=== PATIENT | male | born 1935 | race Caucasian/White ===

== ENCOUNTER 2016-05-11 13:35 | Inpatient (IN) | payer MEDICARE, BC ==
[~2016-05-11] VITALS: Ht 175.3 cm; Wt 80.6 kg
[2016-05-11] MEDS: HEPARIN SOD (PORCINE) 5000 UNITS/ML VIAL SC SCH (00:34)
[~2016-05-11 13:35] MED LIST: /METO25TAB PO; /WARF3TA PO; ACET-654 PO; ACET50TAOT PO; ALLO100T PO; ALLO10TA PO; AMIO20TA PO; AMIO400T PO; AMLO10TA2 PO; AMLO5TAB2 PO; ASPI81TA60 PO; ATOR40TA PO; B-12500T2 PO; CAPT62TA PO; CARV12.5 PO; CARV3.12 PO; CARV6.25 PO; CEFT500T PO; CENT1TAB PO; COLA50CA3 PO; ECOT81TA2 PO; ELIQ5TAB PO; FINA5TAB2 PO; FLOM5CAP PO; FLUO1CRE2 TOP; GLIP10TA6 PO; GLIP2.5T2 PO; GLUC5TAB3 PO; ISOS20TA2 PO; ISOS20TAB PO; LASI40TA PO; LEVO25TA5 PO; LEVO50TA45 PO; LIPI20TA PO; LISI5TAB PO; MAGN64TASA PO; MECL25CH PO; METO-207 PO; NITR4TASL SL; PERI4TAB PO; PROS5TAB PO; PROSCAR PO; PYRI100T2 PO; SIMV20TA2 PO; SIMV40TA2 PO; SITA50TAB PO; SPIR25TA2 PO; TAMS0.4C PO; TOPR25TA PO; TRAD5TAB PO; VIBR100C PO; VITA100072 PO; VITA250L PO; VITA500019 PO; ZITH250T PO; ZYLO100T PO
[2016-05-11 14:19] LABS: BASO % 0.7 % (0.0-1.0); EOS # 0.3 K/mm3 (0.0-0.50); EOS % 3.3 % (0.0-3.0); LARGE UNSTAINED CELL # 0.2 K/mm3 (0.0-0.4); LARGE UNSTAINED CELL % 1.9 % (0.0-4.0); LYMPH # 1.6 K/mm3 (1.5-4.5); LYMPH % 19.7 % (24.0-44.0); MEAN CORPUSCULAR HGB CONC 34.4 g/dl (32.0-36.5); MEAN CORPUSCULAR VOLUME 101.8 fl (80.0-96.0); MONO # 0.4 K/mm3 (0.0-0.8); MONO % 5.1 % (0.0-5.0); NEUTROPHILS # 5.5 K/mm3 (1.8-7.7); NEUTROPHILS % 69.2 % (36.0-66.0); PLATELET COUNT, AUTOMATED 165 k/mm3 (150-450); RED CELL DISTRIBUTION WIDTH 13.1 % (11.5-14.5); WHITE BLOOD COUNT 7.9 K/mm3 (4.0-10.0)
[2016-05-11 14:49] LABS: ALBUMIN 3.3 GM/DL (3.2-5.2); ALBUMIN/GLOBULIN RATIO 0.89 (1.00-1.93); BILIRUBIN,DIRECT 0.1 MG/DL (0.0-0.2); BILIRUBIN,TOTAL 0.5 MG/DL (0.2-1.0); CALCIUM LEVEL 8.8 MG/DL (8.8-10.2); CREATININE FOR GFR 2.06 MG/DL (0.70-1.30); GLOMERULAR FILTRATION RATE 33.3 (>42)
[2016-05-11 14:57] LABS: POTASSIUM SERUM 5.2 MEQ/L (3.5-5.1)
[2016-05-11] MEDS ORDERED: GASTROGRAFIN SOLUTION 30ML (Q9963) As Ordered ONE (15:35)
[2016-05-11 17:05] LABS: YEAST LIKE CELL URINE AUTO SMALL
--- NOTE | 2016-05-11 18:50 | REPUSA ---
CLINICAL HISTORY: Abdominal pain. TECHNIQUE: Multiple axial, sagittal and coronal CT images were obtained through the abdomen and pelvi s without administration of oral or IV contrast material. COMMENTS: The liver is of uniform attenuation without mass or defect. There is no intra or extrahepatic biliary ductal dilatation. The spleen is normal. The gallbladder is within normal limits. The pancreas is of normal contour and attenuation characteristics. There is no evidence of adrenal mass. The kidneys are normal in size, shape and configuration. No renal or ureteral calculi are identified. There is no hydroureter or hydronephrosis. There is no evidence for appendicitis. There is no bowel wall thickening. No evidence for small or la rge bowel obstruction. Sigmoid diverticulosis is noted. There is no evidence of abdominal ascites o r lymphadenopathy. There is no evidence of intrinsic or extrinsic bladder mass. There is no pelvic ascites or lymphadeno cara. Prostate is moderately enlarged. Images of the lung bases show no evidence of pleural or parenchymal mass. There are no pleural effusi ons. The bony structures are free of lytic or blastic lesions. IMPRESSION: No acute abdominal or pelvic pathology. Thank you for your kind referral of this patient.
[2016-05-11] MEDS ORDERED: DRIS50002 PO (20:05)
[2016-05-11] MEDS ORDERED: LANTINJ4 SC (20:05)
[2016-05-11] MEDS ORDERED: TUMS1000 PO (20:05)
[2016-05-11] MEDS ORDERED: AMLO2.5T PO (20:06)
[2016-05-11] MEDS ORDERED: KEFL500C7 PO (20:06)
[2016-05-11] MEDS ORDERED: CARV6.25 PO (20:06)
[2016-05-11] MEDS ORDERED: VANCOMYCIN HCL 750 MG, VIAL MATE ADAPTER 1 EACH in D5W 250 ML IV SCH (20:30)
[2016-05-11] MEDS ORDERED: hydrALAZINE INJ 20 MG/ML VIAL IV PRN (20:30)
--- NOTE | 2016-05-11 20:50 | REPUSA ---
CLINICAL HISTORY: Neck pain. TECHNIQUE: Multiple axial images were obtained through the cervical spine. Images were also reconstru cted in coronal and sagittal planes. The study was performed without IV contrast. COMMENTS: There is no fracture or spondylolisthesis visualized. The paraspinal soft tissues are unremarkable. T here are no lytic or blastic lesions. Straightening of cervical lordosis is seen, suggesting muscular spasm. There is evidence of moderate to severe multilevel disk disease, demonstrated by disc space height loss, osteophytosis and endplate sclerosis. IMPRESSION: 1. No fracture or spondylolisthesis. 2. Straightening of cervical lordosis is seen, suggesting muscular spasm. 3. Multilevel spondylosis. Thank you for your kind referral of this patient.
[2016-05-11] MEDS ORDERED: ONDANSETRON 4MG/2ML VIAL (J2405) IV PRN (21:00)
[2016-05-11] MEDS ORDERED: ATORVASTATIN 20 MG TAB PO SCH (21:00)
[2016-05-11] MEDS: HumaLOG INSULIN (NovoLOG) PER UNIT SC SCH (21:00)
[2016-05-11] MEDS ORDERED: NS 0.45% 1,000 ML IV SCH (21:00)
[2016-05-11] MEDS ORDERED: DEXTROSE 50% 50 ML SYRINGE IV PRN (21:00)
[2016-05-11] MEDS ORDERED: GLUCOSE 4 GM CHEW TABLET PO PRN (21:00)
[2016-05-11] MEDS ORDERED: GLUCAGON FOR INJ 1 MG VIAL (J1610) SC PRN (21:00)
[2016-05-11] MEDS ORDERED: cefTRIAXone SOD 2 GM in D5W MINI-BAG PLUS 50 ML IV SCH (22:00)
[2016-05-11 22:56] LABS: ABG BASE EXCESS -1.9 (-2.0-2.0); ABG HCO3 21.7 MEQ/L (22.0-26.0); ABG PARTIAL PRESSURE CO2 33.4 mmHg (35.0-45.0); ABG PARTIAL PRESSURE O2 84.8 mmHg (75.0-100.0); ABG STANDARD HCO3 22.9 MEQ/L (22.0-26.0); ABG TOTAL CO2 22.7 MEQ/L (23.0-31.0)
--- NOTE | 2016-05-11 22:56 | EDDOCDS ---
Physician Documentation [facility] Name: Rickey Ibanez Age: 81 yrs Sex: Male : 1935 Arrival Date: 05/11/2016 Time: 13:35 Bed 12 Private MD: Sterling Torres E. Disposition: 05/11/16 19:14 Hospitalization ordered by Palak Brown for Inpatient Admission. Preliminary diagnosis are Altered mental status, unspecified, Essential (primary) hypertension - Hypertensive Urgency. - Bed requested for PCU. - Status is Inpatient Admission. jp6 - Condition is Stable. - Problem is new. - Symptoms are unchanged. Historical: - Allergies: no known allergies; - Home Meds: 1. aspirin 81 mg oral TbEC 1 tab once daily 2. Eliquis 5 mg oral tab 1 tab 2 times per day 3. Nitrostat 0.4 mg SL subl 1 tab every 5 minutes as needed 4. levothyroxine 25 mcg Oral cap 1 cap once daily 5. amiodarone 200 mg Oral tab 1 tab once daily 6. finasteride 5 mg oral tab 1 tab once daily 7. glipizide 10 mg Oral tab 1 tab 2 times per day 8. Tradjenta 5 mg oral tab 1 tab once daily 9. atorvastatin 40 mg oral tab 1 tab nightly 10. Drisdol 50,000 unit Oral cap 1 cap once wkly 11. tamsulosin 0.4 mg oral cp24 1 cap once daily 12. Tums Ultra 400 mg (1,000 mg) oral chew twice a day 13. Vitamin B-12 1,000 mcg Oral TbER daily 14. allopurinol 100 mg Oral tab 1 tab once daily 15. Lasix 40 mg Oral tab 1 tab once daily if weight is >169 pounds 16. spironolactone 25 mg Oral tab 0.5 tab once daily 17. Mag 64 64 mg oral TbER 2 tab daily 18. carvedilol 6.25 mg oral tab 1 tab 2 times per day 19. amlodipine 2.5 mg oral tab 1 tab once daily 20. captopril 12.5 mg Oral tab 0.5 tab daily 21. Keflex 500 mg Oral cap 1 cap twice a day - PMHx: Atrial Fib; CHF; Diabetes - NIDDM: controlled; MA; PE; Pneumonia; DVT; Hypertension; Implanted AICD; CAD; hyperlipidemia; BPH; Chronic Renal Insufficiency; CVA; Carotid Stenosis; - PSHx: Carotid surgery (2014); Cataract Surgery- Bilateral; - Social history: Smoking status: Patient states former smoker of tobacco. No barriers to communication noted, The patient speaks fluent [place], Speaks appropriately for age. - Family history: Not pertinent. - : The pt / caregiver states he / she is on anticoagulants[facility] members. - Exposure Risk Screening:: None identified. Vital Signs: 05/11 13:37 BP 163 / 79; Pulse 56; Resp 18; Temp 97.7(O); Pulse Ox 100% on R/A; Weight 82.1 kg / dd6 181 lbs (R); 13:55 BP 182 / 78 (auto/); pml 13:56 Pulse 54 MON; Pulse Ox 100% ; pml 14:10 Pulse 52 MON; Pulse Ox 99% ; pml 14:10 BP 184 / 84 (auto/); pml 14:25 Pulse 54 MON; pml 14:25 BP 160 / 74 (auto/); pml 14:40 BP 151 / 72 (auto/); pml 14:41 Pulse 50 MON; Pulse Ox 100% ; pml 14:55 Pulse 52 MON; pml 14:55 BP 163 / 125 (auto/); pml 15:10 Pulse 54 MON; Pulse Ox 100% ; pml 15:10 BP 205 / 86 (auto/); pml 15:40 Pulse 60 MON; Pulse Ox 99% ; pml 15:40 BP 196 / 83 (auto/); pml 15:45 BP 184 / 92 LA (man/reg); pml 15:55 Pulse 44 MON; Pulse Ox 100% ; pml 15:55 BP 192 / 79 (auto/); pml 16:08 Pulse 56 MON; Pulse Ox 98% ; pml 16:10 BP 184 / 126 (auto/); pml 16:25 Pulse 48 MON; Pulse Ox 99% ; pml 16:25 BP 168 / 72 (auto/); pml 16:40 Pulse 48 MON; Pulse Ox 99% ; pml 16:40 BP 169 / 76 (auto/); pml 16:55 Pulse 50 MON; Pulse Ox 99% ; pml 16:55 BP 179 / 82 (auto/); pml 17:10 BP 181 / 83 (auto/); pml 17:13 Pulse 52 MON; Pulse Ox 98% ; pml 17:40 Pulse 52 MON; pml 17:40 BP 198 / 91 (auto/); pml 18:15 BP 145 / 84 (auto/); pml 19:15 BP 157 / 70 (auto/); jp6 19:15 Pulse 44 MON; jp6 19:15 Resp 18; Temp 98(O); Pulse Ox 98% on R/A; Pain 0/10; jp6 19:16 Pulse 50 MON; jp6 19:30 BP 162 / 68 (auto/); jp6 19:31 Pulse 50 MON; jp6 20:00 BP 151 / 63 (auto/); jp6 20:15 BP 189 / 79 (auto/); jp6 20:19 Pulse 44 MON; Pulse Ox 98% ; jp6 21:34 BP 183 / 80 (auto/); jp6 21:40 Pulse 50 MON; Pulse Ox 98% ; jp6 21:40 Resp 16; Temp 98.6; Pulse Ox 98% on R/A; Pain 0/10; jp6 MDM: 14:11 Fur Coat Sewer/Pulse Ox/q 15 min VS ordered. br1 14:11 Accucheck ordered. br1 14:11 IV Saline Lock ordered. br1 14:11 Rhythm Strip to chart ordered. br1 14:12 CT Head Without Contrast Ordered. EDMS 14:13 CBC with Diff Ordered. EDMS 14:13 Cardiac Injury Profile Ordered. EDMS 14:13 Liver Profile Ordered. EDMS 14:13 MED Profile Ordered. EDMS 14:13 Thyroid Stimulating Hormone Ordered. EDMS 14:13 Troponin Ordered. EDMS 14:13 Urinalysis Ordered. EDMS 14:13 Urine Culture Ordered. EDMS 14:13 Chest, 1 View Ordered. EDMS 14:13 ECG WITH READING ER PHYS+CARDIAG ordered. EDMS 14:16 LIPASE Ordered. EDMS 14:38 CBC with Diff Reviewed. br1 15:26 Cardiac Injury Profile Reviewed. br1 15:26 Liver Profile Reviewed. br1 15:26 MED Profile Reviewed. br1 15:26 Thyroid Stimulating Hormone Reviewed. br1 15:26 Troponin Reviewed. br1 15:26 LIPASE Reviewed. br1 15:28 [facility] Payment Agreement was scanned into [employer] and attached to record. jp5 15:28 Financial registration complete. jp5 15:30 Recheck B/P ordered. br1 15:31 CT ABD & PELVIS: Oral Contrast Only Ordered. EDMS 16:17 Labetalol 10 mg IVP at bolus once over 2 mins ordered. br1 16:28 Labetalol 10 mg IVP at bolus once over 2 mins ordered. pml 17:09 Urinalysis Reviewed. br1 20:02 CT Spine,cervical w/o contrast Ordered. EDMS 20:03 Admission Orders was scanned into [employer] and attached to record. tmm1 20:06 ECG WITH READING ER PHYS ordered. EDMS 20:24 RENAL US Ordered. EDMS 20:25 OSMOLALITY,URINE Ordered. EDMS 20:26 SODIUM,RANDOM URINE Ordered. EDMS 20:26 CHLORIDE,RANDOM URINE Ordered. EDMS 20:26 POTASSIUM,RANDOM URINE Ordered. EDMS 20:26 TOTAL PROTEIN,RANDOM URINE Ordered. EDMS 20:26 CREATININE,RANDOM URINE Ordered. EDMS 20:26 AMMONIA Ordered. EDMS 20:26 ARTERIAL BLOOD GAS Ordered. EDMS 20:26 BLOOD CULTURES Ordered. EDMS 20:26 BLOOD CULTURES Ordered. EDMS 20:28 CARDIAC MARKER PANEL Ordered. EDMS 20:28 CARDIAC MARKER PANEL Ordered. EDMS 20:52 PHYSICAL THERAPY EVAL & TREAT ordered. EDMS 20:52 FLUORO GUID FOR NEEDLE PLACEMT Ordered. EDMS 20:52 ELECTROCARDIOGRAM ADULT ordered. EDMS 20:53 PROTHROMBIN TIME PROFILE\E\INR Ordered. EDMS 20:53 C REACTIVE PROTEIN QUANTITATIV Ordered. EDMS 20:53 COMPLETE BLOOD COUNT Ordered. EDMS 20:53 BASIC METABOLIC PROFILE Ordered. EDMS 20:53 MAGNESIUM LEVEL Ordered. EDMS 20:53 HEMOGLOBIN A1C Ordered. EDMS 20:55 CONSISTENT CARBOHYDRATES ordered. EDMS 20:57 Admission / Observation Status ordered. EDMS Point of Care Testing: Blood Glucose: 14:15 Blood Glucose: 218 mg/dL; pml Ranges: Administered Medications: 16:28 Drug: Labetalol 10 mg [labetalol 5 mg/mL intravenous solution (2 mL)] {Note: 208/85 .} pml Route: IVP; Rate: bolus; Infused Over: 2 mins; Site: right antecubital; Signatures: Dispatcher [employer] EDMS Wade Mallory RN RN po Barney, Michael B, RN RN mlb1 Robby Hand MD MD br1 Karey Kelley RN RN pml McLear, Roslyn, SLITTER AND REWINDER SLITTER AND REWINDER tmm1 Maddy Aguilar jp5 Bhavna Bartholomew,RN RN jp6 The chart was reviewed and I authenticate all verbal orders and agree with the evaluation and treatment provided.Corrections: (The following items were deleted from the chart) 14:15 13:44 PSHx: defibulator; mlb1 po 14:16 14:13 LIPASE+LAB ordered. EDMS EDMS Attachments: 15:28 [facility] Payment Agreement jp5 20:03 Admission Orders tmm1 MTDD
--- NOTE | 2016-05-11 22:56 | EDDOCDS ---
Nurse's Notes [facility] Name: Rickey Ibanez Age: 81 yrs Sex: Male : 1935 Arrival Date: 05/11/2016 Time: 13:35 Bed 12 Private MD: Sterling Torres E. Diagnosis: Altered mental status, unspecified;Essential (primary) hypertension-Hypertensive Urgency Presentation: 05/11 13:39 Presenting complaint: states: Confusion memory loss for the past four days seen at [facility] Torres's office on Friday and again yesterday started on an antibiotic for UTI and insulin. states "he's not getting any better". Adult Sepsis Screening: Patient has new or worsening altered mentation (1 point). Patient's respiratory rate is less than 22. Systolic blood pressure is greater than 100. Patient has a qSOFA score of 0- Negative Sepsis Screen. 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 Suicide/Homicide risk assessment- the patient denies having any suicidal and/or homicidal ideations. Transition of care: patient was not received from another setting of care. 13:39 Acuity: SUZY Level 3 b1 13:39 Method Of Arrival: Walkin/Carried/Asstd mlb1 Triage Assessment: 13:44 General: Appears in no apparent distress, Behavior is appropriate for age, cooperative. mlb1 Pain: Denies pain. Neurological: Level of Consciousness is awake, alert, Oriented to person, place. Historical: - Allergies: no known allergies; - Home Meds: 1. aspirin 81 mg oral TbEC 1 tab once daily 2. Eliquis 5 mg oral tab 1 tab 2 times per day 3. Nitrostat 0.4 mg SL subl 1 tab every 5 minutes as needed 4. levothyroxine 25 mcg Oral cap 1 cap once daily 5. amiodarone 200 mg Oral tab 1 tab once daily 6. finasteride 5 mg oral tab 1 tab once daily 7. glipizide 10 mg Oral tab 1 tab 2 times per day 8. Tradjenta 5 mg oral tab 1 tab once daily 9. atorvastatin 40 mg oral tab 1 tab nightly 10. Drisdol 50,000 unit Oral cap 1 cap once wkly 11. tamsulosin 0.4 mg oral cp24 1 cap once daily 12. Tums Ultra 400 mg (1,000 mg) oral chew twice a day 13. Vitamin B-12 1,000 mcg Oral TbER daily 14. allopurinol 100 mg Oral tab 1 tab once daily 15. Lasix 40 mg Oral tab 1 tab once daily if weight is >169 pounds 16. spironolactone 25 mg Oral tab 0.5 tab once daily 17. Mag 64 64 mg oral TbER 2 tab daily 18. carvedilol 6.25 mg oral tab 1 tab 2 times per day 19. amlodipine 2.5 mg oral tab 1 tab once daily 20. captopril 12.5 mg Oral tab 0.5 tab daily 21. Keflex 500 mg Oral cap 1 cap twice a day - PMHx: Atrial Fib; CHF; Diabetes - NIDDM: controlled; AL; PE; Pneumonia; DVT; Hypertension; Implanted AICD; CAD; hyperlipidemia; BPH; Chronic Renal Insufficiency; CVA; Carotid Stenosis; - PSHx: Carotid surgery (2013); Cataract Surgery- Bilateral; - Social history: Smoking status: Patient states former smoker of tobacco. No barriers to communication noted, The patient speaks fluent Luxembourgish, Speaks appropriately for age. - Family history: Not pertinent. - : The pt / caregiver states he / she is on anticoagulants: EliquOpinewsTV Home medication list is obtained from family members. - Exposure Risk Screening:: None identified. Screenin:20 Screening information is obtained from the patient. Fall risk: No risks identified. pml Assistance ADL's: requires no assistance with activities of daily living. Abuse/DV Screen: The patient / caregiver reports he/she is: not in a situation that causes fear, pain or injury. Nutritional screening: No deficits noted. Advance Directives: Currently, there is no health care proxy. home support is adequate. Assessment: 14:20 General: Appears in no apparent distress, Behavior is appropriate for age, cooperative. pml Pain: Denies pain. Neurological: Level of Consciousness is awake, alert, Oriented to person, place, time. Cardiovascular: Capillary refill < 3 seconds Rhythm is sinus rhythm No ectopy. Respiratory: Airway is patent Respiratory effort is even, unlabored. GI: Abdomen is non- distended. Derm: Skin is pink, warm & dry. 15:24 General: resting on stretcher, no apparent distress. resps easy and unlabored, skin pml p/w/d. sinus rhythm on monitor. family at bedside. voices no complaints. . 16:28 General: resting on stretcher, no apparent distress. voices no complaints. a&ox3 but pml remains confused as per reason for visit and requires reorientation to plan of care. family at bedside. sinus rhythm on monitor. skin p/w/d. denies pain. . 17:41 General: Pt to CT - tolerated without complaints, resps easy and unlabored, skin p/w/d .pml 18:16 General: Appears in no apparent distress, Behavior is appropriate for age, cooperative. pml Pain: Denies pain. Neurological: Level of Consciousness is awake, alert, Oriented to person, place, time. Cardiovascular: Capillary refill < 3 seconds Rhythm is sinus rhythm No ectopy. Derm: Skin is pink, warm & dry. 19:30 Reassessment: Patient appears in no apparent distress at this time. Patient denies pain jp6 at this time. General: Appears in no apparent distress, comfortable, Behavior is appropriate for age, cooperative. Pain: Denies pain. Neurological: Level of Consciousness is awake, alert, Oriented to person, place, time. EENT: No deficits noted. Cardiovascular: Capillary refill < 3 seconds Rhythm is sinus rhythm No ectopy. Respiratory: Airway is patent Respiratory effort is even, unlabored, Respiratory pattern is regular, symmetrical, Breath sounds are clear bilaterally. GI: Abdomen is flat, non- distended. : No deficits noted. Derm: Skin is pink, warm & dry. Musculoskeletal: No deficits noted. 20:30 Reassessment: Patient appears in no apparent distress at this time. Patient denies pain jp6 at this time. Neurological: Level of Consciousness is awake, alert, confused, Oriented to person, place, time. Cardiovascular: Rhythm is sinus rhythm No ectopy. Respiratory: Respiratory effort is even, unlabored. 21:42 Reassessment: Patient appears in no apparent distress at this time. Neurological: Level jp6 of Consciousness is awake, alert, confused. Respiratory: Airway is patent Respiratory effort is even, unlabored, Respiratory pattern is regular, symmetrical. Derm: Skin is pink, warm & dry. Vital Signs: 13:37 BP 163 / 79; Pulse 56; Resp 18; Temp 97.7(O); Pulse Ox 100% on R/A; Weight 82.1 kg (R); dd6 13:55 BP 182 / 78 (auto/); pml 13:56 Pulse 54 MON; Pulse Ox 100% ; pml 14:10 Pulse 52 MON; Pulse Ox 99% ; pml 14:10 BP 184 / 84 (auto/); pml 14:25 Pulse 54 MON; pml 14:25 BP 160 / 74 (auto/); pml 14:40 BP 151 / 72 (auto/); pml 14:41 Pulse 50 MON; Pulse Ox 100% ; pml 14:55 Pulse 52 MON; pml 14:55 BP 163 / 125 (auto/); pml 15:10 Pulse 54 MON; Pulse Ox 100% ; pml 15:10 BP 205 / 86 (auto/); pml 15:40 Pulse 60 MON; Pulse Ox 99% ; pml 15:40 BP 196 / 83 (auto/); pml 15:45 BP 184 / 92 LA (man/reg); pml 15:55 Pulse 44 MON; Pulse Ox 100% ; pml 15:55 BP 192 / 79 (auto/); pml 16:08 Pulse 56 MON; Pulse Ox 98% ; pml 16:10 BP 184 / 126 (auto/); pml 16:25 Pulse 48 MON; Pulse Ox 99% ; pml 16:25 BP 168 / 72 (auto/); pml 16:40 Pulse 48 MON; Pulse Ox 99% ; pml 16:40 BP 169 / 76 (auto/); pml 16:55 Pulse 50 MON; Pulse Ox 99% ; pml 16:55 BP 179 / 82 (auto/); pml 17:10 BP 181 / 83 (auto/); pml 17:13 Pulse 52 MON; Pulse Ox 98% ; pml 17:40 Pulse 52 MON; pml 17:40 BP 198 / 91 (auto/); pml 18:15 BP 145 / 84 (auto/); pml 19:15 BP 157 / 70 (auto/); jp6 19:15 Pulse 44 MON; jp6 19:15 Resp 18; Temp 98(O); Pulse Ox 98% on R/A; Pain 0/10; jp6 19:16 Pulse 50 MON; jp6 19:30 BP 162 / 68 (auto/); jp6 19:31 Pulse 50 MON; jp6 20:00 BP 151 / 63 (auto/); jp6 20:15 BP 189 / 79 (auto/); jp6 20:19 Pulse 44 MON; Pulse Ox 98% ; jp6 21:34 BP 183 / 80 (auto/); jp6 21:40 Pulse 50 MON; Pulse Ox 98% ; jp6 21:40 Resp 16; Temp 98.6; Pulse Ox 98% on R/A; Pain 0/10; jp6 Vitals: 13:37 Log In Time: May 11, 2016 at 13:35. RN notified that patient meets Red Flag dd6 criteria. ED Course: 13:36 Patient visited by Finn Mojica PCA. dd6 13:36 Patient moved to Waiting dd6 13:37 Sterling Torres is Private Physician. dd6 13:39 Patient visited by Tian Woody, FLAKITA. mlb1 13:42 Triage Initiated mlb1 13:45 Patient visited by Tian Woody, RN. mlb1 13:46 Karey Kelley RN is Primary Nurse. mlb1 13:46 Patient moved to 12 mlb1 14:03 Robby Hand MD is Attending Physician. br1 14:03 Inserted saline lock: 20 gauge in right antecubital area and blood collected. rs3 14:09 Patient visited by Robby Hand MD. br1 14:20 The patient / caregiver is instructed regarding the plan of care and ED course. Patient pml has correct armband on for positive identification. Placed in gown. Bed in low position. Call light in reach. Side rails up X2. quickbooks bookkeeper on. Pulse ox on. NIBP on. 14:22 Patient visited by Karey Kelley RN. pml 15:15 EKG done. (by ED staff). Reviewed by Robby Hand MD. pml 15:25 Patient visited by Karey Kelley RN. pml 15:28 [facility] [place] Agreement was scanned into [employer] and attached to record. jp5 15:46 Patient visited by Karey Kelley RN. pml 16:29 Patient visited by Karey Kelley,FLAKITA. pml 17:43 Patient visited by Karey Kelley RN. pml 18:17 Patient visited by Karey Kelley,FLAKITA. pml 19:14 Palak Brown is Hospitalizing Provider. br1 19:36 CT ABD & PELVIS: Oral Contrast Only Returned. EDMS 20:03 Admission Orders was scanned into [employer] and attached to record. tmm1 21:16 CT Spine,cervical w/o contrast Returned. EDMS 22:52 ARTERIAL BLOOD GAS Sent. jc3 22:54 No procedures done that require assistance. jp6 Administered Medications: 16:28 Drug: Labetalol 10 mg [labetalol 5 mg/mL intravenous solution (2 mL)] {Note: 208/85 .} pml Route: IVP; Rate: bolus; Infused Over: 2 mins; Site: right antecubital; Point of Care Testing: Blood Glucose: 14:15 Blood Glucose: 218 mg/dL; pml Ranges: RT: 22:52 ABG's drawn from right radial artery pressure held for 5 minutes no bleeding noted jc3 pressure bandage applied specimen sent pt. tolerated well. Order Results: Lab Order: CBC with Diff; SPEC'M 05/11/16 14:01 Test: WHITE BLOOD COUNT; Value: 7.9; Range: 4.0-10.0; Units: K/mm3; Status: F Test: RED BLOOD COUNT; Value: 3.76; Range: 4.30-6.10; Abnormal: Below low normal; Units: M/mm3; Status: F Test: HEMOGLOBIN; Value: 13.1; Range: 14.0-18.0; Abnormal: Below low normal; Units: g/dl; Status: F Test: HEMATOCRIT; Value: 38.2; Range: 42.0-52.0; Abnormal: Below low normal; Units: %; Status: F Test: MEAN CORPUSCULAR VOLUME; Value: 101.8; Range: 80.0-96.0; Abnormal: Above high normal; Units: fl; Status: F Test: MEAN CORPUSCULAR HEMOGLOBIN; Value: 35.0; Range: 27.0-33.0; Abnormal: Above high normal; Units: pg; Status: F Test: MEAN CORPUSCULAR HGB CONC; Value: 34.4; Range: 32.0-36.5; Units: g/dl; Status: F Test: RED CELL DISTRIBUTION WIDTH; Value: 13.1; Range: 11.5-14.5; Units: %; Status: F Test: PLATELET COUNT, AUTOMATED; Value: 165; Range: 150-450; Units: k/mm3; Status: F Test: NEUTROPHILS %; Value: 69.2; Range: 36.0-66.0; Abnormal: Above high normal; Units: %; Status: F Test: LYMPH %; Value: 19.7; Range: 24.0-44.0; Abnormal: Below low normal; Units: %; Status: F Test: MONO %; Value: 5.1; Range: 0.0-5.0; Abnormal: Above high normal; Units: %; Status: F Test: EOS %; Value: 3.3; Range: 0.0-3.0; Abnormal: Above high normal; Units: %; Status: F Test: BASO %; Value: 0.7; Range: 0.0-1.0; Units: %; Status: F Test: LARGE UNSTAINED CELL %; Value: 1.9; Range: 0.0-4.0; Units: %; Status: F Test: NEUTROPHILS #; Value: 5.5; Range: 1.8-7.7; Units: K/mm3; Status: F Test: LYMPH #; Value: 1.6; Range: 1.5-4.5; Units: K/mm3; Status: F Test: MONO #; Value: 0.4; Range: 0.0-0.8; Units: K/mm3; Status: F Test: EOS #; Value: 0.3; Range: 0.0-0.50; Units: K/mm3; Status: F Test: BASO #; Value: 0.0; Range: 0.0-0.2; Units: K/mm3; Status: F Test: LARGE UNSTAINED CELL #; Value: 0.2; Range: 0.0-0.4; Units: K/mm3; Status: F Lab Order: Cardiac Injury Profile; SPEC'M 05/11/16 14:01 Test: CPK CREATINE PHOSPHOKINASE; Value: 266; Range: 39-308; Units: U/L; Status: F Test: CK-MB VALUE MASS; Value: 4.0; Range: 0.0-3.6; Abnormal: Above high normal; Units: NG/ML; Status: F Test: MB/CK RELATIVE INDEX; Value: 1.50; Range: < OR =4; Status: F Test Note: ; DIAGNOSIS CRITERIA MMB ng/ml Relative Index (RI) NON-AMI < or = 5 N/A [place] > 5 < or = 4 AMI > 5 > 4 Lab Order: Liver Profile; [facility] 05/11/16 14:01 Test: AST/SGOT; Value: 79; Range: 15-37; Abnormal: Above high normal; Units: U/L; Status: F Test: ALT/SGPT; Value: 71; Range: 12-78; Units: U/L; Status: F Test: ALKALINE PHOSPHATASE; Value: 80; Range: 45-117; Units: U/L; Status: F Test: BILIRUBIN,TOTAL; Value: 0.5; Range: 0.2-1.0; Units: MG/DL; Status: F Test: BILIRUBIN,DIRECT; Value: 0.1; Range: 0.0-0.2; Units: MG/DL; Status: F Test: TOTAL PROTEIN; Value: 7.0; Range: 6.4-8.2; Units: GM/DL; Status: F Test: ALBUMIN; Value: 3.3; Range: 3.2-5.2; Units: GM/DL; Status: F Test: ALBUMIN/GLOBULIN RATIO; Value: 0.89; Range: 1.00-1.93; Abnormal: Below low normal; Status: F Lab Order: MED Profile; [facility] 05/11/16 14:01 Test: GLUCOSE, FASTING; Value: 254; Range: 83-110; Abnormal: Above high normal; Units: MG/DL; Status: F Test: BLOOD UREA NITROGEN; Value: 35; Range: 7-18; Abnormal: Above high normal; Units: MG/DL; Status: F Test: CREATININE FOR GFR; Value: 2.06; Range: 0.70-1.30; Abnormal: Above high normal; Units: MG/DL; Status: F Test: GLOMERULAR FILTRATION RATE; Value: 33.3; Range: >42; Abnormal: Below low normal; Status: F Test: SODIUM LEVEL; Value: 141; Range: 136-145; Units: MEQ/L; Status: F Test: POTASSIUM SERUM; Value: 5.2; Range: 3.5-5.1; Abnormal: Above high normal; Units: MEQ/L; Status: F Test: CHLORIDE LEVEL; Value: 109; Range: 98-107; Abnormal: Above high normal; Units: MEQ/L; Status: F Test: CARBON DIOXIDE LEVEL; Value: 24; Range: 21-32; Units: MEQ/L; Status: F Test: ANION GAP; Value: 8; Range: 8-16; Units: MEQ/L; Status: F Test: CALCIUM LEVEL; Value: 8.8; Range: 8.8-10.2; Units: MG/DL; Status: F Test Note: ; Units are mL/min/1.73 m2 Chronic Kidney Disease Staging per NKF: Stage I & II GFR >=60 Normal to Mildly Decreased Stage III GFR 30-59 Moderately Decreased Stage IV GFR 15-29 Severely Decreased Stage V GFR <15 Very Little GFR Left ESRD GFR <15 on BLENDER SNUFF Lab Order: Thyroid Stimulating Hormone; [facility] 05/11/16 14:01 Test: THYROID STIMULATING HORMONE; Value: 3.180; Range: 0.358-3.740; Units: uIU/ML; Status: F Lab Order: Troponin; [facility] 05/11/16 14:01 Test: TROPONIN I; Value: 0.04; Range: < 0.10; Units: NG/ML; Status: F Test Note: ; Troponin I Reference Interval for O2 [place] LOCI: 99th Percentile= 0.00-0.045 ng/ml Risk Stratification: <= 0.10 ng/ml Decreased Risk for Adverse Clinical Events. 0.10-1.50 ng/ml Increased Risk for Adverse Clinical Events. Evaluation of additional criterion and/or repeat testing in 2-6 hours is suggested to rule out myocardial damage. >= 1.50 ng/ml Indicative of Myocardial Injury. Lab Order: Urinalysis; [facility] 05/11/16 16:23 Test: APPEARANCE, URINE; Value: CLEAR; Range: CLEAR; Status: F Test: COLOR, URINE; Value: YELLOW; Range: YELLOW; Status: F Test: PH,URINE; Value: 5.0; Range: 5.0-9.0; Units: UNITS; Status: F Test: SPECIFIC GRAVITY URINE AUTO; Value: 1.015; Range: 1.002-1.035; Status: F Test: PROTEIN, URINE AUTO; Value: 1+; Range: NEGATIVE; Abnormal: Above high normal; Units: mg/dL; Status: F Test: GLUCOSE, URINE (UA) AUTO; Value: 2+; Range: NEGATIVE; Abnormal: Above high normal; Units: mg/dL; Status: F Test: KETONE, URINE AUTO; Value: NEGATIVE; Range: NEGATIVE; Units: mg/dL; Status: F Test: UROBILINOGEN, URINE AUTO; Value: 0.2; Range: 0.0-2.0; Units: mg/dL; Status: F Test: BILIRUBIN, URINE AUTO; Value: NEGATIVE; Range: NEGATIVE; Status: F Test: NITRITE, URINE AUTO; Value: NEGATIVE; Range: NEGATIVE; Status: F Test: LEUKOCYTE ESTERASE, URINE AUTO; Value: NEGATIVE; Range: NEGATIVE; Status: F Test: BLOOD, URINE BLOOD; Value: 1+; Range: NEGATIVE; Abnormal: Above high normal; Status: F Test: WBC, URINE AUTO; Value: 1; Range: 0-3; Units: /HPF; Status: F Test: RBC, URINE AUTO; Value: 3; Range: 0-3; Units: /HPF; Status: F Test: BACTERIA, URINE AUTO; Value: NEGATIVE; Range: NEGATIVE; Status: F Test: YEAST LIKE CELL URINE AUTO; Value: SMALL; Range: NONE; Abnormal: Above high normal; Status: F Test: SQUAMOUS EPITHELIAL CELL UR AU; Value: 0; Range: 0-6; Units: /HPF; Status: F Test: HYALINE CAST, URINE AUTO; Value: 0; Range: 0-1; Units: /LPF; Status: F Lab Order: LIPASE; [facility] 05/11/16 14:01 Test: LIPASE; Value: 329; Range: 73-393; Units: U/L; Status: F Lab Order: AMMONIA; [facility] 05/11/16 20:43 Test: AMMONIA; Value: 32; Range: <32; Units: uMOL/L; Status: F Lab Order: CARDIAC MARKER PANEL; [facility] 05/11/16 20:43 Test: CPK CREATINE PHOSPHOKINASE; Value: 504; Range: 39-308; Abnormal: High; Units: U/L; Status: F Test: CK-MB VALUE MASS; Value: 9.9; Range: 0.0-3.6; Abnormal: Above high normal; Units: NG/ML; Status: F Test: MB/CK RELATIVE INDEX; Value: 1.96; Range: < OR =4; Status: F Test: TROPONIN I; Value: 0.04; Range: < 0.10; Units: NG/ML; Status: F Test Note: ; DIAGNOSIS CRITERIA MMB ng/ml Relative Index (RI) NON-AMI < or = 5 N/A [place] > 5 < or = 4 AMI > 5 > 4 Radiology Order: CT ABD & PELVIS: Oral Contrast Only Test: CT ABD & PELVIS: Oral Contrast Only REASON FOR EXAMINATION: LUQ, LLQ pain; ; CLINICAL HISTORY: Abdominal pain.; TECHNIQUE: Multiple axial, sagittal and coronal CT images were obtained through the abdomen and pelvi; s without administration of oral or IV contrast material.; COMMENTS:; The liver is of uniform attenuation without mass or defect. There is no intra or extrahepatic biliary; ductal dilatation. The spleen is normal. The gallbladder is within normal limits. The pancreas is of; normal contour and attenuation characteristics. There is no evidence of adrenal mass.; The kidneys are normal in size, shape and configuration. No renal or ureteral calculi are identified.; There is no hydroureter or hydronephrosis.; There is no evidence for appendicitis. There is no bowel wall thickening. No evidence for small or la; rge bowel obstruction. Sigmoid diverticulosis is noted. There is no evidence of abdominal ascites o; r lymphadenopathy.; There is no evidence of intrinsic or extrinsic bladder mass. There is no pelvic ascites or lymphadeno; cara. Prostate is moderately enlarged.; Images of the lung bases show no evidence of pleural or parenchymal mass. There are no pleural effusi; ons.; The bony structures are free of lytic or blastic lesions.; IMPRESSION:; No acute abdominal or pelvic pathology.; Thank you for your kind referral of this patient.; ; Radiology Order: CT Spine,cervical w/o contrast Test: CT Spine,cervical w/o contrast REASON FOR EXAMINATION: neck pain; ; CLINICAL HISTORY: Neck pain.; TECHNIQUE: Multiple axial images were obtained through the cervical spine. Images were also reconstru; cted in coronal and sagittal planes. The study was performed without IV contrast.; COMMENTS:; There is no fracture or spondylolisthesis visualized. The paraspinal soft tissues are unremarkable. T; here are no lytic or blastic lesions.; Straightening of cervical lordosis is seen, suggesting muscular spasm. There is evidence of moderate; to severe multilevel disk disease, demonstrated by disc space height loss, osteophytosis and endplate; sclerosis.; IMPRESSION:; 1. No fracture or spondylolisthesis.; 2. Straightening of cervical lordosis is seen, suggesting muscular spasm.; 3. Multilevel spondylosis.; Thank you for your kind referral of this patient.; ; Outcome: 19:14 Decision to Hospitalize by Provider. br1 22:54 Discharge Assessment: Patient awake and alert. confused, patient administered narcotics jp6 - no. The following High Risk Discharge criteria are identified: None. Admitted to PCU accompanied by nurse, accompanied by tech, via stretcher, on monitor, with chart. Condition: unchanged. CT Study completed. Admission hand-off: Report called to Gauri BOGGS. Property :Personal belongings accompany Pt. 22:55 Patient left the ED. jp6 Signatures: Dispatcher [employer] EDMS Wade Mallory,RN RN Tian Mishra RN RN mlb1 Robby Hand MD MD br1 Yonatan Silva jc3 Finn Mojica, INSTRUCTOR CREELER INSTRUCTOR CREELER dd6 Paola BirminghamRN RN rs3 Karey KelleyRN RN pml Roslyn Wilkinson, INSTRUCTOR CREELER INSTRUCTOR CREELER tmm1 Maddy Aguilar jp5 Bhavna Bartholomew,RN RN jp6 Corrections: (The following items were deleted from the chart) 13:45 13:39 Presenting complaint: states: Confusion memory loss for the past four days mlb1 seen at Dr.. Torres's office on Friday and again yesterday started on an antibiotic for UTI and insulin mlb1 14:15 13:44 PSHx: defibulator; mlb1 po MTDD
[2016-05-11 23:15] VITALS: BP 133/86
[2016-05-12] MEDS ORDERED: **hydrALAZINE HCL** 25 MG TAB NG SCH
[2016-05-12] MEDS: CARVedilol 6.25 MG TAB PO SCH ×3 (00:33→20:39)
[2016-05-12] MEDS: FINASTERIDE 5 MG TAB PO SCH ×2 (00:33→22:24)
[2016-05-12] MEDS: SENOKOT S TAB PO SCH ×3 (00:34→20:40)
[2016-05-12] MEDS: LEVEMIR (INSULIN DETEMIR) 1 UNITS/0.01ML SC SCH ×2 (00:34→20:40)
[2016-05-12] MEDS: CALCIUM CARBONATE 500 MG CHEW U/D PO SCH ×3 (00:34→20:39)
[2016-05-12] MEDS: TAMSULOSIN 0.4 MG CAP PO SCH ×2 (00:34→20:40)
[2016-05-12 01:50] VITALS: BP 130/63
[2016-05-12] MEDS: AMPICILLIN SOD 1 GM in D5W MINI-BAG PLUS 50 ML IV SCH ×2 (02:44→07:14)
[2016-05-12] MEDS: **hydrALAZINE HCL** 25 MG TAB PO SCH ×4 (03:03→20:40)
--- NOTE | 2016-05-12 03:10 | PHACANCOPD ---
PHARMACY VANCOMYCIN DOSING Pt Demographics Demographics Patient Age:81 , Weight:77.500 , Gender: male Adjusted Body Weight 75.26Date: 05/12/16, Adjusted Body Weight: [75.26] Kg Vancomycin Vancomycin Target Ranges: 10-20 mcg/ml Vancomycin Load Y/N: No Load Dose Date Time Vancomycin Load Dose: Date: Time: Vancomycin Dose Date: 05/12/16. Current Vancomycin Dose: [1gm q24] Intermittent Dosing?: No Labs Labs Laboratory Tests 05/11/16 14:01 Red Blood Count 3.76 L, Mean Corpuscular Volume 101.8 H, Mean Corpuscular Hemoglobin 35.0 H, Mean Corpuscular Hemoglobin Concent 34.4, Red Cell Distribution Width 13.1, Neutrophils (%) (Auto) 69.2 H, Lymphocytes (%) (Auto) 19.7 L, Monocytes (%) (Auto) 5.1 H, Eosinophils (%) (Auto) 3.3 H, Basophils (%) (Auto) 0.7, Neutrophils # (Auto) 5.5, Lymphocytes # (Auto) 1.6, Monocytes # ( Auto) 0.4, Eosinophils # (Auto) 0.3, Basophils # (Auto) 0.0 Micro Microbiology 05/11/16 Blood Culture, Received Pending 05/11/16 Blood Culture, Received Pending 05/11/16 Urine Culture, Received Pending Creatinine Clearance Date:05/12/16. Creatinine Clearance: [31.9]CALCULATED. Pending Labs Vancomycin trough due 05/13@1100 Assessment and Plan Maintaining Current Dose?: Yes Reason for dose change: No Dose Change Pharmacist Note Pharmacist Note Date: 05/12/16. 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
[2016-05-12 04:00] VITALS: BP 168/74
[2016-05-12 04:51] LABS: MEAN CORPUSCULAR HEMOGLOBIN 34.5 pg (27.0-33.0); MEAN CORPUSCULAR HGB CONC 33.8 g/dl (32.0-36.5); RED CELL DISTRIBUTION WIDTH 13.3 % (11.5-14.5); WHITE BLOOD COUNT 8.7 K/mm3 (4.0-10.0)
[2016-05-12 04:58] LABS: INR 1.4
[2016-05-12 05:08] LABS: ANION GAP 9 MEQ/L (8-16); BLOOD UREA NITROGEN 31 MG/DL (7-18); CALCIUM LEVEL 8.4 MG/DL (8.8-10.2); CARBON DIOXIDE LEVEL 26 MEQ/L (21-32); CHLORIDE LEVEL 109 MEQ/L (98-107); CREATININE FOR GFR 1.85 MG/DL (0.70-1.30); GLOMERULAR FILTRATION RATE 37.7 (>42); GLUCOSE, FASTING 182 MG/DL (83-110); MAGNESIUM LEVEL 2.2 MG/DL (1.8-2.4); POTASSIUM SERUM 4.6 MEQ/L (3.5-5.1); SODIUM LEVEL 144 MEQ/L (136-145)
[2016-05-12] MEDS: HEPARIN SOD (PORCINE) 5000 UNITS/ML VIAL SC SCH ×3 (05:25→22:25)
[2016-05-12] MEDS: LEVOTHYROXINE 0.05 MG TAB (50 MCG) PO SCH (05:25)
[2016-05-12 07:15] VITALS: BP 166/74
--- NOTE | 2016-05-12 08:04 | REP ---
CT BRAIN WITHOUT CONTRAST: 05/11/2016. Comparison: 05/10/2016, 01/25/2016. Clinical history: Altered mental status. Findings: The noncontrast brain with soft tissue and bone windows for each slice level provided. Ventricles are midline, symmetric and their size proportionate to the diffuse moderate cerebral atrophy. There are multiple lacunar infarcts in the basal ganglia bilaterally. There are periventricular deep and subcortical white matter hypodensity in both hemispheres consistent with chronic small vessel white matter ischemic disease. No intra or extra-axial hemorrhage, mass or mass effect. Basal ganglia show a few lacunar infarcts, one in the left putamen. Smaller in the right putamen. There is no vascular territory infarct, hemorrhage, mass or mass effect. There are calcifications along the falx and tentorium as benign findings. No extra-axial hemorrhage. Low density in the left posterior corpus callosum also noted and unchanged representing chronic ischemic change. The cerebellum shows some atrophy. The brainstem is without mass or infarct. No posterior fossa hemorrhage. The brain shows no intra or extra-axial bleed. There are heavy vascular calcifications in the carotid siphons. The skull base and calvarium show no fracture or focal lesion. Visualized sinuses were clear. Mastoids are without opacification. Impression: 1. Extensive chronic small vessel white matter ischemic change and proportionate ventriculomegaly and atrophy. This is stable. 2. No acute infarct, hemorrhage, mass or mass effect. There is bilateral basal ganglia lacunar infarct pattern in the putamen. Cerebellar atrophy also noted.3. No fracture of the skull base or calvarium. Heavy vascular calcifications in the carotid siphons. Sinuses and mastoids clear. Signed by Price Smart MD 05/12/2016 06:45 P
--- NOTE | 2016-05-12 08:06 | REP ---
AP PORTABLE CHEST: 05/11/2016. Comparison 06/13/2015. Clinical history: Altered mental status. Lordotic projection limits evaluation of the posterior and lower lung zones. There is a single lead AICD pacer of the left upper chest with lead tip terminating in the right ventricle. Heart mildly prominent with left ventricular and left atrial enlargement. Tortuous calcified aorta noted without aneurysm. Airway midline and intact. The right base air space opacity on the previous study is no longer visible. It is conceivable it could be present and obscured by the lordotic projection. No other finding. Impression: 1. Mild cardiomegaly without edema, effusion or definite infiltrate. 2. Single lead AICD pacer over the left upper chest with lead tip terminating in the right ventricle. 3. A calcified aortic arch without aneurysm. There were incidentally noted to be surgical clips in the left neck base. Signed by Price Smart MD 05/12/2016 06:45 P
--- NOTE | 2016-05-12 08:44 | HPE ---
DATE OF ADMISSION: 05/11/2016 PRIMARY CARE PROVIDER: Dr. Sterling Torres CHIEF COMPLAINT: Confusion and forgetfulness. HISTORY OF PRESENT ILLNESS: This is a 81-year-old male patient with underlying medical history of atrial fibrillation on Eliquis, pulmonary embolism (PE), deep venous thrombosis (DVT), congestive heart failure (CHF), myocardial infarction (NV), coronary artery disease, type 2 diabetes, recently started on insulin, hypertension, congestive heart failure (CHF) with automatic implantable cardioverter defibrillator (AICD), dyslipidemia, BPH, chronic kidney disease (CKD), baseline creatinine 1.5, carotid artery stenosis with bilateral carotid endarterectomy, CVA. Lives at home alone. Patient is a poor historian due to confusion. Patient has a protein chemist, who is also the patient's healthcare proxy, but protein chemist lives about 10 miles away. Patient is alert, oriented times three. Patient knows his name. Knows the current president is an -[place] and the president in a month is a blonde, tall, white genoveva and patient does not know which year this is. Patient understand that he is at the hospital but does not know why he is at the hospital. As per patient's protein chemist, on Friday, patient's protein chemist noticed over the phone that the patient is very forgetful and patient sound scared stating that he does not know why he is taking all these medications and is very forgetful. As per patient's protein chemist, she usually organizes the patient's medication in pill box. Subsequently, patient's protein chemist brought the patient to see Dr. Torres on Friday, who found the patient does have a urinary tract infection (UTI) and have a sugar of 300. Subsequently, the patient was started on Lantus insulin and Keflex for UTI. Subsequently, over the course of the week, the patient's condition remained about the same and patient's family currently brought the patient here for concerns of patient's safety given he lives at home alone. Patient's protein chemist denies noticing fevers or chills, noticing any other symptoms, coughing. No sick contact. No diarrhea, nausea or vomiting. The only symptoms the patient noticed was neck discomfort. As per patient, has been going on for a while. In the emergency room, patient was found to be hypertensive with blood pressure 205/86. Given Labetalol. On the monitor, patient's heart rate was ranging from 60s to at the lowest 36. Patient was asymptomatic but no pacing spike was visible when the patient is bradyarrhythmic. Patient denies any cardiac symptoms. Further history not possible. ALLERGIES: NO KNOWN DRUG ALLERGIES REPORTED. PAST MEDICAL HISTORY: 1. Atrial fibrillation. 2. CHF. 3. Type 2 diabetes. 4. PE. 5. DVT. 6. Pneumonia. 7. NV. 8. Hypertension. 9. Coronary artery disease. 10. Dyslipidemia. 11. BPH. 12. CKD. 13. CVA. 14. Carotid artery stenosis. PAST SURGICAL HISTORY: 1. Balloon angioplasty, no stents. 2. Carotid endarterectomy bilateral, 2014. 3. Cataract surgery bilateral. SOCIAL HISTORY: Patient quit smoking 40 years ago. Smoked 1-1/2 pack per day for 30 years. Drinks a couple wine once a week. REVIEW OF SYSTEM: Patient denies any headache, vision change, hearing change. As per patient's protein chemist, having trouble with short-term memory and mildly confused. Denies any fevers, chills, nausea, vomiting. Denies any chest pain, pressure or discomfort. Denies any abdominal pain. Denies any urinary complaints. Denies any diarrhea or constipation. Denies any lower extremity swelling. Does report some neck pain. No stiffness. No headache. Further history not possible. HOME MEDICATION: Patient takes: - allopurinol 100 mg by mouth daily - Norvasc 2.5 mg by mouth daily - Eliquis 5 mg by mouth twice a day - aspirin 81 mg by mouth daily - atorvastatin 40 mg by mouth nightly - Tums 1000 mg by mouth twice a day - captopril 6.25 mg by mouth nightly - Coreg 6.25 mg by mouth twice a day - Keflex 500 mg by mouth twice a day - vitamin B12 1000 mcg by mouth daily - finasteride 5 mg by mouth nightly - glipizide 10 mg by mouth twice a day - Lantus 10 units subcutaneous nightly - levothyroxine 50 mcg by mouth daily - Tradjenta 5 mg by mouth daily - magnesium chloride 64 mg two tablets by mouth daily - nitroglycerin 0.4 mg sublingual as needed - spironolactone 12.5 mg by mouth daily - Flomax 0.4 mg by mouth nightly - vitamin D 50,000 units by mouth weekly PHYSICAL EXAMINATION: VITAL SIGNS: Blood pressure 182/78. Pulse ranging from 55-40, intermittently touching low 40s, high 30s. Respirations 18. Temperature 97.7. Pulse oximetry 100% on room air. GENERAL: Patient alert, oriented times three, in no acute distress. HEENT: No nuchal rigidity. Normocephalic, atraumatic. Pupils equal, round and reactive. PULMONARY: Bilateral clear to auscultation. CARDIAC: Regular rate and rhythm. Normal S1, S2. ABDOMEN: Soft, nontender, nondistended. EXTREMITIES: No clubbing, cyanosis, or edema. NEUROLOGIC: No focal deficits. LABORATORY: WBC 7.9, hemoglobin and hematocrit 13.1/38.2, platelets 165. Chemistry: Sodium 141, potassium 5.2, chloride 109, bicarbonate 24, BUN 35, creatinine 2.06. Cardiac enzymes negative times one. TSH 3.128. CT of the abdomen negative. CT of the cervical spine shows no fracture, spondylolisthesis, straightening of the cervical lordosis is seen suggestive of muscular spasm, multilevel spondylosis. CT of the head within normal limits. ASSESSMENT AND PLAN: This is a 81-year-old male patient with underlying medical history of atrial fibrillation, congestive heart failure, coronary artery disease, pulmonary embolism, deep venous thrombosis many years ago, type 2 diabetes, hypertension, with automatic implantable cardioverter defibrillator, dyslipidemia, BPH, chronic kidney disease, CVA, carotid artery stenosis. Patient presented to the hospital with persistent confusion and poor short-term memory. PROBLEM: 1. Encephalopathy. Differential diagnosis including hypertensive encephalopathy versus metabolic encephalopathy due to underlying infection verus encephalitis. Patient is afebrile with no leukocytosis. Does show left shift. Cannot perform a lumbar puncture given patient is on Eliquis and has taken his dose today. Will hold Eliquis and empirically start the patient on Rocephin, vancomycin, ampicillin. Neurologic checks. Control blood pressure. Supportive care. Patient does not have nuchal rigidities. No headache. 2. Neck pain. CT scans appreciated. Likely muscular spasm. No nuchal rigidities. Pain medication as prescribed. 3. Acute on chronic renal insufficiency. Patient seems a bit dehydrated on physical exam. Will give gentle hydration given history of CHF. Will give 500 mL at a rate of 75 mL/hr and reassess to see if patient needs additional fluid. Continue to follow kidney functions. Withholding angiotensin -converting enzyme (KEITH) and spironolactone given patient with worsening kidney function and hyperkalemia. 4. Hyperkalemia. Telemetry monitoring. Followup EKGs. Followup potassium and renal function. IV hydration as mentioned above. Holding spironolactone and KEITH inhibitors. 5. Hypertensive urgencies with possible hypertensive encephalopathy. Hydralazine and Imdur has been added. Avoid beta-blockers. Avoid labetalol given patient is bradyarrhythmic in the emergency department (ED). Will titrate up the dose of hydralazine. Holding KEITH and aldactone given patient is hyperkalemic. 6. Atrial fibrillation. Beta-armando with holding parameters. Telemetry monitoring. Eliquis on hold given the possibility of lumbar puncture. Patient currently on heparin, subcutaneous. 7. Bradyarrhythmic. Did not notice pacing spikes given the patient has an AICD. Case discussed with cardiology, Dr. Gomez. Patient sees Dr. Carlos as cardiology. As per Dr. Gomez, it is possible that AICD is set at single lead AICD, has a backup rate of 40 and intermittent high 30s will not trigger the AICD pacing function. Request has been made for Dr. Gomez to interrogate the AICD to make sure that it is operating properly. 8. Type 2 diabetes. Possible medication confusion given patient is confused and takes his own medication. Holding oral medications. Basal bolus insulin as per protocol. Followup fingersticks. Followup A1c. 9. History of DVT and PE. Remote history as per patient's protein chemist was many years ago. Will continue to monitor. DVT prophylaxis with heparin, subcutaneous. 10. Hypertension. Continue medication mentioned above. 11. Dyslipidemia. Continue statin. 12. BPH. Continue home medication. 13. History of CVA. Cannot perform MRI but CT scan, as per patient, ordered by Dr. Torres, on Friday, was negative and repeat CT scan in the emergency room today was also negative. 14. Carotid artery stenosis. Continue aspirin. DVT prophylaxis. Heparin, subcutaneous. DISPOSITION PLANNING: Pending further workup. Possible lumbar puncture (LP). Holding Eliquis for possible LP. Empirically started on antibiotics. Neurologic checks. Followup ammonia. Followup urine studies. Pending clinical improvement. Patient and family services (PFS) consulted for possible needing service versus placement at home given patient lives alone.
[2016-05-12] MEDS: PANTOPRAZOLE 40MG TAB (PROTONIX) PO SCH (09:11)
[2016-05-12] MEDS: ISOSORBIDE MON. (IMDUR) 30 MG XR TAB PO SCH (09:11)
[2016-05-12] MEDS: ALLOPURINOL 100 MG TAB PO SCH (09:11)
[2016-05-12] MEDS: ASPIRIN 81 MG ENTERIC TAB PO SCH (09:13)
[2016-05-12] MEDS: HumaLOG INSULIN (NovoLOG) PER UNIT SC SCH ×4 (09:13→20:20)
[2016-05-12] MEDS: CYANOCOBALAMIN 500 MCG TAB PO SCH (09:13)
--- NOTE | 2016-05-12 10:42 | ECGEPIP ---
Stationary ECG Study [facility] - ED Test Date: 2016-05-11 Pat Name: SHAHEED MARISCAL Department: Room: - Gender: M Nursing Director: kobe : 1935 Requested By: BILL Morales Order Number: [id number] Reading MD: Dolores Hernandez Measurements Intervals [place] Rate: 55 P: 70 WI: 140 QRS: 91 QRSD: 114 T: 11 QT: 465 QTc: 447 Interpretive Statements SINUS BRADYCARDIA BORDERLINE RIGHT AXIS DEVIATION ICVD LOW QRS VOLTAGE IN PRECORDIAL LEADS PROBABLE ANTEROLATERAL MYOCARDIAL INFARCTION, PROBABLY OLD Electronically Signed On 05-12-2016 10:41:47 EST by Dolores Hernandez
--- NOTE | 2016-05-12 10:45 | ECGEPIP ---
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
[2016-05-12 12:00] VITALS: BP 180/86
[2016-05-12] MEDS ORDERED: VANCOMYCIN HCL 1,000 MG, VIAL MATE ADAPTER 1 EACH in D5W 250 ML IV SCH ×4 (12:00)
--- NOTE | 2016-05-12 12:07 | IPNPDOC ---
Assessment/Plan Date Seen The patient was seen on 05/12/16. Family Medicine Attending Note: Patient seen and examined and d/w Leigh Strauss NP and I agree with her note below. Patient states he feels "confused " and has trouble remembering people's names, but otherwise denies any other complaints. He has not had any headache, generalized or focal weakness, URI symptoms, SOB, cough, chest pain, palpitations, headache, abdominal pain, or diarrhea. Exam is normal, including neurologic exam, other than the fact that he does not know the date, month or year - he does know where he is. He is uncertain of events over the past few days, but does remember coming to the hospital. The patient lives alone and is cared for a by a girlfriend who does not live with him and is not at bedside. His brother and [id number] are at bedside and state he has seemed to become progressively more confused over the last few weeks. He has no evidence of infection - he has been afebrile with normal WBCs and normal VS. He was initially hypertensive in the ED with an SBP in 200s but BP is better controlled now. Labwork has been largely normal except for rising CK, though patient denies any muscle pain - will d/c statin. Head CT was unremarkable; we are unable to get an MRI/MRA because he has an AICD. We are unable to obtain a head CT with contrast due to CKD (currently at baseline). Dr. Gomez interrogated his AICD today and states that it is functioning normally. I suspect that patient may have underlying dementia that has progressed but he carries no past diagnosis of this and does see his PCP regularly. We are unable to obtain an LP at this time because he is chronically on Eliquis and did take a dose of this yesterday. Eliquis is currently being held and he is receiving heparin. We have consulted Dr. Blackmon who will evaluate the patient - we appreciate his input. (KES) Problems Problems: (1) Encephalopathy Status: Acute Problem Specific Plan: Consult Specialist Problem Text: CT negative. Labs stable. No indication to be infectious etiology. Will stop antibiotics. Urine cx negative. No fevers. Will consult neurology. Cardiology to investigate AICD today. (2) Renal failure (ARF), acute on chronic Status: Resolved Problem Text: appears to be at baseline. (3) Atrial fibrillation Onset Date: 04/18/2014 Status: Chronic (4) CAD (coronary artery disease) Onset Date: 04/18/2014 Status: Chronic (5) CKD (chronic kidney disease) stage 3, GFR 30-59 ml/min Status: Chronic (6) Hypothyroid Status: Chronic Problem Text: T4 mildly elevated. TSH stable. monitor. (7) BPH w urinary obs/LUTS Status: Chronic Problem Specific Plan: Monitor Clinically Plan / VTE VTE Prophylaxis Ordered?: Yes (Heparin) Subjective Review of Systems CC/HPI The patient is a 81-year-old male admitted with a reason for visit of Encephalitis. Events since last encounter Admitted with MS changes. CT head, neck negative. Patient admits to feeling confused. Having trouble remembering dates, people. Unable to recall events from this week. Per patient's family, has noticed a decline for last 2 weeks. Unable to figure out how to pay check at restaurant, forgetting names. Constitutional: Denies: Chills, Fever, Malaise ENT: Denies: Dysphagia, Ear Pain, Head Aches Skin: Denies: Rash Pulmonary: Denies: Cough, Dyspnea Cardiovascular: Denies: Chest Pain, Orthopnea, Palpitations Gastrointestinal: Denies: Abdominal Pain, Constipation, Diarrhea, Nausea, Vomiting Genitourinary: Denies: Dysuria, Frequency, Incontinence Endocrine: Reports: Other Endocrine Sx (uncontrolled DM), Denies: Polydipsia, Polyphagia Neurological: Reports: Confusion, Weakness, Denies: Change in speech, Seizures Psych: Reports: Memory Issues Objective Physical Examination General Exam: Positive: Alert, Cooperative, No Acute Distress Eye Exam: Positive: Conjunctiva & lids normal, EOMI, PERRLA ENT Exam: Positive: Atraumatic, Mucous membr. moist/pink Neck Exam: Positive: Supple, Negative: JVD Chest Exam: Positive: Clear to auscultation, Normal air movement Heart Exam: Positive: Normal S1, Normal S2, Rate Normal Telemetry: Positive: Bradycardia, No significant arrhythmia, Sinus Abdomen Exam: Positive: Normal bowel sounds, Soft, Negative: Tenderness Extremity Exam: Negative: Clubbing, Cyanosis, Edema Skin Exam: Positive: Nl turgor and temperature Neuro Exam: Positive: Cranial Nerves 3-12 NL, Normal Gait, Normal Speech Psych Exam: Positive: Other (alert to self. oriented to place. Disoriented to time. ) Vital Signs/I&O Vital Signs Date Time Temp Pulse Resp B/P Pulse Ox O2 Delivery O2 Flow Rate FiO2 05/12/16 09:12 166/74 05/12/16 09:12 60 05/12/16 07:15 95.6 20 96 Room Air I&O- Last 24 Hours up to 6 AM 05/12/16 06:00 Intake Total 730 ml Output Total 450 ml Balance 280 ml Laboratory Data Labs 24H Laboratory Tests 2 05/11/16 14:01: Aspartate Amino Transf (AST/SGOT) 79H, Alanine Aminotransferase (ALT/SGPT) 71, Alkaline Phosphatase 80, Total Bilirubin 0.5, Direct Bilirubin 0.1, Albumin 3.3 , Albumin/Globulin Ratio 0.89L, Anion Gap 8, White Blood Count 7.9, Red Blood Count 3.76L, Hemoglobin 13.1L, Hematocrit 38.2L, Mean Corpuscular Volume 101.8H , Mean Corpuscular Hemoglobin 35.0H, Mean Corpuscular Hemoglobin Concent 34.4, Red Cell Distribution Width 13.1, Platelet Count 165, Neutrophils (%) (Auto) 69.2H, Lymphocytes (%) (Auto) 19.7L, Monocytes (%) (Auto) 5.1H, Eosinophils (%) (Auto) 3.3H, Basophils (%) (Auto) 0.7, Neutrophils # (Auto) 5.5, Lymphocytes # ( Auto) 1.6, Monocytes # (Auto) 0.4, Eosinophils # (Auto) 0.3, Basophils # (Auto) 0.0, Calcium Level 8.8, Creatine Kinase MB 4.0H, Creatine Kinase MB Relative Index 1.50, Glomerular Filtration Rate 33.3L, Large Unclassified Cells # 0.2, Large Unclassified Cells % 1.9, Lipase 329, Thyroid Stimulating Hormone (TSH) 3.180, Total Creatine Kinase 266, Total Protein 7.0, Troponin I 0.04 05/11/16 16:23: Urine Amorphous Sediment , Urine Appearance CLEAR, Urine Color YELLOW, Urine pH 5.0, Urine Specific Lindsay 1.015, Urine Protein 1+H, Urine Glucose (UA) 2+H, Urine Ketones NEGATIVE, Urine Urobilinogen 0.2, Urine Bilirubin NEGATIVE, Urine Leukocyte Esterase NEGATIVE, Urine Bacteria (Auto) NEGATIVE, Urine Blood 1+H, Urine Calcium Carbonate Cryst(Auto) , Urine Calcium Oxalate Cryst (Auto) , Urine Calcium Phosphate Suzan (Auto) , Urine Cellular Casts , Urine Cystine Crystals , Urine Granular Casts (Auto) , Urine Hyaline Casts (Auto) 0, Urine Leucine Crystals , Urine Mucus (Auto) , Urine Nitrite NEGATIVE, Urine Oval Fat Bodies (Auto) , Urine RBC (Auto) 3, Urine Renal Epithelial Cells , Urine Sperm ( Auto) , Urine Squamous Epithelial Cells 0, Urine Transitional Epithelial Cells , Urine Trichomonas (Auto) , Urine Triple Phosphate Cryst (Auto) , Urine Tyrosine Crystals , Urine Uric Acid Crystals (Auto) , Urine WBC (Auto) 1, Urine Waxy Casts (Auto) , Urine Yeast-Like Cells (Auto) SMALLH 05/11/16 20:43: Creatine Kinase MB 9.9H, Creatine Kinase MB Relative Index 1.96, Total Creatine Kinase 504#H, Troponin I 0.04, Ammonia 32 05/11/16 22:49: Arterial Blood pH 7.430, Arterial Blood Partial Pressure CO2 33.4L, Arterial Blood Partial Pressure O2 84.8, Arterial Blood Total CO2 22.7L, Arterial Blood HCO3 21.7L, Arterial Blood Base Excess -1.9, Arterial Blood Oxygen Saturation 96.6, Blood Gas Bicarbonate Standard 22.9 05/12/16 03:10: Urine Random Chloride 56, Urine Random Creatinine 36.7, Urine Random Osmolality 274L, Urine Random Potassium 14.4, Urine Random Sodium 54, Urine Random Total Protein 8.2 05/12/16 04:39: Anion Gap 9, C-Reactive Protein, Quantitative < 0.30, Blood Urea Nitrogen 31H, Creatinine 1.85H, Sodium Level 144, Potassium Level 4.6, Chloride Level 109H, Carbon Dioxide Level 26, Calcium Level 8.4L, Creatine Kinase MB 26.8H, Creatine Kinase MB Relative Index 1.56, Estimated Mean Plasma Glucose 194H, Glomerular Filtration Rate 37.7L, Hemoglobin A1c 8.4H, Magnesium Level 2.2, Prothromb Time International Ratio 1.40, Prothrombin Time 17.3H, Total Creatine Kinase 1714#H, Troponin I 0.06# CBC/BMP Laboratory Tests 05/11/16 14:01 Red Blood Count 3.76 L, Mean Corpuscular Volume 101.8 H, Mean Corpuscular Hemoglobin 35.0 H, Mean Corpuscular Hemoglobin Concent 34.4, Red Cell Distribution Width 13.1, Neutrophils (%) (Auto) 69.2 H, Lymphocytes (%) (Auto) 19.7 L, Monocytes (%) (Auto) 5.1 H, Eosinophils (%) (Auto) 3.3 H, Basophils (%) (Auto) 0.7, Neutrophils # (Auto) 5.5, Lymphocytes # (Auto) 1.6, Monocytes # ( Auto) 0.4, Eosinophils # (Auto) 0.3, Basophils # (Auto) 0.0 05/12/16 04:39 Red Blood Count 3.47 L, Mean Corpuscular Volume 102.0 H, Mean Corpuscular Hemoglobin 34.5 H, Mean Corpuscular Hemoglobin Concent 33.8, Red Cell Distribution Width 13.3, Calcium Level 8.4 L Microbiology Microbiology 05/11/16 Blood Culture, Received Pending 05/11/16 Blood Culture, Received Pending 05/11/16 Urine Culture - Final, Complete Leigh Strauss May 12, 2016 12:07 NEFTALY DAUGHERTY MD May 12, 2016 12:34
--- NOTE | 2016-05-12 12:42 | ECGEPIP ---
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
--- NOTE | 2016-05-12 13:30 | REP ---
BILATERAL RENAL ULTRASOUND: 05/12/2016. Clinical history: Acute on chronic renal failure. Comparison CT without contrast 05/11/2016, renal ultrasound 09/23/2013. Sonographic evaluation of the kidney shows the right to measure 10.2 x 5.9 x 4.8 cm while the left is 10 x 4.6 x 4.4 cm. Cortical echogenicity shows that it is somewhat hyperechoic suggesting some early medical renal disease. There is no hydronephrosis, hydroureter, stone, mass or definite cyst. No perinephric fluid. Sinus lipomatosis suggested on the left. Some cortical atrophy, mild, seen on that side. The bladder is not well distended and therefore cannot be evaluated. No ureteral jets observed. Impression: 1. Echogenic renal cortex suggesting some medical renal disease and prominent sinus lipomatosis on the left. No stone, solid mass or cyst. No perinephric fluid. 2. No hydronephrosis or hydroureter noted. Bladder not filled and cannot be evaluated. No other finding. Signed by Price Smart MD 05/12/2016 07:07 P
[2016-05-12] MEDS: ACETAMINOPHEN TAB 650MG DOSE (2X325MG) PO PRN (14:45)
[2016-05-12 16:00] VITALS: BP 133/64
[2016-05-12 18:06] LABS: TOTAL PROTEIN 6.1 GM/DL (6.4-8.2)
[2016-05-12 20:21] VITALS: BP 139/64
[2016-05-13 00:08] VITALS: BP 132/62
[2016-05-13] MEDS: **hydrALAZINE HCL** 25 MG TAB PO SCH ×4 (02:55→21:44)
[2016-05-13 03:37] VITALS: BP 104/59
[2016-05-13] MEDS: HEPARIN SOD (PORCINE) 5000 UNITS/ML VIAL SC SCH ×3 (05:25→21:43)
[2016-05-13] MEDS: LEVOTHYROXINE 0.05 MG TAB (50 MCG) PO SCH (05:25)
[2016-05-13 06:05] LABS: MEAN CORPUSCULAR HEMOGLOBIN 33.8 pg (27.0-33.0); MEAN CORPUSCULAR VOLUME 102.5 fl (80.0-96.0); RED CELL DISTRIBUTION WIDTH 13.2 % (11.5-14.5); WHITE BLOOD COUNT 7.4 K/mm3 (4.0-10.0)
[2016-05-13 06:19] LABS: INR 1.21
[2016-05-13 06:34] LABS: CALCIUM LEVEL 8.8 MG/DL (8.8-10.2); CREATININE FOR GFR 1.94 MG/DL (0.70-1.30); GLOMERULAR FILTRATION RATE 35.7 (>42); MAGNESIUM LEVEL 2.3 MG/DL (1.8-2.4)
[2016-05-13 08:00] VITALS: BP 147/64
--- NOTE | 2016-05-13 08:00 | IPNPDOC ---
Assessment/Plan Date Seen The patient was seen on 05/13/16. Problems Problems: (1) Encephalopathy Status: Acute Problem Specific Plan: Consult Specialist Problem Text: CT negative. Labs stable. No indication to be infectious etiology. Will stop antibiotics. Urine cx negative. No fevers. Will consult neurology. Cardiology to investigate AICD today. 05/13/16: Neurology was consulted. Labs and EEG ordered. (2) Renal failure (ARF), acute on chronic Status: Resolved Problem Text: appears to be at baseline. 05/13/16: BUN 32/Creat 1.94 (3) Atrial fibrillation Onset Date: 04/18/2014 Status: Chronic (4) CAD (coronary artery disease) Onset Date: 04/18/2014 Status: Chronic (5) CKD (chronic kidney disease) stage 3, GFR 30-59 ml/min Status: Chronic (6) Hypothyroid Status: Chronic Problem Text: T4 mildly elevated. TSH stable. monitor. (7) BPH w urinary obs/LUTS Status: Chronic Problem Specific Plan: Monitor Clinically Plan / VTE VTE Prophylaxis Ordered?: Yes (Heparin) Subjective Review of Systems CC/HPI The patient is a 81-year-old male admitted with a reason for visit of Encephalitis. Events since last encounter Pt states he is still confused and unchanged. He knows he is in the hospital, but doesn't know the year. He denies any pain, CP, Abd pain, SOB. Objective Physical Examination General Exam: Positive: Alert, Cooperative, No Acute Distress Eye Exam: Positive: Conjunctiva & lids normal, EOMI, PERRLA ENT Exam: Positive: Atraumatic, Mucous membr. moist/pink Neck Exam: Positive: Supple, Negative: JVD Chest Exam: Positive: Clear to auscultation, Normal air movement Heart Exam: Positive: Normal S1, Normal S2, Rate Normal Telemetry: Positive: Bradycardia, No significant arrhythmia, Sinus Abdomen Exam: Positive: Normal bowel sounds, Soft, Negative: Tenderness Extremity Exam: Negative: Clubbing, Cyanosis, Edema Skin Exam: Positive: Nl turgor and temperature Neuro Exam: Positive: Cranial Nerves 3-12 NL, Normal Gait, Normal Speech Psych Exam: Positive: Other (alert to self. oriented to place. Disoriented to time. ) Vital Signs/I&O Vital Signs Date Time Temp Pulse Resp B/P Pulse Ox O2 Delivery O2 Flow Rate FiO2 05/13/16 03:37 96.7 54 20 104/59 27 Room Air I&O- Last 24 Hours up to 6 AM 05/13/16 06:00 Intake Total 720 ml Output Total 525 ml Balance 195 ml Laboratory Data Labs 24H Laboratory Tests 2 05/12/16 17:29: Erythrocyte Sedimentation Rate 18, Total Protein 6.1L 05/13/16 05:34: Anion Gap 9, Blood Urea Nitrogen 32H, Creatinine 1.94H, Sodium Level 146H, Potassium Level 5.0, Chloride Level 110H, Carbon Dioxide Level 27, Calcium Level 8.8, Glomerular Filtration Rate 35.7L, Magnesium Level 2.3, Prothromb Time International Ratio 1.21, Prothrombin Time 15.4H CBC/BMP Laboratory Tests 05/13/16 05:34 Calcium Level 8.8, Red Blood Count 3.38 L, Mean Corpuscular Volume 102.5 H, Mean Corpuscular Hemoglobin 33.8 H, Mean Corpuscular Hemoglobin Concent 33.0, Red Cell Distribution Width 13.2 Microbiology Microbiology 05/11/16 Blood Culture - Preliminary, Resulted No growth after 24 hours . All specim... 05/11/16 Blood Culture - Preliminary, Resulted No growth after 24 hours . All specim... 05/11/16 Urine Culture - Final, Complete Nawaf Sorto May 13, 2016 08:00
[2016-05-13] MEDS: CARVedilol 6.25 MG TAB PO SCH ×2 (08:06→21:44)
[2016-05-13] MEDS: CALCIUM CARBONATE 500 MG CHEW U/D PO SCH ×2 (08:06→21:43)
[2016-05-13] MEDS: HumaLOG INSULIN (NovoLOG) PER UNIT SC SCH ×4 (08:06→20:49)
[2016-05-13] MEDS: ASPIRIN 81 MG ENTERIC TAB PO SCH (08:07)
[2016-05-13] MEDS: ALLOPURINOL 100 MG TAB PO SCH (08:07)
[2016-05-13] MEDS: CYANOCOBALAMIN 500 MCG TAB PO SCH (08:07)
[2016-05-13] MEDS: PANTOPRAZOLE 40MG TAB (PROTONIX) PO SCH (08:08)
[2016-05-13] MEDS: ISOSORBIDE MON. (IMDUR) 30 MG XR TAB PO SCH (08:08)
[2016-05-13] MEDS: SENOKOT S TAB PO SCH ×2 (08:08→21:45)
[2016-05-13 10:32] LABS: FOLATE 15.2 NG/ML; VITAMIN B12 LEVEL 1047 PG/ML
[2016-05-13 11:40] VITALS: BP 158/68
--- NOTE | 2016-05-13 18:44 | CR ---
DATE OF CONSULTATION: 05/12/2016 REFERRING PHYSICIAN: Dr. Torres. HISTORY: The patient is a 81-year-old male who was admitted to the hospital yesterday because of altered mental status. According to the history are available through his medical records, he had been quite forgetful at home. He has a friend who has been filling his pill tray. According to the patient's brother, he noticed about two weeks ago that he was very forgetful. He could not pay for his meal that he had in the morning. He was charged less than 10 dollars but he took out 20-dollar bill and kept shuffling in his hand, not knowing what to do with them. He has been more confused since then. No further history is available at the present time, except his medical record states that he had been quite forgetful in the past as well. He has had problems with recalling events of immediate and recent past in the past and currently does not know as to where he is. He, however, adamantly denies having any headaches, dizzy spells, vertigo, diplopia, blurred vision, dysarthria and dysphagia. There is no complaint of visual auras. He denies numbness on his face. There is also no complaint of neck pain at the present time, although he did complain of neck pain on admission and his CT scan of the cervical spine does not show any fractures. He also had a CT scan of the brain which did not show any acute changes. There is no complaint of low back or lower extremity pain. He does not have weakness in his legs. There is no numbness in his feet. His bladder and bowel functions are both normal. He has not been witnessed to have any seizure-like activity, although he is more forgetful and confused. He is currently on allopurinol, amlodipine, aspirin 81 mg daily, cyanocobalamin, pantoprazole, isosorbide, insulin, levothyroxine, hydralazine, calcium carbonate, carvedilol, Flomax and also Proscar. He has not been on any medications for his cognitive dysfunction. He has a pacemaker and hence he is unable to have an MRI of the brain performed. He has not had any electroencephalogram (EEG) study yet. His white cell count is normal. PAST MEDICAL HISTORY: 1. Hypertension. 2. Diabetes. 3. Coronary artery disease. 4. Atrial fibrillation. 5. Congestive heart failure. 6. History of deep venous thrombosis (DVT). 7. Dyslipidemia. 8. Cerebrovascular accident (CVA). 9. Benign prostatic hyperplasia. 10. Carotid artery stenosis. 11. Bilateral carotid endarterectomy. 12. Bilateral cataract extraction surgery. FAMILY HISTORY: The patient's family history is not available at the present time. PERSONAL AND SOCIAL HISTORY: Patient who lives by himself. His son visits him intermittently and he has a primary health organisation manager who also watches him. There is a history of smoking in the past which he quit about 40 years ago. There is no history of any alcohol abuse. REVIEW OF SYSTEMS: All of the systems were reviewed and found to be noncontributory. PHYSICAL EXAMINATION: On examination, the patient does not appear in any discomfort. He is pleasant to interact with. His posture is normal. His blood pressure is 160/70. Pulse is 60 per minute. Respirations are 20 per minute. His temperature is 98.4 degrees Fahrenheit. He is 5 feet 9 inches tall. He weighs about 77 kg. His neck is supple. There is no carotid bruit audible. He does not have any tenderness in his cervical spine or shoulder muscles. His ear, nose and throat examination is normal. Lungs are clear to auscultation. His heart is regular in rhythm. His abdomen is soft and nondistended. There is no ankle edema seen. The peripheral pulses are normally palpable. He is oriented to place. He does not know the day, date or year. He has difficulty with a serial of sevens. He could not spell the word "world" backwards. Extraocular movements are intact. There is no horizontal or vertical nystagmus seen. His pupils are about 3 mm in size and reactive to light. The consensual light reflex is present bilaterally. Visual leigh appear to be within normal limits. His face is symmetrical. His tongue is midline. His motor examination does not show any focal motor weakness in his upper or lower extremities. There are no resting or postural tremors of the hands seen. His muscle tone is normal. The sensation to fine touch appears equal on both sides of the body. Deep tendon reflexes are 1+ and symmetrical with an upgoing toe on the right side. His gait is not tested. DIAGNOSTIC STUDIES: The patient's CT scan of the brain which was performed yesterday did show extensive small vessel ischemic disease with proportionate ventriculomegaly. This study did not show any acute infarct. His CBC shows a white cell count of 8700, hemoglobin 12, hematocrit 35.4 and platelets 149,000. His sodium is 144, potassium 4.6, BUN 31 and creatinine 1.85. His CPK on admission was 1714. IMPRESSION: 1. Altered mental status. 2. Rule out complex partial seizures. 3. Cognitive dysfunction. 4. Likely dementia. PLAN: 1. Continue with Eliquis. 2. Aspirin 81 mg by mouth daily. 3. Erythrocyte sedimentation rate (ESR), antinuclear antibody test (CAROLINE), rheumatoid factor and lupus anticoagulant. 4. Vitamin B1, B6 and B12 levels. 5. Rapid plasma reagin (RPR). 6. Namenda as a contingency plan. 7. Electroencephalogram (EEG) study. 8. Continue with other care. He may need placement given that he lives by himself and is a unable to take care of himself. Thank you very much for this consultation.
[2016-05-13] MEDS: LEVEMIR (INSULIN DETEMIR) 1 UNITS/0.01ML SC SCH (21:43)
[2016-05-13] MEDS: FINASTERIDE 5 MG TAB PO SCH (21:44)
[2016-05-13] MEDS: TAMSULOSIN 0.4 MG CAP PO SCH (21:44)
[2016-05-13] MEDS: CEPHALEXIN 500 MG CAP PO SCH (21:45)
[2016-05-13 22:00] VITALS: BP 126/58
--- NOTE | 2016-05-13 23:56 | EDDOCDS ---
[facility] Name: Rickey Ibanez Age: 81 yrs Sex: Male : 1935 Arrival Date: 05/11/2016 Time: 13:35 Bed 12 Private MD: Sterling Torres E. Diagnosis: Altered mental status, unspecified;Essential (primary) hypertension-Hypertensive Urgency Presentation: 05/11 13:39 Presenting complaint: states: Confusion memory loss for the past four days seen at [facility] Dr[facility] Torres's office on Friday and again yesterday started on an antibiotic for UTI and insulin. states "he's not getting any better". Adult Sepsis Screening: Patient has new or worsening altered mentation (1 point). Patient's respiratory rate is less than 22. Systolic blood pressure is greater than 100. Patient has a qSOFA score of 0- Negative Sepsis Screen. 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 Suicide/Homicide risk assessment- the patient denies having any suicidal and/or homicidal ideations. Transition of care: patient was not received from another setting of care. 13:39 Acuity: SUZY Level 3 b1 13:39 Method Of Arrival: Walkin/Carried/Asstd mlb1 Triage Assessment: 13:44 General: Appears in no apparent distress, Behavior is appropriate for age, cooperative. mlb1 Pain: Denies pain. Neurological: Level of Consciousness is awake, alert, Oriented to person, place. Historical: - Allergies: no known allergies; - Home Meds: 1. aspirin 81 mg oral TbEC 1 tab once daily 2. Eliquis 5 mg oral tab 1 tab 2 times per day 3. Nitrostat 0.4 mg SL subl 1 tab every 5 minutes as needed 4. levothyroxine 25 mcg Oral cap 1 cap once daily 5. amiodarone 200 mg Oral tab 1 tab once daily 6. finasteride 5 mg oral tab 1 tab once daily 7. glipizide 10 mg Oral tab 1 tab 2 times per day 8. Tradjenta 5 mg oral tab 1 tab once daily 9. atorvastatin 40 mg oral tab 1 tab nightly 10. Drisdol 50,000 unit Oral cap 1 cap once wkly 11. tamsulosin 0.4 mg oral cp24 1 cap once daily 12. Tums Ultra 400 mg (1,000 mg) oral chew twice a day 13. Vitamin B-12 1,000 mcg Oral TbER daily 14. allopurinol 100 mg Oral tab 1 tab once daily 15. Lasix 40 mg Oral tab 1 tab once daily if weight is >169 pounds 16. spironolactone 25 mg Oral tab 0.5 tab once daily 17. Mag 64 64 mg oral TbER 2 tab daily 18. carvedilol 6.25 mg oral tab 1 tab 2 times per day 19. amlodipine 2.5 mg oral tab 1 tab once daily 20. captopril 12.5 mg Oral tab 0.5 tab daily 21. Keflex 500 mg Oral cap 1 cap twice a day - PMHx: Atrial Fib; CHF; Diabetes - NIDDM: controlled; MS; PE; Pneumonia; DVT; Hypertension; Implanted AICD; CAD; hyperlipidemia; BPH; Chronic Renal Insufficiency; CVA; Carotid Stenosis; - PSHx: Carotid surgery (2013); Cataract Surgery- Bilateral; - Social history: Smoking status: Patient states former smoker of tobacco. No barriers to communication noted, The patient speaks fluent Slovak, Speaks appropriately for age. - Family history: Not pertinent. - : The pt / caregiver states he / she is on anticoagulants: [facility] list is obtained from family members. - Exposure Risk Screening:: None identified. Screenin:20 Screening information is obtained from the patient. Fall risk: No risks identified. pml Assistance ADL's: requires no assistance with activities of daily living. Abuse/DV Screen: The patient / caregiver reports he/she is: not in a situation that causes fear, pain or injury. Nutritional screening: No deficits noted. Advance Directives: Currently, there is no health care proxy. home support is adequate. Assessment: 14:20 General: Appears in no apparent distress, Behavior is appropriate for age, cooperative. pml Pain: Denies pain. Neurological: Level of Consciousness is awake, alert, Oriented to person, place, time. Cardiovascular: Capillary refill < 3 seconds Rhythm is sinus rhythm No ectopy. Respiratory: Airway is patent Respiratory effort is even, unlabored. GI: Abdomen is non- distended. Derm: Skin is pink, warm & dry. 15:24 General: resting on stretcher, no apparent distress. resps easy and unlabored, skin pml p/w/d. sinus rhythm on monitor. family at bedside. voices no complaints. . 16:28 General: resting on stretcher, no apparent distress. voices no complaints. a&ox3 but pml remains confused as per reason for visit and requires reorientation to plan of care. family at bedside. sinus rhythm on monitor. skin p/w/d. denies pain. . 17:41 General: Pt to CT - tolerated without complaints, resps easy and unlabored, skin p/w/d .pml 18:16 General: Appears in no apparent distress, Behavior is appropriate for age, cooperative. pml Pain: Denies pain. Neurological: Level of Consciousness is awake, alert, Oriented to person, place, time. Cardiovascular: Capillary refill < 3 seconds Rhythm is sinus rhythm No ectopy. Derm: Skin is pink, warm & dry. 19:30 Reassessment: Patient appears in no apparent distress at this time. Patient denies pain jp6 at this time. General: Appears in no apparent distress, comfortable, Behavior is appropriate for age, cooperative. Pain: Denies pain. Neurological: Level of Consciousness is awake, alert, Oriented to person, place, time. EENT: No deficits noted. Cardiovascular: Capillary refill < 3 seconds Rhythm is sinus rhythm No ectopy. Respiratory: Airway is patent Respiratory effort is even, unlabored, Respiratory pattern is regular, symmetrical, Breath sounds are clear bilaterally. GI: Abdomen is flat, non- distended. : No deficits noted. Derm: Skin is pink, warm & dry. Musculoskeletal: No deficits noted. 20:30 Reassessment: Patient appears in no apparent distress at this time. Patient denies pain jp6 at this time. Neurological: Level of Consciousness is awake, alert, confused, Oriented to person, place, time. Cardiovascular: Rhythm is sinus rhythm No ectopy. Respiratory: Respiratory effort is even, unlabored. 21:42 Reassessment: Patient appears in no apparent distress at this time. Neurological: Level jp6 of Consciousness is awake, alert, confused. Respiratory: Airway is patent Respiratory effort is even, unlabored, Respiratory pattern is regular, symmetrical. Derm: Skin is pink, warm & dry. Vital Signs: 13:37 BP 163 / 79; Pulse 56; Resp 18; Temp 97.7(O); Pulse Ox 100% on R/A; Weight 82.1 kg (R); dd6 13:55 BP 182 / 78 (auto/); pml 13:56 Pulse 54 MON; Pulse Ox 100% ; pml 14:10 Pulse 52 MON; Pulse Ox 99% ; pml 14:10 BP 184 / 84 (auto/); pml 14:25 Pulse 54 MON; pml 14:25 BP 160 / 74 (auto/); pml 14:40 BP 151 / 72 (auto/); pml 14:41 Pulse 50 MON; Pulse Ox 100% ; pml 14:55 Pulse 52 MON; pml 14:55 BP 163 / 125 (auto/); pml 15:10 Pulse 54 MON; Pulse Ox 100% ; pml 15:10 BP 205 / 86 (auto/); pml 15:40 Pulse 60 MON; Pulse Ox 99% ; pml 15:40 BP 196 / 83 (auto/); pml 15:45 BP 184 / 92 LA (man/reg); pml 15:55 Pulse 44 MON; Pulse Ox 100% ; pml 15:55 BP 192 / 79 (auto/); pml 16:08 Pulse 56 MON; Pulse Ox 98% ; pml 16:10 BP 184 / 126 (auto/); pml 16:25 Pulse 48 MON; Pulse Ox 99% ; pml 16:25 BP 168 / 72 (auto/); pml 16:40 Pulse 48 MON; Pulse Ox 99% ; pml 16:40 BP 169 / 76 (auto/); pml 16:55 Pulse 50 MON; Pulse Ox 99% ; pml 16:55 BP 179 / 82 (auto/); pml 17:10 BP 181 / 83 (auto/); pml 17:13 Pulse 52 MON; Pulse Ox 98% ; pml 17:40 Pulse 52 MON; pml 17:40 BP 198 / 91 (auto/); pml 18:15 BP 145 / 84 (auto/); pml 19:15 BP 157 / 70 (auto/); jp6 19:15 Pulse 44 MON; jp6 19:15 Resp 18; Temp 98(O); Pulse Ox 98% on R/A; Pain 0/10; jp6 19:16 Pulse 50 MON; jp6 19:30 BP 162 / 68 (auto/); jp6 19:31 Pulse 50 MON; jp6 20:00 BP 151 / 63 (auto/); jp6 20:15 BP 189 / 79 (auto/); jp6 20:19 Pulse 44 MON; Pulse Ox 98% ; jp6 21:34 BP 183 / 80 (auto/); jp6 21:40 Pulse 50 MON; Pulse Ox 98% ; jp6 21:40 Resp 16; Temp 98.6; Pulse Ox 98% on R/A; Pain 0/10; jp6 Vitals: 13:37 Log In Time: May 11, 2016 at 13:35. RN notified that patient meets Red Flag dd6 criteria. ED Course: 13:36 Patient visited by Finn Mojica PCA. dd6 13:36 Patient moved to Waiting dd6 13:37 Sterling Torres is Private Physician. dd6 13:39 Patient visited by iTan Woody, FLAKITA. mlb1 13:42 Triage Initiated mlb1 13:45 Patient visited by Tian Woody, RN. mlb1 13:46 Karey Kelley RN is Primary Nurse. mlb1 13:46 Patient moved to 12 mlb1 14:03 Robby Hand MD is Attending Physician. br1 14:03 Inserted saline lock: 20 gauge in right antecubital area and blood collected. rs3 14:09 Patient visited by Robby Hand MD. br1 14:20 The patient / caregiver is instructed regarding the plan of care and ED course. Patient pml has correct armband on for positive identification. Placed in gown. Bed in low position. Call light in reach. Side rails up X2. school lunch monitor on. Pulse ox on. NIBP on. 14:22 Patient visited by Karey Kelley RN. pml 15:15 EKG done. (by ED staff). Reviewed by Robby Hand MD. pml 15:25 Patient visited by Karey Kelley RN. pml 15:28 [facility] Payment Agreement was scanned into [employer] and attached to record. jp5 15:46 Patient visited by Karey Kelley RN. pml 16:29 Patient visited by Karey Kelley,FLAKITA. pml 17:43 Patient visited by Karey Kelley RN. pml 18:17 Patient visited by Karey Kelley,FLAKITA. pml 19:14 Palak Brown is Hospitalizing Provider. br1 19:36 CT ABD & PELVIS: Oral Contrast Only Returned. EDMS 20:03 Admission Orders was scanned into [employer] and attached to record. tmm1 21:16 CT Spine,cervical w/o contrast Returned. EDMS 22:52 ARTERIAL BLOOD GAS Sent. jc3 22:54 No procedures done that require assistance. jp6 05/12 05:58 T-Sheet-- Draft Copy was scanned into [employer] and attached to record. hs2 15:40 ECG/EKG was scanned into [employer] and attached to record. lg 15:41 Carter Protocol was scanned into [employer] and attached to record. lg Administered Medications: 05/11 16:28 Drug: Labetalol 10 mg [labetalol 5 mg/mL intravenous solution (2 mL)] {Note: 208/85 .} pml Route: IVP; Rate: bolus; Infused Over: 2 mins; Site: right antecubital; Attachments: 15:41 Carter Protocol lg Point of Care Testing: Blood Glucose: 05/11 14:15 Blood Glucose: 218 mg/dL; pml Ranges: RT: 22:52 ABG's drawn from right radial artery pressure held for 5 minutes no bleeding noted jc3 pressure bandage applied specimen sent pt. tolerated well. Order Results: Lab Order: CBC with Diff; SPEC'M 05/11/16 14:01 Test: WHITE BLOOD COUNT; Value: 7.9; Range: 4.0-10.0; Units: K/mm3; Status: F Test: RED BLOOD COUNT; Value: 3.76; Range: 4.30-6.10; Abnormal: Below low normal; Units: M/mm3; Status: F Test: HEMOGLOBIN; Value: 13.1; Range: 14.0-18.0; Abnormal: Below low normal; Units: g/dl; Status: F Test: HEMATOCRIT; Value: 38.2; Range: 42.0-52.0; Abnormal: Below low normal; Units: %; Status: F Test: MEAN CORPUSCULAR VOLUME; Value: 101.8; Range: 80.0-96.0; Abnormal: Above high normal; Units: fl; Status: F Test: MEAN CORPUSCULAR HEMOGLOBIN; Value: 35.0; Range: 27.0-33.0; Abnormal: Above high normal; Units: pg; Status: F Test: MEAN CORPUSCULAR HGB CONC; Value: 34.4; Range: 32.0-36.5; Units: g/dl; Status: F Test: RED CELL DISTRIBUTION WIDTH; Value: 13.1; Range: 11.5-14.5; Units: %; Status: F Test: PLATELET COUNT, AUTOMATED; Value: 165; Range: 150-450; Units: k/mm3; Status: F Test: NEUTROPHILS %; Value: 69.2; Range: 36.0-66.0; Abnormal: Above high normal; Units: %; Status: F Test: LYMPH %; Value: 19.7; Range: 24.0-44.0; Abnormal: Below low normal; Units: %; Status: F Test: MONO %; Value: 5.1; Range: 0.0-5.0; Abnormal: Above high normal; Units: %; Status: F Test: EOS %; Value: 3.3; Range: 0.0-3.0; Abnormal: Above high normal; Units: %; Status: F Test: BASO %; Value: 0.7; Range: 0.0-1.0; Units: %; Status: F Test: LARGE UNSTAINED CELL %; Value: 1.9; Range: 0.0-4.0; Units: %; Status: F Test: NEUTROPHILS #; Value: 5.5; Range: 1.8-7.7; Units: K/mm3; Status: F Test: LYMPH #; Value: 1.6; Range: 1.5-4.5; Units: K/mm3; Status: F Test: MONO #; Value: 0.4; Range: 0.0-0.8; Units: K/mm3; Status: F Test: EOS #; Value: 0.3; Range: 0.0-0.50; Units: K/mm3; Status: F Test: BASO #; Value: 0.0; Range: 0.0-0.2; Units: K/mm3; Status: F Test: LARGE UNSTAINED CELL #; Value: 0.2; Range: 0.0-0.4; Units: K/mm3; Status: F Lab Order: Cardiac Injury Profile; SPEC'M 05/11/16 14:01 Test: CPK CREATINE PHOSPHOKINASE; Value: 266; Range: 39-308; Units: U/L; Status: F Test: CK-MB VALUE MASS; Value: 4.0; Range: 0.0-3.6; Abnormal: Above high normal; Units: NG/ML; Status: F Test: MB/CK RELATIVE INDEX; Value: 1.50; Range: < OR =4; Status: F Test Note: ; DIAGNOSIS CRITERIA MMB ng/ml Relative Index (RI) NON-AMI < or = 5 N/A [place] > 5 < or = 4 AMI > 5 > 4 Lab Order: Liver Profile; [facility]' 05/11/16 14:01 Test: AST/SGOT; Value: 79; Range: 15-37; Abnormal: Above high normal; Units: U/L; Status: F Test: ALT/SGPT; Value: 71; Range: 12-78; Units: U/L; Status: F Test: ALKALINE PHOSPHATASE; Value: 80; Range: 45-117; Units: U/L; Status: F Test: BILIRUBIN,TOTAL; Value: 0.5; Range: 0.2-1.0; Units: MG/DL; Status: F Test: BILIRUBIN,DIRECT; Value: 0.1; Range: 0.0-0.2; Units: MG/DL; Status: F Test: TOTAL PROTEIN; Value: 7.0; Range: 6.4-8.2; Units: GM/DL; Status: F Test: ALBUMIN; Value: 3.3; Range: 3.2-5.2; Units: GM/DL; Status: F Test: ALBUMIN/GLOBULIN RATIO; Value: 0.89; Range: 1.00-1.93; Abnormal: Below low normal; Status: F Lab Order: MED Profile; [facility]' 05/11/16 14:01 Test: GLUCOSE, FASTING; Value: 254; Range: 83-110; Abnormal: Above high normal; Units: MG/DL; Status: F Test: BLOOD UREA NITROGEN; Value: 35; Range: 7-18; Abnormal: Above high normal; Units: MG/DL; Status: F Test: CREATININE FOR GFR; Value: 2.06; Range: 0.70-1.30; Abnormal: Above high normal; Units: MG/DL; Status: F Test: GLOMERULAR FILTRATION RATE; Value: 33.3; Range: >42; Abnormal: Below low normal; Status: F Test: SODIUM LEVEL; Value: 141; Range: 136-145; Units: MEQ/L; Status: F Test: POTASSIUM SERUM; Value: 5.2; Range: 3.5-5.1; Abnormal: Above high normal; Units: MEQ/L; Status: F Test: CHLORIDE LEVEL; Value: 109; Range: 98-107; Abnormal: Above high normal; Units: MEQ/L; Status: F Test: CARBON DIOXIDE LEVEL; Value: 24; Range: 21-32; Units: MEQ/L; Status: F Test: ANION GAP; Value: 8; Range: 8-16; Units: MEQ/L; Status: F Test: CALCIUM LEVEL; Value: 8.8; Range: 8.8-10.2; Units: MG/DL; Status: F Test Note: ; Units are mL/min/1.73 m2 Chronic Kidney Disease Staging per NKF: Stage I & II GFR >=60 Normal to Mildly Decreased Stage III GFR 30-59 Moderately Decreased Stage IV GFR 15-29 Severely Decreased Stage V GFR <15 Very Little GFR Left ESRD GFR <15 on RN BABY Lab Order: Thyroid Stimulating Hormone; SPEC' 05/11/16 14:01 Test: THYROID STIMULATING HORMONE; Value: 3.180; Range: 0.358-3.740; Units: uIU/ML; Status: F Lab Order: Troponin; SPEC' 05/11/16 14:01 Test: TROPONIN I; Value: 0.04; Range: < 0.10; Units: NG/ML; Status: F Test Note: ; Troponin I Reference Interval for Siemens Yoolink LOCI: 99th Percentile= 0.00-0.045 ng/ml Risk Stratification: <= 0.10 ng/ml Decreased Risk for Adverse Clinical Events. 0.10-1.50 ng/ml Increased Risk for Adverse Clinical Events. Evaluation of additional criterion and/or repeat testing in 2-6 hours is suggested to rule out myocardial damage. >= 1.50 ng/ml Indicative of Myocardial Injury. Lab Order: Urinalysis; SPEC'M 05/11/16 16:23 Test: APPEARANCE, URINE; Value: CLEAR; Range: CLEAR; Status: F Test: COLOR, URINE; Value: YELLOW; Range: YELLOW; Status: F Test: PH,URINE; Value: 5.0; Range: 5.0-9.0; Units: UNITS; Status: F Test: SPECIFIC GRAVITY URINE AUTO; Value: 1.015; Range: 1.002-1.035; Status: F Test: PROTEIN, URINE AUTO; Value: 1+; Range: NEGATIVE; Abnormal: Above high normal; Units: mg/dL; Status: F Test: GLUCOSE, URINE (UA) AUTO; Value: 2+; Range: NEGATIVE; Abnormal: Above high normal; Units: mg/dL; Status: F Test: KETONE, URINE AUTO; Value: NEGATIVE; Range: NEGATIVE; Units: mg/dL; Status: F Test: UROBILINOGEN, URINE AUTO; Value: 0.2; Range: 0.0-2.0; Units: mg/dL; Status: F Test: BILIRUBIN, URINE AUTO; Value: NEGATIVE; Range: NEGATIVE; Status: F Test: NITRITE, URINE AUTO; Value: NEGATIVE; Range: NEGATIVE; Status: F Test: LEUKOCYTE ESTERASE, URINE AUTO; Value: NEGATIVE; Range: NEGATIVE; Status: F Test: BLOOD, URINE BLOOD; Value: 1+; Range: NEGATIVE; Abnormal: Above high normal; Status: F Test: WBC, URINE AUTO; Value: 1; Range: 0-3; Units: /HPF; Status: F Test: RBC, URINE AUTO; Value: 3; Range: 0-3; Units: /HPF; Status: F Test: BACTERIA, URINE AUTO; Value: NEGATIVE; Range: NEGATIVE; Status: F Test: YEAST LIKE CELL URINE AUTO; Value: SMALL; Range: NONE; Abnormal: Above high normal; Status: F Test: SQUAMOUS EPITHELIAL CELL UR AU; Value: 0; Range: 0-6; Units: /HPF; Status: F Test: HYALINE CAST, URINE AUTO; Value: 0; Range: 0-1; Units: /LPF; Status: F Lab Order: LIPASE; [facility] 05/11/16 14:01 Test: LIPASE; Value: 329; Range: 73-393; Units: U/L; Status: F Lab Order: AMMONIA; [facility] 05/11/16 20:43 Test: AMMONIA; Value: 32; Range: <32; Units: uMOL/L; Status: F Lab Order: ARTERIAL BLOOD GAS; [facility] 05/11/16 22:49 Test: ABG pH (ARTERIAL); Value: 7.430; Range: 7.350-7.450; Units: UNITS; Status: F Test: ABG PARTIAL PRESSURE CO2; Value: 33.4; Range: 35.0-45.0; Abnormal: Below low normal; Units: mmHg; Status: F Test: ABG PARTIAL PRESSURE O2; Value: 84.8; Range: 75.0-100.0; Units: mmHg; Status: F Test: ABG TOTAL CO2; Value: 22.7; Range: 23.0-31.0; Abnormal: Below low normal; Units: MEQ/L; Status: F Test: ABG HCO3; Value: 21.7; Range: 22.0-26.0; Abnormal: Below low normal; Units: MEQ/L; Status: F Test: ABG BASE EXCESS; Value: -1.9; Range: -2.0-2.0; Status: F Test: ABG STANDARD HCO3; Value: 22.9; Range: 22.0-26.0; Units: MEQ/L; Status: F Test: ABG O2 SATURATION; Value: 96.6; Range: 95.0-99.0; Units: %; Status: F Lab Order: CARDIAC MARKER PANEL; SPEC'M 05/11/16 20:43 Test: CPK CREATINE PHOSPHOKINASE; Value: 504; Range: 39-308; Abnormal: High; Units: U/L; Status: F Test: CK-MB VALUE MASS; Value: 9.9; Range: 0.0-3.6; Abnormal: Above high normal; Units: NG/ML; Status: F Test: MB/CK RELATIVE INDEX; Value: 1.96; Range: < OR =4; Status: F Test: TROPONIN I; Value: 0.04; Range: < 0.10; Units: NG/ML; Status: F Test Note: ; DIAGNOSIS CRITERIA MMB ng/ml Relative Index (RI) NON-AMI < or = 5 N/A [place] > 5 < or = 4 AMI > 5 > 4 Radiology Order: CT ABD & PELVIS: Oral Contrast Only Test: CT ABD & PELVIS: Oral Contrast Only REASON FOR EXAMINATION: LUQ, LLQ pain; ; CLINICAL HISTORY: Abdominal pain.; TECHNIQUE: Multiple axial, sagittal and coronal CT images were obtained through the abdomen and pelvi; s without administration of oral or IV contrast material.; COMMENTS:; The liver is of uniform attenuation without mass or defect. There is no intra or extrahepatic biliary; ductal dilatation. The spleen is normal. The gallbladder is within normal limits. The pancreas is of; normal contour and attenuation characteristics. There is no evidence of adrenal mass.; The kidneys are normal in size, shape and configuration. No renal or ureteral calculi are identified.; There is no hydroureter or hydronephrosis.; There is no evidence for appendicitis. There is no bowel wall thickening. No evidence for small or la; rge bowel obstruction. Sigmoid diverticulosis is noted. There is no evidence of abdominal ascites o; r lymphadenopathy.; There is no evidence of intrinsic or extrinsic bladder mass. There is no pelvic ascites or lymphadeno; cara. Prostate is moderately enlarged.; Images of the lung bases show no evidence of pleural or parenchymal mass. There are no pleural effusi; ons.; The bony structures are free of lytic or blastic lesions.; IMPRESSION:; No acute abdominal or pelvic pathology.; Thank you for your kind referral of this patient.; ; Radiology Order: CT Spine,cervical w/o contrast Test: CT Spine,cervical w/o contrast REASON FOR EXAMINATION: neck pain; ; CLINICAL HISTORY: Neck pain.; TECHNIQUE: Multiple axial images were obtained through the cervical spine. Images were also reconstru; cted in coronal and sagittal planes. The study was performed without IV contrast.; COMMENTS:; There is no fracture or spondylolisthesis visualized. The paraspinal soft tissues are unremarkable. T; here are no lytic or blastic lesions.; Straightening of cervical lordosis is seen, suggesting muscular spasm. There is evidence of moderate; to severe multilevel disk disease, demonstrated by disc space height loss, osteophytosis and endplate; sclerosis.; IMPRESSION:; 1. No fracture or spondylolisthesis.; 2. Straightening of cervical lordosis is seen, suggesting muscular spasm.; 3. Multilevel spondylosis.; Thank you for your kind referral of this patient.; ; Outcome: 19:14 Decision to Hospitalize by Provider. br1 22:54 Discharge Assessment: Patient awake and alert. confused, patient administered narcotics jp6 - no. The following High Risk Discharge criteria are identified: None. Admitted to PCU accompanied by nurse, accompanied by tech, via stretcher, on monitor, with chart. Condition: unchanged. CT Study completed. Admission hand-off: Report called to Gauri BOGGS. Property :Personal belongings accompany Pt. 22:55 Patient left the ED. jp6 Signatures: Dispatcher [employer] EDMS Wade Mallory,RN RN po Amaury Reis, Reg Reg lg Tian Woody RN RN mlb1 Robby Hand MD MD br1 Yonatan Silva jc3 Finn Mojica, PUBLIC RELATIONS WRITER PUBLIC RELATIONS WRITER dd6 Paola BirminghamRN RN rs3 Karey KelleyRN RN pml Jaja, Roslyn, PUBLIC RELATIONS WRITER PUBLIC RELATIONS WRITER tmm1 Maddy Aguilar jp5 Merle Epstein, Reg Reg hs2 Bhavna Bartholomew,RN RN jp6 Corrections: (The following items were deleted from the chart) 13:45 13:39 Presenting complaint: states: Confusion memory loss for the past four days mlb1 seen at Dr.. Torres's office on Friday and again yesterday started on an antibiotic for UTI and insulin mlb1 14:15 13:44 PSHx: defibulator; mlb1 po Chart Complete MTDD
--- NOTE | 2016-05-13 23:56 | EDDOCDS ---
Physician Documentation [facility] Name: Rickey Ibanez Age: 81 yrs Sex: Male : 1935 Arrival Date: 05/11/2016 Time: 13:35 Bed 12 Private MD: Sterling Torres E. Disposition: 05/11/16 19:14 Hospitalization ordered by Palak Brown for Inpatient Admission. Preliminary diagnosis are Altered mental status, unspecified, Essential (primary) hypertension - Hypertensive Urgency. - Bed requested for PCU. - Status is Inpatient Admission. jp6 - Condition is Stable. - Problem is new. - Symptoms are unchanged. Historical: - Allergies: no known allergies; - Home Meds: 1. aspirin 81 mg oral TbEC 1 tab once daily 2. Eliquis 5 mg oral tab 1 tab 2 times per day 3. Nitrostat 0.4 mg SL subl 1 tab every 5 minutes as needed 4. levothyroxine 25 mcg Oral cap 1 cap once daily 5. amiodarone 200 mg Oral tab 1 tab once daily 6. finasteride 5 mg oral tab 1 tab once daily 7. glipizide 10 mg Oral tab 1 tab 2 times per day 8. Tradjenta 5 mg oral tab 1 tab once daily 9. atorvastatin 40 mg oral tab 1 tab nightly 10. Drisdol 50,000 unit Oral cap 1 cap once wkly 11. tamsulosin 0.4 mg oral cp24 1 cap once daily 12. Tums Ultra 400 mg (1,000 mg) oral chew twice a day 13. Vitamin B-12 1,000 mcg Oral TbER daily 14. allopurinol 100 mg Oral tab 1 tab once daily 15. Lasix 40 mg Oral tab 1 tab once daily if weight is >169 pounds 16. spironolactone 25 mg Oral tab 0.5 tab once daily 17. Mag 64 64 mg oral TbER 2 tab daily 18. carvedilol 6.25 mg oral tab 1 tab 2 times per day 19. amlodipine 2.5 mg oral tab 1 tab once daily 20. captopril 12.5 mg Oral tab 0.5 tab daily 21. Keflex 500 mg Oral cap 1 cap twice a day - PMHx: Atrial Fib; CHF; Diabetes - NIDDM: controlled; [place]; PE; Pneumonia; DVT; Hypertension; Implanted AICD; CAD; hyperlipidemia; BPH; Chronic Renal Insufficiency; CVA; Carotid Stenosis; - PSHx: Carotid surgery (2014); Cataract Surgery- Bilateral; - Social history: Smoking status: Patient states former smoker of tobacco. No barriers to communication noted, The patient speaks fluent [place], Speaks appropriately for age. - Family history: Not pertinent. - : The pt / caregiver states he / she is on anticoagulants: [facility] Home medication list is obtained from family members. - Exposure Risk Screening:: None identified. Vital Signs: 05/11 13:37 BP 163 / 79; Pulse 56; Resp 18; Temp 97.7(O); Pulse Ox 100% on R/A; Weight 82.1 kg / dd6 181 lbs (R); 13:55 BP 182 / 78 (auto/); pml 13:56 Pulse 54 MON; Pulse Ox 100% ; pml 14:10 Pulse 52 MON; Pulse Ox 99% ; pml 14:10 BP 184 / 84 (auto/); pml 14:25 Pulse 54 MON; pml 14:25 BP 160 / 74 (auto/); pml 14:40 BP 151 / 72 (auto/); pml 14:41 Pulse 50 MON; Pulse Ox 100% ; pml 14:55 Pulse 52 MON; pml 14:55 BP 163 / 125 (auto/); pml 15:10 Pulse 54 MON; Pulse Ox 100% ; pml 15:10 BP 205 / 86 (auto/); pml 15:40 Pulse 60 MON; Pulse Ox 99% ; pml 15:40 BP 196 / 83 (auto/); pml 15:45 BP 184 / 92 LA (man/reg); pml 15:55 Pulse 44 MON; Pulse Ox 100% ; pml 15:55 BP 192 / 79 (auto/); pml 16:08 Pulse 56 MON; Pulse Ox 98% ; pml 16:10 BP 184 / 126 (auto/); pml 16:25 Pulse 48 MON; Pulse Ox 99% ; pml 16:25 BP 168 / 72 (auto/); pml 16:40 Pulse 48 MON; Pulse Ox 99% ; pml 16:40 BP 169 / 76 (auto/); pml 16:55 Pulse 50 MON; Pulse Ox 99% ; pml 16:55 BP 179 / 82 (auto/); pml 17:10 BP 181 / 83 (auto/); pml 17:13 Pulse 52 MON; Pulse Ox 98% ; pml 17:40 Pulse 52 MON; pml 17:40 BP 198 / 91 (auto/); pml 18:15 BP 145 / 84 (auto/); pml 19:15 BP 157 / 70 (auto/); jp6 19:15 Pulse 44 MON; jp6 19:15 Resp 18; Temp 98(O); Pulse Ox 98% on R/A; Pain 0/10; jp6 19:16 Pulse 50 MON; jp6 19:30 BP 162 / 68 (auto/); jp6 19:31 Pulse 50 MON; jp6 20:00 BP 151 / 63 (auto/); jp6 20:15 BP 189 / 79 (auto/); jp6 20:19 Pulse 44 MON; Pulse Ox 98% ; jp6 21:34 BP 183 / 80 (auto/); jp6 21:40 Pulse 50 MON; Pulse Ox 98% ; jp6 21:40 Resp 16; Temp 98.6; Pulse Ox 98% on R/A; Pain 0/10; jp6 MDM: 14:11 Regional Sales Representative/Pulse Ox/q 15 min VS ordered. br1 14:11 Accucheck ordered. br1 14:11 IV Saline Lock ordered. br1 14:11 Rhythm Strip to chart ordered. br1 14:12 CT Head Without Contrast Ordered. EDMS 14:13 CBC with Diff Ordered. EDMS 14:13 Cardiac Injury Profile Ordered. EDMS 14:13 Liver Profile Ordered. EDMS 14:13 MED Profile Ordered. EDMS 14:13 Thyroid Stimulating Hormone Ordered. EDMS 14:13 Troponin Ordered. EDMS 14:13 Urinalysis Ordered. EDMS 14:13 Urine Culture Ordered. EDMS 14:13 Chest, 1 View Ordered. EDMS 14:13 ECG WITH READING ER PHYS+CARDIAG ordered. EDMS 14:16 LIPASE Ordered. EDMS 14:38 CBC with Diff Reviewed. br1 15:26 Cardiac Injury Profile Reviewed. br1 15:26 Liver Profile Reviewed. br1 15:26 MED Profile Reviewed. br1 15:26 Thyroid Stimulating Hormone Reviewed. br1 15:26 Troponin Reviewed. br1 15:26 LIPASE Reviewed. br1 15:28 [facility] Payment Agreement was scanned into makexyz and attached to record. jp5 15:28 Financial registration complete. jp5 15:30 Recheck B/P ordered. br1 15:31 CT ABD & PELVIS: Oral Contrast Only Ordered. EDMS 16:17 Labetalol 10 mg IVP at bolus once over 2 mins ordered. br1 16:28 Labetalol 10 mg IVP at bolus once over 2 mins ordered. pml 17:09 Urinalysis Reviewed. br1 20:02 CT Spine,cervical w/o contrast Ordered. EDMS 20:03 Admission Orders was scanned into makexyz and attached to record. tmm1 20:06 ECG WITH READING ER PHYS ordered. EDMS 20:24 RENAL US Ordered. EDMS 20:25 OSMOLALITY,URINE Ordered. EDMS 20:26 SODIUM,RANDOM URINE Ordered. EDMS 20:26 CHLORIDE,RANDOM URINE Ordered. EDMS 20:26 POTASSIUM,RANDOM URINE Ordered. EDMS 20:26 TOTAL PROTEIN,RANDOM URINE Ordered. EDMS 20:26 CREATININE,RANDOM URINE Ordered. EDMS 20:26 AMMONIA Ordered. EDMS 20:26 ARTERIAL BLOOD GAS Ordered. EDMS 20:26 BLOOD CULTURES Ordered. EDMS 20:26 BLOOD CULTURES Ordered. EDMS 20:28 CARDIAC MARKER PANEL Ordered. EDMS 20:28 CARDIAC MARKER PANEL Ordered. EDMS 20:52 PHYSICAL THERAPY EVAL & TREAT ordered. EDMS 20:52 FLUORO GUID FOR NEEDLE PLACEMT Ordered. EDMS 20:52 ELECTROCARDIOGRAM ADULT ordered. EDMS 20:53 PROTHROMBIN TIME PROFILE\E\INR Ordered. EDMS 20:53 C REACTIVE PROTEIN QUANTITATIV Ordered. EDMS 20:53 COMPLETE BLOOD COUNT Ordered. EDMS 20:53 BASIC METABOLIC PROFILE Ordered. EDMS 20:53 MAGNESIUM LEVEL Ordered. EDMS 20:53 HEMOGLOBIN A1C Ordered. EDMS 20:55 CONSISTENT CARBOHYDRATES ordered. EDMS 20:57 Admission / Observation Status ordered. EDMS 05/12 05:58 T-Sheet-- Draft Copy was scanned into makexyz and attached to record. hs2 15:40 ECG/EKG was scanned into makexyz and attached to record. lg 15:41 [facility] Protocol was scanned into makexyz and attached to record. lg Point of Care Testing: Blood Glucose: 05/11 14:15 Blood Glucose: 218 mg/dL; pml Ranges: Administered Medications: 16:28 Drug: Labetalol 10 mg [labetalol 5 mg/mL intravenous solution (2 mL)] {Note: 208/85 .} pml Route: IVP; Rate: bolus; Infused Over: 2 mins; Site: right antecubital; Signatures: Dispatcher Med[employer] EDMS Wade Mallory,RN RN po Amaury Reis, Reg Reg lg Tian Woody RN RN mlb1 Robby Hand MD MD br1 Karey KelleyRN RN pml McLear, Roslyn, PIPED POCKET MACHINE OPERATOR PIPED POCKET MACHINE OPERATOR tmm1 AguilarLoretostefany jp5 Merle Epstein, Reg Reg hs2 Bhavna Bartholomew,RN RN jp6 The chart was reviewed and I authenticate all verbal orders and agree with the evaluation and treatment provided.Corrections: (The following items were deleted from the chart) 14:15 13:44 PSHx: defibulator; mlb1 po 14:16 14:13 LIPASE+LAB ordered. EDMS EDMS Attachments: 15:28 [facility] Payment Agreement jp5 20:03 Admission Orders tmm1 05/12 05:58 T-Sheet-- Draft Copy hs2 15:40 ECG/EKG lg Chart Complete MTDD
--- NOTE | 2016-05-13 23:56 | EDDOCDS ---
Physician Documentation [facility] Name: Rickey Ibanez Age: 81 yrs Sex: Male : 1935 Arrival Date: 05/11/2016 Time: 13:35 Bed 12 Private MD: Sterling Torres E. Disposition: 05/11/16 19:14 Hospitalization ordered by Palak Brown for Inpatient Admission. Preliminary diagnosis are Altered mental status, unspecified, Essential (primary) hypertension - Hypertensive Urgency. - Bed requested for PCU. - Status is Inpatient Admission. jp6 - Condition is Stable. - Problem is new. - Symptoms are unchanged. Historical: - Allergies: no known allergies; - Home Meds: 1. aspirin 81 mg oral TbEC 1 tab once daily 2. Eliquis 5 mg oral tab 1 tab 2 times per day 3. Nitrostat 0.4 mg SL subl 1 tab every 5 minutes as needed 4. levothyroxine 25 mcg Oral cap 1 cap once daily 5. amiodarone 200 mg Oral tab 1 tab once daily 6. finasteride 5 mg oral tab 1 tab once daily 7. glipizide 10 mg Oral tab 1 tab 2 times per day 8. Tradjenta 5 mg oral tab 1 tab once daily 9. atorvastatin 40 mg oral tab 1 tab nightly 10. Drisdol 50,000 unit Oral cap 1 cap once wkly 11. tamsulosin 0.4 mg oral cp24 1 cap once daily 12. Tums Ultra 400 mg (1,000 mg) oral chew twice a day 13. Vitamin B-12 1,000 mcg Oral TbER daily 14. allopurinol 100 mg Oral tab 1 tab once daily 15. Lasix 40 mg Oral tab 1 tab once daily if weight is >169 pounds 16. spironolactone 25 mg Oral tab 0.5 tab once daily 17. Mag 64 64 mg oral TbER 2 tab daily 18. carvedilol 6.25 mg oral tab 1 tab 2 times per day 19. amlodipine 2.5 mg oral tab 1 tab once daily 20. captopril 12.5 mg Oral tab 0.5 tab daily 21. Keflex 500 mg Oral cap 1 cap twice a day - PMHx: Atrial Fib; CHF; Diabetes - NIDDM: controlled; [place]; PE; Pneumonia; DVT; Hypertension; Implanted AICD; CAD; hyperlipidemia; BPH; Chronic Renal Insufficiency; CVA; Carotid Stenosis; - PSHx: Carotid surgery (2014); Cataract Surgery- Bilateral; - Social history: Smoking status: Patient states former smoker of tobacco. No barriers to communication noted, The patient speaks fluent [place], Speaks appropriately for age. - Family history: Not pertinent. - : The pt / caregiver states he / she is on anticoagulants: [facility] Home medication list is obtained from family members. - Exposure Risk Screening:: None identified. Vital Signs: 05/11 13:37 BP 163 / 79; Pulse 56; Resp 18; Temp 97.7(O); Pulse Ox 100% on R/A; Weight 82.1 kg / dd6 181 lbs (R); 13:55 BP 182 / 78 (auto/); pml 13:56 Pulse 54 MON; Pulse Ox 100% ; pml 14:10 Pulse 52 MON; Pulse Ox 99% ; pml 14:10 BP 184 / 84 (auto/); pml 14:25 Pulse 54 MON; pml 14:25 BP 160 / 74 (auto/); pml 14:40 BP 151 / 72 (auto/); pml 14:41 Pulse 50 MON; Pulse Ox 100% ; pml 14:55 Pulse 52 MON; pml 14:55 BP 163 / 125 (auto/); pml 15:10 Pulse 54 MON; Pulse Ox 100% ; pml 15:10 BP 205 / 86 (auto/); pml 15:40 Pulse 60 MON; Pulse Ox 99% ; pml 15:40 BP 196 / 83 (auto/); pml 15:45 BP 184 / 92 LA (man/reg); pml 15:55 Pulse 44 MON; Pulse Ox 100% ; pml 15:55 BP 192 / 79 (auto/); pml 16:08 Pulse 56 MON; Pulse Ox 98% ; pml 16:10 BP 184 / 126 (auto/); pml 16:25 Pulse 48 MON; Pulse Ox 99% ; pml 16:25 BP 168 / 72 (auto/); pml 16:40 Pulse 48 MON; Pulse Ox 99% ; pml 16:40 BP 169 / 76 (auto/); pml 16:55 Pulse 50 MON; Pulse Ox 99% ; pml 16:55 BP 179 / 82 (auto/); pml 17:10 BP 181 / 83 (auto/); pml 17:13 Pulse 52 MON; Pulse Ox 98% ; pml 17:40 Pulse 52 MON; pml 17:40 BP 198 / 91 (auto/); pml 18:15 BP 145 / 84 (auto/); pml 19:15 BP 157 / 70 (auto/); jp6 19:15 Pulse 44 MON; jp6 19:15 Resp 18; Temp 98(O); Pulse Ox 98% on R/A; Pain 0/10; jp6 19:16 Pulse 50 MON; jp6 19:30 BP 162 / 68 (auto/); jp6 19:31 Pulse 50 MON; jp6 20:00 BP 151 / 63 (auto/); jp6 20:15 BP 189 / 79 (auto/); jp6 20:19 Pulse 44 MON; Pulse Ox 98% ; jp6 21:34 BP 183 / 80 (auto/); jp6 21:40 Pulse 50 MON; Pulse Ox 98% ; jp6 21:40 Resp 16; Temp 98.6; Pulse Ox 98% on R/A; Pain 0/10; jp6 MDM: 14:11 Microbiology Lab Manager/Pulse Ox/q 15 min VS ordered. br1 14:11 Accucheck ordered. br1 14:11 IV Saline Lock ordered. br1 14:11 Rhythm Strip to chart ordered. br1 14:12 CT Head Without Contrast Ordered. EDMS 14:13 CBC with Diff Ordered. EDMS 14:13 Cardiac Injury Profile Ordered. EDMS 14:13 Liver Profile Ordered. EDMS 14:13 MED Profile Ordered. EDMS 14:13 Thyroid Stimulating Hormone Ordered. EDMS 14:13 Troponin Ordered. EDMS 14:13 Urinalysis Ordered. EDMS 14:13 Urine Culture Ordered. EDMS 14:13 Chest, 1 View Ordered. EDMS 14:13 ECG WITH READING ER PHYS+CARDIAG ordered. EDMS 14:16 LIPASE Ordered. EDMS 14:38 CBC with Diff Reviewed. br1 15:26 Cardiac Injury Profile Reviewed. br1 15:26 Liver Profile Reviewed. br1 15:26 MED Profile Reviewed. br1 15:26 Thyroid Stimulating Hormone Reviewed. br1 15:26 Troponin Reviewed. br1 15:26 LIPASE Reviewed. br1 15:28 [facility] Payment Agreement was scanned into [employer] and attached to record. jp5 15:28 Financial registration complete. jp5 15:30 Recheck B/P ordered. br1 15:31 CT ABD & PELVIS: Oral Contrast Only Ordered. EDMS 16:17 Labetalol 10 mg IVP at bolus once over 2 mins ordered. br1 16:28 Labetalol 10 mg IVP at bolus once over 2 mins ordered. pml 17:09 Urinalysis Reviewed. br1 20:02 CT Spine,cervical w/o contrast Ordered. EDMS 20:03 Admission Orders was scanned into [employer] and attached to record. tmm1 20:06 ECG WITH READING ER PHYS ordered. EDMS 20:24 RENAL US Ordered. EDMS 20:25 OSMOLALITY,URINE Ordered. EDMS 20:26 SODIUM,RANDOM URINE Ordered. EDMS 20:26 CHLORIDE,RANDOM URINE Ordered. EDMS 20:26 POTASSIUM,RANDOM URINE Ordered. EDMS 20:26 TOTAL PROTEIN,RANDOM URINE Ordered. EDMS 20:26 CREATININE,RANDOM URINE Ordered. EDMS 20:26 AMMONIA Ordered. EDMS 20:26 ARTERIAL BLOOD GAS Ordered. EDMS 20:26 BLOOD CULTURES Ordered. EDMS 20:26 BLOOD CULTURES Ordered. EDMS 20:28 CARDIAC MARKER PANEL Ordered. EDMS 20:28 CARDIAC MARKER PANEL Ordered. EDMS 20:52 PHYSICAL THERAPY EVAL & TREAT ordered. EDMS 20:52 FLUORO GUID FOR NEEDLE PLACEMT Ordered. EDMS 20:52 ELECTROCARDIOGRAM ADULT ordered. EDMS 20:53 PROTHROMBIN TIME PROFILE\E\INR Ordered. EDMS 20:53 C REACTIVE PROTEIN QUANTITATIV Ordered. EDMS 20:53 COMPLETE BLOOD COUNT Ordered. EDMS 20:53 BASIC METABOLIC PROFILE Ordered. EDMS 20:53 MAGNESIUM LEVEL Ordered. EDMS 20:53 HEMOGLOBIN A1C Ordered. EDMS 20:55 CONSISTENT CARBOHYDRATES ordered. EDMS 20:57 Admission / Observation Status ordered. EDMS 05/12 05:58 T-Sheet-- Draft Copy was scanned into [employer] and attached to record. hs2 15:40 ECG/EKG was scanned into [employer] and attached to record. lg 15:41 [facility] Protocol was scanned into [employer] and attached to record. lg Point of Care Testing: Blood Glucose: 05/11 14:15 Blood Glucose: 218 mg/dL; pml Ranges: Administered Medications: 16:28 Drug: Labetalol 10 mg [labetalol 5 mg/mL intravenous solution (2 mL)] {Note: 208/85 .} pml Route: IVP; Rate: bolus; Infused Over: 2 mins; Site: right antecubital; Signatures: Dispatcher MedHost EDMS Wade Mallory,RN RN po Amaury Reis, Reg Reg lg Tian Woody RN RN mlb1 Robby Hand MD MD br1 Karey KelleyRN RN pml McLear, Roslyn, CHANGE MANAGEMENT MANAGER CHANGE MANAGEMENT MANAGER tmm1 AguilarLoretostefany jp5 Merle Epstein, Reg Reg hs2 Bhavna Bartholomew,RN RN jp6 The chart was reviewed and I authenticate all verbal orders and agree with the evaluation and treatment provided.Corrections: (The following items were deleted from the chart) 14:15 13:44 PSHx: defibulator; mlb1 po 14:16 14:13 LIPASE+LAB ordered. EDMS EDMS Attachments: 15:28 [facility] Payment Agreement jp5 20:03 Admission Orders tmm1 05/12 05:58 T-Sheet-- Draft Copy hs2 15:40 ECG/EKG lg Chart Complete MTDD
[2016-05-14] MEDS: **hydrALAZINE HCL** 25 MG TAB PO SCH ×4 (02:55→21:13)
[2016-05-14 06:00] VITALS: BP 151/67
[2016-05-14] MEDS: HEPARIN SOD (PORCINE) 5000 UNITS/ML VIAL SC SCH (06:23)
[2016-05-14] MEDS: LEVOTHYROXINE 0.05 MG TAB (50 MCG) PO SCH (06:23)
[2016-05-14 07:17] LABS: MEAN CORPUSCULAR HEMOGLOBIN 33.9 pg (27.0-33.0); MEAN CORPUSCULAR HGB CONC 32.6 g/dl (32.0-36.5); MEAN CORPUSCULAR VOLUME 103.9 fl (80.0-96.0); RED CELL DISTRIBUTION WIDTH 14.1 % (11.5-14.5); WHITE BLOOD COUNT 9.2 K/mm3 (4.0-10.0)
[2016-05-14 07:43] LABS: CALCIUM LEVEL 8.4 MG/DL (8.8-10.2); CREATININE FOR GFR 1.86 MG/DL (0.70-1.30); GLOMERULAR FILTRATION RATE 37.5 (>42); MAGNESIUM LEVEL 2.3 MG/DL (1.8-2.4); POTASSIUM SERUM 4.7 MEQ/L (3.5-5.1)
--- NOTE | 2016-05-14 08:30 | EEG ---
DATE OF PROCEDURE: 05/13/2016 REFERRING PHYSICIAN: Dr. Irma Lopez DIAGNOSIS: Altered mental status. EEG #: [id number]. HISTORY: The patient is a 81-year-old male who was admitted at [facility] due to confusion and altered mental status. This electroencephalogram (EEG) was done to rule out epileptic potential and degree of encephalopathy. He is currently on ceftriaxone, ampicillin, vancomycin, aspirin, vitamin B12, finasteride, Flomax, Protonix, levothyroxine, Coreg, hydralazine, etc. TECHNICAL DESCRIPTION: This digital EEG was recorded by 21 scalp, ear and two EKG electrodes and was reviewed in bipolar and referential montages following reformatting in 10-20 international electrode placement system. INTERPRETATION: The patient was noted to be in awake and drowsy states during this EEG. Resting awake background consisted of 7 Hz theta activity measuring 15-30 microvolts in amplitude. Stage I and II sleep was reviewed and was symmetric bilaterally. Hyperventilation and photic stimulation remained unremarkable. Electrocardiogram (EKG) revealed premature atrial complexes. At times, heart rate seemed irregular. No focal, lateralizing or epileptiform abnormalities were seen. No clinical or electrographic seizures were recorded. CONCLUSION: This EEG in awake, drowsy states, stage I and II sleep is mildly abnormal due to presence of mild generalized slowing and disorganization of background consistent with nonspecific diffuse cerebral dysfunction such as seen in encephalopathy due to multiple potential causes including toxic, metabolic, autoimmune, infectious, medication related, or multifocal structural abnormalities. No epileptiform abnormalities were seen. Clinical correlation is recommended.
[2016-05-14] MEDS: SENOKOT S TAB PO SCH ×2 (09:48→21:11)
[2016-05-14] MEDS: PANTOPRAZOLE 40MG TAB (PROTONIX) PO SCH (09:48)
[2016-05-14] MEDS: ASPIRIN 81 MG ENTERIC TAB PO SCH (09:49)
[2016-05-14] MEDS: CARVedilol 6.25 MG TAB PO SCH ×2 (09:49→21:13)
[2016-05-14] MEDS: ISOSORBIDE MON. (IMDUR) 30 MG XR TAB PO SCH (09:49)
[2016-05-14] MEDS: CYANOCOBALAMIN 500 MCG TAB PO SCH (09:50)
[2016-05-14] MEDS: ALLOPURINOL 100 MG TAB PO SCH (09:50)
[2016-05-14] MEDS: CALCIUM CARBONATE 500 MG CHEW U/D PO SCH ×2 (09:50→21:12)
[2016-05-14] MEDS: CEPHALEXIN 500 MG CAP PO SCH ×2 (09:50→21:11)
[2016-05-14] MEDS: HumaLOG INSULIN (NovoLOG) PER UNIT SC SCH ×4 (09:50→20:33)
--- NOTE | 2016-05-14 13:04 | IPNPDOC ---
Assessment/Plan Date Seen The patient was seen on 05/14/16. Problems Problems: (1) Encephalopathy Status: Acute Problem Specific Plan: Consult Specialist Problem Text: CT negative. Labs stable. No indication to be infectious etiology. Will stop antibiotics. Urine cx negative. No fevers. Will consult neurology. Cardiology to investigate AICD today. 05/13/16: Neurology was consulted. Labs and EEG ordered. (2) Renal failure (ARF), acute on chronic Status: Resolved Problem Text: appears to be at baseline. 05/13/16: BUN 32/Creat 1.94 (3) Atrial fibrillation Onset Date: 04/18/2014 Status: Chronic Problem Text: not clear why eliquis was stopped. will resume since no invasive procedures are anticipated. after he become 82 yo he will need dose adjustment to 2.5 bid (4) CAD (coronary artery disease) Onset Date: 04/18/2014 Status: Chronic (5) CKD (chronic kidney disease) stage 3, GFR 30-59 ml/min Status: Chronic (6) Hypothyroid Status: Chronic Problem Text: T4 mildly elevated. TSH stable. monitor. Will repeat Free T4 (7) BPH w urinary obs/LUTS Status: Chronic Problem Specific Plan: Monitor Clinically Plan / VTE VTE Prophylaxis Ordered?: Yes (Heparin) Subjective Review of Systems CC/HPI The patient is a 81-year-old male admitted with a reason for visit of Encephalitis. Other systems ROS cannot be meaningfully obtained due to patient's memory impairment Objective Physical Examination General Exam: Positive: Alert, Cooperative, No Acute Distress Eye Exam: Positive: Conjunctiva & lids normal, EOMI, PERRLA ENT Exam: Positive: Atraumatic, Mucous membr. moist/pink Neck Exam: Positive: Supple Chest Exam: Positive: Clear to auscultation, Normal air movement Heart Exam: Positive: Normal S1, Normal S2, Rate Normal Telemetry: Positive: Bradycardia, No significant arrhythmia, Sinus Abdomen Exam: Positive: Normal bowel sounds, Soft Extremity Exam: Negative: Clubbing, Cyanosis, Edema Skin Exam: Positive: Nl turgor and temperature Neuro Exam: Positive: Cranial Nerves 3-12 NL, Normal Gait, Normal Speech Psych Exam: Positive: Other (seems mildly distressed by the inability to recall. also cannot read.) Vital Signs/I&O Vital Signs Date Time Temp Pulse Resp B/P Pulse Ox O2 Delivery O2 Flow Rate FiO2 05/14/16 09:50 53 130/59 05/14/16 06:00 96.2 18 96 Room Air I&O- Last 24 Hours up to 6 AM 05/14/16 06:00 Intake Total 960 ml Output Total 800 ml Balance 160 ml Laboratory Data Labs 24H Laboratory Tests 2 05/13/16 16:31: Bedside Glucose (Misc Panel) 133H 05/13/16 20:30: Bedside Glucose (Misc Panel) 126H 05/14/16 06:30: Anion Gap 9, Blood Urea Nitrogen 31H, Creatinine 1.86H, Sodium Level 144, Potassium Level 4.7, Chloride Level 110H, Carbon Dioxide Level 25, Calcium Level 8.4L, Glomerular Filtration Rate 37.5L, Magnesium Level 2.3 CBC/BMP Laboratory Tests 05/14/16 06:30 Calcium Level 8.4 L, Red Blood Count 3.32 L, Mean Corpuscular Volume 103.9 H, Mean Corpuscular Hemoglobin 33.9 H, Mean Corpuscular Hemoglobin Concent 32.6, Red Cell Distribution Width 14.1 Microbiology Microbiology 05/11/16 Blood Culture - Preliminary, Resulted No Growth after 48 hours. All Specime... 05/11/16 Blood Culture - Preliminary, Resulted No Growth after 48 hours. All Specime... 05/11/16 Urine Culture - Final, Complete Patel Finch MD May 14, 2016 13:04
[2016-05-14 13:41] LABS: ALBUMIN % 50.9 % (55.8-66.1); GAMMA GLOBULIN % 15.5 % (11.1-18.8)
[2016-05-14 14:00] VITALS: BP 145/66
[2016-05-14] MEDS: ACETAMINOPHEN TAB 650MG DOSE (2X325MG) PO PRN (15:37)
[2016-05-14] MEDS: TAMSULOSIN 0.4 MG CAP PO SCH (21:11)
[2016-05-14] MEDS: FINASTERIDE 5 MG TAB PO SCH (21:12)
[2016-05-14] MEDS: LEVEMIR (INSULIN DETEMIR) 1 UNITS/0.01ML SC SCH (21:12)
[2016-05-14] MEDS: APIXABAN 5 MG TAB (ELIQUIS) PO SCH (21:12)
[2016-05-14 22:00] VITALS: BP 156/72
[2016-05-15] MEDS: **hydrALAZINE HCL** 25 MG TAB PO SCH ×4 (03:28→20:22)
[2016-05-15 06:00] VITALS: BP 141/65
[2016-05-15] MEDS: LEVOTHYROXINE 0.05 MG TAB (50 MCG) PO SCH (06:09)
[2016-05-15 07:07] LABS: MEAN CORPUSCULAR HEMOGLOBIN 33.8 pg (27.0-33.0); MEAN CORPUSCULAR HGB CONC 32.1 g/dl (32.0-36.5); MEAN CORPUSCULAR VOLUME 105.3 fl (80.0-96.0); RED CELL DISTRIBUTION WIDTH 14.3 % (11.5-14.5); WHITE BLOOD COUNT 8.6 K/mm3 (4.0-10.0)
[2016-05-15 07:40] LABS: CALCIUM LEVEL 8.8 MG/DL (8.8-10.2); CREATININE FOR GFR 1.87 MG/DL (0.70-1.30); FREE T4 1.31 NG/DL (0.76-1.46); GLOMERULAR FILTRATION RATE 37.3 (>42); MAGNESIUM LEVEL 2.3 MG/DL (1.8-2.4); POTASSIUM SERUM 4.3 MEQ/L (3.5-5.1)
[2016-05-15] MEDS: HumaLOG INSULIN (NovoLOG) PER UNIT SC SCH ×4 (08:03→20:23)
[2016-05-15] MEDS: CALCIUM CARBONATE 500 MG CHEW U/D PO SCH ×2 (08:04→20:21)
[2016-05-15] MEDS: PANTOPRAZOLE 40MG TAB (PROTONIX) PO SCH (08:04)
[2016-05-15] MEDS: CEPHALEXIN 500 MG CAP PO SCH (08:04)
[2016-05-15] MEDS: CYANOCOBALAMIN 500 MCG TAB PO SCH (08:04)
[2016-05-15] MEDS: CARVedilol 6.25 MG TAB PO SCH ×2 (08:06→20:23)
[2016-05-15] MEDS: ASPIRIN 81 MG ENTERIC TAB PO SCH (08:06)
[2016-05-15] MEDS: SENOKOT S TAB PO SCH ×2 (08:06→20:22)
[2016-05-15] MEDS: APIXABAN 5 MG TAB (ELIQUIS) PO SCH ×2 (08:06→20:23)
[2016-05-15] MEDS: ALLOPURINOL 100 MG TAB PO SCH (08:06)
[2016-05-15] MEDS: ISOSORBIDE MON. (IMDUR) 30 MG XR TAB PO SCH (08:06)
[2016-05-15 12:32] LABS: TOTAL PROTEIN 6.5 GM/DL (6.4-8.2)
[2016-05-15 14:00] VITALS: BP 152/61
[2016-05-15] MEDS: TAMSULOSIN 0.4 MG CAP PO SCH (20:22)
[2016-05-15] MEDS: FINASTERIDE 5 MG TAB PO SCH (20:22)
[2016-05-15 20:24] VITALS: BP 160/68
[2016-05-15] MEDS: LEVEMIR (INSULIN DETEMIR) 1 UNITS/0.01ML SC SCH (20:24)
[2016-05-15 20:47] VITALS: BP 172/60
[2016-05-16] MEDS: **hydrALAZINE HCL** 25 MG TAB PO SCH ×4 (02:55→18:11)
[2016-05-16] MEDS: LEVOTHYROXINE 0.05 MG TAB (50 MCG) PO SCH (06:36)
[2016-05-16] MEDS: HumaLOG INSULIN (NovoLOG) PER UNIT SC SCH ×4 (07:29→19:42)
[2016-05-16 07:34] LABS: MEAN CORPUSCULAR HEMOGLOBIN 33.7 pg (27.0-33.0); MEAN CORPUSCULAR HGB CONC 31.8 g/dl (32.0-36.5); RED CELL DISTRIBUTION WIDTH 14.2 % (11.5-14.5)
[2016-05-16 07:49] LABS: CALCIUM LEVEL 8.6 MG/DL (8.8-10.2); CREATININE FOR GFR 1.7 MG/DL (0.70-1.30); GLOMERULAR FILTRATION RATE 41.6 (>42); MAGNESIUM LEVEL 2.1 MG/DL (1.8-2.4); POTASSIUM SERUM 4.4 MEQ/L (3.5-5.1)
[2016-05-16 08:00] VITALS: BP 130/86
[2016-05-16] MEDS: ALLOPURINOL 100 MG TAB PO SCH (08:43)
[2016-05-16] MEDS: ASPIRIN 81 MG ENTERIC TAB PO SCH (08:43)
[2016-05-16] MEDS: CALCIUM CARBONATE 500 MG CHEW U/D PO SCH ×2 (08:43→19:42)
[2016-05-16] MEDS: SENOKOT S TAB PO SCH ×2 (08:43→19:42)
[2016-05-16] MEDS: ISOSORBIDE MON. (IMDUR) 30 MG XR TAB PO SCH (08:44)
[2016-05-16] MEDS: PANTOPRAZOLE 40MG TAB (PROTONIX) PO SCH (08:44)
[2016-05-16] MEDS: CARVedilol 6.25 MG TAB PO SCH ×2 (08:44→19:42)
[2016-05-16] MEDS: CYANOCOBALAMIN 500 MCG TAB PO SCH (08:44)
[2016-05-16] MEDS: APIXABAN 5 MG TAB (ELIQUIS) PO SCH ×2 (09:50→19:42)
[2016-05-16 11:25] LABS: ALBUMIN % 49.8 % (55.8-66.1)
[2016-05-16 11:26] LABS: ALBUMIN 3.24 GM/DL (3.29-5.55); GAMMA GLOBULIN % 14.8 % (11.1-18.8)
[2016-05-16] MEDS: FINASTERIDE 5 MG TAB PO SCH (19:42)
[2016-05-16] MEDS: LEVEMIR (INSULIN DETEMIR) 1 UNITS/0.01ML SC SCH (19:42)
[2016-05-16] MEDS: TAMSULOSIN 0.4 MG CAP PO SCH (19:42)
--- NOTE | 2016-05-16 19:52 | DSES ---
DATE OF ADMISSION: 05/11/2016 DATE OF DISCHARGE: 05/15/2016 BRIEF HISTORY AND PHYSICAL: The patient is a 81-year-old patient with of Dr. Torres's who lives alone. He is a poor historian. He has a healthcare proxy rib sawyer that lives about 10 miles away, who has noticed that his mental status has been declining. He is more forgetful; did know if he was taking his medications. He went to Dr. Torres's office and he was thought to have a urinary tract infection (UTI) and placed on Keflex. However, his condition did not improve and he continued to be confused to the point where she brought him to the hospital for evaluation. His past medical history is significant for atrial fibrillation and pulmonary embolism on Eliquis. He has had a deep vein thrombosis (DVT) as well. He has congestive heart failure, systolic and diastolic, myocardial infarction (ME), coronary artery disease, type 2 diabetes mellitus on insulin. He has automatic implantable cardioverter-defibrillator, AICD and dyslipidemia, benign prostatic hypertrophy (BPH), chronic kidney disease with a baseline creatinine 1.5. Carotid artery stenosis with bilateral carotid endarterectomies and a history of a cerebrovascular accident (CVA) n the past PERTINENT LABS ON ADMISSION: Sodium 141, potassium 5.2, BUN 35, creatinine 2, thyroid simulating hormone (TSH) 3.128, white count 7.9, hemoglobin 13, platelets 165,000. The CT of the abdomen is negative. CT of the spine showed no fracture. He has a spondylolisthesis and straightening of the cervical lordosis suggestive of muscular spasm, multivalve level spondylosis. CT of the head showed extensive chronic small vessel white matter ischemic changes and proportionate ventriculomegaly and atrophy which is stable. No acute infarct, hemorrhage, mass or mass effect. Bilateral basal ganglia lacunar infarct pattern in the putamen, cerebellar atrophy is noted. No skull fracture. Heavy vascular calcifications in the carotid siphon. Sinuses the mastoids are clear. HOSPITAL COURSE: The patient was admitted for encephalopathy originally thought possibly related to metabolic encephalopathy from infection, although he is afebrile without any leukocytosis. Unable to perform lumbar puncture because of Eliquis which he is on for pulmonary emboli (PE), deep vein thrombosis (DVT) and atrial fibrillation history. He was started on Rocephin, vancomycin and ampicillin empirically and cultures including blood culture, urine culture were negative. He had an electroencephalogram (EEG) that showed no epileptiform abnormalities, but had nonspecific diffuse cerebral dysfunction as seen in encephalopathy due to multiple potential causes. Neurology did order multiple labs and the electroencephalogram (EEG) and will await their final opinion; but at this point, no clear identifying cause has been found. He has CAROLINE and immune typing pending. RPR is negative. B12 and folate are normal. Ammonia level was normal at 32. Thyroid simulating hormone (TSH) was minimally elevated, free T4 is normal. His decline is likely dementia based on his CT I would say, probably vascular dementia. Renal failure, acute on chronic and resolved and appears to back to baseline. Atrial fibrillation and chronic. He is back on his Eliquis and he will need a dose adjustment when he reaches 82-year-old; at which time, he will need to drop down to the 2.5 mg twice a day dose because of his age and renal function. Coronary artery disease, chronic stable without any chest pain. Hypothyroidism. T4 was the normal. Thyroid simulating hormone (TSH) was minimally elevated. Benign prostatic hypertrophy (BPH). No complaints of incontinence or leakage. He is on Proscar and Flomax. DISPOSITION: He is stable for SNF. DISCHARGE DIAGNOSES: 1. Encephalopathy, multifactorial. 2. 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 3. History of bilateral basal ganglia lacunar infarcts. 4. Cerebellar atrophy. 5. Dementia. 6. Acute on chronic renal failure resolve. 7. Chronic atrial fibrillation on anticoagulation. 8. Coronary disease. 9. Chronic kidney disease. 10. Hypothyroidism. 11. Benign prostatic hypertrophy (BPH) with urinary obstructive symptoms DISCHARGE MEDICATIONS: Discharge medications will be dictated at the time of his transfer to the assisted.
[2016-05-17] MEDS: LEVOTHYROXINE 0.05 MG TAB (50 MCG) PO SCH (06:13)
[2016-05-17] MEDS: **hydrALAZINE HCL** 25 MG TAB PO SCH ×4 (06:13→17:26)
[2016-05-17 07:02] LABS: MEAN CORPUSCULAR HEMOGLOBIN 34.2 pg (27.0-33.0); MEAN CORPUSCULAR HGB CONC 33.3 g/dl (32.0-36.5); MEAN CORPUSCULAR VOLUME 102.6 fl (80.0-96.0); RED CELL DISTRIBUTION WIDTH 13.4 % (11.5-14.5); WHITE BLOOD COUNT 7.7 K/mm3 (4.0-10.0)
[2016-05-17 07:14] LABS: CALCIUM LEVEL 8.4 MG/DL (8.8-10.2); CREATININE FOR GFR 1.67 MG/DL (0.70-1.30); GLOMERULAR FILTRATION RATE 42.5 (>42); POTASSIUM SERUM 4.6 MEQ/L (3.5-5.1)
[2016-05-17] MEDS: HumaLOG INSULIN (NovoLOG) PER UNIT SC SCH ×4 (07:56→20:07)
[2016-05-17 07:58] VITALS: BP 148/60
[2016-05-17] MEDS: CALCIUM CARBONATE 500 MG CHEW U/D PO SCH ×2 (08:49→19:57)
[2016-05-17] MEDS: ISOSORBIDE MON. (IMDUR) 30 MG XR TAB PO SCH (08:49)
[2016-05-17] MEDS: PANTOPRAZOLE 40MG TAB (PROTONIX) PO SCH (08:49)
[2016-05-17] MEDS: SENOKOT S TAB PO SCH ×2 (08:49→19:57)
[2016-05-17] MEDS: ASPIRIN 81 MG ENTERIC TAB PO SCH (08:50)
[2016-05-17] MEDS: APIXABAN 5 MG TAB (ELIQUIS) PO SCH ×2 (08:50→19:57)
[2016-05-17] MEDS: ALLOPURINOL 100 MG TAB PO SCH (08:50)
[2016-05-17] MEDS: CYANOCOBALAMIN 500 MCG TAB PO SCH (08:50)
[2016-05-17] MEDS: CARVedilol 6.25 MG TAB PO SCH ×2 (08:50→19:58)
[2016-05-17 12:08] VITALS: BP 126/60
[2016-05-17 17:23] VITALS: BP 120/58
[2016-05-17] MEDS: LEVEMIR (INSULIN DETEMIR) 1 UNITS/0.01ML SC SCH (19:57)
[2016-05-17] MEDS: FINASTERIDE 5 MG TAB PO SCH (19:57)
[2016-05-17] MEDS: TAMSULOSIN 0.4 MG CAP PO SCH (19:59)
[2016-05-18] MEDS: **hydrALAZINE HCL** 25 MG TAB PO SCH ×4 (00:05→17:28)
[2016-05-18 05:38] VITALS: BP 151/60
[2016-05-18] MEDS: LEVOTHYROXINE 0.05 MG TAB (50 MCG) PO SCH (06:14)
[2016-05-18 06:23] LABS: MEAN CORPUSCULAR HGB CONC 32.8 g/dl (32.0-36.5); MEAN CORPUSCULAR VOLUME 103.6 fl (80.0-96.0); RED CELL DISTRIBUTION WIDTH 13.4 % (11.5-14.5); WHITE BLOOD COUNT 10.1 K/mm3 (4.0-10.0)
[2016-05-18 06:38] LABS: CALCIUM LEVEL 8.7 MG/DL (8.8-10.2); CREATININE FOR GFR 1.54 MG/DL (0.70-1.30); GLOMERULAR FILTRATION RATE 46.6 (>42); MAGNESIUM LEVEL 1.9 MG/DL (1.8-2.4); POTASSIUM SERUM 4.1 MEQ/L (3.5-5.1)
[2016-05-18 07:00] VITALS: BP 148/60
[2016-05-18] MEDS: HumaLOG INSULIN (NovoLOG) PER UNIT SC SCH ×4 (07:44→21:00)
[2016-05-18] MEDS: SENOKOT S TAB PO SCH ×2 (09:50→21:13)
[2016-05-18] MEDS: CALCIUM CARBONATE 500 MG CHEW U/D PO SCH ×2 (09:50→21:14)
[2016-05-18] MEDS: ISOSORBIDE MON. (IMDUR) 30 MG XR TAB PO SCH (09:50)
[2016-05-18] MEDS: APIXABAN 5 MG TAB (ELIQUIS) PO SCH ×2 (09:51→21:13)
[2016-05-18] MEDS: PANTOPRAZOLE 40MG TAB (PROTONIX) PO SCH (09:51)
[2016-05-18] MEDS: ALLOPURINOL 100 MG TAB PO SCH (09:51)
[2016-05-18] MEDS: CYANOCOBALAMIN 500 MCG TAB PO SCH (09:51)
[2016-05-18] MEDS: ASPIRIN 81 MG ENTERIC TAB PO SCH (09:51)
[2016-05-18] MEDS: CARVedilol 6.25 MG TAB PO SCH ×2 (09:51→21:14)
[2016-05-18] MEDS: FINASTERIDE 5 MG TAB PO SCH (21:13)
[2016-05-18] MEDS: LEVEMIR (INSULIN DETEMIR) 1 UNITS/0.01ML SC SCH (21:14)
[2016-05-18] MEDS: TAMSULOSIN 0.4 MG CAP PO SCH (21:14)
[2016-05-19 06:10] VITALS: BP 149/78
[2016-05-19] MEDS: LEVOTHYROXINE 0.05 MG TAB (50 MCG) PO SCH (06:17)
[2016-05-19] MEDS: **hydrALAZINE HCL** 25 MG TAB PO SCH ×5 (06:17→23:39)
[2016-05-19 07:00] VITALS: BP 174/74
[2016-05-19] MEDS: CALCIUM CARBONATE 500 MG CHEW U/D PO SCH ×2 (08:19→20:12)
[2016-05-19] MEDS: ASPIRIN 81 MG ENTERIC TAB PO SCH (08:19)
[2016-05-19] MEDS: PANTOPRAZOLE 40MG TAB (PROTONIX) PO SCH (08:19)
[2016-05-19] MEDS: CYANOCOBALAMIN 500 MCG TAB PO SCH (08:19)
[2016-05-19] MEDS: HumaLOG INSULIN (NovoLOG) PER UNIT SC SCH (08:19)
[2016-05-19] MEDS: ALLOPURINOL 100 MG TAB PO SCH (08:19)
[2016-05-19] MEDS: ISOSORBIDE MON. (IMDUR) 30 MG XR TAB PO SCH (08:20)
[2016-05-19] MEDS: CARVedilol 6.25 MG TAB PO SCH ×2 (08:20→20:12)
[2016-05-19] MEDS: APIXABAN 5 MG TAB (ELIQUIS) PO SCH ×2 (08:20→20:11)
[2016-05-19] MEDS: SENOKOT S TAB PO SCH ×2 (08:20→20:11)
--- NOTE | 2016-05-19 10:36 | IPNPDOC ---
Assessment/Plan Date Seen The patient was seen on 05/19/16. Problems Problems: (1) Encephalopathy Status: Acute Problem Specific Plan: Consult Specialist Problem Text: CT negative. Labs stable. No indication to be infectious etiology. Will stop antibiotics. Urine cx negative. No fevers. Will consult neurology. Cardiology to investigate AICD today. 05/13/16: Neurology was consulted. Labs and EEG ordered. (2) Renal failure (ARF), acute on chronic Status: Resolved Problem Text: appears to be at baseline. 05/13/16: BUN 32/Creat 1.94 (3) Atrial fibrillation Onset Date: 04/18/2014 Status: Chronic Problem Text: not clear why eliquis was stopped. will resume since no invasive procedures are anticipated. after he become 82 yo he will need dose adjustment to 2.5 bid (4) CAD (coronary artery disease) Onset Date: 04/18/2014 Status: Chronic (5) CKD (chronic kidney disease) stage 3, GFR 30-59 ml/min Status: Chronic (6) Hypothyroid Status: Chronic Problem Text: T4 mildly elevated. TSH stable. monitor. Will repeat Free T4 (7) BPH w urinary obs/LUTS Status: Chronic Problem Specific Plan: Monitor Clinically (8) Light chain disease, kappa type Status: Acute Problem Text: as above; t/c repeat SPEP in 6-12 mo Plan / VTE VTE Prophylaxis Ordered?: Yes (Heparin) Subjective Review of Systems CC/HPI The patient is a 81-year-old male admitted with a reason for visit of Encephalitis. Events since last encounter has mildly abnl SPEP, small kappa M spike only 0.3 gm/dl. Could repeat in 6-12 mo, if rising consider heme/onc referral Also, stopping AC/HS coverage, coverage needs are only ~ 10 units/day Objective Physical Examination General Exam: Positive: Alert, Cooperative, No Acute Distress Eye Exam: Positive: Conjunctiva & lids normal, EOMI, PERRLA ENT Exam: Positive: Atraumatic, Mucous membr. moist/pink Neck Exam: Positive: Supple Chest Exam: Positive: Clear to auscultation, Normal air movement Heart Exam: Positive: Normal S1, Normal S2, Rate Normal Telemetry: Positive: Bradycardia, No significant arrhythmia, Sinus Abdomen Exam: Positive: Normal bowel sounds, Soft Extremity Exam: Negative: Clubbing, Cyanosis, Edema Skin Exam: Positive: Nl turgor and temperature Neuro Exam: Positive: Cranial Nerves 3-12 NL, Normal Gait, Normal Speech Psych Exam: Positive: Other (seems mildly distressed by the inability to recall. also cannot read.) Vital Signs/I&O Vital Signs Date Time Temp Pulse Resp B/P Pulse Ox O2 Delivery O2 Flow Rate FiO2 05/19/16 08:20 174/74 05/19/16 08:20 55 05/19/16 07:00 96.9 12 94 Room Air I&O- Last 24 Hours up to 6 AM 05/19/16 06:00 Intake Total 1800 ml Balance 1800 ml Laboratory Data Labs 24H Laboratory Tests 2 05/18/16 11:40: Bedside Glucose (Misc Panel) 212H 05/18/16 16:42: Bedside Glucose (Misc Panel) 152H 05/18/16 19:39: Bedside Glucose (Misc Panel) 159H 05/19/16 06:47: Bedside Glucose (Misc Panel) 149H Microbiology Microbiology 05/11/16 Blood Culture - Final, Complete NO GROWTH AFTER 5 DAYS 05/11/16 Blood Culture - Final, Complete NO GROWTH AFTER 5 DAYS 05/11/16 Urine Culture - Final, Complete Yonatan Rivers MD May 19, 2016 10:36
[2016-05-19] MEDS: TAMSULOSIN 0.4 MG CAP PO SCH (20:11)
[2016-05-19] MEDS: LEVEMIR (INSULIN DETEMIR) 1 UNITS/0.01ML SC SCH (20:11)
[2016-05-19] MEDS: FINASTERIDE 5 MG TAB PO SCH (20:11)
[2016-05-20] MEDS: LEVOTHYROXINE 0.05 MG TAB (50 MCG) PO SCH (05:42)
[2016-05-20] MEDS: **hydrALAZINE HCL** 25 MG TAB PO SCH ×4 (05:42→23:08)
[2016-05-20 08:00] VITALS: BP 151/67
[2016-05-20] MEDS: SENOKOT S TAB PO SCH ×2 (08:08→19:55)
[2016-05-20] MEDS: CYANOCOBALAMIN 500 MCG TAB PO SCH (08:08)
[2016-05-20] MEDS: ASPIRIN 81 MG ENTERIC TAB PO SCH (08:08)
[2016-05-20] MEDS: APIXABAN 5 MG TAB (ELIQUIS) PO SCH ×2 (08:09→19:55)
[2016-05-20] MEDS: ISOSORBIDE MON. (IMDUR) 30 MG XR TAB PO SCH (08:09)
[2016-05-20] MEDS: CALCIUM CARBONATE 500 MG CHEW U/D PO SCH ×2 (08:09→19:57)
[2016-05-20] MEDS: ALLOPURINOL 100 MG TAB PO SCH (08:09)
[2016-05-20] MEDS: CARVedilol 6.25 MG TAB PO SCH ×2 (08:09→19:56)
[2016-05-20] MEDS: PANTOPRAZOLE 40MG TAB (PROTONIX) PO SCH (08:13)
[2016-05-20] MEDS: LEVEMIR (INSULIN DETEMIR) 1 UNITS/0.01ML SC SCH (19:55)
[2016-05-20] MEDS: FINASTERIDE 5 MG TAB PO SCH (19:55)
[2016-05-20] MEDS: TAMSULOSIN 0.4 MG CAP PO SCH (19:55)
[2016-05-21] MEDS: **hydrALAZINE HCL** 25 MG TAB PO SCH ×4 (05:54→23:04)
[2016-05-21] MEDS: LEVOTHYROXINE 0.05 MG TAB (50 MCG) PO SCH (05:54)
[2016-05-21 07:00] VITALS: BP 143/70
[2016-05-21] MEDS: CYANOCOBALAMIN 500 MCG TAB PO SCH (08:27)
[2016-05-21] MEDS: APIXABAN 5 MG TAB (ELIQUIS) PO SCH ×2 (08:27→20:02)
[2016-05-21] MEDS: SENOKOT S TAB PO SCH ×2 (08:27→20:02)
[2016-05-21] MEDS: CALCIUM CARBONATE 500 MG CHEW U/D PO SCH ×2 (08:27→20:03)
[2016-05-21] MEDS: ASPIRIN 81 MG ENTERIC TAB PO SCH (08:27)
[2016-05-21] MEDS: PANTOPRAZOLE 40MG TAB (PROTONIX) PO SCH (08:27)
[2016-05-21] MEDS: CARVedilol 6.25 MG TAB PO SCH ×2 (08:28→20:03)
[2016-05-21] MEDS: ISOSORBIDE MON. (IMDUR) 30 MG XR TAB PO SCH (08:28)
[2016-05-21] MEDS: ALLOPURINOL 100 MG TAB PO SCH (08:28)
[2016-05-21] MEDS: TAMSULOSIN 0.4 MG CAP PO SCH (20:03)
[2016-05-21] MEDS: ACETAMINOPHEN TAB 650MG DOSE (2X325MG) PO PRN (20:03)
[2016-05-21] MEDS: FINASTERIDE 5 MG TAB PO SCH (20:03)
[2016-05-21] MEDS: LEVEMIR (INSULIN DETEMIR) 1 UNITS/0.01ML SC SCH (20:04)
[2016-05-22] MEDS: **hydrALAZINE HCL** 25 MG TAB PO SCH ×3 (06:06→17:47)
[2016-05-22] MEDS: LEVOTHYROXINE 0.05 MG TAB (50 MCG) PO SCH (06:06)
[2016-05-22 07:00] VITALS: BP_SYST 132; BP_SYST 170; BP_DIAS 74; BP_DIAS 83
[2016-05-22] MEDS: SENOKOT S TAB PO SCH ×2 (08:30→20:18)
[2016-05-22] MEDS: ALLOPURINOL 100 MG TAB PO SCH (08:30)
[2016-05-22] MEDS: APIXABAN 5 MG TAB (ELIQUIS) PO SCH ×2 (08:30→20:19)
[2016-05-22] MEDS: ASPIRIN 81 MG ENTERIC TAB PO SCH (08:30)
[2016-05-22] MEDS: PANTOPRAZOLE 40MG TAB (PROTONIX) PO SCH (08:30)
[2016-05-22] MEDS: CYANOCOBALAMIN 500 MCG TAB PO SCH (08:31)
[2016-05-22] MEDS: CALCIUM CARBONATE 500 MG CHEW U/D PO SCH ×2 (08:31→20:19)
[2016-05-22] MEDS: ISOSORBIDE MON. (IMDUR) 30 MG XR TAB PO SCH (08:32)
[2016-05-22] MEDS: CARVedilol 6.25 MG TAB PO SCH ×2 (08:32→20:19)
[2016-05-22 20:00] VITALS: BP 152/64
[2016-05-22] MEDS: TAMSULOSIN 0.4 MG CAP PO SCH (20:18)
[2016-05-22] MEDS: LEVEMIR (INSULIN DETEMIR) 1 UNITS/0.01ML SC SCH (20:19)
[2016-05-22] MEDS: FINASTERIDE 5 MG TAB PO SCH (20:19)
[2016-05-23] MEDS: **hydrALAZINE HCL** 25 MG TAB PO SCH ×5 (00:14→23:29)
[2016-05-23] MEDS: LEVOTHYROXINE 0.05 MG TAB (50 MCG) PO SCH (06:32)
[2016-05-23 08:00] VITALS: BP 138/67
[2016-05-23 08:50] VITALS: BP 142/64
[2016-05-23] MEDS: ASPIRIN 81 MG ENTERIC TAB PO SCH (08:54)
[2016-05-23] MEDS: CARVedilol 6.25 MG TAB PO SCH ×2 (08:54→19:59)
[2016-05-23] MEDS: CALCIUM CARBONATE 500 MG CHEW U/D PO SCH ×2 (08:54→19:58)
[2016-05-23] MEDS: CYANOCOBALAMIN 500 MCG TAB PO SCH (08:54)
[2016-05-23] MEDS: PANTOPRAZOLE 40MG TAB (PROTONIX) PO SCH (08:54)
[2016-05-23] MEDS: SENOKOT S TAB PO SCH ×2 (08:54→19:58)
[2016-05-23] MEDS: ALLOPURINOL 100 MG TAB PO SCH (08:55)
[2016-05-23] MEDS: APIXABAN 5 MG TAB (ELIQUIS) PO SCH ×2 (08:55→19:58)
[2016-05-23] MEDS: ISOSORBIDE MON. (IMDUR) 30 MG XR TAB PO SCH (08:55)
[2016-05-23 12:15] VITALS: BP 134/60
--- NOTE | 2016-05-23 12:45 | IPNPDOC ---
Assessment/Plan Date Seen The patient was seen on 05/23/16. Problems Problems: (1) Right sided weakness Status: Acute Problem Text: CT brain and neck. Will f/u pending test results. Addendum: infarct noted to Left Corpus Callosum. Neuro previously consulted. Reviewed with Dr. Olson: feels is not new acute finding compared to 01/2016. Advanced small vessel disease. May consider increasing aspirin to 162 mg but need to consider risk factor. Encouraged OT/PT supportive measures. (2) Renal failure (ARF), acute on chronic Status: Resolved Problem Text: appears to be at baseline. 05/13/16: BUN 32/Creat 1.94 (3) Atrial fibrillation Onset Date: 04/18/2014 Status: Chronic Problem Text: not clear why eliquis was stopped. will resume since no invasive procedures are anticipated. after he become 82 yo he will need dose adjustment to 2.5 bid (4) CAD (coronary artery disease) Onset Date: 04/18/2014 Status: Chronic (5) CKD (chronic kidney disease) stage 3, GFR 30-59 ml/min Status: Chronic (6) Hypothyroid Status: Chronic Problem Text: T4 mildly elevated. TSH stable. monitor. Will repeat Free T4 (7) BPH w urinary obs/LUTS Status: Chronic Problem Specific Plan: Monitor Clinically (8) Light chain disease, kappa type Status: Acute Problem Text: as above; t/c repeat SPEP in 6-12 mo (9) Encephalopathy Status: Acute Problem Text: CT negative. Labs stable. No indication to be infectious etiology. Will stop antibiotics. Urine cx negative. No fevers. Will consult neurology. Cardiology to investigate AICD today. 05/13/16: Neurology was consulted. Labs and EEG ordered. Plan / VTE VTE Prophylaxis Ordered?: Yes (Heparin) Subjective Review of Systems CC/HPI The patient is a 81-year-old male admitted with a reason for visit of Encephalitis. Events since last encounter called to floor for c/o sudden onset right arm, weakness, numbness, paresthesia. Objective Physical Examination General Exam: Positive: Alert, Cooperative, No Acute Distress Eye Exam: Positive: Conjunctiva & lids normal, EOMI, PERRLA ENT Exam: Positive: Atraumatic, Mucous membr. moist/pink Neck Exam: Positive: Supple Chest Exam: Positive: Clear to auscultation, Normal air movement Heart Exam: Positive: Normal S1, Normal S2, Rate Normal Telemetry: Positive: Bradycardia, No significant arrhythmia, Sinus Abdomen Exam: Positive: Normal bowel sounds, Soft Extremity Exam: Negative: Clubbing, Cyanosis, Edema Skin Exam: Positive: Nl turgor and temperature Neuro Exam: Positive: Cranial Nerves 3-12 NL, Normal Gait, Normal Speech Psych Exam: Positive: Other (seems mildly distressed by the inability to recall. also cannot read.) Vital Signs/I&O Vital Signs Date Time Temp Pulse Resp B/P Pulse Ox O2 Delivery O2 Flow Rate FiO2 05/23/16 08:54 58 142/64 05/23/16 08:00 97.1 18 98 Room Air I&O- Last 24 Hours up to 6 AM 05/23/16 06:00 Intake Total 1320 ml Balance 1320 ml Laboratory Data Labs 24H Laboratory Tests 2 05/22/16 16:46: Bedside Glucose (Misc Panel) 327H 05/23/16 06:50: Bedside Glucose (Misc Panel) 152H FSBS Laboratory Tests Test 05/22/16 16:46 05/23/16 06:50 Range/Units Bedside Glucose (Misc Panel) 327 152 83-110 MG/DL Leigh Strauss SHIPPING AND RECEIVING COORDINATOR May 23, 2016 12:45
--- NOTE | 2016-05-23 14:58 | REP ---
CT STUDY OF THE BRAIN WITHOUT CONTRAST: HISTORY: Right-sided weakness and paresthesia. Comparison CT studies from May 11, 2016. May 10, 2016 and January 25, [address] studies of the brain are also reviewed. FINDINGS: A pacemaker is noted in the right heart. Digital lateral g[employer] radiograph is otherwise unremarkable. There is moderate diffuse atrophy as before. There is no evidence of intracranial hemorrhage. Some small vessel changes are seen in the periventricular white matter bilaterally. 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 It is a little more sharply circumscribed and there is slight swelling in the lesion compared to the 05/10/2016 study. This would be in the vascular distribution of the left pericallosal artery. The low density area in question measures 3.8 cm in anteroposterior x 1.4 cm in medial to lateral dimension. Exam is otherwise unremarkable and unchanged. There is vascular calcification extensively in the distal vertebral and distal carotid arteries. IMPRESSION: Findings compatible with recent infarct in the left posterior corpus callosum in the distribution of the left posterior pericallosal artery. Signed by Master Rea MD 05/23/2016 03:15 P
--- NOTE | 2016-05-23 16:54 | REP ---
CAROTID ULTRASOUND: Real-time ultrasound evaluation and duplex Doppler interrogation of the extracranial carotid vasculature is performed. There is moderate plaquing and narrowing in the right carotid bulb extending into the right internal and external carotid arteries, with elevation of the peak systolic velocity in the right internal carotid artery. There is elevated ICA/CCA ratio. Findings are compatible with stenosis of the right internal carotid artery 60-79%. The stent is seen in the left carotid bulb and internal carotid artery. Underlying lumen cannot be evaluated. Vertebral arteries are not visualized. RIGHT LEFT Peak systolic velocity ICA 162.3 cm/s End diastolic velocity ICA 17.9 cm/s Peak systolic velocity CCA 75.0 cm/s 51.4 cm/s Peak systolic velocity ECA 234 cm/s ICA/CCA ratio 2.16 IMPRESSION: Findings compatible with stenosis of the right internal carotid artery 60-79%. Left internal carotid artery could not be visualized due to to overlying stent. Signed by Attila Chamberlain MD 05/23/2016 04:45 P
[2016-05-23] MEDS: FINASTERIDE 5 MG TAB PO SCH (19:58)
[2016-05-23] MEDS: LEVEMIR (INSULIN DETEMIR) 1 UNITS/0.01ML SC SCH (19:58)
[2016-05-23] MEDS: TAMSULOSIN 0.4 MG CAP PO SCH (19:58)
[2016-05-23] MEDS: ACETAMINOPHEN TAB 650MG DOSE (2X325MG) PO PRN (19:59)
--- NOTE | 2016-05-24 00:10 | REP ---
CT cervical spine without contrast 05/23/2016 Indication: Sided weakness, paresthesia Comparison: CT cervical spine without contrast 05/11/2016 Technique: 2 mm continuous spiral axial sections were performed through the cervical spine without contrast. Sagittal and coronal reconstructed images were also created and provided for interpretation. Findings: There is mild reversal of cervical lordosis in the lower cervical spine. There is no acute fracture or prevertebral soft tissue swelling. Advanced disc space narrowing is noted at C6-7, and C7-T1 with small anterior and posterior marginal osteophytes. There is facet osteoarthritis at multiple levels bilaterally, left greater than right, most pronounced at C4-5, C5-6 on left. Foramenal narrowing is most pronounced at C5-6 , and C6-7 bilaterally. Impression: no acute fracture or prevertebral soft tissue swelling. Advanced degenerative disc changes C6-7, C7-T1 and facet osteoarthritis multiple levels, left greater than right Signed by Kimmy Jorgensen MD 05/24/2016
[2016-05-24] MEDS: LEVOTHYROXINE 0.05 MG TAB (50 MCG) PO SCH (06:00)
[2016-05-24] MEDS: **hydrALAZINE HCL** 25 MG TAB PO SCH ×4 (06:01→23:03)
[2016-05-24 08:00] VITALS: BP 127/61
[2016-05-24] MEDS: APIXABAN 5 MG TAB (ELIQUIS) PO SCH ×2 (08:28→19:25)
[2016-05-24] MEDS: ASPIRIN 81 MG ENTERIC TAB PO SCH (08:28)
[2016-05-24] MEDS: ISOSORBIDE MON. (IMDUR) 30 MG XR TAB PO SCH (08:28)
[2016-05-24] MEDS: CALCIUM CARBONATE 500 MG CHEW U/D PO SCH ×2 (08:28→19:25)
[2016-05-24] MEDS: PANTOPRAZOLE 40MG TAB (PROTONIX) PO SCH (08:29)
[2016-05-24] MEDS: SENOKOT S TAB PO SCH ×2 (08:29→19:25)
[2016-05-24] MEDS: ALLOPURINOL 100 MG TAB PO SCH (08:29)
[2016-05-24] MEDS: CARVedilol 6.25 MG TAB PO SCH ×2 (08:29→19:25)
[2016-05-24] MEDS: CYANOCOBALAMIN 500 MCG TAB PO SCH (08:29)
[2016-05-24] MEDS: ACETAMINOPHEN TAB 650MG DOSE (2X325MG) PO PRN ×2 (12:30→19:26)
[2016-05-24] MEDS: FINASTERIDE 5 MG TAB PO SCH (19:25)
[2016-05-24] MEDS: LEVEMIR (INSULIN DETEMIR) 1 UNITS/0.01ML SC SCH (19:25)
[2016-05-24] MEDS: TAMSULOSIN 0.4 MG CAP PO SCH (19:26)
[2016-05-25 05:01] VITALS: BP 134/55
[2016-05-25] MEDS: **hydrALAZINE HCL** 25 MG TAB PO SCH (05:09)
[2016-05-25] MEDS: LEVOTHYROXINE 0.05 MG TAB (50 MCG) PO SCH (05:09)
[2016-05-25 07:00] VITALS: BP 166/69
[2016-05-25] MEDS: ALLOPURINOL 100 MG TAB PO SCH (09:18)
[2016-05-25] MEDS: CALCIUM CARBONATE 500 MG CHEW U/D PO SCH ×2 (09:18→19:45)
[2016-05-25] MEDS: PANTOPRAZOLE 40MG TAB (PROTONIX) PO SCH (09:18)
[2016-05-25] MEDS: CYANOCOBALAMIN 500 MCG TAB PO SCH (09:18)
[2016-05-25] MEDS: CARVedilol 6.25 MG TAB PO SCH ×2 (09:19→19:45)
[2016-05-25] MEDS: APIXABAN 5 MG TAB (ELIQUIS) PO SCH ×2 (09:19→19:44)
[2016-05-25] MEDS: ASPIRIN 81 MG ENTERIC TAB PO SCH (09:19)
[2016-05-25] MEDS: ISOSORBIDE MON. (IMDUR) 30 MG XR TAB PO SCH (09:20)
[2016-05-25] MEDS: SENOKOT S TAB PO SCH ×2 (09:20→19:44)
[2016-05-25] MEDS: DONEPEZIL 5 MG TAB PO SCH (11:11)
[2016-05-25] MEDS: **hydrALAZINE** 10 MG TAB PO SCH ×2 (13:30→19:45)
[2016-05-25 13:31] VITALS: BP 122/58
[2016-05-25] MEDS: TAMSULOSIN 0.4 MG CAP PO SCH (19:44)
[2016-05-25] MEDS: FINASTERIDE 5 MG TAB PO SCH (19:44)
[2016-05-25] MEDS: LEVEMIR (INSULIN DETEMIR) 1 UNITS/0.01ML SC SCH (19:44)
[2016-05-25] MEDS: ACETAMINOPHEN TAB 650MG DOSE (2X325MG) PO PRN (19:45)
[2016-05-26] MEDS: **hydrALAZINE** 10 MG TAB PO SCH ×3 (05:23→20:12)
[2016-05-26] MEDS: LEVOTHYROXINE 0.05 MG TAB (50 MCG) PO SCH (05:24)
[2016-05-26 07:00] VITALS: BP 160/67
[2016-05-26] MEDS: DONEPEZIL 5 MG TAB PO SCH (08:53)
[2016-05-26] MEDS: CALCIUM CARBONATE 500 MG CHEW U/D PO SCH ×2 (08:54→20:11)
[2016-05-26] MEDS: CYANOCOBALAMIN 500 MCG TAB PO SCH (08:54)
[2016-05-26] MEDS: PANTOPRAZOLE 40MG TAB (PROTONIX) PO SCH (08:54)
[2016-05-26] MEDS: amLODIPine 5 MG TAB PO SCH (08:54)
[2016-05-26] MEDS: APIXABAN 5 MG TAB (ELIQUIS) PO SCH ×2 (08:54→20:11)
[2016-05-26] MEDS: CARVedilol 6.25 MG TAB PO SCH ×2 (08:54→20:12)
[2016-05-26] MEDS: ALLOPURINOL 100 MG TAB PO SCH (08:54)
[2016-05-26] MEDS: ASPIRIN 81 MG ENTERIC TAB PO SCH (08:54)
[2016-05-26] MEDS: ISOSORBIDE MON. (IMDUR) 30 MG XR TAB PO SCH (08:55)
[2016-05-26] MEDS: SENOKOT S TAB PO SCH ×2 (08:55→20:11)
[2016-05-26] MEDS: LEVEMIR (INSULIN DETEMIR) 1 UNITS/0.01ML SC SCH (20:11)
[2016-05-26] MEDS: TAMSULOSIN 0.4 MG CAP PO SCH (20:11)
[2016-05-26] MEDS: FINASTERIDE 5 MG TAB PO SCH (20:11)
[2016-05-26] MEDS: ACETAMINOPHEN TAB 650MG DOSE (2X325MG) PO PRN (20:12)
[2016-05-27] MEDS: **hydrALAZINE** 10 MG TAB PO SCH ×4 (05:31→19:51)
[2016-05-27] MEDS: LEVOTHYROXINE 0.05 MG TAB (50 MCG) PO SCH (05:32)
[2016-05-27 08:00] VITALS: BP 160/75
[2016-05-27] MEDS: SENOKOT S TAB PO SCH ×2 (09:10→19:50)
[2016-05-27] MEDS: CYANOCOBALAMIN 500 MCG TAB PO SCH (09:11)
[2016-05-27] MEDS: ISOSORBIDE MON. (IMDUR) 30 MG XR TAB PO SCH (09:11)
[2016-05-27] MEDS: APIXABAN 5 MG TAB (ELIQUIS) PO SCH ×2 (09:11→19:50)
[2016-05-27] MEDS: CARVedilol 6.25 MG TAB PO SCH ×2 (09:11→19:50)
[2016-05-27] MEDS: PANTOPRAZOLE 40MG TAB (PROTONIX) PO SCH (09:11)
[2016-05-27] MEDS: CALCIUM CARBONATE 500 MG CHEW U/D PO SCH ×2 (09:11→19:50)
[2016-05-27] MEDS: DONEPEZIL 5 MG TAB PO SCH (09:11)
[2016-05-27] MEDS: ALLOPURINOL 100 MG TAB PO SCH (09:11)
[2016-05-27] MEDS: ASPIRIN 81 MG ENTERIC TAB PO SCH (09:11)
[2016-05-27] MEDS: amLODIPine 5 MG TAB PO SCH (09:12)
[2016-05-27] MEDS ORDERED: COLCHICINE 0.6 MG TAB PO ONE ×2 (15:30→16:30)
[2016-05-27] MEDS: LEVEMIR (INSULIN DETEMIR) 1 UNITS/0.01ML SC SCH (19:49)
[2016-05-27] MEDS: FINASTERIDE 5 MG TAB PO SCH (19:49)
[2016-05-27] MEDS: ACETAMINOPHEN TAB 650MG DOSE (2X325MG) PO PRN (19:50)
[2016-05-27] MEDS: TAMSULOSIN 0.4 MG CAP PO SCH (19:50)
[2016-05-28] MEDS: **hydrALAZINE** 10 MG TAB PO SCH (05:37)
[2016-05-28] MEDS: LEVOTHYROXINE 0.05 MG TAB (50 MCG) PO SCH (05:37)
[2016-05-28 08:00] VITALS: BP 140/60
[2016-05-28] MEDS ORDERED: ISOS30TA4 PO (08:03)
[2016-05-28] MEDS ORDERED: HYDR10TAB PO (08:03)
[2016-05-28] MEDS ORDERED: AMLO5TAB2 PO (08:03)
[2016-05-28] MEDS ORDERED: MAPA325T2 PO (08:03)
[2016-05-28] MEDS ORDERED: ARIC5TAB PO (08:03)
[2016-05-28] MEDS: ALLOPURINOL 100 MG TAB PO SCH (08:48)
[2016-05-28] MEDS: APIXABAN 5 MG TAB (ELIQUIS) PO SCH (08:48)
[2016-05-28] MEDS: PANTOPRAZOLE 40MG TAB (PROTONIX) PO SCH (08:48)
[2016-05-28] MEDS: CALCIUM CARBONATE 500 MG CHEW U/D PO SCH (08:48)
[2016-05-28] MEDS: CARVedilol 6.25 MG TAB PO SCH (08:48)
[2016-05-28] MEDS: SENOKOT S TAB PO SCH (08:48)
[2016-05-28] MEDS: ASPIRIN 81 MG ENTERIC TAB PO SCH (08:48)
[2016-05-28] MEDS: CYANOCOBALAMIN 500 MCG TAB PO SCH (08:48)
[2016-05-28 08:49] VITALS: BP 150/70
[2016-05-28] MEDS: DONEPEZIL 5 MG TAB PO SCH (08:49)
[2016-05-28] MEDS: ISOSORBIDE MON. (IMDUR) 30 MG XR TAB PO SCH (08:49)
[2016-05-28] MEDS: amLODIPine 5 MG TAB PO SCH (08:49)
--- NOTE | 2016-05-28 16:03 | DSES ---
ADDENDUM: DATE OF ADMISSION: 05/11/2016 DATE OF DISCHARGE: 05/28/2016 His history has remained unchanged. His discharge diagnoses also remain unchanged. Discharge medications include acetaminophen 650 mg every 4 hours as needed for mild pain or fever, amlodipine 5 mg daily, Aricept 5 mg daily, hydralazine 10 mg every 8 hours, isosorbide mononitrate ER 30 mg daily, allopurinol 100 mg daily, Eliquis 5 mg twice a day, aspirin 81 mg daily, atorvastatin 40 mg before bed, Tums 1000 mg by mouth twice a day, carvedilol 6.25 mg by mouth twice a day, B12 1000 mcg by mouth daily, Proscar 5 mg before bed, Lantus 10 units subcutaneous before bed, Levoxyl 50 mcg by mouth daily, nitroglycerin 0.4 mg sublingually as needed for chest pain, Flomax 0.4 mg before bed, vitamin D 50,000 units by mouth once weekly. Discharge plan will be to discharge to [facility] on a consistent carbohydrate diet. His activity should be as tolerated.
--- NOTE | 2016-05-31 02:44 | DSES ---
ADDENDUM TO DISCHARGE SUMMARY: DATE OF ADMISSION: 05/11/2016 DATE OF DISCHARGE: 05/28/2015 Please see previous discharge summary, report #[id number]. Please add to hospital course: History of chronic combined systolic and diastolic congestive heart failure. Patient was maintained on his usual medications, including hydralazine and Imdur and carvedilol. He remained compensated throughout the hospitalization with monitoring of daily weights and intake and output (I and O). Discharge diagnosis list should include: Chronic congestive heart failure, systolic and diastolic.
== END 2016-05-28 13:01 | DRG 71 ==
LOC: M ED 13:35 → M ED INP 21:13 → M PCU 23:07 → M MSPAV 05-13 11:18 → M MS5PR 05-15 20:47
PROVIDERS: ADMIT Hospitalist; ATTEND Family Medicine
DX: G93.40 Encephalopathy, unspecified (principal); N17.9 Acute kidney failure, unspecified; I13.0 Hypertensive heart and chronic kidney disease with heart failure and stage 1 through stage 4 chronic kidney disease, or unspecified chronic kidney disease; I50.42 Chronic combined systolic (congestive) and diastolic (congestive) heart failure; D80.8 Other immunodeficiencies with predominantly antibody defects; I48.2 Chronic atrial fibrillation; I25.2 Old myocardial infarction; I25.10 Atherosclerotic heart disease of native coronary artery without angina pectoris; E11.9 Type 2 diabetes mellitus without complications; E78.5 Hyperlipidemia, unspecified; N40.1 Benign prostatic hyperplasia with lower urinary tract symptoms; N18.9 Chronic kidney disease, unspecified; I65.23 Occlusion and stenosis of bilateral carotid arteries; I16.0 Hypertensive urgency; E03.9 Hypothyroidism, unspecified; F01.50 Vascular dementia, unspecified severity, without behavioral disturbance, psychotic disturbance, mood disturbance, and anxiety; Z86.73 Personal history of transient ischemic attack (TIA), and cerebral infarction without residual deficits; Z86.711 Personal history of pulmonary embolism; Z86.718 Personal history of other venous thrombosis and embolism; Z79.01 Long term (current) use of anticoagulants; Z79.4 Long term (current) use of insulin; Z95.810 Presence of automatic (implantable) cardiac defibrillator; Z87.891 Personal history of nicotine dependence; Z79.82 Long term (current) use of aspirin; Z79.899 Other long term (current) drug therapy

== ENCOUNTER → 2016-05-29 | Outpatient (REF) | payer MEDICARE, BC ==
[~2016-05-29] MED LIST changes: +AMLO2.5T PO; +ARIC5TAB PO; +DRIS50002 PO; +HYDR10TAB PO; +ISOS30TA4 PO; +KEFL500C7 PO; +LANTINJ4 SC; +MAPA325T2 PO; +TUMS1000 PO
== END ==
LOC: SKLAB6 07:00
PROVIDERS: ATTEND Internal Medicine
DX: I50.9 Heart failure, unspecified (principal); Z79.899 Other long term (current) drug therapy

== ENCOUNTER → 2016-05-31 | Outpatient (REF) | payer MEDICARE, BC | LOC: SKLAB6 17:30 | PROVIDERS: ATTEND Internal Medicine | DX: R73.01 Impaired fasting glucose (principal) ==

== ENCOUNTER 2016-06-04 18:08 | Emergency (ER) | payer MEDICARE, BC ==
[2016-06-04 19:18] LABS: BASO % 0.1 % (0.0-1.0); EOS # 0.1 K/mm3 (0.0-0.50); EOS % 0.9 % (0.0-3.0); LARGE UNSTAINED CELL # 0.1 K/mm3 (0.0-0.4); LARGE UNSTAINED CELL % 0.7 % (0.0-4.0); LYMPH # 0.9 K/mm3 (1.5-4.5); LYMPH % 9.2 % (24.0-44.0); MEAN CORPUSCULAR HEMOGLOBIN 34.7 pg (27.0-33.0); MEAN CORPUSCULAR HGB CONC 33.4 g/dl (32.0-36.5); MONO # 0.3 K/mm3 (0.0-0.8); MONO % 3.5 % (0.0-5.0); NEUTROPHILS # 8.1 K/mm3 (1.8-7.7); NEUTROPHILS % 85.5 % (36.0-66.0); PLATELET COUNT, AUTOMATED 212 k/mm3 (150-450); RED CELL DISTRIBUTION WIDTH 13.1 % (11.5-14.5); WHITE BLOOD COUNT 9.5 K/mm3 (4.0-10.0)
[2016-06-04] MEDS ORDERED: PERCOCET 5MG/325MG TAB As Ordered ONE (19:19)
[2016-06-04 19:30] LABS: INR 1.08
[2016-06-04 19:32] LABS: CALCIUM LEVEL 8.7 MG/DL (8.8-10.2); CREATININE FOR GFR 1.7 MG/DL (0.70-1.30); GLOMERULAR FILTRATION RATE 41.6 (>42); POTASSIUM SERUM 4.6 MEQ/L (3.5-5.1)
--- NOTE | 2016-06-04 20:12 | REP ---
Clinical: Right lower extremity pain and swelling . Technique: Chamberlain scale and color Doppler evaluation using linear high frequency transducer. Findings: Ultrasound examination of the right lower extremity deep venous structures from the common femoral vein to the popliteal vein demonstrates normal compressibility flow and wave patterns in response to respiration and augmentation. There is no evidence for deep venous thrombosis. Incidental note is made of atherosclerotic disease. Impression: No evidence for deep venous thrombosis. Signed by Alejandro Leroy MD 06/04/2016 08:03 P
--- NOTE | 2016-06-04 21:49 | REP ---
Clinical: Pain . Technique: AP, lateral, bilateral oblique views right foot . Findings: The osseous structures and joint spaces are intact and there is no evidence for acute fracture or dislocation. Age-related degenerative changes and vascular calcifications noted. Surrounding soft tissues are unremarkable. No subcutaneous emphysema or radiodense foreign body. Impression: No acute fracture or dislocation. Signed by Alejandro Leroy MD 06/04/2016 09:41 P
--- NOTE | 2016-06-04 22:00 | EDDOCDS ---
Nurse's Notes [facility] Name: Rickey Ibanez Age: 81 yrs Sex: Male : 1935 Arrival Date: 06/04/2016 Time: 18:08 Bed 14 Private MD: Abel Diagnosis: Pain in foot and toes Presentation: 06/04 18:16 Presenting complaint: Patient states: pt sent from [facility] for cool pulseless right foot. dy noted to have reddened area to right toes with pitting edema noted to ankle and foot. DP and PT pulses weak but present. Suicide/Homicide risk assessment- the patient denies having any suicidal and/or homicidal ideations and does not present with any other emotional, behavioral or mental health complaints. Status: Patient is not a sales service manager or dependent. Transition of care: patient was received from [facility]. 18:16 Acuity: SUZY Level 4 dy 18:16 Method Of Arrival: Ambulance dy 21:18 Adult Sepsis Screening: The patient does not have new or worsening altered mentation. af2 Patient's respiratory rate is less than 22. Systolic blood pressure is greater than 100. Patient has a qSOFA score of 0- Negative Sepsis Screen. Triage Assessment: 18:28 General: Appears in no apparent distress. Pain: Location: right foot. Injury dy Description: No known injury. 21:18 Injury Description: Laceration is. af2 Historical: - Allergies: No known drug Allergies; - Home Meds: 1. levothyroxine 50 mcg oral cap 1 cap once daily 2. hydralazine 10 mg Oral tab 1 tab every 8 hours 3. Eliquis 5 mg oral tab 1 tab 2 times per day 4. isosorbide mononitrate 30 mg Oral Tb24 1 tab once daily 5. donepezil 5 mg oral TbDL 1 tab once daily 6. carvedilol 6.25 mg oral tab 1 tab 2 times per day 7. Tums Ultra 400 mg (1,000 mg) oral chew twice a day 8. Vitamin B-12 1,000 mcg Oral TbER daily 9. amlodipine 5 mg oral tab 1 tab once daily 10. allopurinol 100 mg Oral tab 1 tab once daily 11. aspirin 81 mg Oral TbEC 1 tab once daily 12. tamsulosin 0.4 mg oral cp24 1 cap once daily 13. prednisone 20 mg Oral tab 2 tabs once daily 14. atorvastatin 40 mg oral tab 1 tab nightly 15. finasteride 5 mg oral tab 1 tab once daily 16. Levemir 100 unit/mL subcutaneous soln 16 units - PMHx: Atrial Fib; BPH; CAD; carotid stenosis; CHF; Chronic Renal Insufficiency; CVA; Diabetes - NIDDM: controlled; DVT; hyperlipidemia; Hypertension; Implanted AICD; [place]; PE; Pneumonia; - PSHx: Carotid surgery (2013); Cataract Surgery- Bilateral; - Immunization history:: Last tetanus immunization: up to date. - Family history: Not pertinent. - Social history: Smoking status: No barriers to communication noted, The patient speaks fluent Tongan, Speaks appropriately for age. - : The pt / caregiver states he / she is on anticoagulants: Eliquis Home medication list is obtained from the patient. - Exposure Risk Screening:: None identified. Screenin:40 Screening information is obtained from the patient. Assistance ADL's: Requires mk4 assistance with meal preparation, this assistance is provided by residence staff, bathing, assistance is provided by residence staff, dressing, assistance is provided by residence staff, toileting, assistance is provided by residence staff, ambulation, assistance is provided by residence staff, housework, assistance is provided by residence staff, medication administration, assistance is provided by residence staff. Abuse/DV Screen: The patient / caregiver reports he/she is: not in a situation that causes fear, pain or injury. Nutritional screening: No deficits noted. home support is adequate. 21:18 Fall risk: At risk due to age, The following interventions are performed due to a af2 positive Fall Risk Screen: Fall Risk is added to Special Handling on the patient Summary Screen. A Fall Risk Bracelet was applied to the patient. Side Rails are placed in the up position. A Call Hernandez is given with instruction to call for help when getting out of bed. Advance Directives: Advance directive information has been placed on a prior [facility] medical record, but the patient/ family does not know when. Assessment: 18:30 General: Appears in no apparent distress, Behavior is cooperative. General: pt states mk4 he really isnt sure why he was brought here , right foot pain unsure of injury . left foot minimally edemetous with redness noted at the base of all 5 toes and extends up toes, small scabbed area at the base of right great toe with much tenderness when touched. Neurological: Level of Consciousness is awake, alert. Cardiovascular:. Respiratory: Airway is patent Respiratory effort is even, unlabored, Respiratory pattern is regular. Musculoskeletal: Circulation, motion, and sensation intact Capillary refill < 3 seconds in right toes. Musculoskeletal: pedal pulses present on dorsum of right foot however muffles, pulses also detected medial aspect of right foot. Injury Description: No known injury. 19:24 General: Appears in no apparent distress, comfortable, Behavior is cooperative, mk4 pleasantly forgetful at times distal csm remains unchanged right foot. 20:12 General: Appears in no apparent distress, comfortable, Behavior is appropriate for age, af2 cooperative, assumed care of pt at this time. pt lying on stretcher resting quietly, offers no complaints. rr even and unlabored. . Neurological: Level of Consciousness is awake, alert. Respiratory: Airway is patent Respiratory effort is even, unlabored. Derm: Skin is normal. 21:09 General: Appears in no apparent distress, comfortable, Behavior is appropriate for age, af2 cooperative. Neurological: Level of Consciousness is awake, alert. Respiratory: Airway is patent Respiratory effort is even, unlabored. Derm: Skin is normal. Vital Signs: 18:30 BP 192 / 80; Pulse 69; Resp 20; Temp 97.8; Pulse Ox 99% ; Weight 79.83 kg; jlf 18:30 BP 194 / 78 (man/reg); jlf 21:14 BP 191 / 82; Pulse 72; Resp 20; Temp 97.8(O); Pulse Ox 96% on R/A; Pain 0/10; ls3 Vitals: 18:28 Log In Time N/A - ambulance arrival. dy ED Course: 18:10 Patient visited by Elizabeth Hannah, Napper Tender. lbd 18:10 Abel is Private Physician. lbd 18:10 Patient moved to Waiting lbd 18:15 Patient moved to 14 lbd 18:17 Triage Initiated dy 18:30 Patient visited by Colt Smith PCA. jlf 18:31 Patient visited by Colt Smith PCA. jlf 19:10 Jessica San MD is Attending Physician. fg 19:10 Patient visited by Jessica San MD. fg 19:12 PTT Sent. mk4 19:12 PT/INR Sent. mk4 19:12 BMP Sent. mk4 19:13 CBC with Diff Sent. mk4 19:38 Patient moved to Ultrasound dmg 19:38 [facility] Payment Agreement was scanned into [employer] and attached to record. jpb 19:40 The patient / caregiver is instructed regarding the plan of care and ED course. mk4 19:40 Missed attempts: 20 gauge X 1 will hold IV for now per Dr San. mk4 20:03 Patient moved to 14 dmg 20:05 Patient visited by Deanne Manrique RN. mk4 20:09 Sheree Piña,FLAKITA is Primary Nurse. af2 20:13 Patient visited by Sheree Piña RN. af2 20:31 US Lower Extremity R/O DVT Returned. EDMS 20:43 Patient visited by Monica Ramirez, Napper Tender. jlm 20:49 Sterling Torres MD is Referral Physician. fg 21:10 Patient visited by Sheree Piña RN. af2 21:18 Patient visited by Sheree Piña RN. af2 21:18 No procedures done that require assistance. af2 Administered Medications: 19:23 Drug: oxyCODONE-acetaminophen 1 tabs [oxycodone-acetaminophen 5 mg-325 mg tablet (1 mk4 tabs)] Route: PO; Order Results: Lab Order: CBC with Diff; SPEC'M 06/04/16 19:10 Test: WHITE BLOOD COUNT; Value: 9.5; Range: 4.0-10.0; Units: K/mm3; Status: F Test: RED BLOOD COUNT; Value: 3.78; Range: 4.30-6.10; Abnormal: Below low normal; Units: M/mm3; Status: F Test: HEMOGLOBIN; Value: 13.1; Range: 14.0-18.0; Abnormal: Below low normal; Units: g/dl; Status: F Test: HEMATOCRIT; Value: 39.3; Range: 42.0-52.0; Abnormal: Below low normal; Units: %; Status: F Test: MEAN CORPUSCULAR VOLUME; Value: 104.0; Range: 80.0-96.0; Abnormal: Above high normal; Units: fl; Status: F Test: MEAN CORPUSCULAR HEMOGLOBIN; Value: 34.7; Range: 27.0-33.0; Abnormal: Above high normal; Units: pg; Status: F Test: MEAN CORPUSCULAR HGB CONC; Value: 33.4; Range: 32.0-36.5; Units: g/dl; Status: F Test: RED CELL DISTRIBUTION WIDTH; Value: 13.1; Range: 11.5-14.5; Units: %; Status: F Test: PLATELET COUNT, AUTOMATED; Value: 212; Range: 150-450; Units: k/mm3; Status: F Test: NEUTROPHILS %; Value: 85.5; Range: 36.0-66.0; Abnormal: Above high normal; Units: %; Status: F Test: LYMPH %; Value: 9.2; Range: 24.0-44.0; Abnormal: Below low normal; Units: %; Status: F Test: MONO %; Value: 3.5; Range: 0.0-5.0; Units: %; Status: F Test: EOS %; Value: 0.9; Range: 0.0-3.0; Units: %; Status: F Test: BASO %; Value: 0.1; Range: 0.0-1.0; Units: %; Status: F Test: LARGE UNSTAINED CELL %; Value: 0.7; Range: 0.0-4.0; Units: %; Status: F Test: NEUTROPHILS #; Value: 8.1; Range: 1.8-7.7; Abnormal: Above high normal; Units: K/mm3; Status: F Test: LYMPH #; Value: 0.9; Range: 1.5-4.5; Abnormal: Below low normal; Units: K/mm3; Status: F Test: MONO #; Value: 0.3; Range: 0.0-0.8; Units: K/mm3; Status: F Test: EOS #; Value: 0.1; Range: 0.0-0.50; Units: K/mm3; Status: F Test: BASO #; Value: 0.0; Range: 0.0-0.2; Units: K/mm3; Status: F Test: LARGE UNSTAINED CELL #; Value: 0.1; Range: 0.0-0.4; Units: K/mm3; Status: F Lab Order: [facility]; SPEC'M 06/04/16 19:10 Test: GLUCOSE, FASTING; Value: 485; Range: 83-110; Abnormal: Above upper panic limits; Units: MG/DL; Status: F Test: BLOOD UREA NITROGEN; Value: 34; Range: 7-18; Abnormal: Above high normal; Units: MG/DL; Status: F Test: CREATININE FOR GFR; Value: 1.70; Range: 0.70-1.30; Abnormal: Above high normal; Units: MG/DL; Status: F Test: GLOMERULAR FILTRATION RATE; Value: 41.6; Range: >42; Abnormal: Below low normal; Status: F Test: SODIUM LEVEL; Value: 139; Range: 136-145; Units: MEQ/L; Status: F Test: POTASSIUM SERUM; Value: 4.6; Range: 3.5-5.1; Units: MEQ/L; Status: F Test: CHLORIDE LEVEL; Value: 102; Range: 98-107; Units: MEQ/L; Status: F Test: CARBON DIOXIDE LEVEL; Value: 27; Range: 21-32; Units: MEQ/L; Status: F Test: ANION GAP; Value: 10; Range: 8-16; Units: MEQ/L; Status: F Test: CALCIUM LEVEL; Value: 8.7; Range: 8.8-10.2; Abnormal: Below low normal; Units: MG/DL; Status: F Test Note: ; Units are mL/min/1.73 m2 Chronic Kidney Disease Staging per NKF: Stage I & II GFR >=60 Normal to Mildly Decreased Stage III GFR 30-59 Moderately Decreased Stage IV GFR 15-29 Severely Decreased Stage V GFR <15 Very Little GFR Left ESRD GFR <15 on MOLD REPAIR TECHNICIAN Lab Order: PT/INR; SPEC'M 06/04/16 19:10 Test: PROTHROMBIN TIME; Value: 14.1; Range: 12.3-14.5; Units: SECONDS; Status: F Test: INR; Value: 1.08; Status: F Test Note: ; THERAPUTIC HUMAN INR VALUES INDICATIONS NORMAL RANGES PROPHYLAXIS/TREATMENT OF: VENOUS THROMBOSIS 2.0-3.0 PULMONARY EMBOLISM 2.0-3.0 PREVENTION OF SYSTEMIC EMBOLISM FROM: TISSUE HEART VALVES 2.0-3.0 ACUTE MYOCARDIAL INFARCTION 2.0-3.0 VALVULAR HEART DISEASE 2.0-3.0 ATRIAL FIBRILLATION 2.0-3.0 MECHANICAL VALVES(HIGH RISK) 2.5-3.5 RECURRENT MYOCARDIAL INFARCTION 2.5-3.5 Lab Order: PTT; CIPRIANO'M 06/04/16 19:10 Test: PARTIAL THROMBOPLASTIN TIME; Value: 24.6; Range: 26.6-37.1; Abnormal: Below low normal; Units: SECONDS; Status: F Radiology Order: US Lower Extremity R/O DVT Test: US Lower Extremity R/O DVT REASON FOR EXAMINATION: right foot pain and swelling; Clinical: Right lower extremity pain and swelling .; ; Technique: Chamberlain scale and color Doppler evaluation using linear high frequency; transducer.; ; Findings:; Ultrasound examination of the right lower extremity deep venous structures from; the common femoral vein to the popliteal vein demonstrates normal compressibility; flow and wave patterns in response to respiration and augmentation. There is no; evidence for deep venous thrombosis. Incidental note is made of atherosclerotic; disease.; ; Impression:; No evidence for deep venous thrombosis.; ; ; Signed by; Alejandro Leroy MD 06/04/2016 08:03 P; Outcome: 20:49 Discharge ordered by Provider. fg 21:15 Discharge Assessment: Patient awake, alert and oriented x 3. No cognitive and/or af2 functional deficits noted. Patient verbalized understanding of disposition instructions. patient administered narcotics - yes. Patient was admitted to the hospital or transferred to another facility. The following High Risk Discharge criteria are identified: None. Discharged to detention. Report called to [facility] nursing quality control supervisor Kimberlee. Transfer form completed. Condition: stable. Discharge instructions given to patient, detention. Ultrasound Study completed. Property :Personal belongings accompany Pt. 22:00 Patient left the ED. sls1 Signatures: Dispatcher [employer] EDMS Elizabeth Hannah, Napper Tender Unit Chelsey Bennett David RN Shilpa Franco RN RN sls1 Emilio Lujan Margaret, RN RN mk4 Colt Smith, SECURITY CLERK SECURITY CLERK jlf Monica Ramirez, Napper Tender Unit Sheree Skelton RN RN af2 Jessica San MD MD fg Deisy Felipe, SECURITY CLERK SECURITY CLERK ls3 MTDD
--- NOTE | 2016-06-04 22:00 | EDDOCDS ---
Physician Documentation [facility] Name: Rickey Ibanez Age: 81 yrs Sex: Male : 1935 Arrival Date: 06/04/2016 Time: 18:08 Bed 14 Private MD: Abel Disposition: 06/04/16 20:49 Discharged to Home/Self Care. Impression: Pain in foot and toes. - Condition is Stable. - Prescriptions for Colace 100 mg Oral Tablet - take 1 tablet by ORAL route every 12 hours; 14 tablet. Percocet 5- 325 mg Oral Tablet - take 1 tablet by ORAL route every 8 hours As needed MDD: 4 tabs; 10 tablet. - Medication Reconciliation, Local Pharmacy Hours form. - Follow up: Sterling Torres MD; When: Call to arrange an appointment; Reason: Continuance of care. - Problem is chronic. - Symptoms are unchanged. - Notes: You have been evaluated for your foot pain. We found pulses on your foot with a doppler. You had a negative DVT study, and there are no fractures visualized on your xray. A radiologist will review your xrays in the AM and you will be called if there is a discrepancy. We suggest that you make an appointment with a poditrist and a vascular surgeon as an outpatient for further evaluation of your pain. Historical: - Allergies: No known drug Allergies; - Home Meds: 1. levothyroxine 50 mcg oral cap 1 cap once daily 2. hydralazine 10 mg Oral tab 1 tab every 8 hours 3. Eliquis 5 mg oral tab 1 tab 2 times per day 4. isosorbide mononitrate 30 mg Oral Tb24 1 tab once daily 5. donepezil 5 mg oral TbDL 1 tab once daily 6. carvedilol 6.25 mg oral tab 1 tab 2 times per day 7. Tums Ultra 400 mg (1,000 mg) oral chew twice a day 8. Vitamin B-12 1,000 mcg Oral TbER daily 9. amlodipine 5 mg oral tab 1 tab once daily 10. allopurinol 100 mg Oral tab 1 tab once daily 11. aspirin 81 mg Oral TbEC 1 tab once daily 12. tamsulosin 0.4 mg oral cp24 1 cap once daily 13. prednisone 20 mg Oral tab 2 tabs once daily 14. atorvastatin 40 mg oral tab 1 tab nightly 15. finasteride 5 mg oral tab 1 tab once daily 16. Levemir 100 unit/mL subcutaneous soln 16 units - PMHx: Atrial Fib; BPH; CAD; carotid stenosis; CHF; Chronic Renal Insufficiency; CVA; Diabetes - NIDDM: controlled; DVT; hyperlipidemia; Hypertension; Implanted AICD; [place]; PE; Pneumonia; - PSHx: Carotid surgery (2013); Cataract Surgery- Bilateral; - Immunization history:: Last tetanus immunization: up to date. - Family history: Not pertinent. - Social history: Smoking status: No barriers to communication noted, The patient speaks fluent Slovak, Speaks appropriately for age. - : The pt / caregiver states he / she is on anticoagulants: [email or web address] Home medication list is obtained from the patient. - Exposure Risk Screening:: None identified. Vital Signs: 06/04 18:30 BP 192 / 80; Pulse 69; Resp 20; Temp 97.8; Pulse Ox 99% ; Weight 79.83 kg / 176 lbs; jlf 18:30 BP 194 / 78 (man/reg); jlf 21:14 BP 191 / 82; Pulse 72; Resp 20; Temp 97.8(O); Pulse Ox 96% on R/A; Pain 0/10; ls3 MDM: 18:39 Misc. Nursing Order ordered. br1 18:40 CBC with Diff Ordered. EDMS 18:40 BMP Ordered. EDMS 18:40 PT/INR Ordered. EDMS 18:40 PTT Ordered. EDMS 19:12 oxyCODONE-acetaminophen 5 mg-325 mg 1 tabs PO once ordered. fg 19:12 US Lower Extremity R/O DVT Ordered. EDMS 19:12 Foot, Complete Ordered. EDMS 19:18 Financial registration complete. jpb 19:38 REPLACED BY [facility] Payment Agreement was scanned into [employer] and attached to record. jpb Administered Medications: 19:23 Drug: oxyCODONE-acetaminophen 1 tabs [oxycodone-acetaminophen 5 mg-325 mg tablet (1 mk4 tabs)] Route: PO; Signatures: Dispatcher [employer] EDMS Josesito Quiros RN RN dy Robby Hand MD MD br1 Shilpa Hirsch RN RN sls1 Emilio Lujan jpb Sheree Piña RN RN af2 Jessica San MD MD fg King, Margaret RN mk4 The chart was reviewed and I authenticate all verbal orders and agree with the evaluation and treatment provided.Corrections: (The following items were deleted from the chart) 19: 18:39 IV Saline Lock ordered. br1 mk4 Attachments: 19:38 REPLACED BY [facility] Payment Agreement jpb MTDD
--- NOTE | 2016-06-06 23:01 | EDDOCDS ---
Physician Documentation [facility] Name: Rickey Ibanez Age: 81 yrs Sex: Male : 1935 Arrival Date: 06/04/2016 Time: 18:08 Bed 14 Private MD: Abel Disposition: 06/04/16 20:49 Discharged to Home/Self Care. Impression: Pain in foot and toes. - Condition is Stable. - Prescriptions for Colace 100 mg Oral Tablet - take 1 tablet by ORAL route every 12 hours; 14 tablet. Percocet 5- 325 mg Oral Tablet - take 1 tablet by ORAL route every 8 hours As needed MDD: 4 tabs; 10 tablet. - Medication Reconciliation, Local Pharmacy Hours form. - Follow up: Sterling Torres MD; When: Call to arrange an appointment; Reason: Continuance of care. - Problem is chronic. - Symptoms are unchanged. - Notes: You have been evaluated for your foot pain. We found pulses on your foot with a doppler. You had a negative DVT study, and there are no fractures visualized on your xray. A radiologist will review your xrays in the AM and you will be called if there is a discrepancy. We suggest that you make an appointment with a poditrist and a vascular surgeon as an outpatient for further evaluation of your pain. Historical: - Allergies: No known drug Allergies; - Home Meds: 1. levothyroxine 50 mcg oral cap 1 cap once daily 2. hydralazine 10 mg Oral tab 1 tab every 8 hours 3. Eliquis 5 mg oral tab 1 tab 2 times per day 4. isosorbide mononitrate 30 mg Oral Tb24 1 tab once daily 5. donepezil 5 mg oral TbDL 1 tab once daily 6. carvedilol 6.25 mg oral tab 1 tab 2 times per day 7. Tums Ultra 400 mg (1,000 mg) oral chew twice a day 8. Vitamin B-12 1,000 mcg Oral TbER daily 9. amlodipine 5 mg oral tab 1 tab once daily 10. allopurinol 100 mg Oral tab 1 tab once daily 11. aspirin 81 mg Oral TbEC 1 tab once daily 12. tamsulosin 0.4 mg oral cp24 1 cap once daily 13. prednisone 20 mg Oral tab 2 tabs once daily 14. atorvastatin 40 mg oral tab 1 tab nightly 15. finasteride 5 mg oral tab 1 tab once daily 16. Levemir 100 unit/mL subcutaneous soln 16 units - PMHx: Atrial Fib; BPH; CAD; carotid stenosis; CHF; Chronic Renal Insufficiency; CVA; Diabetes - NIDDM: controlled; DVT; hyperlipidemia; Hypertension; Implanted AICD; [place]; PE; Pneumonia; - PSHx: Carotid surgery (2013); Cataract Surgery- Bilateral; - Immunization history:: Last tetanus immunization: up to date. - Family history: Not pertinent. - Social history: Smoking status: No barriers to communication noted, The patient speaks fluent Salvadorean, Speaks appropriately for age. - : The pt / caregiver states he / she is on anticoagulants: [email or web address] Home medication list is obtained from the patient. - Exposure Risk Screening:: None identified. Vital Signs: 06/04 18:30 BP 192 / 80; Pulse 69; Resp 20; Temp 97.8; Pulse Ox 99% ; Weight 79.83 kg / 176 lbs; jlf 18:30 BP 194 / 78 (man/reg); jlf 21:14 BP 191 / 82; Pulse 72; Resp 20; Temp 97.8(O); Pulse Ox 96% on R/A; Pain 0/10; ls3 MDM: 18:39 Misc. Nursing Order ordered. br1 18:40 CBC with Diff Ordered. EDMS 18:40 BMP Ordered. EDMS 18:40 PT/INR Ordered. EDMS 18:40 PTT Ordered. EDMS 19:12 oxyCODONE-acetaminophen 5 mg-325 mg 1 tabs PO once ordered. fg 19:12 US Lower Extremity R/O DVT Ordered. EDMS 19:12 Foot, Complete Ordered. EDMS 19:18 Financial registration complete. jpb 19:38 [facility] Payment Agreement was scanned into [employer] and attached to record. jpb 06/05 10:12 T-Sheet-- Draft Copy was scanned into [employer] and attached to record. gb Administered Medications: 06/04 19:23 Drug: oxyCODONE-acetaminophen 1 tabs [oxycodone-acetaminophen 5 mg-325 mg tablet (1 mk4 tabs)] Route: PO; Signatures: Dispatcher [employer] EDMS Joann Jaime, Reg Reg gb Josesito Quiros RN RN Robby Hobson MD MD br1 Shilpa Hirsch RN RN sls1 Emilio Lujan jpb Sheree Piña,RN RN af2 Jessica Sna MD MD Deanne Manrique RN mk4 The chart was reviewed and I authenticate all verbal orders and agree with the evaluation and treatment provided.Corrections: (The following items were deleted from the chart) 19:23 18:39 IV Saline Lock ordered. br1 mk4 Attachments: 19:38 [facility] Payment Agreement jpb 06/05 10:12 T-Sheet-- Draft Copy gb Chart Complete MTDD
--- NOTE | 2016-06-06 23:01 | EDDOCDS ---
Nurse's Notes [facility] Name: Rickey Ibanez Age: 81 yrs Sex: Male : 1935 Arrival Date: 06/04/2016 Time: 18:08 Bed 14 Private MD: Abel Diagnosis: Pain in foot and toes Presentation: 06/04 18:16 Presenting complaint: Patient states: pt sent from [facility] for cool pulseless right foot. dy noted to have reddened area to right toes with pitting edema noted to ankle and foot. DP and PT pulses weak but present. Suicide/Homicide risk assessment- the patient denies having any suicidal and/or homicidal ideations and does not present with any other emotional, behavioral or mental health complaints. Status: Patient is not a dispatcher service or dependent. Transition of care: patient was received from [facility]. 18:16 Acuity: SUZY Level 4 dy 18:16 Method Of Arrival: Ambulance dy 21:18 Adult Sepsis Screening: The patient does not have new or worsening altered mentation. af2 Patient's respiratory rate is less than 22. Systolic blood pressure is greater than 100. Patient has a qSOFA score of 0- Negative Sepsis Screen. Triage Assessment: 18:28 General: Appears in no apparent distress. Pain: Location: right foot. Injury dy Description: No known injury. 21:18 Injury Description: Laceration is. af2 Historical: - Allergies: No known drug Allergies; - Home Meds: 1. levothyroxine 50 mcg oral cap 1 cap once daily 2. hydralazine 10 mg Oral tab 1 tab every 8 hours 3. Eliquis 5 mg oral tab 1 tab 2 times per day 4. isosorbide mononitrate 30 mg Oral Tb24 1 tab once daily 5. donepezil 5 mg oral TbDL 1 tab once daily 6. carvedilol 6.25 mg oral tab 1 tab 2 times per day 7. Tums Ultra 400 mg (1,000 mg) oral chew twice a day 8. Vitamin B-12 1,000 mcg Oral TbER daily 9. amlodipine 5 mg oral tab 1 tab once daily 10. allopurinol 100 mg Oral tab 1 tab once daily 11. aspirin 81 mg Oral TbEC 1 tab once daily 12. tamsulosin 0.4 mg oral cp24 1 cap once daily 13. prednisone 20 mg Oral tab 2 tabs once daily 14. atorvastatin 40 mg oral tab 1 tab nightly 15. finasteride 5 mg oral tab 1 tab once daily 16. Levemir 100 unit/mL subcutaneous soln 16 units - PMHx: Atrial Fib; BPH; CAD; carotid stenosis; CHF; Chronic Renal Insufficiency; CVA; Diabetes - NIDDM: controlled; DVT; hyperlipidemia; Hypertension; Implanted AICD; [place]; PE; Pneumonia; - PSHx: Carotid surgery (2013); Cataract Surgery- Bilateral; - Immunization history:: Last tetanus immunization: up to date. - Family history: Not pertinent. - Social history: Smoking status: No barriers to communication noted, The patient speaks fluent Andorran, Speaks appropriately for age. - : The pt / caregiver states he / she is on anticoagulants: Eliquis Home medication list is obtained from the patient. - Exposure Risk Screening:: None identified. Screenin:40 Screening information is obtained from the patient. Assistance ADL's: Requires mk4 assistance with meal preparation, this assistance is provided by residence staff, bathing, assistance is provided by residence staff, dressing, assistance is provided by residence staff, toileting, assistance is provided by residence staff, ambulation, assistance is provided by residence staff, housework, assistance is provided by residence staff, medication administration, assistance is provided by residence staff. Abuse/DV Screen: The patient / caregiver reports he/she is: not in a situation that causes fear, pain or injury. Nutritional screening: No deficits noted. home support is adequate. 21:18 Fall risk: At risk due to age, The following interventions are performed due to a af2 positive Fall Risk Screen: Fall Risk is added to Special Handling on the patient Summary Screen. A Fall Risk Bracelet was applied to the patient. Side Rails are placed in the up position. A Call Hernandez is given with instruction to call for help when getting out of bed. Advance Directives: Advance directive information has been placed on a prior [facility] medical record, but the patient/ family does not know when. Assessment: 18:30 General: Appears in no apparent distress, Behavior is cooperative. General: pt states mk4 he really isnt sure why he was brought here , right foot pain unsure of injury . left foot minimally edemetous with redness noted at the base of all 5 toes and extends up toes, small scabbed area at the base of right great toe with much tenderness when touched. Neurological: Level of Consciousness is awake, alert. Cardiovascular:. Respiratory: Airway is patent Respiratory effort is even, unlabored, Respiratory pattern is regular. Musculoskeletal: Circulation, motion, and sensation intact Capillary refill < 3 seconds in right toes. Musculoskeletal: pedal pulses present on dorsum of right foot however muffles, pulses also detected medial aspect of right foot. Injury Description: No known injury. 19:24 General: Appears in no apparent distress, comfortable, Behavior is cooperative, mk4 pleasantly forgetful at times distal csm remains unchanged right foot. 20:12 General: Appears in no apparent distress, comfortable, Behavior is appropriate for age, af2 cooperative, assumed care of pt at this time. pt lying on stretcher resting quietly, offers no complaints. rr even and unlabored. . Neurological: Level of Consciousness is awake, alert. Respiratory: Airway is patent Respiratory effort is even, unlabored. Derm: Skin is normal. 21:09 General: Appears in no apparent distress, comfortable, Behavior is appropriate for age, af2 cooperative. Neurological: Level of Consciousness is awake, alert. Respiratory: Airway is patent Respiratory effort is even, unlabored. Derm: Skin is normal. Vital Signs: 18:30 BP 192 / 80; Pulse 69; Resp 20; Temp 97.8; Pulse Ox 99% ; Weight 79.83 kg; jlf 18:30 BP 194 / 78 (man/reg); jlf 21:14 BP 191 / 82; Pulse 72; Resp 20; Temp 97.8(O); Pulse Ox 96% on R/A; Pain 0/10; ls3 Vitals: 18:28 Log In Time N/A - ambulance arrival. dy ED Course: 18:10 Patient visited by Elizabeth Hannah, Ammonia Nitrate Operator. lbd 18:10 Abel is Private Physician. lbd 18:10 Patient moved to Waiting lbd 18:15 Patient moved to 14 lbd 18:17 Triage Initiated dy 18:30 Patient visited by Colt Simth PCA. jlf 18:31 Patient visited by Colt Smith PCA. jlf 19:10 Jessica San MD is Attending Physician. fg 19:10 Patient visited by Jessica San MD. fg 19:12 PTT Sent. mk4 19:12 PT/INR Sent. mk4 19:12 BMP Sent. mk4 19:13 CBC with Diff Sent. mk4 19:38 Patient moved to Ultrasound dmg 19:38 [facility] Payment Agreement was scanned into [employer] and attached to record. jpb 19:40 The patient / caregiver is instructed regarding the plan of care and ED course. mk4 19:40 Missed attempts: 20 gauge X 1 will hold IV for now per Dr San. mk4 20:03 Patient moved to 14 dmg 20:05 Patient visited by Deanne Manrique RN. mk4 20:09 Sheree Piña,RN is Primary Nurse. af2 20:13 Patient visited by Sheree Piña RN. af2 20:31 US Lower Extremity R/O DVT Returned. EDMS 20:43 Patient visited by Monica Ramirez, Ammonia Nitrate Operator. jlm 20:49 Sterling Torres MD is Referral Physician. fg 21:10 Patient visited by Sheree Piña RN. af2 21:18 Patient visited by Sheree Piña RN. af2 21:18 No procedures done that require assistance. af2 22:46 Foot, Complete Returned. EDMS 01 10:12 T-Sheet-- Draft Copy was scanned into [employer] and attached to record. gb Administered Medications: 06/04 19:23 Drug: oxyCODONE-acetaminophen 1 tabs [oxycodone-acetaminophen 5 mg-325 mg tablet (1 mk4 tabs)] Route: PO; Order Results: Lab Order: CBC with Diff; SPEC'M 06/04/16 19:10 Test: WHITE BLOOD COUNT; Value: 9.5; Range: 4.0-10.0; Units: K/mm3; Status: F Test: RED BLOOD COUNT; Value: 3.78; Range: 4.30-6.10; Abnormal: Below low normal; Units: M/mm3; Status: F Test: HEMOGLOBIN; Value: 13.1; Range: 14.0-18.0; Abnormal: Below low normal; Units: g/dl; Status: F Test: HEMATOCRIT; Value: 39.3; Range: 42.0-52.0; Abnormal: Below low normal; Units: %; Status: F Test: MEAN CORPUSCULAR VOLUME; Value: 104.0; Range: 80.0-96.0; Abnormal: Above high normal; Units: fl; Status: F Test: MEAN CORPUSCULAR HEMOGLOBIN; Value: 34.7; Range: 27.0-33.0; Abnormal: Above high normal; Units: pg; Status: F Test: MEAN CORPUSCULAR HGB CONC; Value: 33.4; Range: 32.0-36.5; Units: g/dl; Status: F Test: RED CELL DISTRIBUTION WIDTH; Value: 13.1; Range: 11.5-14.5; Units: %; Status: F Test: PLATELET COUNT, AUTOMATED; Value: 212; Range: 150-450; Units: k/mm3; Status: F Test: NEUTROPHILS %; Value: 85.5; Range: 36.0-66.0; Abnormal: Above high normal; Units: %; Status: F Test: LYMPH %; Value: 9.2; Range: 24.0-44.0; Abnormal: Below low normal; Units: %; Status: F Test: MONO %; Value: 3.5; Range: 0.0-5.0; Units: %; Status: F Test: EOS %; Value: 0.9; Range: 0.0-3.0; Units: %; Status: F Test: BASO %; Value: 0.1; Range: 0.0-1.0; Units: %; Status: F Test: LARGE UNSTAINED CELL %; Value: 0.7; Range: 0.0-4.0; Units: %; Status: F Test: NEUTROPHILS #; Value: 8.1; Range: 1.8-7.7; Abnormal: Above high normal; Units: K/mm3; Status: F Test: LYMPH #; Value: 0.9; Range: 1.5-4.5; Abnormal: Below low normal; Units: K/mm3; Status: F Test: MONO #; Value: 0.3; Range: 0.0-0.8; Units: K/mm3; Status: F Test: EOS #; Value: 0.1; Range: 0.0-0.50; Units: K/mm3; Status: F Test: BASO #; Value: 0.0; Range: 0.0-0.2; Units: K/mm3; Status: F Test: LARGE UNSTAINED CELL #; Value: 0.1; Range: 0.0-0.4; Units: K/mm3; Status: F Lab Order: BMP; SPEC'06/04/16 19:10 Test: GLUCOSE, FASTING; Value: 485; Range: 83-110; Abnormal: Above upper panic limits; Units: MG/DL; Status: F Test: BLOOD UREA NITROGEN; Value: 34; Range: 7-18; Abnormal: Above high normal; Units: MG/DL; Status: F Test: CREATININE FOR GFR; Value: 1.70; Range: 0.70-1.30; Abnormal: Above high normal; Units: MG/DL; Status: F Test: GLOMERULAR FILTRATION RATE; Value: 41.6; Range: >42; Abnormal: Below low normal; Status: F Test: SODIUM LEVEL; Value: 139; Range: 136-145; Units: MEQ/L; Status: F Test: POTASSIUM SERUM; Value: 4.6; Range: 3.5-5.1; Units: MEQ/L; Status: F Test: CHLORIDE LEVEL; Value: 102; Range: 98-107; Units: MEQ/L; Status: F Test: CARBON DIOXIDE LEVEL; Value: 27; Range: 21-32; Units: MEQ/L; Status: F Test: ANION GAP; Value: 10; Range: 8-16; Units: MEQ/L; Status: F Test: CALCIUM LEVEL; Value: 8.7; Range: 8.8-10.2; Abnormal: Below low normal; Units: MG/DL; Status: F Test Note: ; Units are mL/min/1.73 m2 Chronic Kidney Disease Staging per NKF: Stage I & II GFR >=60 Normal to Mildly Decreased Stage III GFR 30-59 Moderately Decreased Stage IV GFR 15-29 Severely Decreased Stage V GFR <15 Very Little GFR Left ESRD GFR <15 on RAG SORTER Lab Order: PT/INR; SPEC'M 06/04/16 19:10 Test: PROTHROMBIN TIME; Value: 14.1; Range: 12.3-14.5; Units: SECONDS; Status: F Test: INR; Value: 1.08; Status: F Test Note: ; THERAPUTIC HUMAN INR VALUES INDICATIONS NORMAL RANGES PROPHYLAXIS/TREATMENT OF: VENOUS THROMBOSIS 2.0-3.0 PULMONARY EMBOLISM 2.0-3.0 PREVENTION OF SYSTEMIC EMBOLISM FROM: TISSUE HEART VALVES 2.0-3.0 ACUTE MYOCARDIAL INFARCTION 2.0-3.0 VALVULAR HEART DISEASE 2.0-3.0 ATRIAL FIBRILLATION 2.0-3.0 MECHANICAL VALVES(HIGH RISK) 2.5-3.5 RECURRENT MYOCARDIAL INFARCTION 2.5-3.5 Lab Order: PTTScarlet LAMBERT 06/04/16 19:10 Test: PARTIAL THROMBOPLASTIN TIME; Value: 24.6; Range: 26.6-37.1; Abnormal: Below low normal; Units: SECONDS; Status: F Radiology Order: Foot, Complete Test: Foot, Complete REASON FOR EXAMINATION: pain to proximal toes; Clinical: Pain .; ; Technique: AP, lateral, bilateral oblique views right foot .; ; Findings: The osseous structures and joint spaces are intact and there is no; evidence for acute fracture or dislocation. Age-related degenerative changes and; vascular calcifications noted. Surrounding soft tissues are unremarkable. No; subcutaneous emphysema or radiodense foreign body.; ; Impression:; No acute fracture or dislocation.; ; ; Signed by; Alejandro Leroy MD 06/04/2016 09:41 P; Radiology Order: US Lower Extremity R/O DVT Test: US Lower Extremity R/O DVT REASON FOR EXAMINATION: right foot pain and swelling; Clinical: Right lower extremity pain and swelling .; ; Technique: Chamberlain scale and color Doppler evaluation using linear high frequency; transducer.; ; Findings:; Ultrasound examination of the right lower extremity deep venous structures from; the common femoral vein to the popliteal vein demonstrates normal compressibility; flow and wave patterns in response to respiration and augmentation. There is no; evidence for deep venous thrombosis. Incidental note is made of atherosclerotic; disease.; ; Impression:; No evidence for deep venous thrombosis.; ; ; Signed by; Alejandro Leroy MD 06/04/2016 08:03 P; Outcome: 20:49 Discharge ordered by Provider. fg 21:15 Discharge Assessment: Patient awake, alert and oriented x 3. No cognitive and/or af2 functional deficits noted. Patient verbalized understanding of disposition instructions. patient administered narcotics - yes. Patient was admitted to the hospital or transferred to another facility. The following High Risk Discharge criteria are identified: None. Discharged to snf. Report called to [facility] nursing light industrial supervisor Kimberlee. Transfer form completed. Condition: stable. Discharge instructions given to patient, snf. Ultrasound Study completed. Property :Personal belongings accompany Pt. 22:00 Patient left the ED. sls1 Signatures: Dispatcher [employer] EDMS Elizabeth Hannah, Ammonia Nitrate Operator Unit [facility] Chelsey Chavira Gloria, Reg Reg gb Josesito Quiros, RN RN Shilpa Stewart RN RN sls1 Emilio Lujan Margaret RN RN 4 Colt Smith, ORAL THERAPIST ORAL THERAPIST [facility] Monica Ramirez, Ammonia Nitrate Operator Unit [facility] Sheree PiñaRN RN af2 Jessica San MD MD fg Schiff, Lauren, ORAL THERAPIST ORAL THERAPIST ls3 Chart Complete MTDD
--- NOTE | 2016-06-06 23:01 | EDDOCDS ---
Physician Documentation [facility] Name: Rickey Ibanez Age: 81 yrs Sex: Male : 1935 Arrival Date: 06/04/2016 Time: 18:08 Bed 14 Private MD: Abel Disposition: 06/04/16 20:49 Discharged to Home/Self Care. Impression: Pain in foot and toes. - Condition is Stable. - Prescriptions for Colace 100 mg Oral Tablet - take 1 tablet by ORAL route every 12 hours; 14 tablet. Percocet 5- 325 mg Oral Tablet - take 1 tablet by ORAL route every 8 hours As needed MDD: 4 tabs; 10 tablet. - Medication Reconciliation, Local Pharmacy Hours form. - Follow up: Sterling Torres MD; When: Call to arrange an appointment; Reason: Continuance of care. - Problem is chronic. - Symptoms are unchanged. - Notes: You have been evaluated for your foot pain. We found pulses on your foot with a doppler. You had a negative DVT study, and there are no fractures visualized on your xray. A radiologist will review your xrays in the AM and you will be called if there is a discrepancy. We suggest that you make an appointment with a poditrist and a vascular surgeon as an outpatient for further evaluation of your pain. Historical: - Allergies: No known drug Allergies; - Home Meds: 1. levothyroxine 50 mcg oral cap 1 cap once daily 2. hydralazine 10 mg Oral tab 1 tab every 8 hours 3. Eliquis 5 mg oral tab 1 tab 2 times per day 4. isosorbide mononitrate 30 mg Oral Tb24 1 tab once daily 5. donepezil 5 mg oral TbDL 1 tab once daily 6. carvedilol 6.25 mg oral tab 1 tab 2 times per day 7. Tums Ultra 400 mg (1,000 mg) oral chew twice a day 8. Vitamin B-12 1,000 mcg Oral TbER daily 9. amlodipine 5 mg oral tab 1 tab once daily 10. allopurinol 100 mg Oral tab 1 tab once daily 11. aspirin 81 mg Oral TbEC 1 tab once daily 12. tamsulosin 0.4 mg oral cp24 1 cap once daily 13. prednisone 20 mg Oral tab 2 tabs once daily 14. atorvastatin 40 mg oral tab 1 tab nightly 15. finasteride 5 mg oral tab 1 tab once daily 16. Levemir 100 unit/mL subcutaneous soln 16 units - PMHx: Atrial Fib; BPH; CAD; carotid stenosis; CHF; Chronic Renal Insufficiency; CVA; Diabetes - NIDDM: controlled; DVT; hyperlipidemia; Hypertension; Implanted AICD; [place]; PE; Pneumonia; - PSHx: Carotid surgery (2013); Cataract Surgery- Bilateral; - Immunization history:: Last tetanus immunization: up to date. - Family history: Not pertinent. - Social history: Smoking status: No barriers to communication noted, The patient speaks fluent Sri Lankan, Speaks appropriately for age. - : The pt / caregiver states he / she is on anticoagulants: EliSymform Home medication list is obtained from the patient. - Exposure Risk Screening:: None identified. Vital Signs: 06/04 18:30 BP 192 / 80; Pulse 69; Resp 20; Temp 97.8; Pulse Ox 99% ; Weight 79.83 kg / 176 lbs; jlf 18:30 BP 194 / 78 (man/reg); jlf 21:14 BP 191 / 82; Pulse 72; Resp 20; Temp 97.8(O); Pulse Ox 96% on R/A; Pain 0/10; ls3 MDM: 18:39 Misc. Nursing Order ordered. br1 18:40 CBC with Diff Ordered. EDMS 18:40 BMP Ordered. EDMS 18:40 PT/INR Ordered. EDMS 18:40 PTT Ordered. EDMS 19:12 oxyCODONE-acetaminophen 5 mg-325 mg 1 tabs PO once ordered. fg 19:12 US Lower Extremity R/O DVT Ordered. EDMS 19:12 Foot, Complete Ordered. EDMS 19:18 Financial registration complete. jpb 19:38 [facility] Payment Agreement was scanned into [employer] and attached to record. jpb 06/05 10:12 T-Sheet-- Draft Copy was scanned into [employer] and attached to record. gb Administered Medications: 06/04 19:23 Drug: oxyCODONE-acetaminophen 1 tabs [oxycodone-acetaminophen 5 mg-325 mg tablet (1 mk4 tabs)] Route: PO; Signatures: Dispatcher [employer] EDMS Joann Jaime, Reg Reg gb Josesito Quiros RN RN Robby Hobson MD MD br1 Shilpa Hirsch RN RN sls1 Emilio Lujan jpb Sheree Piña,RN RN af2 Jessica San MD MD Deanne Manrique RN mk4 The chart was reviewed and I authenticate all verbal orders and agree with the evaluation and treatment provided.Corrections: (The following items were deleted from the chart) 19:23 18:39 IV Saline Lock ordered. br1 mk4 Attachments: 19:38 [facility] [place] jpb 06/05 10:12 T-Sheet-- Draft Copy gb Chart Complete MTDD
== END 2016-06-04 22:00 | disposition home or self-care (01) ==
LOC: M ED 18:08
DX: M79.671 Pain in right foot (principal); I48.91 Unspecified atrial fibrillation; N40.0 Benign prostatic hyperplasia without lower urinary tract symptoms; I25.10 Atherosclerotic heart disease of native coronary artery without angina pectoris; I50.20 Unspecified systolic (congestive) heart failure; N18.9 Chronic kidney disease, unspecified; Z86.73 Personal history of transient ischemic attack (TIA), and cerebral infarction without residual deficits; E11.9 Type 2 diabetes mellitus without complications; Z86.718 Personal history of other venous thrombosis and embolism; E78.5 Hyperlipidemia, unspecified; I12.9 Hypertensive chronic kidney disease with stage 1 through stage 4 chronic kidney disease, or unspecified chronic kidney disease; Z95.810 Presence of automatic (implantable) cardiac defibrillator; Z86.711 Personal history of pulmonary embolism; Z79.82 Long term (current) use of aspirin; Z79.01 Long term (current) use of anticoagulants; Z79.52 Long term (current) use of systemic steroids; Z79.899 Other long term (current) drug therapy

== ENCOUNTER → 2016-06-04 | Outpatient (REF) | payer MEDICARE, BC ==
[~2016-06-04] MED LIST changes: -ECOT81TA2 PO; +ECOT81TA5 PO
[2016-06-04 10:02] LABS: MEAN CORPUSCULAR HEMOGLOBIN 33.9 pg (27.0-33.0); MEAN CORPUSCULAR HGB CONC 33.1 g/dl (32.0-36.5); MEAN CORPUSCULAR VOLUME 102.3 fl (80.0-96.0); RED CELL DISTRIBUTION WIDTH 14.3 % (11.5-14.5); WHITE BLOOD COUNT 13.3 K/mm3 (4.0-10.0)
[2016-06-04 10:22] LABS: CALCIUM LEVEL 9.2 MG/DL (8.8-10.2); CREATININE FOR GFR 1.54 MG/DL (0.70-1.30); GLOMERULAR FILTRATION RATE 46.6 (>42); POTASSIUM SERUM 4.5 MEQ/L (3.5-5.1)
== END | disposition home or self-care (01) ==
LOC: SKLAB6 07:00
PROVIDERS: ATTEND Internal Medicine
DX: E11.9 Type 2 diabetes mellitus without complications (principal); I10 Essential (primary) hypertension

== ENCOUNTER → 2016-06-06 | Outpatient (REF) | payer MEDICARE, BC ==
[2016-06-06 08:49] LABS: MEAN CORPUSCULAR HEMOGLOBIN 32.7 pg (27.0-33.0); MEAN CORPUSCULAR HGB CONC 31.7 g/dl (32.0-36.5); MEAN CORPUSCULAR VOLUME 103.2 fl (80.0-96.0); WHITE BLOOD COUNT 13.2 K/mm3 (4.0-10.0)
[2016-06-06 09:28] LABS: CREATININE FOR GFR 1.76 MG/DL (0.70-1.30)
[2016-06-06 09:29] LABS: CALCIUM LEVEL 8.9 MG/DL (8.8-10.2); POTASSIUM SERUM 4.6 MEQ/L (3.5-5.1)
== END | disposition home or self-care (01) ==
LOC: SKLAB6 07:00
PROVIDERS: ATTEND Internal Medicine
DX: E03.9 Hypothyroidism, unspecified (principal); E11.9 Type 2 diabetes mellitus without complications; I10 Essential (primary) hypertension

== ENCOUNTER → 2016-06-18 | Outpatient (REF) ==
[~2016-06-18] MED LIST changes: +AUGM875T27 PO; +BEETAB PO; +CENTCHW3 PO; +CLOP75TA2 PO; +DULC10SU2 PR; +ENEM1ENE4 PR; +INSUDET SC; +INSUH10VL SC; +ISOS30TAB PO; +MILKSUS PO; +SENN8.6T7 PO; +TUBE5INJ9 ID; +TUMS500C PO; +TYLE325T5 PO; +VITMTA PO
[2016-06-18 19:02] LABS: MEAN CORPUSCULAR HEMOGLOBIN 33.7 pg (27.0-33.0); MEAN CORPUSCULAR HGB CONC 32.7 g/dl (32.0-36.5); RED CELL DISTRIBUTION WIDTH 14.3 % (11.5-14.5); WHITE BLOOD COUNT 7.7 K/mm3 (4.0-10.0)
[2016-06-18 19:14] LABS: CREATININE FOR GFR 1.67 MG/DL (0.70-1.30); GLOMERULAR FILTRATION RATE 42.5 (>42)
[2016-06-18 19:15] LABS: ALBUMIN 2.2 GM/DL (3.2-5.2); ALBUMIN/GLOBULIN RATIO 0.65 (1.00-1.93); BILIRUBIN,TOTAL 0.3 MG/DL (0.2-1.0); CALCIUM LEVEL 8.1 MG/DL (8.8-10.2); POTASSIUM SERUM 4.2 MEQ/L (3.5-5.1); TOTAL PROTEIN 5.6 GM/DL (6.4-8.2)
== END ==
LOC: SKLAB3 07:00
PROVIDERS: ATTEND Internal Medicine
DX: D64.9 Anemia, unspecified (principal)

== ENCOUNTER → 2016-06-18 | Outpatient (REF) | payer MEDICARE, BC ==
[2016-06-18 07:55] LABS: MEAN CORPUSCULAR HEMOGLOBIN 33.8 pg (27.0-33.0); MEAN CORPUSCULAR HGB CONC 32.5 g/dl (32.0-36.5); MEAN CORPUSCULAR VOLUME 103.9 fl (80.0-96.0); RED CELL DISTRIBUTION WIDTH 13.2 % (11.5-14.5)
[2016-06-18 08:20] LABS: ALBUMIN 2.4 GM/DL (3.2-5.2); ALBUMIN/GLOBULIN RATIO 0.73 (1.00-1.93); BILIRUBIN,TOTAL 0.3 MG/DL (0.2-1.0); CALCIUM LEVEL 8.1 MG/DL (8.8-10.2); CREATININE FOR GFR 1.56 MG/DL (0.70-1.30); GLOMERULAR FILTRATION RATE 45.9 (>42); TOTAL PROTEIN 5.7 GM/DL (6.4-8.2)
== END ==
LOC: SKLAB3 00:59
PROVIDERS: ATTEND Internal Medicine
DX: F04 Amnestic disorder due to known physiological condition (principal)

== ENCOUNTER 2016-06-19 11:12 | Inpatient (IN) | payer MEDICARE, BC ==
[~2016-06-19] VITALS: Ht 175.3 cm; Wt 91.3 kg
[~2016-06-19 11:12] MED LIST changes: -AUGM875T27 PO; -BEETAB PO; -CENTCHW3 PO; -CLOP75TA2 PO; -DULC10SU2 PR; -ENEM1ENE4 PR; -INSUDET SC; -INSUH10VL SC; -ISOS30TAB PO; -MILKSUS PO; -SENN8.6T7 PO; -TUBE5INJ9 ID; -TUMS500C PO; -TYLE325T5 PO; -VITMTA PO
[2016-06-19 11:56] LABS: BASO % 0.3 % (0.0-1.0); EOS # 0.1 K/mm3 (0.0-0.50); EOS % 1.2 % (0.0-3.0); LARGE UNSTAINED CELL # 0.1 K/mm3 (0.0-0.4); LARGE UNSTAINED CELL % 1.6 % (0.0-4.0); LYMPH # 1.4 K/mm3 (1.5-4.5); LYMPH % 20.7 % (24.0-44.0); MEAN CORPUSCULAR HEMOGLOBIN 34.2 pg (27.0-33.0); MEAN CORPUSCULAR HGB CONC 33.5 g/dl (32.0-36.5); MEAN CORPUSCULAR VOLUME 102.2 fl (80.0-96.0); MONO # 0.2 K/mm3 (0.0-0.8); MONO % 2.8 % (0.0-5.0); NEUTROPHILS % 73.5 % (36.0-66.0); PLATELET COUNT, AUTOMATED 152 k/mm3 (150-450); RED CELL DISTRIBUTION WIDTH 13.1 % (11.5-14.5); WHITE BLOOD COUNT 6.8 K/mm3 (4.0-10.0)
--- NOTE | 2016-06-19 12:20 | REP ---
Chest one-view HISTORY: Cough Comparison: 05/11/2016 Patchy density is present in the left lower lobe consistent with an infiltrate. The right lung is clear. The cardiac silhouette is enlarged. The pulmonary vasculature is normal in appearance. A cardiac pacemaker is present. Impression: 1. Left lower lobe infiltrate. 2. Cardiomegaly. Signed by Gianfranco Garcia MD 06/19/2016 12:11 P
[2016-06-19 12:28] LABS: CALCIUM LEVEL 8.1 MG/DL (8.8-10.2); CREATININE FOR GFR 1.68 MG/DL (0.70-1.30); GLOMERULAR FILTRATION RATE 42.2 (>42); POTASSIUM SERUM 4.2 MEQ/L (3.5-5.1)
[2016-06-19] MEDS ORDERED: ZOSYN 3.375 GM VIAL (J2543) As Ordered ONE (12:51)
[2016-06-19] MEDS ORDERED: TUMS500C PO (13:35)
[2016-06-19] MEDS ORDERED: AMLO5TAB2 PO (13:35)
[2016-06-19] MEDS ORDERED: TYLE325T5 PO (13:35)
[2016-06-19] MEDS ORDERED: ENEM1ENE4 PR (13:35)
[2016-06-19] MEDS ORDERED: MILKSUS PO (13:35)
[2016-06-19] MEDS ORDERED: CLOP75TA2 PO (13:35)
[2016-06-19] MEDS ORDERED: DULC10SU2 PR (13:35)
[2016-06-19] MEDS ORDERED: INSUH10VL SC (13:35)
[2016-06-19] MEDS ORDERED: VITMTA PO (13:35)
[2016-06-19] MEDS ORDERED: CENTCHW3 PO (13:45)
[2016-06-19] MEDS ORDERED: INSUDET SC (13:45)
[2016-06-19] MEDS ORDERED: AUGM875T27 PO (13:45)
[2016-06-19] MEDS ORDERED: BEETAB PO (13:45)
[2016-06-19] MEDS ORDERED: HYDR10TAB PO (13:45)
[2016-06-19] MEDS ORDERED: SENN8.6T7 PO (13:45)
[2016-06-19] MEDS ORDERED: ISOS30TAB PO (13:45)
[2016-06-19] MEDS ORDERED: TUBE5INJ9 ID (13:47)
[2016-06-19] MEDS ORDERED: FUROSEMIDE 40 MG/4 ML VIAL (J1940) As Ordered ONE (14:47)
[2016-06-19 15:29] LABS: ABG BASE EXCESS 2.1 (-2.0-2.0); ABG DEVICE NASAL CANN; ABG HCO3 24.6 MEQ/L (22.0-26.0); ABG PARTIAL PRESSURE CO2 31.4 mmHg (35.0-45.0); ABG PARTIAL PRESSURE O2 69.3 mmHg (75.0-100.0); ABG STANDARD HCO3 26.3 MEQ/L (22.0-26.0); ABG TOTAL CO2 25.5 MEQ/L (23.0-31.0); ABG pH (ARTERIAL) 7.511 UNITS (7.350-7.450)
[2016-06-19] MEDS ORDERED: DEXTROSE 50% 50 ML SYRINGE IV PRN (16:30)
[2016-06-19] MEDS ORDERED: GLUCAGON FOR INJ 1 MG VIAL (J1610) SC PRN (16:30)
[2016-06-19] MEDS ORDERED: GLUCOSE 4 GM CHEW TABLET PO PRN (16:30)
[2016-06-19] MEDS ORDERED: BISACODYL 10 MG SUPP PR PRN (17:15)
--- NOTE | 2016-06-19 18:36 | EDDOCDS ---
Nurse's Notes [facility] Name: Rickey Ibanez Age: 81 yrs Sex: Male : 1935 Arrival Date: 06/19/2016 Time: 11:12 Bed Admit Hold Private MD: Abel Diagnosis: Pneumonia, unspecified organism;Shortness of breath Presentation: 06/19 11:14 Presenting complaint: EMS states: staff noticed productive sough and lethargic this dsf morning. pt did have pneumonia last week. 02 sat on EMS arrival 88%. Duo neb given by EMS. Suicide/Homicide risk assessment- Unable to assess, the patient has an altered level of consciousness. Status: Patient is not a general service technician or dependent. Transition of care: patient was received from [facility]. Care prior to arrival: See EMS report. Saline lock initiated. Glucose check. 286 Med neb given. Oxygen administered by EMS. 11:14 Method Of Arrival: Ambulance dsf 11:14 Acuity: SUZY Level 2 dsf 11:14 Adult Sepsis Screening: Patient has new or worsening altered mentation (1 point). dsf Patient's respiratory rate is less than 22. Patient has a qSOFA score of 1- Negative Sepsis Screen. Triage Assessment: 11:14 General: Appears ill, Behavior is lethargic . Pain: Denies pain. The patient is triaged dsf at the bedside. See Assessment in Nurses Notes section of ED record. Neurological: Level of Consciousness is awake, confused, lethargic, Oriented to none. Cardiovascular: Capillary refill < 3 seconds Heart tones S1 S2 present Rhythm is sinus rhythm No ectopy. Respiratory: Airway is patent Respiratory effort is even, unlabored, Respiratory pattern is regular, symmetrical, Breath sounds are coarse bilaterally. Breath sounds with wheezes bilaterally. Reports shortness of breath cough that is productive. GI: Abdomen is non- distended Bowel sounds present X 4 quads. Abd is soft and non tender X 4 quads. Derm: Skin is pink, warm & dry. Historical: - Allergies: no known allergies; - Home Meds: 1. multivitamin Oral tab 1 tablet daily (Last dose: 06/19/2016 07:36) 2. Plavix 75 mg Oral tab 1 tab once daily (Last dose: 06/19/2016 08:29) 3. allopurinol 100 mg Oral tab 1 tab once daily (Last dose: 06/19/2016 08:29) 4. amlodipine 5 mg Oral tab 1 tab once daily (Last dose: 06/19/2016 08:29) 5. atorvastatin 40 mg oral tab 1 tab nightly (Last dose: 06/18/2016) 6. Tums Ultra 400 mg (1,000 mg) oral chew twice a day (Last dose: 06/19/2016 08:29) 7. Tylenol 325 mg Oral tab 2 tabs every 4 hours 8. carvedilol 6.25 mg oral tab 1 tab 2 times per day (Last dose: 06/19/2016 08:29) 9. Novolog 100 unit/mL Sub-Q soln 8 unit three times a day (Last dose: 06/19/2016 07:36) 10. Eliquis 5 mg oral tab 1 tab 2 times per day (Last dose: 06/19/2016 08:29) 11. Vitamin D Oral 50,000 unit weekly 12. finasteride 5 mg oral tab 1 tab once daily (Last dose: 06/18/2016) 13. hydralazine 10 mg Oral tab 1 tab every 8 hours (Last dose: 06/19/2016 06:28) 14. Vitamin B-12 1,000 mcg Oral TbER daily (Last dose: 06/19/2016 08:29) 15. Levemir 100 unit/mL subcutaneous soln 26 unit nightly 16. tamsulosin 0.4 mg oral cp24 1 cap once daily (Last dose: 06/18/2016) 17. isosorbide mononitrate 30 mg Oral Tb24 1 tab once daily (Last dose: 06/19/2016 08:29) 18. levothyroxine 50 mcg Oral cap 1 cap once daily (Last dose: 06/19/2016 10:16) 19. senna 8.6 mg oral cap 1 caps once daily (Last dose: 06/19/2016 08:29) 20. Augmentin 875-125 mg Oral tab 1 tab every 12 hours stop on 06/20/16 (Last dose: 06/19/2016 08:29) 21. NitroQuick 0.4 mg SL subl every 5 minutes (Last dose: Unknown) 22. Dulcolax (bisacodyl) 10 mg Rectal supp 1 suppository once daily (Last dose: Unknown) 23. Milk of Magnesia Oral 10 mL as needed (Last dose: Unknown) 24. fleets 1 unit as needed (Last dose: Unknown) - PMHx: Atrial Fib; BPH; CAD; carotid stenosis; CHF; Chronic Renal Insufficiency; CVA; Diabetes - NIDDM: controlled; Pneumonia; DVT; hyperlipidemia; Hypertension; Implanted AICD; CA; PE; - PSHx: Carotid surgery (2013); Cataract Surgery- Bilateral; - Social history: No barriers to communication noted, The patient speaks fluent Wolof, Speaks appropriately for age, Smoking status: unknown if patient ever smoked tobacco. - Family history: Not pertinent. - : The pt / caregiver states he / she is on anticoagulants: Plavix. Eliquis Home medication list is obtained from the facility [facility]. - Exposure Risk Screening:: None identified. Screenin:47 Screening information is obtained from prior medical records. Fall risk: At risk due to dsf age, The following interventions are performed due to a positive Fall Risk Screen: Fall Risk is added to Special Handling on the patient Summary Screen. A Fall Risk Bracelet was applied to the patient. Side Rails are placed in the up position. A Call Hernandez is given with instruction to call for help when getting out of bed. Fall Alert bracelet is placed on the patient. Assistance ADL's: Requires assistance with meal preparation, this assistance is provided by residence staff, bathing, assistance is provided by residence staff, dressing, assistance is provided by residence staff, toileting, assistance is provided by residence staff, ambulation, assistance is provided by residence staff, housework, assistance is provided by residence staff, medication administration, assistance is provided by residence staff. Abuse/DV Screen: The patient / caregiver reports he/she is: not in a situation that causes fear, pain or injury. Nutritional screening: No deficits noted. home support is adequate. 18:33 Advance Directives: Currently, there is a health care proxy, Ileana Peralta . dsf Assessment: 11:14 General: see triage nursing assessment . dsf 11:49 General: states PT's baseline is confusion since his previous TIA . dsf 12:28 General: Call Sena Peralta [facility] [phone] with any changes or disposition. ck1 12:59 General: Appears in no apparent distress, to be sleeping. Respiratory: Airway is patent dsf Respiratory effort is even, unlabored, Respiratory pattern is regular, symmetrical, Breath sounds are coarse bilaterally. Derm: Skin is pink, warm & dry. 12:59 Cardiovascular: Capillary refill < 3 seconds Heart tones S1 S2 present Rhythm is sinus dsf rhythm No ectopy. 13:26 General: Appears in no apparent distress, to be sleeping. Cardiovascular: Capillary dsf refill < 3 seconds Heart tones S1 S2 present Rhythm is sinus rhythm No ectopy. Respiratory: Airway is patent Respiratory effort is even, unlabored, Respiratory pattern is regular, symmetrical, Breath sounds are coarse bilaterally. GI: Abdomen is non- distended Bowel sounds present X 4 quads. Abd is soft and non tender X 4 quads. Derm: Skin is pink, warm & dry. 14:52 General: Appears distressed, Behavior is appropriate for age, cooperative. General: Dr. darren San made aware of patient condition new orders received to give Lasix. IV fluids discontinued . Pain: Denies pain. Neurological: Level of Consciousness is awake, confused, obeys commands. Cardiovascular: Capillary refill < 3 seconds Heart tones S1 S2 present Rhythm is sinus rhythm No ectopy. Respiratory: Airway is patent Respiratory effort is labored, Respiratory pattern is tachypnea Breath sounds are coarse bilaterally. Breath sounds with wheezes expiratory bilaterally. Derm: Skin is dry, Skin is pale, Skin temperature is cool. 15:36 General: Appears in no apparent distress, comfortable, Behavior is appropriate for age, dsf cooperative. Pain: Denies pain. Neurological: Level of Consciousness is awake, confused, obeys commands. Cardiovascular: Capillary refill < 3 seconds. Respiratory: Airway is patent Respiratory effort is even, unlabored, Respiratory pattern is regular, Breath sounds are coarse expiratory bilaterally. GI: Abdomen is non- distended Bowel sounds present X 4 quads. Abd is soft and non tender X 4 quads. Derm: Skin is pink, warm & dry. 16:34 Adult Sepsis Screening: The patient does not have new or worsening altered mentation. dsf Patient's respiratory rate is less than 22. Systolic blood pressure is greater than 100. Patient has a qSOFA score of 0- Negative Sepsis Screen. General: Appears in no apparent distress, comfortable, Behavior is appropriate for age, cooperative. Pain: Denies pain. Neurological: Level of Consciousness is awake, confused, obeys commands. Cardiovascular: Capillary refill < 3 seconds Heart tones S1 S2 present Rhythm is sinus rhythm No ectopy. Respiratory: Airway is patent Respiratory effort is even, unlabored, Respiratory pattern is regular, symmetrical, Breath sounds are coarse expiratory bilaterally. GI: Abdomen is non- distended Bowel sounds present X 4 quads. Abd is soft and non tender X 4 quads. Derm: Skin is dry, Skin is pale, Skin temperature is warm. 17:32 General: Appears in no apparent distress, comfortable, Behavior is appropriate for age, dsf cooperative. Pain: Denies pain. Neurological: Level of Consciousness is awake, confused, obeys commands. Cardiovascular: Capillary refill < 3 seconds Heart tones S1 S2 present Rhythm is sinus rhythm No ectopy. Respiratory: Airway is patent Respiratory effort is even, unlabored, Respiratory pattern is regular, symmetrical, Breath sounds are coarse bilaterally. Breath sounds with wheezes expiratory bilaterally. GI: Abdomen is non- distended Bowel sounds present X 4 quads. Abd is soft and non tender X 4 quads. Derm: Skin is dry, Skin is pale, Skin temperature is warm. 18:32 Adult Sepsis Screening: The patient does not have new or worsening altered mentation. dsf Patient's respiratory rate is less than 22. Systolic blood pressure is greater than 100. Patient has a qSOFA score of 0- Negative Sepsis Screen. General: Appears in no apparent distress, comfortable, Behavior is appropriate for age, cooperative. Pain: Denies pain. Neurological: Level of Consciousness is awake, alert, obeys commands. Cardiovascular: Capillary refill < 3 seconds Rhythm is sinus rhythm No ectopy. Respiratory: Airway is patent Respiratory effort is even, unlabored, Respiratory pattern is regular, symmetrical. Derm: Skin is dry, Skin is pale, Skin temperature is warm. Vital Signs: 11:18 BP 160 / 70 (auto/); dsf 11:18 Pulse 78 MON; Pulse Ox 98% ; dsf 11:20 BP 160 / 70 RA Supine (auto/lg); Pulse 78; Resp 20; Temp 97.3(O); Pulse Ox 99% on duo rs6 neb mask; Pain 0/10; 11:23 Temp 99.8(TE); Weight 79.47 kg (M); Height 69 in. (175.26 cm) (M); rs6 11:33 BP 127 / 60 (auto/); dsf 11:33 Pulse 74 MON; Pulse Ox 98% ; dsf 11:48 BP 126 / 63 (auto/); dsf 11:48 Pulse 74 MON; Pulse Ox 92% ; dsf 12:03 BP 127 / 60 (auto/); dsf 12:03 Pulse 68 MON; Pulse Ox 93% ; dsf 12:18 BP 134 / 64 (auto/); dsf 12:18 Pulse 66 MON; Pulse Ox 94% ; dsf 12:33 BP 126 / 58 (auto/); dsf 12:34 Pulse 66 MON; Pulse Ox 95% ; dsf 12:48 BP 147 / 65 (auto/); dsf 12:49 Pulse 62 MON; Resp 21; Pulse Ox 95% on 4 lpm NC; dsf 13:03 BP 137 / 61 (auto/); dsf 13:04 Pulse 60 MON; Pulse Ox 96% ; dsf 13:18 BP 125 / 61 (auto/); dsf 13:19 Pulse 58 MON; Pulse Ox 97% ; dsf 13:33 BP 118 / 58 (auto/); dsf 13:34 Pulse 56 MON; Pulse Ox 96% ; dsf 13:48 BP 131 / 61 (auto/); dsf 13:49 Pulse 58 MON; Pulse Ox 98% ; dsf 14:03 BP 147 / 67 (auto/); dsf 14:04 Pulse 58 MON; Pulse Ox 99% ; dsf 14:12 BP 147 / 67; Pulse 69; Resp 21; Temp 99.8(R); Pulse Ox 98% on R/A; rs6 14:18 BP 143 / 58 (auto/); dsf 14:19 Pulse 70 MON; Pulse Ox 98% ; dsf 14:33 BP 151 / 88 (auto/); dsf 14:34 Pulse 78 MON; Pulse Ox 95% ; dsf 15:03 BP 125 / 60 (auto/); dsf 15:04 Pulse 68 MON; Pulse Ox 92% ; dsf 15:32 BP 156 / 72 (auto/); dsf 15:32 Pulse 66 MON; Pulse Ox 97% ; dsf 15:48 BP 129 / 59 (auto/); dsf 15:49 Pulse 62 MON; Pulse Ox 95% ; dsf 16:03 BP 130 / 60 (auto/); dsf 16:04 Pulse 62 MON; Pulse Ox 95% ; dsf 16:18 BP 154 / 70 (auto/); dsf 16:20 Pulse 62 MON; Pulse Ox 95% ; dsf 16:33 BP 159 / 74 (auto/); dsf 16:34 Pulse 64 MON; Pulse Ox 97% ; dsf 16:47 Pulse 62 MON; Pulse Ox 97% ; dsf 16:48 BP 149 / 70 (auto/); dsf 17:03 BP 161 / 64 (auto/); dsf 17:04 Pulse 66 MON; Pulse Ox 96% ; dsf 17:33 Pulse 66 MON; Pulse Ox 94% ; dsf 17:33 BP 112 / 55 (auto/); dsf 17:44 BP 127 / 60 (auto/); Pulse 66; Resp 20; Temp 97.7(O); Pulse Ox 95% on 4 lpm NC; Pain dsf 0/10; 17:48 Pulse 66 MON; Pulse Ox 96% ; dsf 17:48 BP 166 / 74 (auto/); dsf 18:03 BP 152 / 70 (auto/); dsf 18:04 Pulse 66 MON; Pulse Ox 94% ; dsf 18:18 BP 148 / 63 (auto/); dsf 18:19 Pulse 64 MON; Resp 20; Pulse Ox 93% on 4 lpm NC; Pain 0/10; dsf 18:32 Temp 98.8(T); dsf 11:23 Body Mass Index 25.87 (79.47 kg, 175.26 cm) rs6 Vitals: 11:20 Log In Time N/A - ambulance arrival. rs6 ED Course: 11:13 Patient visited by Yonatan Carias PCA. jrd 11:13 Sheree Piña,RN is Primary Nurse. jrd 11:13 Patient moved to Waiting jrd 11:13 Patient moved to 8 jrd 11:14 Abel is Private Physician. jrd 11:17 Triage Initiated dsf 11:21 Patient visited by Nuha Tyson PCA. rs6 11:21 Pt greeted and oriented to ED. Patient advised of names of staff involved in care, rs6 location of call hernandez, wait times and NPO status. Patient has correct armband on for positive identification. Placed in gown. Bed in low position. Call light in reach. Side rails up X 1. residential monitor on. Pulse ox on. NIBP on. 11:48 Maintain field IV. Dressing intact. Good blood return noted. Site clean & dry. Gauge & dsf site: #18 gauge LAC . O2 via nasal cannula \T\ 4L/min. 11:49 Cardiac Injury Profile Sent. dsf 11:49 Troponin Sent. dsf 11:49 CBC with Diff Sent. dsf 11:49 Basic Metabolic Profile Sent. dsf 11:49 B-Type Natiuretic Peptide Sent. dsf 11:49 -Blood Culture Sent. dsf 11:50 Patient visited by Cynthia Ventura RN. ms18 11:55 Jessica San MD is Attending Physician. fg 11:56 EKG done. (by ED staff). Reviewed by Jessica San MD. rs6 11:57 Patient visited by Nuha Tyson PCA. rs6 12:16 Patient visited by Jessica San MD. fg 12:43 Chest, 1 View Returned. EDMS 12:59 Patient visited by Sun Alejo RN. dsf 13:27 Patient visited by Sun Alejo RN. dsf 13:36 [facility] Payment Agreement was scanned into [employer] and attached to record. lg 13:39 Lactic Acid (Chamberlain tube on ice) Sent. ms18 14:00 Notified attending ED physician of Critical lab value. Dr San aware of Lactic Acid of j 2.1. 14:13 Patient visited by Nuha Tyson PCA. rs6 14:13 Patient visited by Nuha Tyson PCA. rs6 14:54 Patient visited by Sun Alejo RN. dsf 15:39 Patient visited by Cynthia Ventura RN. ms18 15:39 Patient visited by Sun Alejo RN. dsf 15:39 TROPONIN Sent. ms18 15:44 Patient visited by Yonatan Carias PCA. jrd 15:44 EKG done. (by ED staff). Reviewed by Jessica Sna MD. jrd 16:26 Palak Brown is Hospitalizing Provider. fg 16:35 Patient visited by Sun Alejo RN. dsf 17:22 Primary Nurse role handed off by Sheree Piña RN mcp 17:33 Patient visited by Sun Alejo RN. dsf 17:46 Patient visited by Tyson, Nuha, WATCH SUPERVISOR. rs6 17:46 Cleaned of incontinence. Linen changed. rs6 17:46 Diet: soda provided to patient once RN confirmed NPO status. rs6 17:48 The patient / caregiver is instructed regarding the plan of care and ED course. dsf 17:48 No procedures done that require assistance. dsf 18:03 Patient moved to Admit Hold [facility] Administered Medications: 12:58 Drug: Piperacillin-Tazobactam 3.375 grams [piperacillin-tazobactam 3.375 gram dsf intravenous solution] Route: IVPB; Infused Over: 30 mins; Site: left antecubital; 13:56 Follow up: IV Status: Completed infusion; IV Intake: 50ml dsf 13:56 Drug: NS 0.9% 500 ml [sodium chloride 0.9 % injection solution] Route: IV; Rate: bolus; dsf Site: left antecubital; 14:54 Follow up: IV Status: Infusion discontinued; IV Intake: 200ml dsf 14:52 Drug: Furosemide 40 mg [furosemide 10 mg/mL injection solution (4 mL)] Route: IVP; dsf Site: left antecubital; Intake: 13:56 IV: 50.00ml; Total: 50.00ml. dsf 14:54 IV: 200.00ml; Total: 250.00ml. dsf Output: 16:33 Urine: 300.00ml (Voided); Total: 300.00ml. dsf 16:34 Urine: 175.00ml (Voided); Total: 475.00ml. dsf 16:34 Urine: 175.00ml (Voided); Total: 650.00ml. dsf 17:32 Urine: 225.00ml (Voided); Total: 875.00ml. dsf RT: 14:59 ABG's drawn from right radial artery allens test done and positive pressure held for 5 ac1 minutes no bleeding noted pressure bandage applied specimen sent pt. tolerated well. Order Results: Lab Order: B-Type Natiuretic Peptide; SPEC'M 06/19/16 11:44 Test: BRAIN NATRIURETIC PEPTIDE; Value: 372; Range: <100; Abnormal: Above high normal; Units: PG/ML; Status: F Lab Order: Basic Metabolic Profile; SPEC'M 06/19/16 11:44 Test: GLUCOSE, FASTING; Value: 241; Range: 83-110; Abnormal: Above high normal; Units: MG/DL; Status: F Test: BLOOD UREA NITROGEN; Value: 22; Range: 7-18; Abnormal: Above high normal; Units: MG/DL; Status: F Test: CREATININE FOR GFR; Value: 1.68; Range: 0.70-1.30; Abnormal: Above high normal; Units: MG/DL; Status: F Test: GLOMERULAR FILTRATION RATE; Value: 42.2; Range: >42; Status: F Test: SODIUM LEVEL; Value: 141; Range: 136-145; Units: MEQ/L; Status: F Test: POTASSIUM SERUM; Value: 4.2; Range: 3.5-5.1; Units: MEQ/L; Status: F Test: CHLORIDE LEVEL; Value: 105; Range: 98-107; Units: MEQ/L; Status: F Test: CARBON DIOXIDE LEVEL; Value: 27; Range: 21-32; Units: MEQ/L; Status: F Test: ANION GAP; Value: 9; Range: 8-16; Units: MEQ/L; Status: F Test: CALCIUM LEVEL; Value: 8.1; Range: 8.8-10.2; Abnormal: Below low normal; Units: MG/DL; Status: F Test Note: ; Units are mL/min/1.73 m2 Chronic Kidney Disease Staging per NKF: Stage I & II GFR >=60 Normal to Mildly Decreased Stage III GFR 30-59 Moderately Decreased Stage IV GFR 15-29 Severely Decreased Stage V GFR <15 Very Little GFR Left ESRD GFR <15 on PASTEURIZING SUPERVISOR Lab Order: CBC with Diff; SPEC'M 06/19/16 11:44 Test: WHITE BLOOD COUNT; Value: 6.8; Range: 4.0-10.0; Units: K/mm3; Status: F Test: RED BLOOD COUNT; Value: 3.34; Range: 4.30-6.10; Abnormal: Below low normal; Units: M/mm3; Status: F Test: HEMOGLOBIN; Value: 11.4; Range: 14.0-18.0; Abnormal: Below low normal; Units: g/dl; Status: F Test: HEMATOCRIT; Value: 34.2; Range: 42.0-52.0; Abnormal: Below low normal; Units: %; Status: F Test: MEAN CORPUSCULAR VOLUME; Value: 102.2; Range: 80.0-96.0; Abnormal: Above high normal; Units: fl; Status: F Test: MEAN CORPUSCULAR HEMOGLOBIN; Value: 34.2; Range: 27.0-33.0; Abnormal: Above high normal; Units: pg; Status: F Test: MEAN CORPUSCULAR HGB CONC; Value: 33.5; Range: 32.0-36.5; Units: g/dl; Status: F Test: RED CELL DISTRIBUTION WIDTH; Value: 13.1; Range: 11.5-14.5; Units: %; Status: F Test: PLATELET COUNT, AUTOMATED; Value: 152; Range: 150-450; Units: k/mm3; Status: F Test: NEUTROPHILS %; Value: 73.5; Range: 36.0-66.0; Abnormal: Above high normal; Units: %; Status: F Test: LYMPH %; Value: 20.7; Range: 24.0-44.0; Abnormal: Below low normal; Units: %; Status: F Test: MONO %; Value: 2.8; Range: 0.0-5.0; Units: %; Status: F Test: EOS %; Value: 1.2; Range: 0.0-3.0; Units: %; Status: F Test: BASO %; Value: 0.3; Range: 0.0-1.0; Units: %; Status: F Test: LARGE UNSTAINED CELL %; Value: 1.6; Range: 0.0-4.0; Units: %; Status: F Test: NEUTROPHILS #; Value: 5.0; Range: 1.8-7.7; Units: K/mm3; Status: F Test: LYMPH #; Value: 1.4; Range: 1.5-4.5; Abnormal: Below low normal; Units: K/mm3; Status: F Test: MONO #; Value: 0.2; Range: 0.0-0.8; Units: K/mm3; Status: F Test: EOS #; Value: 0.1; Range: 0.0-0.50; Units: K/mm3; Status: F Test: BASO #; Value: 0.0; Range: 0.0-0.2; Units: K/mm3; Status: F Test: LARGE UNSTAINED CELL #; Value: 0.1; Range: 0.0-0.4; Units: K/mm3; Status: F Lab Order: Cardiac Injury Profile; [facility] 06/19/16 11:44 Test: CPK CREATINE PHOSPHOKINASE; Value: 63; Range: 39-308; Units: U/L; Status: F Test: CK-MB VALUE MASS; Value: 3.2; Range: 0.0-3.6; Units: NG/ML; Status: F Test: MB/CK RELATIVE INDEX; Value: 5.07; Range: < OR =4; Abnormal: Above high normal; Status: F Test Note: ; DIAGNOSIS CRITERIA MMB ng/ml Relative Index (RI) NON-AMI < or = 5 N/A CHAMBERLAIN ZONE > 5 < or = 4 AMI > 5 > 4 Lab Order: Troponin; [facility] 06/19/16 11:44 Test: TROPONIN I; Value: 0.13; Range: < 0.10; Abnormal: Above high normal; Units: NG/ML; Status: F Test Note: ; Troponin I Reference Interval for [employer] LOCI: 99th Percentile= 0.00-0.045 ng/ml Risk Stratification: <= 0.10 ng/ml Decreased Risk for Adverse Clinical Events. 0.10-1.50 ng/ml Increased Risk for Adverse Clinical Events. Evaluation of additional criterion and/or repeat testing in 2-6 hours is suggested to rule out myocardial damage. >= 1.50 ng/ml Indicative of Myocardial Injury. Lab Order: Lactic Acid (Chamberlain tube on ice); [facility] 06/19/16 11:44 Test: LACTIC ACID LEVEL, LACTATE; Value: 2.1; Range: 0.4-2.0; Abnormal: Above high normal; Units: MMOL/L; Status: F Lab Order: Cardiac Injury Profile: Repeat at 15:30; [facility] 06/19/16 15:22 Test: CPK CREATINE PHOSPHOKINASE; Value: 98; Range: 39-308; Units: U/L; Status: F Test: CK-MB VALUE MASS; Value: 3.9; Range: 0.0-3.6; Abnormal: Above high normal; Units: NG/ML; Status: F Test: MB/CK RELATIVE INDEX; Value: 3.97; Range: < OR =4; Status: F Test Note: ; DIAGNOSIS CRITERIA MMB ng/ml Relative Index (RI) NON-AMI < or = 5 N/A CHAMBERLAIN ZONE > 5 < or = 4 AMI > 5 > 4 Lab Order: -Arterial Blood Gas; SPEC'M 06/19/16 15:11 Test: ABG pH (ARTERIAL); Value: 7.511; Range: 7.350-7.450; Abnormal: Above high normal; Units: UNITS; Status: F Test: ABG PARTIAL PRESSURE CO2; Value: 31.4; Range: 35.0-45.0; Abnormal: Below low normal; Units: mmHg; Status: F Test: ABG PARTIAL PRESSURE O2; Value: 69.3; Range: 75.0-100.0; Abnormal: Below low normal; Units: mmHg; Status: F Test: ABG TOTAL CO2; Value: 25.5; Range: 23.0-31.0; Units: MEQ/L; Status: F Test: ABG HCO3; Value: 24.6; Range: 22.0-26.0; Units: MEQ/L; Status: F Test: ABG BASE EXCESS; Value: 2.1; Range: -2.0-2.0; Abnormal: Above high normal; Status: F Test: ABG STANDARD HCO3; Value: 26.3; Range: 22.0-26.0; Abnormal: Above high normal; Units: MEQ/L; Status: F Test: ABG O2 SATURATION; Value: 95.1; Range: 95.0-99.0; Units: %; Status: F Test: ABG DEVICE; Value: NASAL HORTENSIA; Status: F Lab Order: TROPONIN; SPEC'M 06/19/16 15:22 Test: TROPONIN I; Value: 0.14; Range: < 0.10; Abnormal: Above high normal; Units: NG/ML; Status: F Test Note: ; Troponin I Reference Interval for [employer] LOCI: 99th Percentile= 0.00-0.045 ng/ml Risk Stratification: <= 0.10 ng/ml Decreased Risk for Adverse Clinical Events. 0.10-1.50 ng/ml Increased Risk for Adverse Clinical Events. Evaluation of additional criterion and/or repeat testing in 2-6 hours is suggested to rule out myocardial damage. >= 1.50 ng/ml Indicative of Myocardial Injury. Lab Order: LACTIC ACID LEVEL, LACTATE; SPEC'M 06/19/16 17:32 Test: LACTIC ACID LEVEL, LACTATE; Value: 2.1; Range: 0.4-2.0; Abnormal: Above high normal; Units: MMOL/L; Status: F Radiology Order: Chest, 1 View Test: Chest, 1 View REASON FOR EXAMINATION: Cough; Chest one-view; ; HISTORY: Cough; ; Comparison: 05/11/2016; ; Patchy density is present in the left lower lobe consistent with an infiltrate.; The right lung is clear. The cardiac silhouette is enlarged. The pulmonary; vasculature is normal in appearance. A cardiac pacemaker is present.; ; Impression:; 1. Left lower lobe infiltrate.; 2. Cardiomegaly.; ; ; Signed by; Gianfranco Garcia MD 06/19/2016 12:11 P; Outcome: 16:27 Decision to Hospitalize by Provider. fg 17:48 No special radiology studies were completed. dsf 18:34 Discharge Assessment: Patient awake, alert and oriented x 3. No cognitive and/or dsf functional deficits noted. Patient verbalized understanding of disposition instructions. patient administered narcotics - no. The following High Risk Discharge criteria are identified: None. Admitted to PCU accompanied by nurse, accompanied by tech, via stretcher, with oxygen, on monitor, with chart. Condition: stable. Property :Personal belongings accompany Pt. 18:34 Patient left the ED. dsf Signatures: Dispatcher [employer] EDMS Nancy Coates RN Annamarie Barrow, RN Amaury Hauser mcp, Erasmo Reg lg Mariam Driscoll,RT RT ac1 Delaney Yao RN RN ck1 Sun AlejoRN RN maddisonf Cynthia Ventura RN RN [id number] Yonatan Carias, WATCH SUPERVISOR WATCH SUPERVISOR Nuha Mohan, WATCH SUPERVISOR WATCH SUPERVISOR rs6 Jessica San MD MD fg Corrections: (The following items were deleted from the chart) 11:20 11:14 Acuity: SUZY Level 3 dsf dsf 12:59 12:59 General: Appears in no apparent distress, to be sleeping. dsf dsf 14:13 14:12 Temp 99.8F Rectal; rs6 rs6 17:33 17:32 Derm: Skin is pink, warm & dry. dsf dsf MTDD
--- NOTE | 2016-06-19 18:36 | EDDOCDS ---
Physician Documentation [facility] Name: Rickey Ibanez Age: 81 yrs Sex: Male : 1935 Arrival Date: 06/19/2016 Time: 11:12 Bed Admit Hold Private MDArmando Roman Disposition: 06/19/16 16:27 Hospitalization ordered by Palak Brown for Inpatient Admission. Preliminary diagnosis are Pneumonia, unspecified organism, Shortness of breath. - [facility] - Status is Inpatient Admission. dsf - Condition is Stable. - Problem is new. - Symptoms have improved. Historical: - Allergies: no known allergies; - Home Meds: 1. multivitamin Oral tab 1 tablet daily (Last dose: 06/19/2016 07:36) 2. Plavix 75 mg Oral tab 1 tab once daily (Last dose: 06/19/2016 08:29) 3. allopurinol 100 mg Oral tab 1 tab once daily (Last dose: 06/19/2016 08:29) 4. amlodipine 5 mg Oral tab 1 tab once daily (Last dose: 06/19/2016 08:29) 5. atorvastatin 40 mg oral tab 1 tab nightly (Last dose: 06/18/2016) 6. Tums Ultra 400 mg (1,000 mg) oral chew twice a day (Last dose: 06/19/2016 08:29) 7. Tylenol 325 mg Oral tab 2 tabs every 4 hours 8. carvedilol 6.25 mg oral tab 1 tab 2 times per day (Last dose: 06/19/2016 08:29) 9. Novolog 100 unit/mL Sub-Q soln 8 unit three times a day (Last dose: 06/19/2016 07:36) 10. Eliquis 5 mg oral tab 1 tab 2 times per day (Last dose: 06/19/2016 08:29) 11. Vitamin D Oral 50,000 unit weekly 12. finasteride 5 mg oral tab 1 tab once daily (Last dose: 06/18/2016) 13. hydralazine 10 mg Oral tab 1 tab every 8 hours (Last dose: 06/19/2016 06:28) 14. Vitamin B-12 1,000 mcg Oral TbER daily (Last dose: 06/19/2016 08:29) 15. Levemir 100 unit/mL subcutaneous soln 26 unit nightly 16. tamsulosin 0.4 mg oral cp24 1 cap once daily (Last dose: 06/18/2016) 17. isosorbide mononitrate 30 mg Oral Tb24 1 tab once daily (Last dose: 06/19/2016 08:29) 18. levothyroxine 50 mcg Oral cap 1 cap once daily (Last dose: 06/19/2016 10:16) 19. senna 8.6 mg oral cap 1 caps once daily (Last dose: 06/19/2016 08:29) 20. Augmentin 875-125 mg Oral tab 1 tab every 12 hours stop on 06/20/16 (Last dose: 06/19/2016 08:29) 21. NitroQuick 0.4 mg SL subl every 5 minutes (Last dose: Unknown) 22. Dulcolax (bisacodyl) 10 mg Rectal supp 1 suppository once daily (Last dose: Unknown) 23. Milk of Magnesia Oral 10 mL as needed (Last dose: Unknown) 24. fleets 1 unit as needed (Last dose: Unknown) - PMHx: Atrial Fib; BPH; CAD; carotid stenosis; CHF; Chronic Renal Insufficiency; CVA; Diabetes - NIDDM: controlled; Pneumonia; DVT; hyperlipidemia; Hypertension; Implanted AICD; VA; PE; - PSHx: Carotid surgery (2013); Cataract Surgery- Bilateral; - Social history: No barriers to communication noted, The patient speaks fluent Mongolian, Speaks appropriately for age, Smoking status: unknown if patient ever smoked tobacco. - Family history: Not pertinent. - : The pt / caregiver states he / she is on anticoagulants: Plavix. Neetu Home medication list is obtained from the facility [facility]. - Exposure Risk Screening:: None identified. Vital Signs: 06/19 11:18 BP 160 / 70 (auto/); dsf 11:18 Pulse 78 MON; Pulse Ox 98% ; dsf 11:20 BP 160 / 70 RA Supine (auto/lg); Pulse 78; Resp 20; Temp 97.3(O); Pulse Ox 99% on duo rs6 neb mask; Pain 0/10; 11:23 Temp 99.8(TE); Weight 79.47 kg / 175.2 lbs (M); Height 69 in. (175.26 cm) (M); rs6 11:33 BP 127 / 60 (auto/); dsf 11:33 Pulse 74 MON; Pulse Ox 98% ; dsf 11:48 BP 126 / 63 (auto/); dsf 11:48 Pulse 74 MON; Pulse Ox 92% ; dsf 12:03 BP 127 / 60 (auto/); dsf 12:03 Pulse 68 MON; Pulse Ox 93% ; dsf 12:18 BP 134 / 64 (auto/); dsf 12:18 Pulse 66 MON; Pulse Ox 94% ; dsf 12:33 BP 126 / 58 (auto/); dsf 12:34 Pulse 66 MON; Pulse Ox 95% ; dsf 12:48 BP 147 / 65 (auto/); dsf 12:49 Pulse 62 MON; Resp 21; Pulse Ox 95% on 4 lpm NC; dsf 13:03 BP 137 / 61 (auto/); dsf 13:04 Pulse 60 MON; Pulse Ox 96% ; dsf 13:18 BP 125 / 61 (auto/); dsf 13:19 Pulse 58 MON; Pulse Ox 97% ; dsf 13:33 BP 118 / 58 (auto/); dsf 13:34 Pulse 56 MON; Pulse Ox 96% ; dsf 13:48 BP 131 / 61 (auto/); dsf 13:49 Pulse 58 MON; Pulse Ox 98% ; dsf 14:03 BP 147 / 67 (auto/); dsf 14:04 Pulse 58 MON; Pulse Ox 99% ; dsf 14:12 BP 147 / 67; Pulse 69; Resp 21; Temp 99.8(R); Pulse Ox 98% on R/A; rs6 14:18 BP 143 / 58 (auto/); dsf 14:19 Pulse 70 MON; Pulse Ox 98% ; dsf 14:33 BP 151 / 88 (auto/); dsf 14:34 Pulse 78 MON; Pulse Ox 95% ; dsf 15:03 BP 125 / 60 (auto/); dsf 15:04 Pulse 68 MON; Pulse Ox 92% ; dsf 15:32 BP 156 / 72 (auto/); dsf 15:32 Pulse 66 MON; Pulse Ox 97% ; dsf 15:48 BP 129 / 59 (auto/); dsf 15:49 Pulse 62 MON; Pulse Ox 95% ; dsf 16:03 BP 130 / 60 (auto/); dsf 16:04 Pulse 62 MON; Pulse Ox 95% ; dsf 16:18 BP 154 / 70 (auto/); dsf 16:20 Pulse 62 MON; Pulse Ox 95% ; dsf 16:33 BP 159 / 74 (auto/); dsf 16:34 Pulse 64 MON; Pulse Ox 97% ; dsf 16:47 Pulse 62 MON; Pulse Ox 97% ; dsf 16:48 BP 149 / 70 (auto/); dsf 17:03 BP 161 / 64 (auto/); dsf 17:04 Pulse 66 MON; Pulse Ox 96% ; dsf 17:33 Pulse 66 MON; Pulse Ox 94% ; dsf 17:33 BP 112 / 55 (auto/); dsf 17:44 BP 127 / 60 (auto/); Pulse 66; Resp 20; Temp 97.7(O); Pulse Ox 95% on 4 lpm NC; Pain dsf 0/10; 17:48 Pulse 66 MON; Pulse Ox 96% ; dsf 17:48 BP 166 / 74 (auto/); dsf 18:03 BP 152 / 70 (auto/); dsf 18:04 Pulse 66 MON; Pulse Ox 94% ; dsf 18:18 BP 148 / 63 (auto/); dsf 18:19 Pulse 64 MON; Resp 20; Pulse Ox 93% on 4 lpm NC; Pain 0/10; dsf 18:32 Temp 98.8(T); dsf 11:23 Body Mass Index 25.87 (79.47 kg, 175.26 cm) rs6 MDM: 11:40 -Blood Culture (Adults Only), peripheral from different site, or from device/port/PICC fg etc. if present ordered. 11:40 Laboratory Technical Specialist/Pulse Ox/q 15 min VS ordered. fg 11:40 IV Saline Lock ordered. fg 11:40 Oxygen at 4L/Min NC or Home dosage ordered. fg 11:40 Rhythm Strip to chart ordered. fg 11:42 Chest, 1 View Ordered. EDMS 11:42 -Blood Culture Ordered. EDMS 11:42 B-Type Natiuretic Peptide Ordered. EDMS 11:42 Basic Metabolic Profile Ordered. EDMS 11:42 CBC with Diff Ordered. EDMS 11:42 Cardiac Injury Profile Ordered. EDMS 11:42 Troponin Ordered. EDMS 11:42 ECG WITH READING ER PHYS+CARDIAG ordered. EDMS 11:53 -Blood Culture (Adults Only), peripheral from different site, or from device/port/PICC jrd etc. if present complete. 11:54 BLOOD CULTURES Ordered. EDMS 12:39 Piperacillin-Tazobactam 3.375 grams IVPB once over 30 mins; dilute in 50mL of NS or D5W fg ordered. 12:40 BED REQUEST+ADM ordered. EDMS 13:20 Financial registration complete. lg 13:30 NS 0.9% 500 ml IV at bolus once ordered. fg 13:31 Lactic Acid (Chamberlain tube on ice) Ordered. EDMS 13:36 [facility] Payment Agreement was scanned into [employer] and attached to record. lg 13:37 Rectal Temp ordered. fg 13:37 Repeat EKG (put time details section) ordered. fg 13:38 Cardiac Injury Profile: Repeat at 15:30 Ordered. EDMS 13:50 Repeat EKG (put time details section) complete. jrd 13:53 ELECTROCARDIOGRAM ADULT ordered. EDMS 14:47 Furosemide 40 mg IVP once ordered. fg 14:49 Call Respiratory ordered. fg 14:50 -Arterial Blood Gas Ordered. EDMS 14:51 Call Respiratory complete. jrd 15:30 TROPONIN Ordered. EDMS 16:52 Admission / Observation Status ordered. EDMS 17:13 CONSISTENT CARBOHYDRATES ordered. EDMS 17:13 LACTIC ACID LEVEL, LACTATE Ordered. EDMS 17:13 CARDIAC MARKER PANEL Ordered. EDMS 17:57 SPUTUM CULTURE AND GRAM STAIN Ordered. EDMS Administered Medications: 12:58 Drug: Piperacillin-Tazobactam 3.375 grams [piperacillin-tazobactam 3.375 gram dsf intravenous solution] Route: IVPB; Infused Over: 30 mins; Site: left antecubital; 13:56 Follow up: IV Status: Completed infusion; IV Intake: 50ml dsf 13:56 Drug: NS 0.9% 500 ml [sodium chloride 0.9 % injection solution] Route: IV; Rate: bolus; dsf Site: left antecubital; 14:54 Follow up: IV Status: Infusion discontinued; IV Intake: 200ml dsf 14:52 Drug: Furosemide 40 mg [furosemide 10 mg/mL injection solution (4 mL)] Route: IVP; dsf Site: left antecubital; Signatures: Dispatcher [employer] EDMS Amaury Reis, Reg Reg lg Sun Alejo,RN RN dsf Yonatan Carias, AISHA WATCH AND CLOCK REPAIR CLERK jrd Jonathan Guzman, FLAKITA RN Jessica Ram MD MD fg The chart was reviewed and I authenticate all verbal orders and agree with the evaluation and treatment provided.Corrections: (The following items were deleted from the chart) 15:03 13:45 ELECTROCARDIOGRAM ADULT ordered. EDMS EDMS 15:03 13:47 ELECTROCARDIOGRAM ADULT ordered. EDMS EDMS 15:30 13:46 TROPONIN ordered. EDMS EDMS Attachments: 13:36 [facility] [place] Agreement lg MTDD
[2016-06-19 18:53] VITALS: BP 157/70
[2016-06-19] MEDS: HumaLOG INSULIN (NovoLOG) PER UNIT SC SCH ×2 (18:54→20:51)
--- NOTE | 2016-06-19 18:55 | ECGEPIP ---
Stationary ECG Study [facility] Test Date: 2016-06-19 Pat Name: SHAHEED MARISCAL Department: Room: - Gender: M Repossession Agent: nova : 1935 Requested By: SHALONDA Jesus Order Number: [id number] Reading MD: Geoff Fernando Measurements Intervals [place] Rate: 63 P: 25 [place]: 158 QRS: 6 QRSD: 106 T: 64 QT: 431 QTc: 443 Interpretive Statements SINUS RHYTHM INFERIOR MYOCARDIAL INFARCTION, PROBABLY OLD LOW-VOLTAGE QRS COMPLEXES NOTED IN THE LIMB LEADS LAST TRACING ON 05/12/2016 AT 8:16:58, PATIENT WAS THEN BRADYCARDIC OTHERWISE NO SIGNIFICANT CHANGES Electronically Signed On 06-19-2016 18:54:31 EST by Geoff Fernando
[2016-06-19 20:00] VITALS: BP 169/73
[2016-06-19] MEDS: FINASTERIDE 5 MG TAB PO SCH (20:48)
[2016-06-19] MEDS: CALCIUM CARBONATE 500 MG CHEW U/D PO SCH (20:48)
[2016-06-19] MEDS: APIXABAN 5 MG TAB (ELIQUIS) PO SCH (20:48)
[2016-06-19] MEDS: TAMSULOSIN 0.4 MG CAP PO SCH (20:48)
[2016-06-19] MEDS: ATORVASTATIN 20 MG TAB PO SCH (20:48)
[2016-06-19] MEDS: CARVedilol 6.25 MG TAB PO SCH (20:50)
--- NOTE | 2016-06-19 23:26 | HPE ---
DATE OF ADMISSION: 06/19/2016 PRIMARY CARE PROVIDER: Dr. Omar Roman CHIEF COMPLAINT: Shortness of breath. HISTORY OF PRESENT ILLNESS: Mr. Ibanez is a 81-year-old male with past medical history of atrial fibrillation on Eliquis, diabetes, systolic and diastolic heart failure who was transferred from [facility] for worsening shortness of breath. The patient at baseline does not use oxygen, however, earlier this morning he was found to be desaturating down to 78% on room air and was complaining of difficulty breathing. He immediately increased to 93% on nonrebreather. Of note he was recently discharged from [facility] for encephalopathy believed to be secondary to infection and was discharged on May 15. He was then admitted to [place] on June 10 until the initially for elective stent placement for his coronary artery disease (CAD), however, at that time he was also found to have pneumonia and was treated with antibiotics. He was incidentally also found to have multiple syncopal and near syncopal episodes and had extensive workup including echocardiogram. Since his discharge from [facility] he was doing relatively well per girlfriend until yesterday afternoon where she noticed him to be having somewhat coughing spells, unable to tell if there was any production. History somewhat difficult to obtain from both girlfriend and patient. Patient is unable to tell if he has paroxysmal nocturnal dyspnea, pillow orthopnea of leg swelling, chest pain, palpitations, fever or chills. Only states that he feels congested in his throat. In the ED received 500 mL bolus and then Lasix 40 mg times one IV and also Zosyn times one. Reportedly has 650 out after Lasix administration. The patient feels the same as when he first presented. PAST MEDICAL HISTORY: Atrial fibrillation, on Coumadin Pulmonary embolism (PE) Deep venous thrombosis (DVT). Hypertensive heart disease. CAD, status post percutaneous transluminal coronary angioplasty of left anterior descending (LAD) times three artery occlusion. B12 deficiency. Cardiomyopathy, status post automatic implantable cardioverter-defibrillator (AICD). Systolic/diastolic heart failure. Most recent ejection fraction (EF) in our records was back in May of 2015, 50%. Type 2 diabetes. Hypocholesterolemia. Cerebrovascular accident (CVA) with bilateral lacunar basal ganglia infarct. Carotid stenosis. Peripheral artery disease (PAD). Chronic sinusitis. Gout. Gastroesophageal reflux disease (GERD). Monoclonal gammopathy of undetermined significance (MGUS). Chronic obstructive pulmonary disease (COPD). Chronic kidney disease, stage III. Pulmonary hypertension. Hypothyroidism. Constipation. PAST SURGICAL HISTORY: Balloon angioplasty. Bilateral carotid endarterectomy. Cataract surgery. AICD placement 08/17/2014, single chamber. ALLERGIES: No known drug allergies. HOME MEDICATIONS: - Tylenol 650 mg every 4 hours as needed - allopurinol 100 mg by mouth daily - Norvasc 5 mg by mouth daily - Augmentin 875 mg by mouth twice a day - Eliquis 5 mg by mouth twice a day - Lipitor 40 mg nightly - Dulcolax 10 mg by mouth as needed for constipation - Tums 1000 mg by mouth twice a day - Coreg 6.25 mg by mouth twice a day - Plavix 75 mg by mouth daily - B12 1000 mcg by mouth daily - Senna 8.6/50 mg by mouth daily - Enema as needed - Proscar 5 mg by mouth nightly - hydralazine 10 mg by mouth every 8 hours - NovoLog 8 units before food - Levemir 26 units nightly - isosorbide 30 mg by mouth daily - levothyroxine 50 mcg by mouth daily - milk of magnesia 30 mL by mouth as needed - multivitamin - nitroglycerin - Flomax 0.5 mg nightly - vitamin D 50,000 units by mouth every weekly - Tubersol 5 units every Friday for 8 days FAMILY HISTORY: Father , mother had stroke. Father from a fall. One brother with kidney disease. SOCIAL HISTORY: The patient is a former smoker for 30 years, 1.5 packs a day, quit in 1984. No alcohol or drug use. Used to work in [employer] No recent travel. No known exposure tuberculosis, asbestos. REVIEW OF SYSTEMS: Aside from the HPI, the rest is somewhat unreliable due to patient's confusion. CONSTITUTIONAL: Denies fevers, chills, rigors, weight changes. HEENT: Denies headaches, lightheadedness, dizziness, blurry vision, difficulty with speech and swallow. CARDIOVASCULAR: Positive for shortness of breath as mentioned. Denies chest pain , paroxysmal nocturnal dyspnea, pillow orthopnea, lower extremity edema. PULMONARY: Positive for cough, but no hemoptysis. GASTROINTESTINAL: Denies hematochezia, melena, or hematemesis, nausea, vomiting, diarrhea, constipation. GENITOURINARY: No dysuria, frequency or hematuria. MUSCULOSKELETAL: No bone, muscle, joint pain. NEUROLOGICAL: No paralysis, paresthesia, headaches. ENDOCRINE: Negative for diabetes, or thyroid disease. LYMPHATICS: No lumps, bumps, or swelling anywhere in neck, axilla, or groin. HEMATOLOGY: No abnormal bleeding or bruising. PHYSICAL EXAMINATION: VITAL SIGNS: Blood pressure 147/67, heart rate 69, respiration rate 21, temperature 99.8, pulse oximetry 98% on 3 liters nasal cannula. BMI is 25. GENERAL: The patient is lying in bed. Comfortable. No acute distress. Lying at approximately 45 degrees angle. He is alert, awake, oriented to person, but not time and place. Unable to recall how old he is. Appears stated age. Chronically ill appearing. HEENT: Normocephalic, atraumatic. Very moist oral mucosa. Extraocular movement intact. NECK: Supple. Trachea is midline. Neck vein is by the jawline. CHEST: Symmetric chest rise. No accessory muscle use. Breath sounds with crackles bilateral lung bases with occasional expiratory wheezing. It is both dull to percussion. Left chest with palpable defibrillator. Could not appreciate any murmurs, rubs or gallops. ABDOMEN: Protuberant, nontender, nondistended. Bowel sounds present. No guarding. No rebound. Multiple ecchymoses likely from insulin injection. EXTREMITIES: 2+ pitting edema bilateral lower extremities extending sacrally. Right foot is tender to palpation with redness. Currently being treated for gout. LABORATORY DATA: WBC 6.8, hemoglobin 11.4, hematocrit 34.2, platelets 152. Neutrophils 73.5. Sodium 141, potassium 4.2, chloride 105, carbon dioxide 27, BUN 21, creatinine 1.68. Fasting glucose 241. Calcium 8.1. Troponin first set 0.13, repeat is 0.14. BNP 372. Lactic acid 2.1. Blood cultures pending. EKG showed sinus rhythm with rate of 72. Q wave in lead III. Chest x-ray reports left lower lobe infiltrate. Cardiomegaly. IMPRESSION/PLAN: Mr. Ibanez is a 81-year-old male with past medical history of systolic/ diastolic heart failure, status post AICD sent over from [facility] for shortness of breath. 1. Acute hypoxic respiratory failure. Likely secondary to decompensation of CHF. The patient did not appear to come in on a diuretic. Physical exam showed the patient to be in fluid overload. Will start him on Lasix 40 mg IV every 8 hours with hold parameters. While there is mention of an infiltrate on his chest x-ray , apparently has not other signs or symptoms suggestive of pneumonia. He also was recently treated for this at [facility]. For now we will hold off on further treatment for infection at this time and consider treatment based on his clinical findings. Check sputum culture. Will follow blood cultures. Daily weight, fluid restriction and Lasix with net negative. 2. Elevated troponin. Could be due to demand ischemia from decompensation of CHF versus CAD. 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 He does have a history of CAD, required balloon angioplasty in the past. Monitor the patient closely in PCU. 3. Congestive heart failure. Diastolic and systolic. Most recent echo in our record was showing ejection fraction (EF) of 50%. He recently had echo at [facility]. Will obtain records from there to further evaluate. 4. CKD. His baseline creatinine is 1.5. His renal function today appears to be mildly worse compared to his baseline. Continue diuresis and monitor renal function. 5. History of atrial fibrillation. Currently sinus rhythm. Continue Coreg 6.25 mg by mouth twice a day and Eliquis 5 mg by mouth twice a day. 6. CAD. Continue home dose Plavix 75 mg by mouth daily, Lipitor 20 mg nightly, Coreg 6.25 mg by mouth twice a day. 7. Hypertension. Continue Norvasc 5 mg by mouth daily, Isordil 30 mg by mouth daily, Coreg 6.25 mg by mouth twice a day. 8. Type 2 diabetes. Continue insulin sliding scale. 9. Hypothyroidism. Continue levothyroxine 0.5 mg daily 10. Benign prostatic hypertrophy (BPH). Continue 5 mg by mouth nightly of finasteride. 11. Constipation. Continue stool softeners. 12. DVT prophylaxis. Sequential compression devices (SCDs), thromboembolism deterrents (TEDs), on Eliquis for atrial fibrillation. DISPOSITION: Due to the patient's condition, we expect his stay to be greater than two midnights. My preceptor for this patient encounter was Dr. Palak Brown. The preceptor was physically present in the building during the encounter and was fully available. As needed, all aspects of the patient interview, examination, medical decision making process, and medical care plan development were reviewed and approved by the preceptor. The preceptor is aware and concurs with the plan as stated in the body of this note and will attest to such by his/her cosignature. IVETTE
[2016-06-19 23:56] VITALS: BP 158/53
[2016-06-20] MEDS: FUROSEMIDE 40 MG/4 ML VIAL (J1940) IV SCH ×2 (00:03→08:45)
[2016-06-20 03:33] VITALS: BP 149/71
[2016-06-20 05:54] LABS: MEAN CORPUSCULAR HEMOGLOBIN 33.3 pg (27.0-33.0); MEAN CORPUSCULAR HGB CONC 32.3 g/dl (32.0-36.5); MEAN CORPUSCULAR VOLUME 103.1 fl (80.0-96.0); WHITE BLOOD COUNT 6.5 K/mm3 (4.0-10.0)
[2016-06-20 06:05] LABS: ALBUMIN 2.1 GM/DL (3.2-5.2); CALCIUM LEVEL 7.9 MG/DL (8.8-10.2); CREATININE FOR GFR 1.83 MG/DL (0.70-1.30); GLOMERULAR FILTRATION RATE 38.2 (>42); MAGNESIUM LEVEL 1.8 MG/DL (1.8-2.4); PHOSPHORUS LEVEL 3.3 MG/DL (2.5-4.9); POTASSIUM SERUM 3.9 MEQ/L (3.5-5.1)
--- NOTE | 2016-06-20 06:47 | ECGEPIP ---
Stationary ECG Study [facility] - ED Test Date: 2016-06-19 Pat Name: SHAHEED MARISCAL Department: Room: - Gender: M Manager Diabetes: : 1935 Requested By: SHALONDA Jesus Order Number: [id number] Reading MD: Dolores Hernandez Measurements Intervals [place] Rate: 72 P: -3 CT: 123 QRS: 3 QRSD: 110 T: 60 QT: 430 QTc: 473 Interpretive Statements SINUS RHYTHM POSSIBLE LATERAL MYOCARDIAL INFARCTION, PROBABLY OLD INFERIOR MYOCARDIAL INFARCTION, PROBABLY OLD LOW VOLTAGE LIMB PROLONGED QTC INCREASED RATE 06/19/16 Electronically Signed On 06-20-2016 6:46:49 EST by Dolores Hernandez
[2016-06-20 08:00] VITALS: BP 116/56
[2016-06-20] MEDS: HumaLOG INSULIN (NovoLOG) PER UNIT SC SCH ×4 (08:42→20:24)
[2016-06-20] MEDS: CALCIUM CARBONATE 500 MG CHEW U/D PO SCH ×2 (08:43→20:24)
[2016-06-20] MEDS: CLOPIDOGREL 75 MG TAB PO SCH (08:43)
[2016-06-20] MEDS: LEVOTHYROXINE 0.05 MG TAB (50 MCG) PO SCH (08:43)
[2016-06-20] MEDS: CYANOCOBALAMIN 500 MCG TAB PO SCH (08:43)
[2016-06-20] MEDS: ISOSORBIDE DIN. (ISORDIL) 30 MG TAB PO SCH (08:43)
[2016-06-20] MEDS: MULTIVITAMINS/MINERALS THERAP 1 TAB PO SCH (08:43)
[2016-06-20] MEDS: SENOKOT S TAB PO SCH (08:43)
[2016-06-20] MEDS: amLODIPine 5 MG TAB PO SCH (08:44)
[2016-06-20] MEDS: APIXABAN 5 MG TAB (ELIQUIS) PO SCH ×2 (08:44→20:24)
[2016-06-20] MEDS: ALLOPURINOL 100 MG TAB PO SCH (08:47)
[2016-06-20] MEDS: CARVedilol 6.25 MG TAB PO SCH ×2 (08:47→20:24)
[2016-06-20] MEDS: cefTRIAXone SOD 1 GM in D5W MINI-BAG PLUS 50 ML IV SCH ×2 (10:51→20:25)
[2016-06-20 12:00] VITALS: BP 114/57
--- NOTE | 2016-06-20 13:56 | IPNPDOC ---
Assessment/Plan Date Seen The patient was seen on 06/20/16. Plan / VTE VTE Prophylaxis Ordered?: Yes Plan Plan Text 1. Acute hypoxic respiratory failure possibly secondary to decompensation of CHF vs underlying pneumonia The patient appears volume compensated this morning We will hold his Lasix dose We will check respiratory panel, and sputum cultures as well as blood cultures Continue on Rocephin for now We will give nebulizer treatments We will down titrate supplemental oxygen as tolerated Continue to monitor respiratory status 2. Elevated troponin likely secondary to demand ischemia from decompensation of CHF Peak Troponin level 0.[address] acute changes Patient with no complaints of chest pain or palpitations at this time 3. Congestive heart failure. Diastolic and systolic. Most recent echo from 05/2015 showing ejection fraction (EF) of 50%. He recently had echo at [facility] following elective cardiac catheterization and stent placement Will await records from [facility] 4. CKD. His baseline creatinine is 1.5 to 1.9. Serum creatinine 1.8 today 5. History of atrial fibrillation. Rate controlled Continue Coreg 6.25 mg by mouth twice a day and Eliquis 650 mg by mouth twice a day. 6. CAD. Continue Plavix 75 mg by mouth daily, Lipitor 20 mg nightly, Coreg 6.25 mg by mouth twice a day. 7. Hypertension. Continue Norvasc 5 mg by mouth daily, Isordil 30 mg by mouth daily, Coreg 6.25 mg by mouth twice a day. 8. Type 2 diabetes. Continue insulin sliding scale. 9. Hypothyroidism. Continue levothyroxine 0.5 mg daily 10. Benign prostatic hypertrophy (BPH). Continue 5 mg by mouth nightly of finasteride. Continue 1000 mcg by mouth daily. 11. Constipation. Continue stool softeners. 12. DVT prophylaxis. Already on anticoagulation Subjective Review of Systems CC/HPI The patient is a 81-year-old male admitted with a reason for visit of Shortness Of Breath. General: Denies: Chills, Night Sweats Constitutional: Denies: Chills, Fever Eyes: Denies: Pain, Vision change ENT: Denies: Ear Pain, Head Aches Pulmonary: Reports: Cough, Dyspnea Cardiovascular: Denies: Chest Pain, Palpitations Gastrointestinal: Denies: Nausea, Vomiting Genitourinary: Denies: Dysuria, Frequency Hematologic: Denies: Bleeding Excessively, Bruising Objective Physical Examination General Exam: Positive: Alert, Cooperative, No Acute Distress ENT Exam: Positive: Atraumatic, Mucous membr. moist/pink Chest Exam: Positive: Diminished, Negative: Rhonchi, Wheezing Heart Exam: Positive: Normal S1, Normal S2, Rate Normal Abdomen Exam: Positive: Soft, Negative: Tenderness Extremity Exam: Negative: Edema, Tenderness Vital Signs/I&O Vital Signs Date Time Temp Pulse Resp B/P Pulse Ox O2 Delivery O2 Flow Rate FiO2 06/20/16 12:00 97.2 66 18 114/57 94 Nasal Cannula 2.0 I&O- Last 24 Hours up to 6 AM 06/20/16 06:00 Intake Total 520 ml Output Total 1050 ml Balance -530 ml Laboratory Data Labs 24H Laboratory Tests 2 06/19/16 15:11: Arterial Blood pH 7.511H, Arterial Blood Partial Pressure CO2 31.4L, Arterial Blood Partial Pressure O2 69.3L, Arterial Blood Total CO2 25.5, Arterial Blood HCO3 24.6, Arterial Blood Base Excess 2.1H, Arterial Blood Oxygen Saturation 95.1, Blood Gas Bicarbonate Standard 26.3H, Oxygen Delivery Device NASAL HORTENSIA 06/19/16 15:22: Creatine Kinase MB 3.9H, Creatine Kinase MB Relative Index 3.97, Total Creatine Kinase 98, Troponin I 0.14H 06/19/16 17:32: Lactic Acid Level 2.1H 06/19/16 20:17: Bedside Glucose (Misc Panel) 314H 06/19/16 20:47: Creatine Kinase MB 4.9H, Creatine Kinase MB Relative Index 2.37, Total Creatine Kinase 206#, Troponin I 0.13H 06/20/16 05:15: Creatine Kinase MB 5.4H, Creatine Kinase MB Relative Index 2.82, Total Creatine Kinase 191, Troponin I 0.14H, Albumin 2.1L, Blood Urea Nitrogen 23H, Creatinine 1.83H, Sodium Level 141, Potassium Level 3.9, Chloride Level 101, Carbon Dioxide Level 29, Anion Gap 11, Calcium Level 7.9L, Glomerular Filtration Rate 38.2L, Magnesium Level 1.8, Phosphorus Level 3.3 06/20/16 11:23: Bedside Glucose (Misc Panel) 292H 06/20/16 12:47: CBC/BMP Laboratory Tests 06/20/16 05:15 Anion Gap 11, Red Blood Count 3.35 L, Mean Corpuscular Volume 103.1 H, Mean Corpuscular Hemoglobin 33.3 H, Mean Corpuscular Hemoglobin Concent 32.3, Red Cell Distribution Width 14.0 FSBS Laboratory Tests Test 06/19/16 20:17 06/20/16 11:23 Range/Units Bedside Glucose (Misc Panel) 314 292 83-110 MG/DL Microbiology Microbiology 06/19/16 Blood Culture - Preliminary, Resulted No growth after 24 hours . All specim... 06/19/16 Blood Culture - Preliminary, Resulted No growth after 24 hours . All specim... LUCITA DASILVA MD Jun 20, 2016 13:56
[2016-06-20] MEDS: IPRATROPIUM 0.5MG/ALBUTEROL 2.5MG INH SOL UD 3ML (DUONEB)(J7620) NEB SCH ×2 (14:00→20:33)
[2016-06-20] MEDS ORDERED: IPRATROPIUM 0.5MG/ALBUTEROL 2.5MG INH SOL UD 3ML (DUONEB)(J7620) NEB PRN (14:00)
[2016-06-20 16:00] VITALS: BP 92/64
[2016-06-20 20:13] VITALS: BP 146/71
[2016-06-20] MEDS: TAMSULOSIN 0.4 MG CAP PO SCH (20:24)
[2016-06-20] MEDS: FINASTERIDE 5 MG TAB PO SCH (20:24)
[2016-06-20] MEDS: ATORVASTATIN 20 MG TAB PO SCH (20:25)
[2016-06-20] MEDS ORDERED: LEVEMIR (INSULIN DETEMIR) 1 UNITS/0.01ML SC SCH (21:00)
[2016-06-20] MEDS: LEVEMIR (INSULIN DETEMIR) 1 UNITS/0.01ML SC SCH (21:40)
[2016-06-21 00:32] VITALS: BP 141/76
[2016-06-21] MEDS: IPRATROPIUM 0.5MG/ALBUTEROL 2.5MG INH SOL UD 3ML (DUONEB)(J7620) NEB SCH ×4 (01:37→19:13)
[2016-06-21 05:55] VITALS: BP 146/78
[2016-06-21 05:59] LABS: MEAN CORPUSCULAR HEMOGLOBIN 33.4 pg (27.0-33.0); MEAN CORPUSCULAR HGB CONC 32.9 g/dl (32.0-36.5); MEAN CORPUSCULAR VOLUME 101.3 fl (80.0-96.0); RED CELL DISTRIBUTION WIDTH 13.9 % (11.5-14.5); WHITE BLOOD COUNT 6.9 K/mm3 (4.0-10.0)
[2016-06-21 07:25] LABS: ALBUMIN 2.1 GM/DL (3.2-5.2); CALCIUM LEVEL 8.3 MG/DL (8.8-10.2); CREATININE FOR GFR 1.9 MG/DL (0.70-1.30); GLOMERULAR FILTRATION RATE 36.6 (>42); PHOSPHORUS LEVEL 2.8 MG/DL (2.5-4.9); POTASSIUM SERUM 3.7 MEQ/L (3.5-5.1)
[2016-06-21 08:00] VITALS: BP 170/82
--- NOTE | 2016-06-21 09:21 | IPNPDOC ---
Assessment/Plan Date Seen The patient was seen on 06/21/16. Problems Problems: (1) Acute and chronic respiratory failure with hypoxia Status: Acute Response to Treatment: Improving Discussed With: Patient Problem Specific Plan: Consult Specialist, Monitor Clinically Problem Text: favor LLL PN h/o persistent PN requiring Zosyn/vanco 05/2015 changed to Zosyn/vanco-RD Cont with nebs, Blood cultures neg, Lobo D #2, he is a resident at [facility], so this isn't adequate coverage - will address with attending Sats stable on 2LPM. (2) Heart failure, systolic and diastolic, acute on chronic Onset Date: 04/18/2014 Status: Chronic Response to Treatment: Improving Discussed With: Patient Problem Specific Plan: Monitor Clinically Problem Text: appears compensated, his Lasix IV was stopped yesterday. Enc FR , daily weights. (3) CKD (chronic kidney disease) stage 3, GFR 30-59 ml/min Status: Chronic Response to Treatment: Stable Problem Specific Plan: Monitor Clinically Problem Text: Baseline Scr 1.5 (4) Elevated troponin I level Status: Chronic Response to Treatment: Stable Problem Specific Plan: Monitor Clinically Problem Text: Likelt d/t CKD. (5) Hypertension Status: Chronic Response to Treatment: Stable Problem Text: Pressures stable. (6) CAD (coronary artery disease) Onset Date: 04/18/2014 Status: Chronic Response to Treatment: Stable Problem Specific Plan: Monitor Clinically Problem Text: Cont with Plavix, Statin, Coreg. (7) DM2 (diabetes mellitus, type 2) Status: Chronic Response to Treatment: Stable Problem Specific Plan: Monitor Clinically Plan / VTE VTE Prophylaxis Ordered?: Yes Subjective Review of Systems CC/HPI Pt not feeling well this morning. He c/o SOB, fatigue. He thinks he might feel better than he was yesterday. General: Denies: Fatigue Constitutional: Denies: Chills, Fever Pulmonary: Reports: Dyspnea, Denies: Cough Cardiovascular: Denies: Chest Pain, Palpitations Gastrointestinal: Denies: Diarrhea, Nausea, Vomiting Neurological: Reports: Weakness Psych: Reports: Mood Normal Objective Physical Examination General Exam: Positive: Alert, Cooperative, No Acute Distress ENT Exam: Positive: Atraumatic, Mucous membr. moist/pink Chest Exam: Positive: Diminished, Negative: Rhonchi, Wheezing Heart Exam: Positive: Normal S1, Normal S2, Rate Normal Abdomen Exam: Positive: Soft, Negative: Tenderness Extremity Exam: Negative: Edema, Tenderness Vital Signs/I&O Vital Signs Date Time Temp Pulse Resp B/P Pulse Ox O2 Delivery O2 Flow Rate FiO2 06/21/16 05:55 98.5 66 18 146/78 97 Nasal Cannula 2.0 I&O- Last 24 Hours up to 6 AM 06/21/16 06:00 Intake Total 990 ml Output Total 575 ml Balance 415 ml Laboratory Data Labs 24H Laboratory Tests 2 06/20/16 11:23: Bedside Glucose (Misc Panel) 292H 06/20/16 12:47: Troponin I 0.13H 06/20/16 16:28: Bedside Glucose (Misc Panel) 238H 06/20/16 20:12: Bedside Glucose (Misc Panel) 259H 06/21/16 06:24: Albumin 2.1L, Blood Urea Nitrogen 33H, Creatinine 1.90H, Sodium Level 144, Potassium Level 3.7, Chloride Level 104, Carbon Dioxide Level 30, Anion Gap 10, Calcium Level 8.3L, Glomerular Filtration Rate 36.6L, Magnesium Level 2.0, Phosphorus Level 2.8 CBC/BMP Laboratory Tests 06/21/16 05:30 Red Blood Count 3.44 L, Mean Corpuscular Volume 101.3 H, Mean Corpuscular Hemoglobin 33.4 H, Mean Corpuscular Hemoglobin Concent 32.9, Red Cell Distribution Width 13.9 06/21/16 06:24 Anion Gap 10 FSBS Laboratory Tests Test 06/20/16 11:23 06/20/16 16:28 06/20/16 20:12 Range/Units Bedside Glucose (Misc Panel) 292 238 259 83-110 MG/DL Microbiology Microbiology 06/19/16 Blood Culture - Preliminary, Resulted No growth after 24 hours . All specim... 06/19/16 Blood Culture - Preliminary, Resulted No growth after 24 hours . All specim... GONZÁLEZ CERNA PA-C Jun 21, 2016 09:21 Sterling Torres M.D. Jun 21, 2016 14:49
[2016-06-21] MEDS: HumaLOG INSULIN (NovoLOG) PER UNIT SC SCH ×4 (09:24→20:20)
[2016-06-21] MEDS: CLOPIDOGREL 75 MG TAB PO SCH (09:25)
[2016-06-21] MEDS: APIXABAN 5 MG TAB (ELIQUIS) PO SCH ×2 (09:25→20:19)
[2016-06-21] MEDS: cefTRIAXone SOD 1 GM in D5W MINI-BAG PLUS 50 ML IV SCH (09:25)
[2016-06-21] MEDS: MULTIVITAMINS/MINERALS THERAP 1 TAB PO SCH (09:25)
[2016-06-21] MEDS: ISOSORBIDE DIN. (ISORDIL) 30 MG TAB PO SCH (09:25)
[2016-06-21] MEDS: LEVOTHYROXINE 0.05 MG TAB (50 MCG) PO SCH (09:25)
[2016-06-21] MEDS: CALCIUM CARBONATE 500 MG CHEW U/D PO SCH ×2 (09:25→20:19)
[2016-06-21] MEDS: amLODIPine 5 MG TAB PO SCH (09:26)
[2016-06-21] MEDS: CARVedilol 6.25 MG TAB PO SCH ×2 (09:26→20:22)
[2016-06-21] MEDS: ALLOPURINOL 100 MG TAB PO SCH (09:26)
[2016-06-21] MEDS: CYANOCOBALAMIN 500 MCG TAB PO SCH (09:26)
[2016-06-21] MEDS: SENOKOT S TAB PO SCH (09:26)
[2016-06-21 12:00] VITALS: BP 152/62
[2016-06-21 15:35] VITALS: BP 138/65
[2016-06-21] MEDS: VANCOMYCIN HCL 1,000 MG, VIAL MATE ADAPTER 1 EACH in D5W 250 ML IV SCH (15:39)
[2016-06-21] MEDS: PIPERACILLIN/TAZOBACTAM SOD 3.375 GM in D5W MINI-BAG PLUS 50 ML IV SCH ×2 (18:06→22:51)
--- NOTE | 2016-06-21 19:36 | EDDOCDS ---
Nurse's Notes [facility] Name: Rickey Ibanez Age: 81 yrs Sex: Male : 1935 Arrival Date: 06/19/2016 Time: 11:12 Bed Admit Hold Private MD: Abel Diagnosis: Pneumonia, unspecified organism;Shortness of breath Presentation: 06/19 11:14 Presenting complaint: EMS states: staff noticed productive sough and lethargic this dsf morning. pt did have pneumonia last week. 02 sat on EMS arrival 88%. Duo neb given by EMS. Suicide/Homicide risk assessment- Unable to assess, the patient has an altered level of consciousness. Status: Patient is not a technical service specialist or dependent. Transition of care: patient was received from [facility]. Care prior to arrival: See EMS report. Saline lock initiated. Glucose check. 286 Med neb given. Oxygen administered by EMS. 11:14 Method Of Arrival: Ambulance dsf 11:14 Acuity: SUZY Level 2 dsf 11:14 Adult Sepsis Screening: Patient has new or worsening altered mentation (1 point). dsf Patient's respiratory rate is less than 22. Patient has a qSOFA score of 1- Negative Sepsis Screen. Triage Assessment: 11:14 General: Appears ill, Behavior is lethargic . Pain: Denies pain. The patient is triaged dsf at the bedside. See Assessment in Nurses Notes section of ED record. Neurological: Level of Consciousness is awake, confused, lethargic, Oriented to none. Cardiovascular: Capillary refill < 3 seconds Heart tones S1 S2 present Rhythm is sinus rhythm No ectopy. Respiratory: Airway is patent Respiratory effort is even, unlabored, Respiratory pattern is regular, symmetrical, Breath sounds are coarse bilaterally. Breath sounds with wheezes bilaterally. Reports shortness of breath cough that is productive. GI: Abdomen is non- distended Bowel sounds present X 4 quads. Abd is soft and non tender X 4 quads. Derm: Skin is pink, warm & dry. Historical: - Allergies: no known allergies; - Home Meds: 1. multivitamin Oral tab 1 tablet daily (Last dose: 06/19/2016 07:36) 2. Plavix 75 mg Oral tab 1 tab once daily (Last dose: 06/19/2016 08:29) 3. allopurinol 100 mg Oral tab 1 tab once daily (Last dose: 06/19/2016 08:29) 4. amlodipine 5 mg Oral tab 1 tab once daily (Last dose: 06/19/2016 08:29) 5. atorvastatin 40 mg oral tab 1 tab nightly (Last dose: 06/18/2016) 6. Tums Ultra 400 mg (1,000 mg) oral chew twice a day (Last dose: 06/19/2016 08:29) 7. Tylenol 325 mg Oral tab 2 tabs every 4 hours 8. carvedilol 6.25 mg oral tab 1 tab 2 times per day (Last dose: 06/19/2016 08:29) 9. Novolog 100 unit/mL Sub-Q soln 8 unit three times a day (Last dose: 06/19/2016 07:36) 10. Eliquis 5 mg oral tab 1 tab 2 times per day (Last dose: 06/19/2016 08:29) 11. Vitamin D Oral 50,000 unit weekly 12. finasteride 5 mg oral tab 1 tab once daily (Last dose: 06/18/2016) 13. hydralazine 10 mg Oral tab 1 tab every 8 hours (Last dose: 06/19/2016 06:28) 14. Vitamin B-12 1,000 mcg Oral TbER daily (Last dose: 06/19/2016 08:29) 15. Levemir 100 unit/mL subcutaneous soln 26 unit nightly 16. tamsulosin 0.4 mg oral cp24 1 cap once daily (Last dose: 06/18/2016) 17. isosorbide mononitrate 30 mg Oral Tb24 1 tab once daily (Last dose: 06/19/2016 08:29) 18. levothyroxine 50 mcg Oral cap 1 cap once daily (Last dose: 06/19/2016 10:16) 19. senna 8.6 mg oral cap 1 caps once daily (Last dose: 06/19/2016 08:29) 20. Augmentin 875-125 mg Oral tab 1 tab every 12 hours stop on 06/20/16 (Last dose: 06/19/2016 08:29) 21. NitroQuick 0.4 mg SL subl every 5 minutes (Last dose: Unknown) 22. Dulcolax (bisacodyl) 10 mg Rectal supp 1 suppository once daily (Last dose: Unknown) 23. Milk of Magnesia Oral 10 mL as needed (Last dose: Unknown) 24. fleets 1 unit as needed (Last dose: Unknown) - PMHx: Atrial Fib; BPH; CAD; carotid stenosis; CHF; Chronic Renal Insufficiency; CVA; Diabetes - NIDDM: controlled; Pneumonia; DVT; hyperlipidemia; Hypertension; Implanted AICD; SC; PE; - PSHx: Carotid surgery (2013); Cataract Surgery- Bilateral; - Social history: No barriers to communication noted, The patient speaks fluent Korean, Speaks appropriately for age, Smoking status: unknown if patient ever smoked tobacco. - Family history: Not pertinent. - : The pt / caregiver states he / she is on anticoagulants: Plavix. Eliquis Home medication list is obtained from the facility [facility]. - Exposure Risk Screening:: None identified. Screenin:47 Screening information is obtained from prior medical records. Fall risk: At risk due to dsf age, The following interventions are performed due to a positive Fall Risk Screen: Fall Risk is added to Special Handling on the patient Summary Screen. A Fall Risk Bracelet was applied to the patient. Side Rails are placed in the up position. A Call Hernandez is given with instruction to call for help when getting out of bed. Fall Alert bracelet is placed on the patient. Assistance ADL's: Requires assistance with meal preparation, this assistance is provided by residence staff, bathing, assistance is provided by residence staff, dressing, assistance is provided by residence staff, toileting, assistance is provided by residence staff, ambulation, assistance is provided by residence staff, housework, assistance is provided by residence staff, medication administration, assistance is provided by residence staff. Abuse/DV Screen: The patient / caregiver reports he/she is: not in a situation that causes fear, pain or injury. Nutritional screening: No deficits noted. home support is adequate. 18:33 Advance Directives: Currently, there is a health care proxy, Ileana Peralta . dsf Assessment: 11:14 General: see triage nursing assessment . dsf 11:49 General: states PT's baseline is confusion since his previous TIA . dsf 12:28 General: Call Sena Peralta [facility] [phone] with any changes or disposition. ck1 12:59 General: Appears in no apparent distress, to be sleeping. Respiratory: Airway is patent dsf Respiratory effort is even, unlabored, Respiratory pattern is regular, symmetrical, Breath sounds are coarse bilaterally. Derm: Skin is pink, warm & dry. 12:59 Cardiovascular: Capillary refill < 3 seconds Heart tones S1 S2 present Rhythm is sinus dsf rhythm No ectopy. 13:26 General: Appears in no apparent distress, to be sleeping. Cardiovascular: Capillary dsf refill < 3 seconds Heart tones S1 S2 present Rhythm is sinus rhythm No ectopy. Respiratory: Airway is patent Respiratory effort is even, unlabored, Respiratory pattern is regular, symmetrical, Breath sounds are coarse bilaterally. GI: Abdomen is non- distended Bowel sounds present X 4 quads. Abd is soft and non tender X 4 quads. Derm: Skin is pink, warm & dry. 14:52 General: Appears distressed, Behavior is appropriate for age, cooperative. General: Dr. darren San made aware of patient condition new orders received to give Lasix. IV fluids discontinued . Pain: Denies pain. Neurological: Level of Consciousness is awake, confused, obeys commands. Cardiovascular: Capillary refill < 3 seconds Heart tones S1 S2 present Rhythm is sinus rhythm No ectopy. Respiratory: Airway is patent Respiratory effort is labored, Respiratory pattern is tachypnea Breath sounds are coarse bilaterally. Breath sounds with wheezes expiratory bilaterally. Derm: Skin is dry, Skin is pale, Skin temperature is cool. 15:36 General: Appears in no apparent distress, comfortable, Behavior is appropriate for age, dsf cooperative. Pain: Denies pain. Neurological: Level of Consciousness is awake, confused, obeys commands. Cardiovascular: Capillary refill < 3 seconds. Respiratory: Airway is patent Respiratory effort is even, unlabored, Respiratory pattern is regular, Breath sounds are coarse expiratory bilaterally. GI: Abdomen is non- distended Bowel sounds present X 4 quads. Abd is soft and non tender X 4 quads. Derm: Skin is pink, warm & dry. 16:34 Adult Sepsis Screening: The patient does not have new or worsening altered mentation. dsf Patient's respiratory rate is less than 22. Systolic blood pressure is greater than 100. Patient has a qSOFA score of 0- Negative Sepsis Screen. General: Appears in no apparent distress, comfortable, Behavior is appropriate for age, cooperative. Pain: Denies pain. Neurological: Level of Consciousness is awake, confused, obeys commands. Cardiovascular: Capillary refill < 3 seconds Heart tones S1 S2 present Rhythm is sinus rhythm No ectopy. Respiratory: Airway is patent Respiratory effort is even, unlabored, Respiratory pattern is regular, symmetrical, Breath sounds are coarse expiratory bilaterally. GI: Abdomen is non- distended Bowel sounds present X 4 quads. Abd is soft and non tender X 4 quads. Derm: Skin is dry, Skin is pale, Skin temperature is warm. 17:32 General: Appears in no apparent distress, comfortable, Behavior is appropriate for age, dsf cooperative. Pain: Denies pain. Neurological: Level of Consciousness is awake, confused, obeys commands. Cardiovascular: Capillary refill < 3 seconds Heart tones S1 S2 present Rhythm is sinus rhythm No ectopy. Respiratory: Airway is patent Respiratory effort is even, unlabored, Respiratory pattern is regular, symmetrical, Breath sounds are coarse bilaterally. Breath sounds with wheezes expiratory bilaterally. GI: Abdomen is non- distended Bowel sounds present X 4 quads. Abd is soft and non tender X 4 quads. Derm: Skin is dry, Skin is pale, Skin temperature is warm. 18:32 Adult Sepsis Screening: The patient does not have new or worsening altered mentation. dsf Patient's respiratory rate is less than 22. Systolic blood pressure is greater than 100. Patient has a qSOFA score of 0- Negative Sepsis Screen. General: Appears in no apparent distress, comfortable, Behavior is appropriate for age, cooperative. Pain: Denies pain. Neurological: Level of Consciousness is awake, alert, obeys commands. Cardiovascular: Capillary refill < 3 seconds Rhythm is sinus rhythm No ectopy. Respiratory: Airway is patent Respiratory effort is even, unlabored, Respiratory pattern is regular, symmetrical. Derm: Skin is dry, Skin is pale, Skin temperature is warm. Vital Signs: 11:18 BP 160 / 70 (auto/); dsf 11:18 Pulse 78 MON; Pulse Ox 98% ; dsf 11:20 BP 160 / 70 RA Supine (auto/lg); Pulse 78; Resp 20; Temp 97.3(O); Pulse Ox 99% on duo rs6 neb mask; Pain 0/10; 11:23 Temp 99.8(TE); Weight 79.47 kg (M); Height 69 in. (175.26 cm) (M); rs6 11:33 BP 127 / 60 (auto/); dsf 11:33 Pulse 74 MON; Pulse Ox 98% ; dsf 11:48 BP 126 / 63 (auto/); dsf 11:48 Pulse 74 MON; Pulse Ox 92% ; dsf 12:03 BP 127 / 60 (auto/); dsf 12:03 Pulse 68 MON; Pulse Ox 93% ; dsf 12:18 BP 134 / 64 (auto/); dsf 12:18 Pulse 66 MON; Pulse Ox 94% ; dsf 12:33 BP 126 / 58 (auto/); dsf 12:34 Pulse 66 MON; Pulse Ox 95% ; dsf 12:48 BP 147 / 65 (auto/); dsf 12:49 Pulse 62 MON; Resp 21; Pulse Ox 95% on 4 lpm NC; dsf 13:03 BP 137 / 61 (auto/); dsf 13:04 Pulse 60 MON; Pulse Ox 96% ; dsf 13:18 BP 125 / 61 (auto/); dsf 13:19 Pulse 58 MON; Pulse Ox 97% ; dsf 13:33 BP 118 / 58 (auto/); dsf 13:34 Pulse 56 MON; Pulse Ox 96% ; dsf 13:48 BP 131 / 61 (auto/); dsf 13:49 Pulse 58 MON; Pulse Ox 98% ; dsf 14:03 BP 147 / 67 (auto/); dsf 14:04 Pulse 58 MON; Pulse Ox 99% ; dsf 14:12 BP 147 / 67; Pulse 69; Resp 21; Temp 99.8(R); Pulse Ox 98% on R/A; rs6 14:18 BP 143 / 58 (auto/); dsf 14:19 Pulse 70 MON; Pulse Ox 98% ; dsf 14:33 BP 151 / 88 (auto/); dsf 14:34 Pulse 78 MON; Pulse Ox 95% ; dsf 15:03 BP 125 / 60 (auto/); dsf 15:04 Pulse 68 MON; Pulse Ox 92% ; dsf 15:32 BP 156 / 72 (auto/); dsf 15:32 Pulse 66 MON; Pulse Ox 97% ; dsf 15:48 BP 129 / 59 (auto/); dsf 15:49 Pulse 62 MON; Pulse Ox 95% ; dsf 16:03 BP 130 / 60 (auto/); dsf 16:04 Pulse 62 MON; Pulse Ox 95% ; dsf 16:18 BP 154 / 70 (auto/); dsf 16:20 Pulse 62 MON; Pulse Ox 95% ; dsf 16:33 BP 159 / 74 (auto/); dsf 16:34 Pulse 64 MON; Pulse Ox 97% ; dsf 16:47 Pulse 62 MON; Pulse Ox 97% ; dsf 16:48 BP 149 / 70 (auto/); dsf 17:03 BP 161 / 64 (auto/); dsf 17:04 Pulse 66 MON; Pulse Ox 96% ; dsf 17:33 Pulse 66 MON; Pulse Ox 94% ; dsf 17:33 BP 112 / 55 (auto/); dsf 17:44 BP 127 / 60 (auto/); Pulse 66; Resp 20; Temp 97.7(O); Pulse Ox 95% on 4 lpm NC; Pain dsf 0/10; 17:48 Pulse 66 MON; Pulse Ox 96% ; dsf 17:48 BP 166 / 74 (auto/); dsf 18:03 BP 152 / 70 (auto/); dsf 18:04 Pulse 66 MON; Pulse Ox 94% ; dsf 18:18 BP 148 / 63 (auto/); dsf 18:19 Pulse 64 MON; Resp 20; Pulse Ox 93% on 4 lpm NC; Pain 0/10; dsf 18:32 Temp 98.8(T); dsf 11:23 Body Mass Index 25.87 (79.47 kg, 175.26 cm) rs6 Vitals: 11:20 Log In Time N/A - ambulance arrival. rs6 ED Course: 11:13 Patient visited by Yonatan Carias PCA. jrd 11:13 Sheree Piña,RN is Primary Nurse. jrd 11:13 Patient moved to Waiting jrd 11:13 Patient moved to 8 jrd 11:14 Abel is Private Physician. jrd 11:17 Triage Initiated dsf 11:21 Patient visited by Nuha Tyson PCA. rs6 11:21 Pt greeted and oriented to ED. Patient advised of names of staff involved in care, rs6 location of call hernandez, wait times and NPO status. Patient has correct armband on for positive identification. Placed in gown. Bed in low position. Call light in reach. Side rails up X 1. tire fabricator on. Pulse ox on. NIBP on. 11:48 Maintain field IV. Dressing intact. Good blood return noted. Site clean & dry. Gauge & dsf site: #18 gauge LAC . O2 via nasal cannula \T\ 4L/min. 11:49 Cardiac Injury Profile Sent. dsf 11:49 Troponin Sent. dsf 11:49 CBC with Diff Sent. dsf 11:49 Basic Metabolic Profile Sent. dsf 11:49 B-Type Natiuretic Peptide Sent. dsf 11:49 -Blood Culture Sent. dsf 11:50 Patient visited by Cynthia Ventura RN. ms18 11:55 Jessica San MD is Attending Physician. fg 11:56 EKG done. (by ED staff). Reviewed by Jessica San MD. rs6 11:57 Patient visited by Nuha Tyson PCA. rs6 12:16 Patient visited by Jessica San MD. fg 12:43 Chest, 1 View Returned. EDMS 12:59 Patient visited by Sun Alejo RN. dsf 13:27 Patient visited by Sun Alejo RN. dsf 13:36 [facility] Payment Agreement was scanned into Pops and attached to record. lg 13:39 Lactic Acid (Chamberlain tube on ice) Sent. ms18 14:00 Notified attending ED physician of Critical lab value. Dr San aware of Lactic Acid of j 2.1. 14:13 Patient visited by Nuha Tyson PCA. rs6 14:13 Patient visited by Nuha Tyson PCA. rs6 14:54 Patient visited by Sun Alejo RN. dsf 15:39 Patient visited by Cynthia Ventura RN. ms18 15:39 Patient visited by Sun Alejo RN. dsf 15:39 TROPONIN Sent. ms18 15:44 Patient visited by Yonatan Carias PCA. jrd 15:44 EKG done. (by ED staff). Reviewed by Jessica San MD. jrd 16:26 Palak Brown is Hospitalizing Provider. fg 16:35 Patient visited by Sun Alejo RN. dsf 17:22 Primary Nurse role handed off by Sheree Piña RN mcp 17:33 Patient visited by Sun Alejo RN. dsf 17:46 Patient visited by Tyson, Nuha, SECY. rs6 17:46 Cleaned of incontinence. Linen changed. rs6 17:46 Diet: soda provided to patient once RN confirmed NPO status. rs6 17:48 The patient / caregiver is instructed regarding the plan of care and ED course. dsf 17:48 No procedures done that require assistance. dsf 18:03 Patient moved to Admit Hold [facility] 06/20 10:54 T-Sheet-- Draft Copy was scanned into Pops and attached to record. gb 10:54 ECG/EKG was scanned into [employer] and attached to record. gb 10:54 Rhythm Strip was scanned into [employer] and attached to record. gb Administered Medications: 06/19 12:58 Drug: Piperacillin-Tazobactam 3.375 grams [piperacillin-tazobactam 3.375 gram dsf intravenous solution] Route: IVPB; Infused Over: 30 mins; Site: left antecubital; 13:56 Follow up: IV Status: Completed infusion; IV Intake: 50ml dsf 13:56 Drug: NS 0.9% 500 ml [sodium chloride 0.9 % injection solution] Route: IV; Rate: bolus; dsf Site: left antecubital; 14:54 Follow up: IV Status: Infusion discontinued; IV Intake: 200ml dsf 14:52 Drug: Furosemide 40 mg [furosemide 10 mg/mL injection solution (4 mL)] Route: IVP; dsf Site: left antecubital; Attachments: 10:54 Rhythm Strip gb Intake: 06/19 13:56 IV: 50.00ml; Total: 50.00ml. dsf 14:54 IV: 200.00ml; Total: 250.00ml. dsf Output: 16:33 Urine: 300.00ml (Voided); Total: 300.00ml. dsf 16:34 Urine: 175.00ml (Voided); Total: 475.00ml. dsf 16:34 Urine: 175.00ml (Voided); Total: 650.00ml. dsf 17:32 Urine: 225.00ml (Voided); Total: 875.00ml. dsf RT: 14:59 ABG's drawn from right radial artery allens test done and positive pressure held for 5 ac1 minutes no bleeding noted pressure bandage applied specimen sent pt. tolerated well. Order Results: Lab Order: B-Type Natiuretic Peptide; SPEC'M 06/19/16 11:44 Test: BRAIN NATRIURETIC PEPTIDE; Value: 372; Range: <100; Abnormal: Above high normal; Units: PG/ML; Status: F Lab Order: Basic Metabolic Profile; SPEC'M 06/19/16 11:44 Test: GLUCOSE, FASTING; Value: 241; Range: 83-110; Abnormal: Above high normal; Units: MG/DL; Status: F Test: BLOOD UREA NITROGEN; Value: 22; Range: 7-18; Abnormal: Above high normal; Units: MG/DL; Status: F Test: CREATININE FOR GFR; Value: 1.68; Range: 0.70-1.30; Abnormal: Above high normal; Units: MG/DL; Status: F Test: GLOMERULAR FILTRATION RATE; Value: 42.2; Range: >42; Status: F Test: SODIUM LEVEL; Value: 141; Range: 136-145; Units: MEQ/L; Status: F Test: POTASSIUM SERUM; Value: 4.2; Range: 3.5-5.1; Units: MEQ/L; Status: F Test: CHLORIDE LEVEL; Value: 105; Range: 98-107; Units: MEQ/L; Status: F Test: CARBON DIOXIDE LEVEL; Value: 27; Range: 21-32; Units: MEQ/L; Status: F Test: ANION GAP; Value: 9; Range: 8-16; Units: MEQ/L; Status: F Test: CALCIUM LEVEL; Value: 8.1; Range: 8.8-10.2; Abnormal: Below low normal; Units: MG/DL; Status: F Test Note: ; Units are mL/min/1.73 m2 Chronic Kidney Disease Staging per NKF: Stage I & II GFR >=60 Normal to Mildly Decreased Stage III GFR 30-59 Moderately Decreased Stage IV GFR 15-29 Severely Decreased Stage V GFR <15 Very Little GFR Left ESRD GFR <15 on [employer] Lab Order: CBC with Diff; SPEC'M 06/19/16 11:44 Test: WHITE BLOOD COUNT; Value: 6.8; Range: 4.0-10.0; Units: K/mm3; Status: F Test: RED BLOOD COUNT; Value: 3.34; Range: 4.30-6.10; Abnormal: Below low normal; Units: M/mm3; Status: F Test: HEMOGLOBIN; Value: 11.4; Range: 14.0-18.0; Abnormal: Below low normal; Units: g/dl; Status: F Test: HEMATOCRIT; Value: 34.2; Range: 42.0-52.0; Abnormal: Below low normal; Units: %; Status: F Test: MEAN CORPUSCULAR VOLUME; Value: 102.2; Range: 80.0-96.0; Abnormal: Above high normal; Units: fl; Status: F Test: MEAN CORPUSCULAR HEMOGLOBIN; Value: 34.2; Range: 27.0-33.0; Abnormal: Above high normal; Units: pg; Status: F Test: MEAN CORPUSCULAR HGB CONC; Value: 33.5; Range: 32.0-36.5; Units: g/dl; Status: F Test: RED CELL DISTRIBUTION WIDTH; Value: 13.1; Range: 11.5-14.5; Units: %; Status: F Test: PLATELET COUNT, AUTOMATED; Value: 152; Range: 150-450; Units: k/mm3; Status: F Test: NEUTROPHILS %; Value: 73.5; Range: 36.0-66.0; Abnormal: Above high normal; Units: %; Status: F Test: LYMPH %; Value: 20.7; Range: 24.0-44.0; Abnormal: Below low normal; Units: %; Status: F Test: MONO %; Value: 2.8; Range: 0.0-5.0; Units: %; Status: F Test: EOS %; Value: 1.2; Range: 0.0-3.0; Units: %; Status: F Test: BASO %; Value: 0.3; Range: 0.0-1.0; Units: %; Status: F Test: LARGE UNSTAINED CELL %; Value: 1.6; Range: 0.0-4.0; Units: %; Status: F Test: NEUTROPHILS #; Value: 5.0; Range: 1.8-7.7; Units: K/mm3; Status: F Test: LYMPH #; Value: 1.4; Range: 1.5-4.5; Abnormal: Below low normal; Units: K/mm3; Status: F Test: MONO #; Value: 0.2; Range: 0.0-0.8; Units: K/mm3; Status: F Test: EOS #; Value: 0.1; Range: 0.0-0.50; Units: K/mm3; Status: F Test: BASO #; Value: 0.0; Range: 0.0-0.2; Units: K/mm3; Status: F Test: LARGE UNSTAINED CELL #; Value: 0.1; Range: 0.0-0.4; Units: K/mm3; Status: F Lab Order: Cardiac Injury Profile; [facility] 06/19/16 11:44 Test: CPK CREATINE PHOSPHOKINASE; Value: 63; Range: 39-308; Units: U/L; Status: F Test: CK-MB VALUE MASS; Value: 3.2; Range: 0.0-3.6; Units: NG/ML; Status: F Test: MB/CK RELATIVE INDEX; Value: 5.07; Range: < OR =4; Abnormal: Above high normal; Status: F Test Note: ; DIAGNOSIS CRITERIA MMB ng/ml Relative Index (RI) NON-AMI < or = 5 N/A CHAMBERLAIN ZONE > 5 < or = 4 AMI > 5 > 4 Lab Order: Troponin; [facility]06/19[facility]16 11:44 Test: TROPONIN I; Value: 0.13; Range: < 0.10; Abnormal: Above high normal; Units: NG/ML; Status: F Test Note: ; Troponin I Reference Interval for Siemens [place] LOCI: 99th Percentile= 0.00-0.045 ng/ml Risk Stratification: <= 0.10 ng/ml Decreased Risk for Adverse Clinical Events. 0.10-1.50 ng/ml Increased Risk for Adverse Clinical Events. Evaluation of additional criterion and/or repeat testing in 2-6 hours is suggested to rule out myocardial damage. >= 1.50 ng/ml Indicative of Myocardial Injury. Lab Order: Lactic Acid (Chamberlain tube on ice); [facility]06/19/16 11:44 Test: LACTIC ACID LEVEL, LACTATE; Value: 2.1; Range: 0.4-2.0; Abnormal: Above high normal; Units: MMOL/L; Status: F Lab Order: Cardiac Injury Profile: Repeat at 15:30; [facility]06/19[facility]16 15:22 Test: CPK CREATINE PHOSPHOKINASE; Value: 98; Range: 39-308; Units: U/L; Status: F Test: CK-MB VALUE MASS; Value: 3.9; Range: 0.0-3.6; Abnormal: Above high normal; Units: NG/ML; Status: F Test: MB/CK RELATIVE INDEX; Value: 3.97; Range: < OR =4; Status: F Test Note: ; DIAGNOSIS CRITERIA MMB ng/ml Relative Index (RI) NON-AMI < or = 5 N/A CHAMBERLAIN ZONE > 5 < or = 4 AMI > 5 > 4 Lab Order: -Arterial Blood Gas; SPEC'M 06/19/16 15:11 Test: ABG pH (ARTERIAL); Value: 7.511; Range: 7.350-7.450; Abnormal: Above high normal; Units: UNITS; Status: F Test: ABG PARTIAL PRESSURE CO2; Value: 31.4; Range: 35.0-45.0; Abnormal: Below low normal; Units: mmHg; Status: F Test: ABG PARTIAL PRESSURE O2; Value: 69.3; Range: 75.0-100.0; Abnormal: Below low normal; Units: mmHg; Status: F Test: ABG TOTAL CO2; Value: 25.5; Range: 23.0-31.0; Units: MEQ/L; Status: F Test: ABG HCO3; Value: 24.6; Range: 22.0-26.0; Units: MEQ/L; Status: F Test: ABG BASE EXCESS; Value: 2.1; Range: -2.0-2.0; Abnormal: Above high normal; Status: F Test: ABG STANDARD HCO3; Value: 26.3; Range: 22.0-26.0; Abnormal: Above high normal; Units: MEQ/L; Status: F Test: ABG O2 SATURATION; Value: 95.1; Range: 95.0-99.0; Units: %; Status: F Test: ABG DEVICE; Value: NASAL HORTENSIA; Status: F Lab Order: TROPONIN; SPEC'M 06/19/16 15:22 Test: TROPONIN I; Value: 0.14; Range: < 0.10; Abnormal: Above high normal; Units: NG/ML; Status: F Test Note: ; Troponin I Reference Interval for Siemens [place] LOCI: 99th Percentile= 0.00-0.045 ng/ml Risk Stratification: <= 0.10 ng/ml Decreased Risk for Adverse Clinical Events. 0.10-1.50 ng/ml Increased Risk for Adverse Clinical Events. Evaluation of additional criterion and/or repeat testing in 2-6 hours is suggested to rule out myocardial damage. >= 1.50 ng/ml Indicative of Myocardial Injury. Lab Order: LACTIC ACID LEVEL, LACTATE; SPEC'M 06/19/16 17:32 Test: LACTIC ACID LEVEL, LACTATE; Value: 2.1; Range: 0.4-2.0; Abnormal: Above high normal; Units: MMOL/L; Status: F Radiology Order: Chest, 1 View Test: Chest, 1 View REASON FOR EXAMINATION: Cough; Chest one-view; ; HISTORY: Cough; ; Comparison: 05/11/2016; ; Patchy density is present in the left lower lobe consistent with an infiltrate.; The right lung is clear. The cardiac silhouette is enlarged. The pulmonary; vasculature is normal in appearance. A cardiac pacemaker is present.; ; Impression:; 1. Left lower lobe infiltrate.; 2. Cardiomegaly.; ; ; Signed by; Gianfranco Garcia MD 06/19/2016 12:11 P; Outcome: 16:27 Decision to Hospitalize by Provider. fg 17:48 No special radiology studies were completed. dsf 18:34 Discharge Assessment: Patient awake, alert and oriented x 3. No cognitive and/or dsf functional deficits noted. Patient verbalized understanding of disposition instructions. patient administered narcotics - no. The following High Risk Discharge criteria are identified: None. Admitted to PCU accompanied by nurse, accompanied by tech, via stretcher, with oxygen, on monitor, with chart. Condition: stable. Property :Personal belongings accompany Pt. 18:34 Patient left the ED. dsf Signatures: Dispatcher [employer] EDNancy Malin RN Annamarie Barrow RN RN mcp Barnhardt, Gloria, Reg Reg gb Amaury Reis, Reg Reg lg Americo,Mariam,RT RT ac1 Delaney Yao RN RN ck1 Sun AlejoRN RN dsf Cynthia Ventura RN RN [id number] Yonatan Carias, SECY SECY jrd Nuha Tyson, SECY SECY rs6 Jessica San MD MD fg Corrections: (The following items were deleted from the chart) 11:20 11:14 Acuity: SUZY Level 3 dsf dsf 12:59 12:59 General: Appears in no apparent distress, to be sleeping. dsf dsf 14:13 14:12 Temp 99.8F Rectal; rs6 rs6 17:33 17:32 Derm: Skin is pink, warm & dry. dsf dsf Chart Complete MTDD
--- NOTE | 2016-06-21 19:36 | EDDOCDS ---
Physician Documentation [facility] Name: Rickey Ibanez Age: 81 yrs Sex: Male : 1935 Arrival Date: 06/19/2016 Time: 11:12 Bed Admit Hold Private MDArmando Roman Disposition: 06/19/16 16:27 Hospitalization ordered by Palak Brown for Inpatient Admission. Preliminary diagnosis are Pneumonia, unspecified organism, Shortness of breath. - [facility] - Status is Inpatient Admission. dsf - Condition is Stable. - Problem is new. - Symptoms have improved. Historical: - Allergies: no known allergies; - Home Meds: 1. multivitamin Oral tab 1 tablet daily (Last dose: 06/19/2016 07:36) 2. Plavix 75 mg Oral tab 1 tab once daily (Last dose: 06/19/2016 08:29) 3. allopurinol 100 mg Oral tab 1 tab once daily (Last dose: 06/19/2016 08:29) 4. amlodipine 5 mg Oral tab 1 tab once daily (Last dose: 06/19/2016 08:29) 5. atorvastatin 40 mg oral tab 1 tab nightly (Last dose: 06/18/2016) 6. Tums Ultra 400 mg (1,000 mg) oral chew twice a day (Last dose: 06/19/2016 08:29) 7. Tylenol 325 mg Oral tab 2 tabs every 4 hours 8. carvedilol 6.25 mg oral tab 1 tab 2 times per day (Last dose: 06/19/2016 08:29) 9. Novolog 100 unit/mL Sub-Q soln 8 unit three times a day (Last dose: 06/19/2016 07:36) 10. Eliquis 5 mg oral tab 1 tab 2 times per day (Last dose: 06/19/2016 08:29) 11. Vitamin D Oral 50,000 unit weekly 12. finasteride 5 mg oral tab 1 tab once daily (Last dose: 06/18/2016) 13. hydralazine 10 mg Oral tab 1 tab every 8 hours (Last dose: 06/19/2016 06:28) 14. Vitamin B-12 1,000 mcg Oral TbER daily (Last dose: 06/19/2016 08:29) 15. Levemir 100 unit/mL subcutaneous soln 26 unit nightly 16. tamsulosin 0.4 mg oral cp24 1 cap once daily (Last dose: 06/18/2016) 17. isosorbide mononitrate 30 mg Oral Tb24 1 tab once daily (Last dose: 06/19/2016 08:29) 18. levothyroxine 50 mcg Oral cap 1 cap once daily (Last dose: 06/19/2016 10:16) 19. senna 8.6 mg oral cap 1 caps once daily (Last dose: 06/19/2016 08:29) 20. Augmentin 875-125 mg Oral tab 1 tab every 12 hours stop on 06/20/16 (Last dose: 06/19/2016 08:29) 21. NitroQuick 0.4 mg SL subl every 5 minutes (Last dose: Unknown) 22. Dulcolax (bisacodyl) 10 mg Rectal supp 1 suppository once daily (Last dose: Unknown) 23. Milk of Magnesia Oral 10 mL as needed (Last dose: Unknown) 24. fleets 1 unit as needed (Last dose: Unknown) - PMHx: Atrial Fib; BPH; CAD; carotid stenosis; CHF; Chronic Renal Insufficiency; CVA; Diabetes - NIDDM: controlled; Pneumonia; DVT; hyperlipidemia; Hypertension; Implanted AICD; [place]; PE; - PSHx: Carotid surgery (2013); Cataract Surgery- Bilateral; - Social history: No barriers to communication noted, The patient speaks fluent Czech, Speaks appropriately for age, Smoking status: unknown if patient ever smoked tobacco. - Family history: Not pertinent. - : The pt / caregiver states he / she is on anticoagulants: Plavix. Neetu Home medication list is obtained from the facility [facility]. - Exposure Risk Screening:: None identified. Vital Signs: 06/19 11:18 BP 160 / 70 (auto/); dsf 11:18 Pulse 78 MON; Pulse Ox 98% ; dsf 11:20 BP 160 / 70 RA Supine (auto/lg); Pulse 78; Resp 20; Temp 97.3(O); Pulse Ox 99% on duo rs6 neb mask; Pain 0/10; 11:23 Temp 99.8(TE); Weight 79.47 kg / 175.2 lbs (M); Height 69 in. (175.26 cm) (M); rs6 11:33 BP 127 / 60 (auto/); dsf 11:33 Pulse 74 MON; Pulse Ox 98% ; dsf 11:48 BP 126 / 63 (auto/); dsf 11:48 Pulse 74 MON; Pulse Ox 92% ; dsf 12:03 BP 127 / 60 (auto/); dsf 12:03 Pulse 68 MON; Pulse Ox 93% ; dsf 12:18 BP 134 / 64 (auto/); dsf 12:18 Pulse 66 MON; Pulse Ox 94% ; dsf 12:33 BP 126 / 58 (auto/); dsf 12:34 Pulse 66 MON; Pulse Ox 95% ; dsf 12:48 BP 147 / 65 (auto/); dsf 12:49 Pulse 62 MON; Resp 21; Pulse Ox 95% on 4 lpm NC; dsf 13:03 BP 137 / 61 (auto/); dsf 13:04 Pulse 60 MON; Pulse Ox 96% ; dsf 13:18 BP 125 / 61 (auto/); dsf 13:19 Pulse 58 MON; Pulse Ox 97% ; dsf 13:33 BP 118 / 58 (auto/); dsf 13:34 Pulse 56 MON; Pulse Ox 96% ; dsf 13:48 BP 131 / 61 (auto/); dsf 13:49 Pulse 58 MON; Pulse Ox 98% ; dsf 14:03 BP 147 / 67 (auto/); dsf 14:04 Pulse 58 MON; Pulse Ox 99% ; dsf 14:12 BP 147 / 67; Pulse 69; Resp 21; Temp 99.8(R); Pulse Ox 98% on R/A; rs6 14:18 BP 143 / 58 (auto/); dsf 14:19 Pulse 70 MON; Pulse Ox 98% ; dsf 14:33 BP 151 / 88 (auto/); dsf 14:34 Pulse 78 MON; Pulse Ox 95% ; dsf 15:03 BP 125 / 60 (auto/); dsf 15:04 Pulse 68 MON; Pulse Ox 92% ; dsf 15:32 BP 156 / 72 (auto/); dsf 15:32 Pulse 66 MON; Pulse Ox 97% ; dsf 15:48 BP 129 / 59 (auto/); dsf 15:49 Pulse 62 MON; Pulse Ox 95% ; dsf 16:03 BP 130 / 60 (auto/); dsf 16:04 Pulse 62 MON; Pulse Ox 95% ; dsf 16:18 BP 154 / 70 (auto/); dsf 16:20 Pulse 62 MON; Pulse Ox 95% ; dsf 16:33 BP 159 / 74 (auto/); dsf 16:34 Pulse 64 MON; Pulse Ox 97% ; dsf 16:47 Pulse 62 MON; Pulse Ox 97% ; dsf 16:48 BP 149 / 70 (auto/); dsf 17:03 BP 161 / 64 (auto/); dsf 17:04 Pulse 66 MON; Pulse Ox 96% ; dsf 17:33 Pulse 66 MON; Pulse Ox 94% ; dsf 17:33 BP 112 / 55 (auto/); dsf 17:44 BP 127 / 60 (auto/); Pulse 66; Resp 20; Temp 97.7(O); Pulse Ox 95% on 4 lpm NC; Pain dsf 0/10; 17:48 Pulse 66 MON; Pulse Ox 96% ; dsf 17:48 BP 166 / 74 (auto/); dsf 18:03 BP 152 / 70 (auto/); dsf 18:04 Pulse 66 MON; Pulse Ox 94% ; dsf 18:18 BP 148 / 63 (auto/); dsf 18:19 Pulse 64 MON; Resp 20; Pulse Ox 93% on 4 lpm NC; Pain 0/10; dsf 18:32 Temp 98.8(T); dsf 11:23 Body Mass Index 25.87 (79.47 kg, 175.26 cm) rs6 MDM: 11:40 -Blood Culture (Adults Only), peripheral from different site, or from device/port/PICC fg etc. if present ordered. 11:40 Laundry Folder/Pulse Ox/q 15 min VS ordered. fg 11:40 IV Saline Lock ordered. fg 11:40 Oxygen at 4L/Min NC or Home dosage ordered. fg 11:40 Rhythm Strip to chart ordered. fg 11:42 Chest, 1 View Ordered. EDMS 11:42 -Blood Culture Ordered. EDMS 11:42 B-Type Natiuretic Peptide Ordered. EDMS 11:42 Basic Metabolic Profile Ordered. EDMS 11:42 CBC with Diff Ordered. EDMS 11:42 Cardiac Injury Profile Ordered. EDMS 11:42 Troponin Ordered. EDMS 11:42 ECG WITH READING ER PHYS+CARDIAG ordered. EDMS 11:53 -Blood Culture (Adults Only), peripheral from different site, or from device/port/PICC jrd etc. if present complete. 11:54 BLOOD CULTURES Ordered. EDMS 12:39 Piperacillin-Tazobactam 3.375 grams IVPB once over 30 mins; dilute in 50mL of NS or D5W fg ordered. 12:40 BED REQUEST+ADM ordered. EDMS 13:20 Financial registration complete. lg 13:30 NS 0.9% 500 ml IV at bolus once ordered. fg 13:31 Lactic Acid (Chamberlain tube on ice) Ordered. EDMS 13:36 [facility] Payment Agreement was scanned into [employer] and attached to record. lg 13:37 Rectal Temp ordered. fg 13:37 Repeat EKG (put time details section) ordered. fg 13:38 Cardiac Injury Profile: Repeat at 15:30 Ordered. EDMS 13:50 Repeat EKG (put time details section) complete. jrd 13:53 ELECTROCARDIOGRAM ADULT ordered. EDMS 14:47 Furosemide 40 mg IVP once ordered. fg 14:49 Call Respiratory ordered. fg 14:50 -Arterial Blood Gas Ordered. EDMS 14:51 Call Respiratory complete. jrd 15:30 TROPONIN Ordered. EDMS 16:52 Admission / Observation Status ordered. EDMS 17:13 CONSISTENT CARBOHYDRATES ordered. EDMS 17:13 LACTIC ACID LEVEL, LACTATE Ordered. EDMS 17:13 CARDIAC MARKER PANEL Ordered. EDMS 17:57 SPUTUM CULTURE AND GRAM STAIN Ordered. EDMS 06/20 10:54 T-Sheet-- Draft Copy was scanned into [employer] and attached to record. gb 10:54 ECG/EKG was scanned into [employer] and attached to record. gb 10:54 Rhythm Strip was scanned into [employer] and attached to record. gb Administered Medications: 06/19 12:58 Drug: Piperacillin-Tazobactam 3.375 grams [piperacillin-tazobactam 3.375 gram dsf intravenous solution] Route: IVPB; Infused Over: 30 mins; Site: left antecubital; 13:56 Follow up: IV Status: Completed infusion; IV Intake: 50ml dsf 13:56 Drug: NS 0.9% 500 ml [sodium chloride 0.9 % injection solution] Route: IV; Rate: bolus; dsf Site: left antecubital; 14:54 Follow up: IV Status: Infusion discontinued; IV Intake: 200ml dsf 14:52 Drug: Furosemide 40 mg [furosemide 10 mg/mL injection solution (4 mL)] Route: IVP; dsf Site: left antecubital; Signatures: Dispatcher [employer] EDMS ReidjennifergingerSihrin mendietaa, Reg Reg gb Amaury Reis, Reg Reg lg Sun Alejo RN RN dsf Yonatan Carias, AISHA LUBRICATION SUPERVISOR d Jonathan Guzman RN RN [facility] Jessica San MD MD The chart was reviewed and I authenticate all verbal orders and agree with the evaluation and treatment provided.Corrections: (The following items were deleted from the chart) 15:03 13:45 ELECTROCARDIOGRAM ADULT ordered. EDMS EDMS 15:03 13:47 ELECTROCARDIOGRAM ADULT ordered. EDMS EDMS 15:30 13:46 TROPONIN ordered. EDMS EDMS Attachments: 13:36 [facility] Payment Agreement 06/20 10:54 T-Sheet-- Draft Copy 10:54 ECG/EKG Chart Complete MTDD
--- NOTE | 2016-06-21 19:36 | EDDOCDS ---
Physician Documentation [facility] Name: Rickey Ibanez Age: 81 yrs Sex: Male : 1935 Arrival Date: 06/19/2016 Time: 11:12 Bed Admit Hold Private MDArmando Roman Disposition: 06/19/16 16:27 Hospitalization ordered by Palak Brown for Inpatient Admission. Preliminary diagnosis are Pneumonia, unspecified organism, Shortness of breath. - [facility] - Status is Inpatient Admission. dsf - Condition is Stable. - Problem is new. - Symptoms have improved. Historical: - Allergies: no known allergies; - Home Meds: 1. multivitamin Oral tab 1 tablet daily (Last dose: 06/19/2016 07:36) 2. Plavix 75 mg Oral tab 1 tab once daily (Last dose: 06/19/2016 08:29) 3. allopurinol 100 mg Oral tab 1 tab once daily (Last dose: 06/19/2016 08:29) 4. amlodipine 5 mg Oral tab 1 tab once daily (Last dose: 06/19/2016 08:29) 5. atorvastatin 40 mg oral tab 1 tab nightly (Last dose: 06/18/2016) 6. Tums Ultra 400 mg (1,000 mg) oral chew twice a day (Last dose: 06/19/2016 08:29) 7. Tylenol 325 mg Oral tab 2 tabs every 4 hours 8. carvedilol 6.25 mg oral tab 1 tab 2 times per day (Last dose: 06/19/2016 08:29) 9. Novolog 100 unit/mL Sub-Q soln 8 unit three times a day (Last dose: 06/19/2016 07:36) 10. Eliquis 5 mg oral tab 1 tab 2 times per day (Last dose: 06/19/2016 08:29) 11. Vitamin D Oral 50,000 unit weekly 12. finasteride 5 mg oral tab 1 tab once daily (Last dose: 06/18/2016) 13. hydralazine 10 mg Oral tab 1 tab every 8 hours (Last dose: 06/19/2016 06:28) 14. Vitamin B-12 1,000 mcg Oral TbER daily (Last dose: 06/19/2016 08:29) 15. Levemir 100 unit/mL subcutaneous soln 26 unit nightly 16. tamsulosin 0.4 mg oral cp24 1 cap once daily (Last dose: 06/18/2016) 17. isosorbide mononitrate 30 mg Oral Tb24 1 tab once daily (Last dose: 06/19/2016 08:29) 18. levothyroxine 50 mcg Oral cap 1 cap once daily (Last dose: 06/19/2016 10:16) 19. senna 8.6 mg oral cap 1 caps once daily (Last dose: 06/19/2016 08:29) 20. Augmentin 875-125 mg Oral tab 1 tab every 12 hours stop on 06/20/16 (Last dose: 06/19/2016 08:29) 21. NitroQuick 0.4 mg SL subl every 5 minutes (Last dose: Unknown) 22. Dulcolax (bisacodyl) 10 mg Rectal supp 1 suppository once daily (Last dose: Unknown) 23. Milk of Magnesia Oral 10 mL as needed (Last dose: Unknown) 24. fleets 1 unit as needed (Last dose: Unknown) - PMHx: Atrial Fib; BPH; CAD; carotid stenosis; CHF; Chronic Renal Insufficiency; CVA; Diabetes - NIDDM: controlled; Pneumonia; DVT; hyperlipidemia; Hypertension; Implanted AICD; [place]; PE; - PSHx: Carotid surgery (2013); Cataract Surgery- Bilateral; - Social history: No barriers to communication noted, The patient speaks fluent Polish, Speaks appropriately for age, Smoking status: unknown if patient ever smoked tobacco. - Family history: Not pertinent. - : The pt / caregiver states he / she is on anticoagulants: Plavix. Neetu Home medication list is obtained from the facility [facility]. - Exposure Risk Screening:: None identified. Vital Signs: 06/19 11:18 BP 160 / 70 (auto/); dsf 11:18 Pulse 78 MON; Pulse Ox 98% ; dsf 11:20 BP 160 / 70 RA Supine (auto/lg); Pulse 78; Resp 20; Temp 97.3(O); Pulse Ox 99% on duo rs6 neb mask; Pain 0/10; 11:23 Temp 99.8(TE); Weight 79.47 kg / 175.2 lbs (M); Height 69 in. (175.26 cm) (M); rs6 11:33 BP 127 / 60 (auto/); dsf 11:33 Pulse 74 MON; Pulse Ox 98% ; dsf 11:48 BP 126 / 63 (auto/); dsf 11:48 Pulse 74 MON; Pulse Ox 92% ; dsf 12:03 BP 127 / 60 (auto/); dsf 12:03 Pulse 68 MON; Pulse Ox 93% ; dsf 12:18 BP 134 / 64 (auto/); dsf 12:18 Pulse 66 MON; Pulse Ox 94% ; dsf 12:33 BP 126 / 58 (auto/); dsf 12:34 Pulse 66 MON; Pulse Ox 95% ; dsf 12:48 BP 147 / 65 (auto/); dsf 12:49 Pulse 62 MON; Resp 21; Pulse Ox 95% on 4 lpm NC; dsf 13:03 BP 137 / 61 (auto/); dsf 13:04 Pulse 60 MON; Pulse Ox 96% ; dsf 13:18 BP 125 / 61 (auto/); dsf 13:19 Pulse 58 MON; Pulse Ox 97% ; dsf 13:33 BP 118 / 58 (auto/); dsf 13:34 Pulse 56 MON; Pulse Ox 96% ; dsf 13:48 BP 131 / 61 (auto/); dsf 13:49 Pulse 58 MON; Pulse Ox 98% ; dsf 14:03 BP 147 / 67 (auto/); dsf 14:04 Pulse 58 MON; Pulse Ox 99% ; dsf 14:12 BP 147 / 67; Pulse 69; Resp 21; Temp 99.8(R); Pulse Ox 98% on R/A; rs6 14:18 BP 143 / 58 (auto/); dsf 14:19 Pulse 70 MON; Pulse Ox 98% ; dsf 14:33 BP 151 / 88 (auto/); dsf 14:34 Pulse 78 MON; Pulse Ox 95% ; dsf 15:03 BP 125 / 60 (auto/); dsf 15:04 Pulse 68 MON; Pulse Ox 92% ; dsf 15:32 BP 156 / 72 (auto/); dsf 15:32 Pulse 66 MON; Pulse Ox 97% ; dsf 15:48 BP 129 / 59 (auto/); dsf 15:49 Pulse 62 MON; Pulse Ox 95% ; dsf 16:03 BP 130 / 60 (auto/); dsf 16:04 Pulse 62 MON; Pulse Ox 95% ; dsf 16:18 BP 154 / 70 (auto/); dsf 16:20 Pulse 62 MON; Pulse Ox 95% ; dsf 16:33 BP 159 / 74 (auto/); dsf 16:34 Pulse 64 MON; Pulse Ox 97% ; dsf 16:47 Pulse 62 MON; Pulse Ox 97% ; dsf 16:48 BP 149 / 70 (auto/); dsf 17:03 BP 161 / 64 (auto/); dsf 17:04 Pulse 66 MON; Pulse Ox 96% ; dsf 17:33 Pulse 66 MON; Pulse Ox 94% ; dsf 17:33 BP 112 / 55 (auto/); dsf 17:44 BP 127 / 60 (auto/); Pulse 66; Resp 20; Temp 97.7(O); Pulse Ox 95% on 4 lpm NC; Pain dsf 0/10; 17:48 Pulse 66 MON; Pulse Ox 96% ; dsf 17:48 BP 166 / 74 (auto/); dsf 18:03 BP 152 / 70 (auto/); dsf 18:04 Pulse 66 MON; Pulse Ox 94% ; dsf 18:18 BP 148 / 63 (auto/); dsf 18:19 Pulse 64 MON; Resp 20; Pulse Ox 93% on 4 lpm NC; Pain 0/10; dsf 18:32 Temp 98.8(T); dsf 11:23 Body Mass Index 25.87 (79.47 kg, 175.26 cm) rs6 MDM: 11:40 -Blood Culture (Adults Only), peripheral from different site, or from device/port/PICC fg etc. if present ordered. 11:40 Mold Engraver/Pulse Ox/q 15 min VS ordered. fg 11:40 IV Saline Lock ordered. fg 11:40 Oxygen at 4L/Min NC or Home dosage ordered. fg 11:40 Rhythm Strip to chart ordered. fg 11:42 Chest, 1 View Ordered. EDMS 11:42 -Blood Culture Ordered. EDMS 11:42 B-Type Natiuretic Peptide Ordered. EDMS 11:42 Basic Metabolic Profile Ordered. EDMS 11:42 CBC with Diff Ordered. EDMS 11:42 Cardiac Injury Profile Ordered. EDMS 11:42 Troponin Ordered. EDMS 11:42 ECG WITH READING ER PHYS+CARDIAG ordered. EDMS 11:53 -Blood Culture (Adults Only), peripheral from different site, or from device/port/PICC jrd etc. if present complete. 11:54 BLOOD CULTURES Ordered. EDMS 12:39 Piperacillin-Tazobactam 3.375 grams IVPB once over 30 mins; dilute in 50mL of NS or D5W fg ordered. 12:40 BED REQUEST+ADM ordered. EDMS 13:20 Financial registration complete. lg 13:30 NS 0.9% 500 ml IV at bolus once ordered. fg 13:31 Lactic Acid (Chamberlain tube on ice) Ordered. EDMS 13:36 [facility] Payment Agreement was scanned into [employer] and attached to record. lg 13:37 Rectal Temp ordered. fg 13:37 Repeat EKG (put time details section) ordered. fg 13:38 Cardiac Injury Profile: Repeat at 15:30 Ordered. EDMS 13:50 Repeat EKG (put time details section) complete. jrd 13:53 ELECTROCARDIOGRAM ADULT ordered. EDMS 14:47 Furosemide 40 mg IVP once ordered. fg 14:49 Call Respiratory ordered. fg 14:50 -Arterial Blood Gas Ordered. EDMS 14:51 Call Respiratory complete. jrd 15:30 TROPONIN Ordered. EDMS 16:52 Admission / Observation Status ordered. EDMS 17:13 CONSISTENT CARBOHYDRATES ordered. EDMS 17:13 LACTIC ACID LEVEL, LACTATE Ordered. EDMS 17:13 CARDIAC MARKER PANEL Ordered. EDMS 17:57 SPUTUM CULTURE AND GRAM STAIN Ordered. EDMS 06/20 10:54 T-Sheet-- Draft Copy was scanned into [employer] and attached to record. gb 10:54 ECG/EKG was scanned into [employer] and attached to record. gb 10:54 Rhythm Strip was scanned into [employer] and attached to record. gb Administered Medications: 06/19 12:58 Drug: Piperacillin-Tazobactam 3.375 grams [piperacillin-tazobactam 3.375 gram dsf intravenous solution] Route: IVPB; Infused Over: 30 mins; Site: left antecubital; 13:56 Follow up: IV Status: Completed infusion; IV Intake: 50ml dsf 13:56 Drug: NS 0.9% 500 ml [sodium chloride 0.9 % injection solution] Route: IV; Rate: bolus; dsf Site: left antecubital; 14:54 Follow up: IV Status: Infusion discontinued; IV Intake: 200ml dsf 14:52 Drug: Furosemide 40 mg [furosemide 10 mg/mL injection solution (4 mL)] Route: IVP; dsf Site: left antecubital; Signatures: Dispatcher [employer] EDMS ReidjennifergingerShirin mendietaa, Reg Reg gb Amaury Reis, Reg Reg lg Sun Alejo RN RN dsf Yonatan Carias, AISHA CHIEF OPERATOR d Jonathan Guzman RN RN [facility] Jessica San MD MD The chart was reviewed and I authenticate all verbal orders and agree with the evaluation and treatment provided.Corrections: (The following items were deleted from the chart) 15:03 13:45 ELECTROCARDIOGRAM ADULT ordered. EDMS EDMS 15:03 13:47 ELECTROCARDIOGRAM ADULT ordered. EDMS EDMS 15:30 13:46 TROPONIN ordered. EDMS EDMS Attachments: 13:36 [facility] Payment Agreement 06/20 10:54 T-Sheet-- Draft Copy 10:54 ECG/EKG Chart Complete MTDD
--- NOTE | 2016-06-21 19:51 | PHACANCOPD ---
PHARMACY VANCOMYCIN DOSING Pt Demographics Demographics Patient Age:81 , Weight:79.200 , Gender: male Adjusted Body Weight Date: 06/21/16, Adjusted Body Weight: Kg Events Past 24 Hours Events Past 24 Hours: YES: Other (06/19/16 CXR LLL INFILTRATE), Pending Diagnostics Vancomycin Vancomycin indication: PN Vancomycin Target Ranges: 10-20 mcg/ml Vancomycin Load Y/N: No Load Dose Date Time Vancomycin Load Dose: Date: Time: Vancomycin Dose Date: 06/21/16. Current Vancomycin Dose: [1G IV Q24H] Intermittent Dosing?: No Labs Labs Item Value Date Time White Blood Count 6.9 K/mm3 06/21/16 0530 White Blood Count 6.5 K/mm3 06/20/16 0515 White Blood Count 6.8 K/mm3 06/19/16 1144 Creatinine 1.90 MG/DL H 06/21/16 0624 Creatinine 1.83 MG/DL H 06/20/16 0515 Lactic Acid Level 2.1 MMOL/L H 06/19/16 1732 Micro Microbiology 06/19/16 Blood Culture - Preliminary, Resulted No Growth after 48 hours. All Specime... 06/19/16 Blood Culture - Preliminary, Resulted No Growth after 48 hours. All Specime... Creatinine Clearance Date:06/21/16. Estimated Creatinine Clearance: [31.5 ml/min]. Pending Labs Vancomycin trough scheduled 06/24/16 @ 1500 Assessment and Plan Maintaining Current Dose?: Yes Reason for dose change: No Dose Change Pharmacist Note Pharmacist Note Date: 06/21/16. Pharmacist note: Day #1 empiric zosyn and vancomycin initiated at 1g IV Q24H for the treatment of pneumonia - aiming for a goal trough of 10- 20 mcg/ml. PMH negative for MRSA, but positive for vanco use here at [facility], and the patient is a resident from [facility]. WBC is currently WNL, and patient has been afebrile for past 24 hours. Scr is elevated at 1.9 with a baseline scr of ~ 1.54. Chest x-ray from 06/19 showed LLL infiltrate. A trough has been scheduled , prior to the 4th dose. We will continue to monitor and make dose adjustments as needed. [facility] Jun 21, 2016 19:51
[2016-06-21] MEDS: ATORVASTATIN 20 MG TAB PO SCH (20:18)
[2016-06-21] MEDS: TAMSULOSIN 0.4 MG CAP PO SCH (20:18)
[2016-06-21] MEDS: FINASTERIDE 5 MG TAB PO SCH (20:18)
[2016-06-21] MEDS: LEVEMIR (INSULIN DETEMIR) 1 UNITS/0.01ML SC SCH (20:19)
[2016-06-21 20:30] VITALS: BP 144/70
[2016-06-21] MEDS ORDERED: CEPACOL LOZENGE PO PRN (23:00)
[2016-06-22] MEDS: IPRATROPIUM 0.5MG/ALBUTEROL 2.5MG INH SOL UD 3ML (DUONEB)(J7620) NEB SCH ×4 (01:18→20:00)
[2016-06-22] MEDS: PIPERACILLIN/TAZOBACTAM SOD 3.375 GM in D5W MINI-BAG PLUS 50 ML IV SCH ×4 (05:01→23:34)
[2016-06-22 05:30] LABS: MEAN CORPUSCULAR HEMOGLOBIN 33.6 pg (27.0-33.0); MEAN CORPUSCULAR HGB CONC 32.7 g/dl (32.0-36.5); MEAN CORPUSCULAR VOLUME 102.8 fl (80.0-96.0); WHITE BLOOD COUNT 5.8 K/mm3 (4.0-10.0)
[2016-06-22 05:45] LABS: ALBUMIN 1.9 GM/DL (3.2-5.2); CALCIUM LEVEL 8.2 MG/DL (8.8-10.2); CREATININE FOR GFR 1.68 MG/DL (0.70-1.30); GLOMERULAR FILTRATION RATE 42.2 (>42); MAGNESIUM LEVEL 1.9 MG/DL (1.8-2.4); PHOSPHORUS LEVEL 2.3 MG/DL (2.5-4.9); POTASSIUM SERUM 3.7 MEQ/L (3.5-5.1)
[2016-06-22 06:00] VITALS: BP 180/70
[2016-06-22] MEDS: amLODIPine 5 MG TAB PO SCH (06:11)
[2016-06-22] MEDS: ISOSORBIDE DIN. (ISORDIL) 30 MG TAB PO SCH (06:12)
[2016-06-22] MEDS: LEVOTHYROXINE 0.05 MG TAB (50 MCG) PO SCH (08:16)
[2016-06-22] MEDS: MULTIVITAMINS/MINERALS THERAP 1 TAB PO SCH (08:16)
[2016-06-22] MEDS: CYANOCOBALAMIN 500 MCG TAB PO SCH (08:16)
[2016-06-22] MEDS: CALCIUM CARBONATE 500 MG CHEW U/D PO SCH ×2 (08:16→20:36)
[2016-06-22] MEDS: CLOPIDOGREL 75 MG TAB PO SCH (08:16)
[2016-06-22] MEDS: ALLOPURINOL 100 MG TAB PO SCH (08:16)
[2016-06-22] MEDS: APIXABAN 5 MG TAB (ELIQUIS) PO SCH ×2 (08:16→20:36)
[2016-06-22] MEDS: SENOKOT S TAB PO SCH (08:16)
[2016-06-22] MEDS: HumaLOG INSULIN (NovoLOG) PER UNIT SC SCH ×4 (08:17→20:28)
[2016-06-22] MEDS: CARVedilol 6.25 MG TAB PO SCH ×2 (08:17→20:36)
[2016-06-22 08:30] VITALS: BP 134/60
[2016-06-22 09:15] VITALS: BP 164/72
[2016-06-22 10:00] VITALS: BP 118/60
--- NOTE | 2016-06-22 10:40 | IPNPDOC ---
Assessment/Plan Date Seen The patient was seen on 06/22/16. Family Medicine Attending Note: I saw and examined Mr. Ibanez, discussed with VANNESSA Mariano. Agree with their note as documented. 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 06/21 - Due to concern for HCAP PN, Rocephin, changed to more appropriate coverage with Zosyn, Vanco. D2 (2) Heart failure, systolic and diastolic, acute on chronic Onset Date: 04/18/2014 Status: Chronic Response to Treatment: Improving Discussed With: Patient Problem Specific Plan: Monitor Clinically Problem Text: appears compensated, his Lasix IV was stopped 06/21. Enc FR, daily weights. (3) Cellulitis of left foot Status: Acute Response to Treatment: Improving Problem Specific Plan: Monitor Clinically Problem Text: On Zosyn, Vanco. pt with black escar. Will obtain xray today, consider surgical consult for removal of the escar. (4) CKD (chronic kidney disease) stage 3, GFR 30-59 ml/min Status: Chronic Response to Treatment: Stable Problem Specific Plan: Monitor Clinically Problem Text: Baseline Scr 1.5 (5) Elevated troponin I level Status: Chronic Response to Treatment: Stable Problem Specific Plan: Monitor Clinically Problem Text: Likelt d/t CKD. (6) Hypertension Status: Chronic Response to Treatment: Stable Problem Text: Pressures stable. (7) CAD (coronary artery disease) Onset Date: 04/18/2014 Status: Chronic Response to Treatment: Stable Problem Specific Plan: Monitor Clinically Problem Text: Cont with Plavix, Statin, Coreg. (8) DM2 (diabetes mellitus, type 2) Status: Chronic Response to Treatment: Stable Problem Specific Plan: Monitor Clinically Plan / VTE VTE Prophylaxis Ordered?: Yes Subjective Review of Systems CC/HPI Pt this morning feeling as though his breathing is better. he continues to have pain in his left foot, great toe. redness does appear to be less at this time however. General: Denies: Fatigue Constitutional: Denies: Chills, Fever Skin: Denies: Lesions, Rash Pulmonary: Reports: Cough, Dyspnea Cardiovascular: Denies: Chest Pain, Palpitations Gastrointestinal: Denies: Diarrhea, Nausea, Vomiting Neurological: Reports: Weakness Psych: Reports: Mood Normal Objective Physical Examination General Exam: Positive: Alert, Cooperative, No Acute Distress ENT Exam: Positive: Atraumatic, Mucous membr. moist/pink Chest Exam: Positive: Diminished, Negative: Rhonchi, Wheezing Heart Exam: Positive: Normal S1, Normal S2, Rate Normal Abdomen Exam: Positive: Normal bowel sounds, Soft, Negative: Tenderness Extremity Exam: Positive: Other (R great toe, second toe with skin breakdown, escar in place, surrounding erythema, tenderness, warmth, warmth, erythema, tenderness extend into the forefoot), Tenderness, Negative: Edema Vital Signs/I&O Vital Signs Date Time Temp Pulse Resp B/P Pulse Ox O2 Delivery O2 Flow Rate FiO2 06/22/16 08:17 67 134/60 06/22/16 07:21 Room Air 06/22/16 06:00 96.8 20 95 06/21/16 08:00 2.0 I&O- Last 24 Hours up to 6 AM 06/22/16 06:00 Intake Total 825 ml Output Total 1025 ml Balance -200 ml Laboratory Data Labs 24H Laboratory Tests 2 06/21/16 12:02: Bedside Glucose (Misc Panel) 255H 06/21/16 16:46: Bedside Glucose (Misc Panel) 288H 06/21/16 20:06: Bedside Glucose (Misc Panel) 297H 06/22/16 05:21: Albumin 1.9L, Blood Urea Nitrogen 32H, Creatinine 1.68H, Sodium Level 142, Potassium Level 3.7, Chloride Level 105, Carbon Dioxide Level 26, Anion Gap 11, Calcium Level 8.2L, Glomerular Filtration Rate 42.2, Magnesium Level 1.9, Phosphorus Level 2.3L CBC/BMP Laboratory Tests 06/22/16 05:21 Anion Gap 11, Red Blood Count 3.31 L, Mean Corpuscular Volume 102.8 H, Mean Corpuscular Hemoglobin 33.6 H, Mean Corpuscular Hemoglobin Concent 32.7, Red Cell Distribution Width 13.0 FSBS Laboratory Tests Test 06/21/16 12:02 06/21/16 16:46 06/21/16 20:06 Range/Units Bedside Glucose (Misc Panel) 255 288 297 83-110 MG/DL Microbiology Microbiology 06/19/16 Blood Culture - Preliminary, Resulted No Growth after 48 hours. All Specime... 06/19/16 Blood Culture - Preliminary, Resulted No Growth after 48 hours. All Specime... GONZÁLEZ CERNA PA-C Jun 22, 2016 10:39 Brian Pichardo MD Jun 22, 2016 22:50
[2016-06-22 13:50] VITALS: BP 142/72
[2016-06-22] MEDS: VANCOMYCIN HCL 1,000 MG, VIAL MATE ADAPTER 1 EACH in D5W 250 ML IV SCH (15:43)
[2016-06-22] MEDS: LEVEMIR (INSULIN DETEMIR) 1 UNITS/0.01ML SC SCH (20:35)
[2016-06-22] MEDS: ATORVASTATIN 20 MG TAB PO SCH (20:35)
[2016-06-22] MEDS: TAMSULOSIN 0.4 MG CAP PO SCH (20:36)
[2016-06-22] MEDS: FINASTERIDE 5 MG TAB PO SCH (20:36)
[2016-06-22 22:00] VITALS: BP 166/72
[2016-06-23] MEDS: IPRATROPIUM 0.5MG/ALBUTEROL 2.5MG INH SOL UD 3ML (DUONEB)(J7620) NEB SCH ×4 (02:00→19:17)
[2016-06-23] MEDS: PIPERACILLIN/TAZOBACTAM SOD 3.375 GM in D5W MINI-BAG PLUS 50 ML IV SCH ×4 (05:20→23:50)
[2016-06-23 05:42] LABS: CALCIUM LEVEL 7.9 MG/DL (8.8-10.2); CREATININE FOR GFR 1.49 MG/DL (0.70-1.30); GLOMERULAR FILTRATION RATE 48.4 (>42); MAGNESIUM LEVEL 1.9 MG/DL (1.8-2.4); PHOSPHORUS LEVEL 2.1 MG/DL (2.5-4.9); POTASSIUM SERUM 3.7 MEQ/L (3.5-5.1)
[2016-06-23 05:46] LABS: MEAN CORPUSCULAR HEMOGLOBIN 33.2 pg (27.0-33.0); MEAN CORPUSCULAR HGB CONC 33.1 g/dl (32.0-36.5); MEAN CORPUSCULAR VOLUME 100.2 fl (80.0-96.0); RED CELL DISTRIBUTION WIDTH 13.9 % (11.5-14.5); WHITE BLOOD COUNT 7.9 K/mm3 (4.0-10.0)
[2016-06-23 06:00] VITALS: BP 158/72
[2016-06-23] MEDS: HumaLOG INSULIN (NovoLOG) PER UNIT SC SCH ×4 (07:30→21:00)
[2016-06-23] MEDS: MULTIVITAMINS/MINERALS THERAP 1 TAB PO SCH (08:28)
[2016-06-23] MEDS: ALLOPURINOL 100 MG TAB PO SCH (08:28)
[2016-06-23] MEDS: APIXABAN 5 MG TAB (ELIQUIS) PO SCH ×2 (08:28→20:27)
[2016-06-23] MEDS: ISOSORBIDE DIN. (ISORDIL) 30 MG TAB PO SCH (08:28)
[2016-06-23] MEDS: SENOKOT S TAB PO SCH (08:28)
[2016-06-23] MEDS: CYANOCOBALAMIN 500 MCG TAB PO SCH (08:29)
[2016-06-23] MEDS: amLODIPine 5 MG TAB PO SCH (08:29)
[2016-06-23] MEDS: CLOPIDOGREL 75 MG TAB PO SCH (08:29)
[2016-06-23] MEDS: CARVedilol 6.25 MG TAB PO SCH ×2 (08:29→20:25)
[2016-06-23] MEDS: LEVOTHYROXINE 0.05 MG TAB (50 MCG) PO SCH (08:29)
[2016-06-23] MEDS: CALCIUM CARBONATE 500 MG CHEW U/D PO SCH ×2 (08:29→20:27)
--- NOTE | 2016-06-23 11:06 | IPNPDOC ---
Assessment/Plan Date Seen The patient was seen on 06/23/16. Family Medicine Attending Note: I saw and examined Mr. Ibanez, discussed with VANNESSA Mariano. Agree with their note as documented. Mr. Ibanez reports he is doing relatively well today. He is not yet coughing up much sputum, but he can feel it rattling down in there. I told him to anticipate his phlegm loosening up and coming up in the next couple days. I added Mucinex to his regimen. He reports that his right foot is kettle tender, and he thinks it's much improved overall. 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 (2) Cellulitis of foot, right Status: Acute Response to Treatment: Improving Problem Specific Plan: Monitor Clinically Problem Text: 06/23 - Xray results pending. I spoke with Dr Naranjo yesterday, he feels that the escar doesn't need to be removed as long as it isn't gangrenous, foul, or wet. Pt recently (last week) underwent stenting of the R LE, so I anticipated this will continue to improve, given improved blood flow. 06/22 - On Zosyn, Vanco. pt with black escar. Will obtain xray today, consider surgical consult for removal of the escar. (3) Heart failure, systolic and diastolic, acute on chronic Onset Date: 04/18/2014 Status: Chronic Response to Treatment: Improving Discussed With: Patient Problem Specific Plan: Monitor Clinically Problem Text: appears compensated, his Lasix IV was stopped 06/21. Enc FR, daily weights. (4) CAD (coronary artery disease) Onset Date: 04/18/2014 Status: Chronic Response to Treatment: Stable Problem Specific Plan: Monitor Clinically Problem Text: Cont with Plavix, Statin, Coreg. (5) CKD (chronic kidney disease) stage 3, GFR 30-59 ml/min Status: Chronic Response to Treatment: Stable Problem Specific Plan: Monitor Clinically Problem Text: Baseline Scr 1.5 (6) Hypertension Status: Chronic Response to Treatment: Stable Problem Text: Pressures stable. (7) DM2 (diabetes mellitus, type 2) Status: Chronic Response to Treatment: Stable Problem Specific Plan: Monitor Clinically Plan / VTE VTE Prophylaxis Ordered?: Yes Subjective Review of Systems CC/HPI Pt is feeling better. He cont to have pain in his R forefoot, great toe. General: Denies: Fatigue Constitutional: Denies: Chills, Fever ENT: Denies: Head Aches Pulmonary: Denies: Cough, Dyspnea Cardiovascular: Denies: Chest Pain, Palpitations Gastrointestinal: Denies: Diarrhea, Nausea, Vomiting Neurological: Denies: Weakness Psych: Reports: Mood Normal Objective Physical Examination General Exam: Positive: Alert, Cooperative, No Acute Distress ENT Exam: Positive: Atraumatic, Mucous membr. moist/pink Chest Exam: Positive: Diminished, Negative: Rhonchi, Wheezing Heart Exam: Positive: Normal S1, Normal S2, Rate Normal Abdomen Exam: Positive: Normal bowel sounds, Soft, Negative: Tenderness Extremity Exam: Positive: Other (R great toe, second toe with skin breakdown, escar in place, surrounding erythema, tenderness, warmth, warmth, erythema, tenderness extend into the forefoot), Tenderness, Negative: Edema Vital Signs/I&O Vital Signs Date Time Temp Pulse Resp B/P Pulse Ox O2 Delivery O2 Flow Rate FiO2 06/23/16 09:00 Room Air 06/23/16 08:29 68 124/75 06/23/16 06:00 97.0 18 95 06/21/16 08:00 2.0 I&O- Last 24 Hours up to 6 AM 06/23/16 06:00 Intake Total 1770 ml Output Total 775 ml Balance 995 ml Laboratory Data Labs 24H Laboratory Tests 2 06/22/16 11:25: Bedside Glucose (Misc Panel) 315H 06/22/16 16:23: Bedside Glucose (Misc Panel) 284H 06/22/16 20:25: Bedside Glucose (Misc Panel) 225H 06/23/16 05:17: Albumin 2.0L, Blood Urea Nitrogen 25H, Creatinine 1.49H, Sodium Level 145, Potassium Level 3.7, Chloride Level 108H, Carbon Dioxide Level 29, Anion Gap 8, Calcium Level 7.9L, Glomerular Filtration Rate 48.4, Magnesium Level 1.9, Phosphorus Level 2.1L CBC/BMP Laboratory Tests 06/23/16 05:17 Anion Gap 8, Red Blood Count 3.35 L, Mean Corpuscular Volume 100.2 H, Mean Corpuscular Hemoglobin 33.2 H, Mean Corpuscular Hemoglobin Concent 33.1, Red Cell Distribution Width 13.9 FSBS Laboratory Tests Test 06/22/16 11:25 06/22/16 16:23 06/22/16 20:25 Range/Units Bedside Glucose (Misc Panel) 315 284 225 83-110 MG/DL Microbiology Microbiology 06/19/16 Blood Culture - Preliminary, Resulted No Growth after 72 hours. All specime... 06/19/16 Blood Culture - Preliminary, Resulted No Growth after 72 hours. All specime... GONZÁLEZ CERNA PA-C Jun 23, 2016 11:06 Brian Pichardo MD Jun 23, 2016 22:30
[2016-06-23 14:00] VITALS: BP 125/63
[2016-06-23] MEDS: VANCOMYCIN HCL 1,000 MG, VIAL MATE ADAPTER 1 EACH in D5W 250 ML IV SCH (16:47)
[2016-06-23] MEDS: ATORVASTATIN 20 MG TAB PO SCH (20:24)
[2016-06-23] MEDS: FINASTERIDE 5 MG TAB PO SCH (20:26)
[2016-06-23] MEDS: TAMSULOSIN 0.4 MG CAP PO SCH (20:31)
[2016-06-23] MEDS: LEVEMIR (INSULIN DETEMIR) 1 UNITS/0.01ML SC SCH (21:01)
[2016-06-23 22:00] VITALS: BP 148/79
[2016-06-24] MEDS: IPRATROPIUM 0.5MG/ALBUTEROL 2.5MG INH SOL UD 3ML (DUONEB)(J7620) NEB SCH ×4 (02:00→19:51)
[2016-06-24] MEDS: PIPERACILLIN/TAZOBACTAM SOD 3.375 GM in D5W MINI-BAG PLUS 50 ML IV SCH ×4 (05:40→22:41)
[2016-06-24 06:00] VITALS: BP 154/72
[2016-06-24 06:11] LABS: MEAN CORPUSCULAR HEMOGLOBIN 32.9 pg (27.0-33.0); MEAN CORPUSCULAR HGB CONC 32.3 g/dl (32.0-36.5); MEAN CORPUSCULAR VOLUME 101.8 fl (80.0-96.0); WHITE BLOOD COUNT 8.7 K/mm3 (4.0-10.0)
[2016-06-24 06:32] LABS: ALBUMIN 2.3 GM/DL (3.2-5.2); CALCIUM LEVEL 8.4 MG/DL (8.8-10.2); CREATININE FOR GFR 1.49 MG/DL (0.70-1.30); GLOMERULAR FILTRATION RATE 48.4 (>42); MAGNESIUM LEVEL 1.9 MG/DL (1.8-2.4); PHOSPHORUS LEVEL 2.1 MG/DL (2.5-4.9)
[2016-06-24] MEDS: HumaLOG INSULIN (NovoLOG) PER UNIT SC SCH ×4 (08:18→21:05)
[2016-06-24] MEDS: CALCIUM CARBONATE 500 MG CHEW U/D PO SCH ×2 (08:21→21:04)
[2016-06-24] MEDS: CLOPIDOGREL 75 MG TAB PO SCH (08:22)
[2016-06-24] MEDS: SENOKOT S TAB PO SCH (08:22)
[2016-06-24] MEDS: ATORVASTATIN 20 MG TAB PO SCH (08:22)
[2016-06-24] MEDS: CYANOCOBALAMIN 500 MCG TAB PO SCH (08:22)
[2016-06-24] MEDS: MULTIVITAMINS/MINERALS THERAP 1 TAB PO SCH (08:22)
[2016-06-24] MEDS: guaiFENesin ER 600 MG TAB PO SCH ×2 (08:22→21:03)
[2016-06-24] MEDS: ISOSORBIDE DIN. (ISORDIL) 30 MG TAB PO SCH (08:22)
[2016-06-24] MEDS: ALLOPURINOL 100 MG TAB PO SCH (08:23)
[2016-06-24] MEDS: APIXABAN 5 MG TAB (ELIQUIS) PO SCH ×2 (08:23→21:02)
[2016-06-24] MEDS: LEVOTHYROXINE 0.05 MG TAB (50 MCG) PO SCH (08:23)
[2016-06-24] MEDS: amLODIPine 5 MG TAB PO SCH (08:25)
[2016-06-24] MEDS: CARVedilol 6.25 MG TAB PO SCH ×2 (08:25→21:03)
--- NOTE | 2016-06-24 08:30 | REP ---
Right foot two views : There is no fracture or dislocation. Mineralization and joint spaces are normal. There are no calcifications or foreign bodies, except for calcified vascular atheroma. Impression: Negative right foot There is no change from a prior study of 06/04/2016. Vascular calcified atheroma is again noted. Signed by Attila Pulliam MD 06/22/2016 11:22 A
--- NOTE | 2016-06-24 10:31 | IPNPDOC ---
Assessment/Plan Date Seen The patient was seen on 06/24/16. Family Medicine Attending Note: I saw and examined Mr. Ibanez; I d/w Nawaf HURD and I agree with his note below. Patient denies much pain in his foot and erythema is mild; his eschar is clean and dry. He is still having mild expiratory wheezing but he denies SOB and is on room air. Continue antibiotics for cellulitis and HCAP. Patient feels that he is weak and may need STR at this point - will ask for PT/OT re-eval to determine home safety. Problems Problems: (1) Acute and chronic respiratory failure with hypoxia Status: Acute Response to Treatment: Improving Discussed With: Patient Problem Specific Plan: Consult Specialist, Monitor Clinically Problem Text: 06/24 - D4 Zosyn/ Vanco. 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 (2) Cellulitis of foot, right Status: Acute Response to Treatment: Improving Problem Specific Plan: Monitor Clinically Problem Text: 06/24 - XRAY: "Negative right foot. There is no change from a prior study of 06/04/2016. Vascular calcified atheroma is again noted." 06/23 - Xray results pending. I spoke with Dr Naranjo yesterday, he feels that the escar doesn't need to be removed as long as it isn't gangrenous, foul, or wet. Pt recently (last week) underwent stenting of the R LE, so I anticipated this will continue to improve, given improved blood flow. 06/22 - On Zosyn, Vanco. pt with black escar. Will obtain xray today, consider surgical consult for removal of the escar. (3) Heart failure, systolic and diastolic, acute on chronic Onset Date: 04/18/2014 Status: Chronic Response to Treatment: Improving Discussed With: Patient Problem Specific Plan: Monitor Clinically Problem Text: appears compensated, his Lasix IV was stopped 06/21. Enc FR, daily weights. (4) CAD (coronary artery disease) Onset Date: 04/18/2014 Status: Chronic Response to Treatment: Stable Problem Specific Plan: Monitor Clinically Problem Text: Cont with Plavix, Statin, Coreg. (5) CKD (chronic kidney disease) stage 3, GFR 30-59 ml/min Status: Chronic Response to Treatment: Stable Problem Specific Plan: Monitor Clinically Problem Text: Baseline Scr 1.5 06/24 - BUN 19/Creat 1.49 (6) Hypertension Status: Chronic Response to Treatment: Stable Problem Text: Pressures stable. (7) DM2 (diabetes mellitus, type 2) Status: Chronic Response to Treatment: Stable Problem Specific Plan: Monitor Clinically Plan / VTE VTE Prophylaxis Ordered?: Yes Subjective Review of Systems CC/HPI The patient is a 81-year-old male admitted with a reason for visit of Shortness Of Breath. Events since last encounter Pt denies any new issues. Denies CP, SOB, Abd pain. Pulmonary: Denies: Dyspnea Cardiovascular: Denies: Chest Pain Gastrointestinal: Denies: Abdominal Pain, Nausea, Vomiting Objective Physical Examination General Exam: Positive: Alert, Cooperative, No Acute Distress ENT Exam: Positive: Atraumatic, Mucous membr. moist/pink Chest Exam: Positive: Diminished, Negative: Rhonchi, Wheezing Heart Exam: Positive: Normal S1, Normal S2, Rate Normal Abdomen Exam: Positive: Normal bowel sounds, Soft, Negative: Tenderness Extremity Exam: Positive: Other (R great toe, second toe with skin breakdown, escar in place, surrounding erythema, tenderness, warmth, warmth, erythema, tenderness extend into the forefoot), Tenderness, Negative: Edema Vital Signs/I&O Vital Signs Date Time Temp Pulse Resp B/P Pulse Ox O2 Delivery O2 Flow Rate FiO2 06/24/16 08:25 78 131/61 06/24/16 06:00 96.8 18 93 Room Air 06/21/16 08:00 2.0 I&O- Last 24 Hours up to 6 AM 06/24/16 06:00 Intake Total 1440 ml Output Total 1050 ml Balance 390 ml Laboratory Data Labs 24H Laboratory Tests 2 06/23/16 11:59: Bedside Glucose (Misc Panel) 361H 06/23/16 16:53: Bedside Glucose (Misc Panel) 307H 06/23/16 20:37: Bedside Glucose (Misc Panel) 221H 06/24/16 05:41: Albumin 2.3L, Blood Urea Nitrogen 19H, Creatinine 1.49H, Sodium Level 146H, Potassium Level 4.0, Chloride Level 108H, Carbon Dioxide Level 30, Anion Gap 8, C-Reactive Protein, Quantitative 1.47H, Calcium Level 8.4L, Glomerular Filtration Rate 48.4, Magnesium Level 1.9, Phosphorus Level 2.1L CBC/BMP Laboratory Tests 06/24/16 05:41 Anion Gap 8, Red Blood Count 3.73 L, Mean Corpuscular Volume 101.8 H, Mean Corpuscular Hemoglobin 32.9, Mean Corpuscular Hemoglobin Concent 32.3, Red Cell Distribution Width 13.0 FSBS Laboratory Tests Test 06/23/16 11:59 06/23/16 16:53 06/23/16 20:37 Range/Units Bedside Glucose (Misc Panel) 361 307 221 83-110 MG/DL Microbiology Microbiology 06/19/16 Blood Culture - Preliminary, Resulted No Growth after 72 hours. All specime... 06/19/16 Blood Culture - Preliminary, Resulted No Growth after 72 hours. All specime... Nawaf Sorto Jun 24, 2016 10:30 NEFTALY DAUGHERTY MD Jun 24, 2016 14:50
[2016-06-24 14:00] VITALS: BP 150/70
[2016-06-24] MEDS: VANCOMYCIN HCL 1,000 MG, VIAL MATE ADAPTER 1 EACH in D5W 250 ML IV SCH (15:56)
--- NOTE | 2016-06-24 16:40 | PHACANCOPD ---
PHARMACY VANCOMYCIN DOSING Pt Demographics Demographics Patient Age:81 , Weight:77.800 , Gender: male Adjusted Body Weight Date: 06/21/16, Adjusted Body Weight: Kg Vancomycin Vancomycin indication: PN Vancomycin Target Ranges: 10-20 mcg/ml Vancomycin Load Y/N: No Load Dose Date Time Vancomycin Load Dose: Date: Time: Vancomycin Dose Date: 06/21/16. Current Vancomycin Dose: [1G IV Q24H] Intermittent Dosing?: No Labs Micro Microbiology 06/19/16 Blood Culture - Final, Complete NO GROWTH AFTER 5 DAYS 06/19/16 Blood Culture - Final, Complete NO GROWTH AFTER 5 DAYS Creatinine Clearance Date:06/21/16. Estimated Creatinine Clearance: [31.5 ml/min]. Pending Labs Vancomycin trough scheduled 06/24/16 @ 1500 Assessment and Plan Maintaining Current Dose?: No Reason for dose change: Trough too low Pharmacist Note Pharmacist Note 06/24/16: Trough today, drawn on time prior to 4th dose, resulted @ 9.4. I will increase current regimen to 1g IV Q18H. WBC is WNL, patient has been afebrile > 24 hours, and blood cultures have resulted no growth. We will continue to monitor and draw further levels/make further dose adjustments as needed. Date: 06/21/16. Pharmacist note: Day #1 empiric zosyn and vancomycin initiated at 1g IV Q24H for the treatment of pneumonia - aiming for a goal trough of 10- 20 mcg/ml. PMH negative for MRSA, but positive for vanco use here at [facility], and the patient is a resident from [facility]. WBC is currently WNL, and patient has been afebrile for past 24 hours. Scr is elevated at 1.9 with a baseline scr of ~ 1.54. Chest x-ray from 06/19 showed LLL infiltrate. A trough has been scheduled , prior to the 4th dose. We will continue to monitor and make dose adjustments as needed. [facility] Jun 24, 2016 16:40
[2016-06-24] MEDS: FINASTERIDE 5 MG TAB PO SCH (21:02)
[2016-06-24] MEDS: LEVEMIR (INSULIN DETEMIR) 1 UNITS/0.01ML SC SCH (21:04)
[2016-06-24] MEDS: TAMSULOSIN 0.4 MG CAP PO SCH (21:13)
[2016-06-24 22:00] VITALS: BP 156/76
[2016-06-25] VITALS (9 sets, daily range): BP systolic 112–158; BP diastolic 62–88
[2016-06-25] MEDS: IPRATROPIUM 0.5MG/ALBUTEROL 2.5MG INH SOL UD 3ML (DUONEB)(J7620) NEB SCH ×4 (02:00→19:47)
[2016-06-25] MEDS: PIPERACILLIN/TAZOBACTAM SOD 3.375 GM in D5W MINI-BAG PLUS 50 ML IV SCH ×4 (05:31→23:57)
[2016-06-25 06:12] LABS: MEAN CORPUSCULAR HEMOGLOBIN 32.9 pg (27.0-33.0); MEAN CORPUSCULAR HGB CONC 32.2 g/dl (32.0-36.5); MEAN CORPUSCULAR VOLUME 102.1 fl (80.0-96.0); RED CELL DISTRIBUTION WIDTH 13.9 % (11.5-14.5)
[2016-06-25 06:19] LABS: ALBUMIN 2.2 GM/DL (3.2-5.2); CALCIUM LEVEL 8.4 MG/DL (8.8-10.2); CREATININE FOR GFR 1.48 MG/DL (0.70-1.30); GLOMERULAR FILTRATION RATE 48.8 (>42); MAGNESIUM LEVEL 1.9 MG/DL (1.8-2.4); PHOSPHORUS LEVEL 2.2 MG/DL (2.5-4.9); POTASSIUM SERUM 3.7 MEQ/L (3.5-5.1)
[2016-06-25] MEDS: HumaLOG INSULIN (NovoLOG) PER UNIT SC SCH ×4 (07:49→21:00)
[2016-06-25] MEDS: CALCIUM CARBONATE 500 MG CHEW U/D PO SCH ×2 (07:50→21:42)
[2016-06-25] MEDS: APIXABAN 5 MG TAB (ELIQUIS) PO SCH ×2 (07:51→21:43)
[2016-06-25] MEDS: SENOKOT S TAB PO SCH (07:51)
[2016-06-25] MEDS: MULTIVITAMINS/MINERALS THERAP 1 TAB PO SCH (07:51)
[2016-06-25] MEDS: LEVOTHYROXINE 0.05 MG TAB (50 MCG) PO SCH (07:51)
[2016-06-25] MEDS: ALLOPURINOL 100 MG TAB PO SCH (07:51)
[2016-06-25] MEDS: CYANOCOBALAMIN 500 MCG TAB PO SCH (07:51)
[2016-06-25] MEDS: guaiFENesin ER 600 MG TAB PO SCH ×2 (07:52→21:42)
[2016-06-25] MEDS: CLOPIDOGREL 75 MG TAB PO SCH (07:52)
[2016-06-25] MEDS: amLODIPine 5 MG TAB PO SCH (07:54)
[2016-06-25] MEDS: CARVedilol 6.25 MG TAB PO SCH ×2 (07:54→21:43)
[2016-06-25] MEDS: ISOSORBIDE DIN. (ISORDIL) 30 MG TAB PO SCH (07:54)
--- NOTE | 2016-06-25 09:30 | IPNPDOC ---
Assessment/Plan Date Seen The patient was seen on 06/25/16. 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 Sub-acute, as this showed on CT. No hemorrhage. Pt reports no deficits. Prev on Eliquis and plavix, which was held prior to CT to ensure not hemorrhagic. Neuro states Eliquis and ASA would be maximum medical therapy. They will see tonight. Exam: General: lying in bed, awakes to voice, NAD Neuro: alert to person, place, and season; unable to give month or year; smooth pursuit without saccades, visual field deficit in RUQ RISHI. No facial asymmetry, no altered facial sensation, tongue protrudes mid-line, no dysarthria, no dysdiadochokinesia, no word-finding difficulty. RUQ strength 5/5 in flexor carpi , biceps, triceps; 5/5 in hip flexors, knee extensors, and foot flexors/ dorsiflexors. 1. AMS/syncopal episode Episode may have been related to cardiac, as BP dropped from 170s systolic to 120s systolic over a short time period. - Cont eliquis, baby ASA - tele - followup EGK - monitor trops 2. 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 Olson to see this evening; followup neuro recs - no prior stroke workup, so will add echo, carotid u/s and await further recs Vanessa Mahmood MD (2) Acute and chronic respiratory failure with hypoxia Status: Acute Response to Treatment: Improving Discussed With: Patient Problem Specific Plan: Consult Specialist, Monitor Clinically Problem Text: 06/25 - D5 Zosyn/Vanco Oxygen saturation in 90s on RA Attending note: Wheezing and rales on exam. Was restarted on O2 after rapid response for AMS, but has been on RA prior. Day 5 vanc/zosn for presumed HCAP. - cont nebs - add pred - add lasix 20 PO daily; monitor renal fxn - repeat CXR if not improving - change to PO abx tomorrow if stable Vanessa Mahmood MD (3) Cellulitis of foot, right Status: Acute Response to Treatment: Improving Problem Specific Plan: Monitor Clinically Problem Text: 06/24 - XRAY: "Negative right foot. There is no change from a prior study of 06/04/2016. Vascular calcified atheroma is again noted." 06/23 - Xray results pending. I spoke with Dr Naranjo yesterday, he feels that the escar doesn't need to be removed as long as it isn't gangrenous, foul, or wet. Pt recently (last week) underwent stenting of the R LE, so I anticipated this will continue to improve, given improved blood flow. 06/22 - On Zosyn, Vanco. pt with black escar. Will obtain xray today, consider surgical consult for removal of the escar. 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 pt cont to have pain in the R foot. No change in escar. 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 - gabapentin 100 TID for renal fxn Vanessa Mahmood MD (4) Heart failure, systolic and diastolic, acute on chronic Onset Date: 04/18/2014 Status: Chronic Response to Treatment: Improving Discussed With: Patient Problem Specific Plan: Monitor Clinically Problem Text: appears compensated, his Lasix IV was stopped 06/21. Enc FR, daily weights. Attending note: Pt has rales and wheezing on lung exam. - adding back lasix PO 20 mg daily; monitor creatinine - add pred 40 mg daily x 5 days Vanessa Mahmood MD (5) CAD (coronary artery disease) Onset Date: 04/18/2014 Status: Chronic Response to Treatment: Stable Problem Specific Plan: Monitor Clinically Problem Text: Cont with baby ASA, eliquis, Statin, Coreg. (6) CKD (chronic kidney disease) stage 3, GFR 30-59 ml/min Status: Chronic Response to Treatment: Stable Problem Specific Plan: Monitor Clinically Problem Text: 06/24 - BUN 19/Creat 1.49 Attending note: Baseline Cr 1.5, now back to baseline. (7) Hypertension Status: Chronic Response to Treatment: Stable Problem Text: Pressures stable. (8) DM2 (diabetes mellitus, type 2) Status: Chronic Response to Treatment: Stable Problem Specific Plan: Monitor Clinically Plan / VTE VTE Prophylaxis Ordered?: Yes Plan Plan Text Attending attestation: I saw and evaluated the patient and I agree with the plan of care as discussed and documented by Rika Rivers, except were indicated above. Vanessa Mahmood MD Subjective Review of Systems CC/HPI The patient is a 81-year-old male admitted with a reason for visit of Shortness Of Breath. Events since last encounter RAT team called this am. PAtient was sitting up in chair and became unresponsive. BP, HR, Oxygen saturations all normal. Blood sugar in the 200s. Upon my arrival, the patient had been placed in bed. He was awake, groggy with garbled speech and confusion with difficulty moving his right arm. Reported feeling dizzy. No CP or SOB. No H/A Constitutional: Denies: Chills, Fever ENT: Denies: Head Aches Pulmonary: Reports: Cough, Denies: Dyspnea Cardiovascular: Denies: Chest Pain, Palpitations Gastrointestinal: Denies: Abdominal Pain, Constipation, Diarrhea, Nausea, Vomiting Objective Physical Examination General Exam: Positive: Other (Laying in bed - awake but groggy) ENT Exam: Positive: Atraumatic, Mucous membr. moist/pink Chest Exam: Positive: Diminished, Negative: Rhonchi, Wheezing Heart Exam: Positive: Normal S1, Normal S2, Rate Normal Abdomen Exam: Positive: Normal bowel sounds, Soft, Negative: Tenderness Extremity Exam: Positive: Other (R great toe, second toe with skin breakdown, escar in place, surrounding erythema, tenderness, warmth, warmth, erythema, tenderness extend into the forefoot), Tenderness, Negative: Edema Neuro Exam: Positive: Other (Speech garbled - Difficulty raising right arm) Vital Signs/I&O Vital Signs Date Time Temp Pulse Resp B/P Pulse Ox O2 Delivery O2 Flow Rate FiO2 06/25/16 08:00 Room Air 06/25/16 07:54 178/84 06/25/16 07:54 78 06/25/16 06:00 96.9 20 95 06/21/16 08:00 2.0 I&O- Last 24 Hours up to 6 AM 06/25/16 06:00 Intake Total 940 ml Output Total 550 ml Balance 390 ml Laboratory Data Labs 24H Laboratory Tests 2 06/24/16 11:33: Bedside Glucose (Misc Panel) 311H 06/24/16 15:05: Vancomycin Level Trough 9.4L 06/24/16 16:56: Bedside Glucose (Misc Panel) 239H 06/24/16 20:55: Bedside Glucose (Misc Panel) 265H 06/25/16 05:47: Albumin 2.2L, Blood Urea Nitrogen 18, Creatinine 1.48H, Sodium Level 144, Potassium Level 3.7, Chloride Level 108H, Carbon Dioxide Level 28, Anion Gap 8, Calcium Level 8.4L, Glomerular Filtration Rate 48.8, Magnesium Level 1.9, Phosphorus Level 2.2L 06/25/16 09:03: Bedside Glucose (Misc Panel) 253H CBC/BMP Laboratory Tests 06/25/16 05:47 Anion Gap 8, Red Blood Count 3.44 L, Mean Corpuscular Volume 102.1 H, Mean Corpuscular Hemoglobin 32.9, Mean Corpuscular Hemoglobin Concent 32.2, Red Cell Distribution Width 13.9 FSBS Laboratory Tests Test 06/24/16 11:33 06/24/16 16:56 06/24/16 20:55 06/25/16 09:03 Range/Units Bedside Glucose (Misc Panel) 311 239 265 253 83-110 MG/DL Microbiology Microbiology 06/19/16 Blood Culture - Final, Complete NO GROWTH AFTER 5 DAYS 06/19/16 Blood Culture - Final, Complete NO GROWTH AFTER 5 DAYS RIKA RIVERS PA-C Jun 25, 2016 09:30 VANESSA MAHMOOD MD Jun 25, 2016 13:24
--- NOTE | 2016-06-25 09:51 | REP ---
CT BRAIN WITHOUT CONTRAST: 06/25/2016. Comparison: 05/23/2016, 05/11/2016, 05/10/2016, 01/25/2016. Clinical history: Altered mental status. Findings: Noncontrast images through the brain were provided. The ventricles are midline symmetric and dilated with slight dilatation of the third and fourth ventricles as well, all of this is proportionate to the diffuse cerebral atrophy. There are bilateral lacunar infarcts in the basal ganglia and less edema in the region of the infarct in the left side of the corpus callosum compared to last month's examinations. There is no intracranial hemorrhage. Periventricular deep and subcortical white matter heterogeneous low attenuation noted representing chronic small vessel white matter ischemic changes of aging. Some heterogeneous low attenuation of the posterior parietal and occipital region on the left is noted with some loss of the sulci there suggesting some ischemia in the posterior cerebral artery territory. However, there is no bleed, mass or mass effect evident. Atrophy is greatest in the temporal and frontal lobes. The brainstem was grossly intact. There is atrophy of the cerebellum mild and symmetric. Impression: 1. Posterior parietal and occipital ischemia on the left without hemorrhage, but some loss of sulcal margins present and hypodensity posterior parietal and occipital lobes on that left side. No mass effect or midline shift. 2. Less edema and swelling of the left corpus callosum from the acute infarct on previous scan. 3. Old lacunar infarcts in the basal ganglia and extensive chronic small vessel white matter ischemic changes. Signed by Price Smart MD 06/25/2016 05:55 P
[2016-06-25] MEDS: VANCOMYCIN HCL 1,000 MG, VIAL MATE ADAPTER 1 EACH in D5W 250 ML IV SCH (10:50)
[2016-06-25] MEDS: ASPIRIN 81 MG CHEW TABLET PO SCH (12:06)
[2016-06-25] MEDS: predniSONE 20 MG TAB PO SCH (16:41)
[2016-06-25] MEDS: GABAPENTIN 100 MG CAP PO SCH ×2 (16:41→21:42)
[2016-06-25] MEDS: FUROSEMIDE 20 MG TAB PO SCH (16:41)
--- NOTE | 2016-06-25 19:24 | ECHO ---
DATE OF PROCEDURE: 06/25/2016 AGE: 81. GENDER: Male. HEIGHT: 69 inches. WEIGHT: 171 pounds. BODY SURFACE AREA: 1.94 m2. INPATIENT: Progressive Care Unit, room 3215 REFERRING PHYSICIAN: Dr. Gomez Mahmood INDICATION: Cerebrovascular accident (CVA) MEASUREMENTS: 2D Measurement: RV - 4.3 cm LV - 5.5 cm Septum - 1.1 cm Posterior wall - 1.0 cm Aortic root - 3.2 cm LA - 4.4 cm LVEF - 45% DOPPLER MEASUREMENTS: AV- 1.8 m/s LVOT - 1.0 m/s LVOT diameter - 2.1 cm MV-E 69, A- 90, E/A ratio 0.8 Early mitral deceleration time - 259 ms E prime - 3.5, A prime - 6, E/E prime ratio 19.7 PV - 0.95 m/s Pulmonary artery acceleration time- 130 ms RVSP - 35 mmHg IVC - 1.7 cm COMMENTS: Normal sinus rhythm without intraventricular conduction disturbance. Technically challenging study but diagnostically useful information was still obtained. Mild to moderately dilated left atrium but left ventricle upper limits of normal. Mildly dilated right heart chambers. LV wall thickness was normal. On real- time imaging from the parasternal and projections, the inferior and inferoseptal villalobos were markedly hypo to akinetic. Other wall motion appeared to be normal. Mild mitral annular calcification with normal leaflet thickness and excursion with no posterior systolic buckling. Three equal size aortic cusps with mildly thickened cusp edges but adequate cusp separation. Normal aortic root size. Pacing lead could be visualized traversing right heart structures. Unable to discern any other intracardiac mass, but the study was technically difficult. Fairly large pericardial effusion with 1.0 cm clear echo-free space anteriorly, 1.6 cm echo-free space posteriorly and 1.0 mL small echo-free space laterally. There was no cardiac chamber compression. There was also no significant respiratory variation in Doppler signals to suggest cardiac tamponade. Color flow Doppler study taken from the parasternal and projection showed mild to moderate aortic, trace mitral and very mild tricuspid insufficiency. Guided continuous wave Doppler of his aortic valve showed a normal peak systolic velocity against left ventricle (LV) outflow tract obstruction. Pulsed and continuous wave Doppler of his LV inflow tract taken from the apical four-chamber projection showed normal diastolic filling velocities against mitral stenosis. However, there was a more prominent late diastolic / atrial dependent filling pattern. A degree of LV diastolic dysfunction was confirmed by a prolonged early mitral deceleration time and tissue Doppler of his mitral annulus. His current estimated mean left atrial pressure was elevated at 20 mmHg. Pulsed and continuous wave Doppler of his pulmonary trunk showed a normal peak systolic velocity against right ventricle (RV) outflow tract obstruction. His pulmonary artery acceleration time was normal against an elevated pulmonary vascular resistance. Guided continuous wave Doppler of his tricuspid valve allowed our estimation of his right ventricular systolic pressure (mildly increased). His inferior vena cava was within normal limits in size with adequate respiratory collapse against a significantly elevated central venous pressure or cardiac tamponade. CONCLUSIONS: Technically difficult study. Aortic valvular sclerosis without stenosis but mild - moderate insufficiency. Could not visualize a pedunculated mass. Mild mitral annular calcification without functional valvular abnormality. Left ventricular size upper limits of normal with inferoseptal wall motion abnormality consistent with a prior infarction. At least mild impairment of global resting systolic function. Moderately dilated left atrium with Doppler evidence of an impairment of LV diastolic function and elevated mean left atrial pressure. A mildly dilated right heart chambers with Doppler evidence of mild pulmonary hypertension. Normal inferior vena cava (IVC) size and collapse against an elevated central venous pressure. A moderately large sized pericardial effusion without cardiac tamponade. The above test findings are not significantly changed from those described 1 year ago. If a cardiac source of embolic material is seriously suspect, it may be prudent to consider a transesophageal echocardiogram. MTDD
[2016-06-25] MEDS: FINASTERIDE 5 MG TAB PO SCH (21:42)
[2016-06-25] MEDS: ATORVASTATIN 20 MG TAB PO SCH (21:42)
[2016-06-25] MEDS: LEVEMIR (INSULIN DETEMIR) 1 UNITS/0.01ML SC SCH (21:43)
[2016-06-25] MEDS: TAMSULOSIN 0.4 MG CAP PO SCH (21:48)
[2016-06-26] MEDS: IPRATROPIUM 0.5MG/ALBUTEROL 2.5MG INH SOL UD 3ML (DUONEB)(J7620) NEB SCH ×4 (01:53→19:35)
[2016-06-26] MEDS: PIPERACILLIN/TAZOBACTAM SOD 3.375 GM in D5W MINI-BAG PLUS 50 ML IV SCH ×4 (04:58→23:12)
[2016-06-26] MEDS: VANCOMYCIN HCL 1,000 MG, VIAL MATE ADAPTER 1 EACH in D5W 250 ML IV SCH ×2 (04:58→21:17)
[2016-06-26 05:01] VITALS: BP 134/60
[2016-06-26 05:39] LABS: MEAN CORPUSCULAR HEMOGLOBIN 32.3 pg (27.0-33.0); MEAN CORPUSCULAR HGB CONC 31.3 g/dl (32.0-36.5); MEAN CORPUSCULAR VOLUME 103.3 fl (80.0-96.0); WHITE BLOOD COUNT 10.4 K/mm3 (4.0-10.0)
[2016-06-26 05:57] LABS: CALCIUM LEVEL 8.2 MG/DL (8.8-10.2); CREATININE FOR GFR 1.72 MG/DL (0.70-1.30); MAGNESIUM LEVEL 1.8 MG/DL (1.8-2.4); POTASSIUM SERUM 4.5 MEQ/L (3.5-5.1)
[2016-06-26 08:00] VITALS: BP 125/64
[2016-06-26] MEDS: CALCIUM CARBONATE 500 MG CHEW U/D PO SCH ×2 (08:10→20:16)
[2016-06-26] MEDS: MULTIVITAMINS/MINERALS THERAP 1 TAB PO SCH (08:10)
[2016-06-26] MEDS: amLODIPine 5 MG TAB PO SCH (08:10)
[2016-06-26] MEDS: LEVOTHYROXINE 0.05 MG TAB (50 MCG) PO SCH (08:10)
[2016-06-26] MEDS: CARVedilol 6.25 MG TAB PO SCH ×2 (08:11→20:16)
[2016-06-26] MEDS: FUROSEMIDE 20 MG TAB PO SCH (08:11)
[2016-06-26] MEDS: ISOSORBIDE DIN. (ISORDIL) 30 MG TAB PO SCH (08:11)
[2016-06-26] MEDS: CYANOCOBALAMIN 500 MCG TAB PO SCH (08:11)
[2016-06-26] MEDS: ALLOPURINOL 100 MG TAB PO SCH (08:11)
[2016-06-26] MEDS: ASPIRIN 81 MG CHEW TABLET PO SCH (08:11)
[2016-06-26] MEDS: APIXABAN 5 MG TAB (ELIQUIS) PO SCH ×2 (08:11→20:16)
[2016-06-26] MEDS: GABAPENTIN 100 MG CAP PO SCH ×3 (08:11→20:16)
[2016-06-26] MEDS: guaiFENesin ER 600 MG TAB PO SCH ×2 (08:12→20:16)
[2016-06-26] MEDS: HumaLOG INSULIN (NovoLOG) PER UNIT SC SCH ×4 (08:12→20:20)
[2016-06-26] MEDS: predniSONE 20 MG TAB PO SCH (08:12)
[2016-06-26] MEDS: SENOKOT S TAB PO SCH (08:12)
--- NOTE | 2016-06-26 08:45 | IPNPDOC ---
Assessment/Plan Date Seen The patient was seen on 06/26/16. Attending Note: I saw and examined Mr. Ibanez at approximately 7:15 am this morning. I discussed with VANNESSA Smith and I agree with her note below. The patient denies SOB this morning and no further wheezing on exam - Continue IV antibiotics and prednisone. I agree with stopping lasix today as Cr is increased and patient does not appear fluid overloaded. His foot exam appears stable as compared to Friday with dry gangrene - per prior Gen Surg recommendations, surgical intervention is unnecessary as long as it remains dry. Patient does not have any neurologic symptoms or deficits upon exam this morning s/p his ischemic event yesterday. I placed PT/OT consult today to evaluate for discharge planning. (KES). 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) stroke Status: Acute Response to Treatment: Improving Problem Text: 06/26 - Neurology notes read and appreciated Eliquis/Plavix switched to Eliquis/ASA Continue PT/OT Echo - No obvious embolic source - would need DELBERT to evaluate further if embolic etiology felt to be likely (2) Unresponsive episode Status: Acute Problem Text: Etiology uncertain at this time Get CT brain due to AMS/difficultly moving right arm - patient on Eliquis and Plavix - hold these until CT returns Move to PCU for monitoring Get EKG and cardiac enzymes He apparently has had syncopal episodes at [facility] without clear etiology identified Not sure if he had EEG, but may need to consider this if CT unrevealing Attending Note: Pt evaluated after CT scan, which showed infarct of L posterior parietal/ occipital area. Sub-acute, as this showed on CT. No hemorrhage. Pt reports no deficits. Prev on Eliquis and plavix, which was held prior to CT to ensure not hemorrhagic. Neuro states Eliquis and ASA would be maximum medical therapy. They will see tonight. Exam: General: lying in bed, awakes to voice, NAD Neuro: alert to person, place, and season; unable to give month or year; smooth pursuit without saccades, visual field deficit in RUQ RISHI. No facial asymmetry, no altered facial sensation, tongue protrudes mid-line, no dysarthria, no dysdiadochokinesia, no word-finding difficulty. RUQ strength 5/5 in flexor carpi , biceps, triceps; 5/5 in hip flexors, knee extensors, and foot flexors/ dorsiflexors. 1. AMS/syncopal episode Episode may have been related to cardiac, as BP dropped from 170s systolic to 120s systolic over a short time period. - Cont eliquis, baby ASA - tele - followup EGK - monitor trops 2. 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 Olson to see this evening; followup neuro recs - no prior stroke workup, so will add echo, carotid u/s and await further recs Gomez Mahmood MD 06/26 - no further events (3) Acute and chronic respiratory failure with hypoxia Status: Acute Response to Treatment: Improving Discussed With: Patient Problem Specific Plan: Consult Specialist, Monitor Clinically Problem Text: 06/25 - D5 Zosyn/Vanco Oxygen saturation in 90s on RA Attending note: Wheezing and rales on exam. Was restarted on O2 after rapid response for AMS, but has been on RA prior. Day 5 vanc/zosn for presumed HCAP. - cont nebs - add pred - add lasix 20 PO daily; monitor renal fxn - repeat CXR if not improving - change to PO abx tomorrow if stable Gomez Mahmood MD 06/26 - D # 6 Zosyn/Vanco - REsp status improved. No wheezing on exam today with prednisone added yesterday (4) Cellulitis of foot, right Status: Acute Response to Treatment: Improving Problem Specific Plan: Monitor Clinically Problem Text: 06/24 - XRAY: "Negative right foot. There is no change from a prior study of 06/04/2016. Vascular calcified atheroma is again noted." 06/23 - Xray results pending. I spoke with Dr Naranjo yesterday, he feels that the escar doesn't need to be removed as long as it isn't gangrenous, foul, or wet. Pt recently (last week) underwent stenting of the R LE, so I anticipated this will continue to improve, given improved blood flow. 06/22 - On Zosyn, Vanco. pt with black escar. Will obtain xray today, consider surgical consult for removal of the escar. 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 pt cont to have pain in the R foot. No change in escar. 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 - gabapentin 100 TID for renal fxn Gomez Mahmood MD 06/26 - continue Vanco/Zosyn - still with pain and erythema on forefoot - may want to consider MRI Gabapentin added yesterday for neuropathic pain (5) Heart failure, systolic and diastolic, acute on chronic Onset Date: 04/18/2014 Status: Chronic Response to Treatment: Improving Discussed With: Patient Problem Specific Plan: Monitor Clinically Problem Text: appears compensated, his Lasix IV was stopped 06/21. Enc FR, daily weights. Attending note: Pt has rales and wheezing on lung exam. - adding back lasix PO 20 mg daily; monitor creatinine - add pred 40 mg daily x 5 days Gomez Mahmood MD 06/26 - compensated (6) CAD (coronary artery disease) Onset Date: 04/18/2014 Status: Chronic Response to Treatment: Stable Problem Specific Plan: Monitor Clinically Problem Text: Cont with baby ASA, eliquis, Statin, Coreg. (7) CKD (chronic kidney disease) stage 3, GFR 30-59 ml/min Status: Chronic Response to Treatment: Stable Problem Specific Plan: Monitor Clinically Problem Text: 06/24 - BUN 19/Creat 1.49 Attending note: Baseline Cr 1.5, now back to baseline. 06/26 - Creatinine up some with restart of Lasix - I will d/c Lasix now (8) Hypertension Status: Chronic Response to Treatment: Stable Problem Text: Pressures stable. (9) DM2 (diabetes mellitus, type 2) Status: Chronic Response to Treatment: Stable Problem Specific Plan: Monitor Clinically Plan / VTE VTE Prophylaxis Ordered?: Yes (eliquis) Subjective Review of Systems CC/HPI The patient is a 81-year-old male admitted with a reason for visit of Shortness Of Breath. Events since last encounter Feels well other than pain in right great toe with ambulation. No further unresponsive spells. Constitutional: Denies: Chills, Fever Pulmonary: Denies: Cough, Dyspnea Cardiovascular: Denies: Chest Pain, Orthopnea, Palpitations Gastrointestinal: Denies: Abdominal Pain, Constipation, Diarrhea, Nausea, Vomiting Objective Physical Examination General Exam: Positive: Alert (sitting up on bedside, speech clear and coherant. ), No Acute Distress, Other ENT Exam: Positive: Atraumatic, Mucous membr. moist/pink Chest Exam: Positive: Diminished Heart Exam: Positive: Normal S1, Normal S2, Rate Normal Abdomen Exam: Positive: Normal bowel sounds, Soft Extremity Exam: Positive: Other (Right foot with scabbed wound in medial aspect of right great to proximal aspect. Less erythema on dorsum of foot. slgiht swelling right forefoot), Tenderness Neuro Exam: Positive: Other Vital Signs/I&O Vital Signs Date Time Temp Pulse Resp B/P Pulse Ox O2 Delivery O2 Flow Rate FiO2 06/26/16 08:10 76 125/64 06/26/16 05:01 99.1 18 93 Room Air 06/25/16 23:58 2.0 I&O- Last 24 Hours up to 6 AM 06/26/16 06:00 Intake Total 1210 ml Output Total 250 ml Balance 960 ml Laboratory Data Labs 24H Laboratory Tests 2 06/25/16 09:03: Bedside Glucose (Misc Panel) 253H 06/25/16 09:30: Creatine Kinase MB 2.0, Creatine Kinase MB Relative Index 5.26H, Total Creatine Kinase 38L, Troponin I 0.09 06/25/16 11:49: Bedside Glucose (Misc Panel) 328H 06/25/16 16:51: Bedside Glucose (Misc Panel) 324H 06/25/16 21:46: Bedside Glucose (Misc Panel) 216H 06/26/16 05:21: Albumin 2.0L, Blood Urea Nitrogen 26H, Creatinine 1.72H, Sodium Level 141, Potassium Level 4.5#, Chloride Level 107, Carbon Dioxide Level 25, Anion Gap 9, Calcium Level 8.2L, Glomerular Filtration Rate 41.0L, Magnesium Level 1.8, Phosphorus Level 3.0# CBC/BMP Laboratory Tests 06/26/16 05:21 Anion Gap 9, Red Blood Count 3.28 L, Mean Corpuscular Volume 103.3 H, Mean Corpuscular Hemoglobin 32.3, Mean Corpuscular Hemoglobin Concent 31.3 L, Red Cell Distribution Width 13.0 FSBS Laboratory Tests Test 06/25/16 09:03 06/25/16 11:49 06/25/16 16:51 06/25/16 21:46 Range/Units Bedside Glucose (Misc Panel) 253 328 324 216 83-110 MG/DL Microbiology Microbiology 06/19/16 Blood Culture - Final, Complete NO GROWTH AFTER 5 DAYS 06/19/16 Blood Culture - Final, Complete NO GROWTH AFTER 5 DAYS RIKA ARIAS PA-C Jun 26, 2016 08:45 NEFTALY DAUGHERTY MD Jun 26, 2016 14:42
[2016-06-26 12:00] VITALS: BP 128/80
[2016-06-26 16:00] VITALS: BP 126/80
[2016-06-26 19:27] VITALS: BP 152/70
[2016-06-26] MEDS: TAMSULOSIN 0.4 MG CAP PO SCH (20:16)
[2016-06-26] MEDS: ATORVASTATIN 20 MG TAB PO SCH (20:16)
[2016-06-26] MEDS: FINASTERIDE 5 MG TAB PO SCH (20:16)
[2016-06-26] MEDS: LEVEMIR (INSULIN DETEMIR) 1 UNITS/0.01ML SC SCH (20:17)
--- NOTE | 2016-06-26 23:03 | ECGEPIP ---
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
--- NOTE | 2016-06-26 23:07 | ECGEPIP ---
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
[2016-06-26 23:40] VITALS: BP 158/70
[2016-06-27] MEDS: IPRATROPIUM 0.5MG/ALBUTEROL 2.5MG INH SOL UD 3ML (DUONEB)(J7620) NEB SCH ×4 (02:00→20:16)
[2016-06-27 03:15] VITALS: BP 164/75
[2016-06-27] MEDS: PIPERACILLIN/TAZOBACTAM SOD 3.375 GM in D5W MINI-BAG PLUS 50 ML IV SCH ×4 (04:57→22:36)
[2016-06-27 05:58] LABS: MEAN CORPUSCULAR HEMOGLOBIN 32.3 pg (27.0-33.0); MEAN CORPUSCULAR HGB CONC 31.6 g/dl (32.0-36.5); MEAN CORPUSCULAR VOLUME 102.1 fl (80.0-96.0); WHITE BLOOD COUNT 12.7 K/mm3 (4.0-10.0)
[2016-06-27 06:00] LABS: CALCIUM LEVEL 8.4 MG/DL (8.8-10.2); CREATININE FOR GFR 1.92 MG/DL (0.70-1.30); GLOMERULAR FILTRATION RATE 36.1 (>42); POTASSIUM SERUM 4.2 MEQ/L (3.5-5.1)
[2016-06-27 08:00] VITALS: BP 150/70
[2016-06-27] MEDS: APIXABAN 5 MG TAB (ELIQUIS) PO SCH ×2 (08:04→21:05)
[2016-06-27] MEDS: CALCIUM CARBONATE 500 MG CHEW U/D PO SCH ×2 (08:04→21:06)
[2016-06-27] MEDS: LEVOTHYROXINE 0.05 MG TAB (50 MCG) PO SCH (08:04)
[2016-06-27] MEDS: GABAPENTIN 100 MG CAP PO SCH ×3 (08:04→21:05)
[2016-06-27] MEDS: ALLOPURINOL 100 MG TAB PO SCH (08:04)
[2016-06-27] MEDS: HumaLOG INSULIN (NovoLOG) PER UNIT SC SCH ×4 (08:04→21:06)
[2016-06-27] MEDS: ISOSORBIDE DIN. (ISORDIL) 30 MG TAB PO SCH (08:04)
[2016-06-27] MEDS: SENOKOT S TAB PO SCH (08:05)
[2016-06-27] MEDS: predniSONE 20 MG TAB PO SCH (08:05)
[2016-06-27] MEDS: guaiFENesin ER 600 MG TAB PO SCH ×2 (08:05→21:04)
[2016-06-27] MEDS: ASPIRIN 81 MG CHEW TABLET PO SCH (08:05)
[2016-06-27] MEDS: MULTIVITAMINS/MINERALS THERAP 1 TAB PO SCH (08:05)
[2016-06-27] MEDS: CYANOCOBALAMIN 500 MCG TAB PO SCH (08:05)
[2016-06-27] MEDS: amLODIPine 5 MG TAB PO SCH (08:05)
[2016-06-27] MEDS: CARVedilol 6.25 MG TAB PO SCH ×2 (08:06→21:05)
[2016-06-27] MEDS: FUROSEMIDE 20 MG TAB PO SCH (08:10)
--- NOTE | 2016-06-27 08:26 | IPNPDOC ---
Assessment/Plan Date Seen The patient was seen on 06/27/16. Attending Note: I saw and examined Mr. Ibanez today. He has no complaints and states his foot is not hurting much today. He has no erythema on his foot at present and I believe cellulitis has resolved and antibiotics for this purpose are no longer needed. Today is Day 7 of Zosyn/vanco for HCAP - as a seven day course of these antibiotics is adequate coverage for HCAP, these can be discontinued tomorrow. PT and OT have both cleared patient for return to [facility]. Will plan on potential d/c back to [facility] tomorrow. (KES) Problems Problems: (1) Acute ischemic left posterior cerebral artery ([employer]) stroke Status: Acute Response to Treatment: Improving Problem Text: 06/26 - Neurology notes read and appreciated Eliquis/Plavix switched to Eliquis/ASA Continue PT/OT Echo - No obvious embolic source - would need DELBERT to evaluate further if embolic etiology felt to be likely 2/2 - Neuro status stable on Eliquis and ASA (2) Acute and chronic respiratory failure with hypoxia Status: Acute Response to Treatment: Improving Discussed With: Patient Problem Specific Plan: Consult Specialist, Monitor Clinically Problem Text: 06/25 - D5 Zosyn/Vanco Oxygen saturation in 90s on RA Attending note: Wheezing and rales on exam. Was restarted on O2 after rapid response for AMS, but has been on RA prior. Day 5 vanc/zosn for presumed HCAP. - cont nebs - add pred - add lasix 20 PO daily; monitor renal fxn - repeat CXR if not improving - change to PO abx tomorrow if stable Gomez Mahmood MD 06/26 - D # 6 Zosyn/Vanco - REsp status improved. No wheezing on exam today with prednisone added yesterday 2/2 - stable on oral prednisone and D#7 Zosyn/Vanco (3) Unresponsive episode Status: Acute Problem Text: Etiology uncertain at this time Get CT brain due to AMS/difficultly moving right arm - patient on Eliquis and Plavix - hold these until CT returns Move to PCU for monitoring Get EKG and cardiac enzymes He apparently has had syncopal episodes at [facility] without clear etiology identified Not sure if he had EEG, but may need to consider this if CT unrevealing Attending Note: Pt evaluated after CT scan, which showed infarct of L posterior parietal/ occipital area. Sub-acute, as this showed on CT. No hemorrhage. Pt reports no deficits. Prev on Eliquis and plavix, which was held prior to CT to ensure not hemorrhagic. Neuro states Eliquis and ASA would be maximum medical therapy. They will see tonight. Exam: General: lying in bed, awakes to voice, NAD Neuro: alert to person, place, and season; unable to give month or year; smooth pursuit without saccades, visual field deficit in RUQ RISHI. No facial asymmetry, no altered facial sensation, tongue protrudes mid-line, no dysarthria, no dysdiadochokinesia, no word-finding difficulty. RUQ strength 5/5 in flexor carpi , biceps, triceps; 5/5 in hip flexors, knee extensors, and foot flexors/ dorsiflexors. 1. AMS/syncopal episode Episode may have been related to cardiac, as BP dropped from 170s systolic to 120s systolic over a short time period. - Cont eliquis, baby ASA - tele - followup EGK - monitor trops 2. 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 Olson to see this evening; followup neuro recs - no prior stroke workup, so will add echo, carotid u/s and await further recs Gomez Mahmood MD 06/26 - no further events (4) Cellulitis of foot, right Status: Acute Response to Treatment: Improving Problem Specific Plan: Monitor Clinically Problem Text: 06/24 - XRAY: "Negative right foot. There is no change from a prior study of 06/04/2016. Vascular calcified atheroma is again noted." 06/23 - Xray results pending. I spoke with Dr Naranjo yesterday, he feels that the escar doesn't need to be removed as long as it isn't gangrenous, foul, or wet. Pt recently (last week) underwent stenting of the R LE, so I anticipated this will continue to improve, given improved blood flow. 06/22 - On Erin Alford. pt with black escar. Will obtain xray today, consider surgical consult for removal of the escar. 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 pt cont to have pain in the R foot. No change in escar. 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 - gabapentin 100 TID for renal fxn Gomez Mahmood MD 06/26 - continue Vanco/Zosyn - still with pain and erythema on forefoot - may want to consider MRI Gabapentin added yesterday for neuropathic pain 06/27 - patient reports less pain in foot today. (5) Heart failure, systolic and diastolic, acute on chronic Onset Date: 04/18/2014 Status: Chronic Response to Treatment: Improving Discussed With: Patient Problem Specific Plan: Monitor Clinically Problem Text: appears compensated, his Lasix IV was stopped 06/21. Enc FR, daily weights. Attending note: Pt has rales and wheezing on lung exam. - adding back lasix PO 20 mg daily; monitor creatinine - add pred 40 mg daily x 5 days Gomez Mahmood MD 06/26 - compensated (6) CAD (coronary artery disease) Onset Date: 04/18/2014 Status: Chronic Response to Treatment: Stable Problem Specific Plan: Monitor Clinically Problem Text: Cont with baby ASA, eliquis, Statin, Coreg. (7) CKD (chronic kidney disease) stage 3, GFR 30-59 ml/min Status: Chronic Response to Treatment: Stable Problem Specific Plan: Monitor Clinically Problem Text: 06/24 - BUN 19/Creat 1.49 Attending note: Baseline Cr 1.5, now back to baseline. 06/26 - Creatinine up some with restart of Lasix - I will d/c Lasix now 06/27 - Creatinine continues to rise - I did not hold Lasix yesterday - I will hold today (8) Hypertension Status: Chronic Response to Treatment: Stable Problem Text: Pressures stable. (9) DM2 (diabetes mellitus, type 2) Status: Chronic Response to Treatment: Stable Problem Specific Plan: Monitor Clinically Plan / VTE VTE Prophylaxis Ordered?: Yes (eliquis) Disposition move to floor - continue PT/OT - Back to [facility] once stable Subjective Review of Systems CC/HPI The patient is a 81-year-old male admitted with a reason for visit of Shortness Of Breath. Events since last encounter Patient feel well today Constitutional: Denies: Chills, Fever Pulmonary: Reports: Cough, Denies: Dyspnea Cardiovascular: Denies: Chest Pain, Palpitations Gastrointestinal: Denies: Abdominal Pain, Constipation, Diarrhea, Nausea, Vomiting Objective Physical Examination General Exam: Positive: Alert (sitting up on bedside, speech clear and coherant. ), No Acute Distress, Other ENT Exam: Positive: Atraumatic, Mucous membr. moist/pink Chest Exam: Positive: Clear to auscultation, Negative: Wheezing Heart Exam: Positive: Normal S1, Normal S2, Rate Normal Abdomen Exam: Positive: Normal bowel sounds, Soft Extremity Exam: Positive: Other (Right foot with scabbed wound in medial aspect of right great to proximal aspect. Less erythema on dorsum of foot. slgiht swelling right forefoot), Tenderness Neuro Exam: Positive: Other Vital Signs/I&O Vital Signs Date Time Temp Pulse Resp B/P Pulse Ox O2 Delivery O2 Flow Rate FiO2 06/27/16 08:05 78 06/27/16 08:04 155/62 06/27/16 03:15 96.0 20 97 Room Air 06/25/16 23:58 2.0 I&O- Last 24 Hours up to 6 AM 06/27/16 06:00 Intake Total 1360 ml Output Total 725 ml Balance 635 ml Laboratory Data Labs 24H Laboratory Tests 2 06/26/16 11:48: Bedside Glucose (Misc Panel) 324H 06/26/16 16:29: Bedside Glucose (Misc Panel) 305H 06/26/16 20:14: Bedside Glucose (Misc Panel) 342H 06/27/16 05:12: Anion Gap 8, Blood Urea Nitrogen 33H, Creatinine 1.92H, Sodium Level 139, Potassium Level 4.2, Chloride Level 105, Carbon Dioxide Level 26, Calcium Level 8.4L, Glomerular Filtration Rate 36.1L CBC/BMP Laboratory Tests 06/27/16 05:12 Calcium Level 8.4 L, Red Blood Count 3.31 L, Mean Corpuscular Volume 102.1 H, Mean Corpuscular Hemoglobin 32.3, Mean Corpuscular Hemoglobin Concent 31.6 L, Red Cell Distribution Width 13.0 FSBS Laboratory Tests Test 06/26/16 11:48 06/26/16 16:29 06/26/16 20:14 Range/Units Bedside Glucose (Misc Panel) 324 305 342 83-110 MG/DL Microbiology Microbiology 06/19/16 Blood Culture - Final, Complete NO GROWTH AFTER 5 DAYS 06/19/16 Blood Culture - Final, Complete NO GROWTH AFTER 5 DAYS RIKA ARIAS PA-C Jun 27, 2016 08:26 NEFTALY DAUGHERTY MD Jun 27, 2016 17:05
[2016-06-27 11:15] VITALS: BP 144/69
[2016-06-27 14:00] VITALS: BP 157/72
--- NOTE | 2016-06-27 15:52 | PHACANCOPD ---
PHARMACY VANCOMYCIN DOSING Pt Demographics Demographics Patient Age:81 , Weight:90.200 , Gender: male Adjusted Body Weight Date: 06/21/16, Adjusted Body Weight: Kg Events Past 24 Hours Events Past 24 Hours: NO: Change in CrCl, Dialysis, Diuretic Therapy, Elevation in WBC, Fever, Other, Pending Diagnostics, Pending Procedures Vancomycin Vancomycin indication: PN Vancomycin Target Ranges: 10-20 mcg/ml Vancomycin Load Y/N: No Load Dose Date Time Vancomycin Load Dose: Date: Time: Vancomycin Dose Date: 06/24/16. Current Vancomycin Dose: [VANCO 1GRAM IV Q18H] Date: 06/21/16. Current Vancomycin Dose: [1G IV Q24H] Intermittent Dosing?: No Labs Labs Item Value Date Time Vancomycin Level Trough 9.4 UG/ML L 06/24/16 1505 Vancomycin Level Trough 19.0 UG/ML 06/27/16 1509 Item Value Date Time Creatinine 1.48 MG/DL H 06/25/16 0547 Creatinine 1.72 MG/DL H 06/26/16 0521 Creatinine 1.92 MG/DL H 06/27/16 0512 White Blood Count 10.0 K/mm3 06/25/16 0547 White Blood Count 10.4 K/mm3 H 06/26/16 0521 White Blood Count 12.7 K/mm3 H 06/27/16 0512 Micro Microbiology 06/19/16 Blood Culture - Final, Complete NO GROWTH AFTER 5 DAYS 06/19/16 Blood Culture - Final, Complete NO GROWTH AFTER 5 DAYS Creatinine Clearance Date:06/21/16. Estimated Creatinine Clearance: [31.5 ml/min]. Assessment and Plan Maintaining Current Dose?: Yes Reason for dose change: No Dose Change Pharmacist Note Pharmacist Note Date: 06/27/16. Pharmacist note:Trough was therapeutic (19) on day 7 of therapy. Continue current dosing. Monitor renal function and consider trough if SCr continue to increase any more. Adjust dose as needed. 06/24/16: Trough today, drawn on time prior to 4th dose, resulted @ 9.4. I will increase current regimen to 1g IV Q18H. WBC is WNL, patient has been afebrile > 24 hours, and blood cultures have resulted no growth. We will continue to monitor and draw further levels/make further dose adjustments as needed. Date: 06/21/16. Pharmacist note: Day #1 empiric zosyn and vancomycin initiated at 1g IV Q24H for the treatment of pneumonia - aiming for a goal trough of 10- 20 mcg/ml. PMH negative for MRSA, but positive for vanco use here at [facility], and the patient is a resident from [facility]. WBC is currently WNL, and patient has been afebrile for past 24 hours. Scr is elevated at 1.9 with a baseline scr of ~ 1.54. Chest x-ray from 06/19 showed LLL infiltrate. A trough has been scheduled , prior to the 4th dose. We will continue to monitor and make dose adjustments as needed. [facility] Jun 27, 2016 15:52
[2016-06-27] MEDS: VANCOMYCIN HCL 1,000 MG, VIAL MATE ADAPTER 1 EACH in D5W 250 ML IV SCH (16:32)
[2016-06-27] MEDS: TAMSULOSIN 0.4 MG CAP PO SCH (21:04)
[2016-06-27] MEDS: FINASTERIDE 5 MG TAB PO SCH (21:05)
[2016-06-27] MEDS: ATORVASTATIN 20 MG TAB PO SCH (21:05)
[2016-06-27] MEDS: LEVEMIR (INSULIN DETEMIR) 1 UNITS/0.01ML SC SCH (21:06)
[2016-06-27 22:00] VITALS: BP 156/77
[2016-06-28] MEDS: IPRATROPIUM 0.5MG/ALBUTEROL 2.5MG INH SOL UD 3ML (DUONEB)(J7620) NEB SCH ×2 (02:00→08:01)
[2016-06-28] MEDS: PIPERACILLIN/TAZOBACTAM SOD 3.375 GM in D5W MINI-BAG PLUS 50 ML IV SCH (04:52)
[2016-06-28 06:00] VITALS: BP 150/72
[2016-06-28 06:43] LABS: ALBUMIN 2.1 GM/DL (3.2-5.2); ALBUMIN/GLOBULIN RATIO 0.55 (1.00-1.93); BILIRUBIN,TOTAL 0.2 MG/DL (0.2-1.0); CALCIUM LEVEL 8.5 MG/DL (8.8-10.2); CREATININE FOR GFR 2.01 MG/DL (0.70-1.30); GLOMERULAR FILTRATION RATE 34.3 (>42); POTASSIUM SERUM 4.8 MEQ/L (3.5-5.1); TOTAL PROTEIN 5.9 GM/DL (6.4-8.2)
[2016-06-28] MEDS: ISOSORBIDE DIN. (ISORDIL) 30 MG TAB PO SCH (09:16)
[2016-06-28] MEDS: ALLOPURINOL 100 MG TAB PO SCH (09:16)
[2016-06-28] MEDS: guaiFENesin ER 600 MG TAB PO SCH (09:16)
[2016-06-28] MEDS: CARVedilol 6.25 MG TAB PO SCH (09:16)
[2016-06-28] MEDS: ASPIRIN 81 MG CHEW TABLET PO SCH (09:16)
[2016-06-28] MEDS: GABAPENTIN 100 MG CAP PO SCH (09:16)
[2016-06-28] MEDS: predniSONE 20 MG TAB PO SCH (09:16)
[2016-06-28] MEDS: APIXABAN 5 MG TAB (ELIQUIS) PO SCH (09:16)
[2016-06-28] MEDS: LEVOTHYROXINE 0.05 MG TAB (50 MCG) PO SCH (09:16)
[2016-06-28 09:17] VITALS: BP 144/68
[2016-06-28] MEDS: CALCIUM CARBONATE 500 MG CHEW U/D PO SCH (09:17)
[2016-06-28] MEDS: CYANOCOBALAMIN 500 MCG TAB PO SCH (09:17)
[2016-06-28] MEDS: amLODIPine 5 MG TAB PO SCH (09:17)
[2016-06-28] MEDS: SENOKOT S TAB PO SCH (09:17)
[2016-06-28] MEDS: MULTIVITAMINS/MINERALS THERAP 1 TAB PO SCH (09:17)
[2016-06-28] MEDS: HumaLOG INSULIN (NovoLOG) PER UNIT SC SCH (09:20)
[2016-06-28] MEDS ORDERED: ASPI81TA PO (10:24)
[2016-06-28] MEDS ORDERED: INSUDET SC (10:24)
[2016-06-28] MEDS ORDERED: DELT1TAB PO (10:24)
[2016-06-28] MEDS ORDERED: INSUHUMDS SC (10:24)
[2016-06-28] MEDS ORDERED: GABA-279 PO (10:24)
[2016-06-28] MEDS ORDERED: IPRASOL4 NEB ×2 (10:24)
--- NOTE | 2016-06-28 11:31 | DSES ---
DATE OF ADMISSION: 06/19/2016 DATE OF DISCHARGE: 06/28/2016 BRIEF HISTORY AND PHYSICAL: Patient is a 81-year-old patient from [facility], apparently, a patient of Dr. Starks at this point, who has a history of atrial fibrillation, diabetes, systolic and diastolic heart failure. Transferred from [facility] with shortness of breath, oxygen saturations of 78%. He was hospitalized for encephalopathy, discharged on 05/15/2016, admitted to [place] 06/10/2016 through 06/15/2016 for elective stent placement for his coronary artery disease, but was found to have pneumonia, treated with antibiotics. During that time he multiple syncopal and near syncopal episodes. Had an extensive workup, including an echocardiogram and was doing well until this admission. PAST MEDICAL HISTORY: Significant for: 1. Atrial fibrillation on Coumadin. 2. Pulmonary embolism. 3. Deep venous thrombosis (DVT). 4. Hypertensive heart disease. 5. Coronary artery disease status post cutaneous transluminal coronary angioplasty of left anterior descending artery times three. 6. Cardiomyopathy with an automatic implantable cardioverter defibrillator (AICD). 7. Systolic and diastolic congestive heart failure, most recent ejection fraction (EF) per echocardiogram in 05/2015 was 50%. 8. Diabetes mellitus type 2, on insulin. 9. Hypercholesterolemia. 10. Cerebrovascular accident (CVA) with bilateral lacunar basal ganglia infarctions in the past. 11. Carotid stenosis. 12. Peripheral artery disease. 13. Chronic sinusitis. 14. Gout. 15. Gastroesophageal reflux disease. 16. Monoclonal gammopathy of undetermined significance. 17. Chronic obstructive pulmonary disease (COPD). 18. Chronic kidney disease, stage III. 19. Pulmonary hypertension. 20. Hypothyroidism. 21. Constipation. HOSPITAL COURSE: 1. The patient was admitted for acute hypoxemic respiratory failure, felt to be secondary to decompensated congestive heart failure. He is not normally on a diuretic. He was placed on intravenous (IV) Lasix. Underwent echocardiogram while he was here. His ejection fraction is 45%. He has a moderately large size pericardial effusion without tamponade. He has impaired left ventricular diastolic function, mild pulmonary hypertension and some mild mitral annular calcification and aortic valve sclerosis without stenosis. He remained on diuretics up until 06/27/2016. They were held due to a bump in his renal function. His BUN and creatinine have gone up slightly. They are 38 and 2.0 at the time of discharge. His diuretic remains on hold at this time. He appears clinically compensated from the standpoint of his heart failure and any expectation is withholding his diuretics, that his renal function should return back toward baseline. He may need some diuretic in the future periodically, but at this point he is not going back on any diuretic due to the slight rise in his creatinine. 2. Healthcare-acquired pneumonia. He received seven days of Zosyn and vancomycin. His respiratory status has improved. He does still have a rattling cough. He will continue to get nebulizers at the long term. He is on prednisone as well for a five-day course. Today is day number four. 3. Unresponsive episode. The patient apparently had some unresponsive episodes well down at [facility] as well. I do not have all the details of the workup that was done there. While he was here, he appeared to have some right-sided weakness and aphasia that resolved spontaneously. He was seen by neurology, who reviewed his head CT, which they felt showed subacute posterior parietal and occipital ischemia on the left without hemorrhage. No mass effect or midline shift. They recommended adjusting his regimen. He was on Eliquis and Plavix. He is now on Eliquis and aspirin per neurology's recommendations. His speech and motor strengths are back to baseline. He has no deficits. 4. Right foot cellulitis, clinically improved with vancomycin and Zosyn. He received seven days of this they will actually be discontinued. He has minimal erythema around a dry eschar on his toe. He was having pain. This has essentially resolved at this point. He is on gabapentin for this. 5. Chronic kidney disease. His baseline creatinine is around 1.5. His creatinine at the time of discharge is 2. His Lasix was held yesterday. I expect his creatinine to return to baseline with the holding of the diuretic. 6. Hypertension. Blood pressures are fairly stable. He was on some hydralazine prior to coming in. He is no longer on this, but could be restarted if needed. He remains on Norvasc. DISPOSITION: He is stable for transfer back to [facility]. Diet: No added salt, consistent carbohydrate. Activity as tolerated. MEDICATIONS: - albuterol and Atrovent every 6 hours every 2 hours as needed for shortness of breath - aspirin 81 mg daily - prednisone 40 mg daily for more day - gabapentin 100 mg three times a day - Levemir 20 units subcutaneously daily - sliding-scale insulin before meals - Tylenol 650 mg every 4 hours as needed for pain - allopurinol 100 mg daily - amlodipine 5 mg daily - Eliquis 5 mg twice a day - atorvastatin 40 mg daily - Dulcolax 10 mg per rectum daily - calcium 1000 mg twice a day - carvedilol 6.25 mg twice a day - B12 1000 mcg daily - Senna S one tablet daily - enema as needed - Proscar 5 mg at bedtime - isosorbide dinitrate 30 mg daily - levothyroxine 50 mcg daily - milk of magnesia 30 mL daily - multivitamin daily - nitroglycerin sublingual as needed - Flomax 0.4 mg at bedtime - Tubersol injections as directed as prior to admission. - His Plavix is discontinued. He is now on aspirin. - Hydralazine is held - insulin has been adjusted. - No longer needs antibiotics. DISCHARGE DIAGNOSES: 1. Acute hypoxemic respiratory failure secondary to decompensated congestive heart failure. 2. Healthcare-acquired pneumonia. 3. Acute ischemic left posterior cerebral artery stroke. 4. Recurrent unresponsive episodes. 5. Cellulitis of the right foot. 6. Systolic and diastolic congestive heart failure, acute on chronic 7. Coronary artery disease. 8. Chronic kidney disease. 9. Hypertension. 10. Diabetes mellitus type 2.
== END 2016-06-28 11:23 | DRG 291 ==
LOC: M ED 11:12 → M ED INP 16:49 → M PCU 18:41 → M MSPAV 06-21 15:00 → M PCU 06-25 09:27 → M MSPAV 06-27 11:20
PROVIDERS: ADMIT Internal Medicine; ATTEND Family Medicine
DX: I13.0 Hypertensive heart and chronic kidney disease with heart failure and stage 1 through stage 4 chronic kidney disease, or unspecified chronic kidney disease (principal); J96.21 Acute and chronic respiratory failure with hypoxia; I50.43 Acute on chronic combined systolic (congestive) and diastolic (congestive) heart failure; J18.9 Pneumonia, unspecified organism; I63.532 Cerebral infarction due to unspecified occlusion or stenosis of left posterior cerebral artery; I24.8 Other forms of acute ischemic heart disease; L03.116 Cellulitis of left lower limb; I31.3 Pericardial effusion (noninflammatory); I42.9 Cardiomyopathy, unspecified; I48.91 Unspecified atrial fibrillation; I25.10 Atherosclerotic heart disease of native coronary artery without angina pectoris; E53.8 Deficiency of other specified B group vitamins; E11.9 Type 2 diabetes mellitus without complications; E78.00 Pure hypercholesterolemia, unspecified; I73.9 Peripheral vascular disease, unspecified; M10.9 Gout, unspecified; J44.9 Chronic obstructive pulmonary disease, unspecified; I27.2 Other secondary pulmonary hypertension; E03.9 Hypothyroidism, unspecified; F01.50 Vascular dementia, unspecified severity, without behavioral disturbance, psychotic disturbance, mood disturbance, and anxiety; N40.0 Benign prostatic hyperplasia without lower urinary tract symptoms; K59.00 Constipation, unspecified; J32.9 Chronic sinusitis, unspecified; Z95.1 Presence of aortocoronary bypass graft; N18.3 Chronic kidney disease, stage 3 (moderate); Z86.73 Personal history of transient ischemic attack (TIA), and cerebral infarction without residual deficits; Z95.810 Presence of automatic (implantable) cardiac defibrillator; Z79.01 Long term (current) use of anticoagulants; Z79.899 Other long term (current) drug therapy; Z79.02 Long term (current) use of antithrombotics/antiplatelets; Z79.4 Long term (current) use of insulin; Z87.891 Personal history of nicotine dependence; Y95 Nosocomial condition

== ENCOUNTER → 2016-07-01 | Outpatient (REF) ==
[~2016-07-01] MED LIST changes: +ASPI81TA PO; +AUGM875T27 PO; +BEETAB PO; +CENTCHW3 PO; +CLOP75TA2 PO; +DELT1TAB PO; +DULC10SU2 PR; +ENEM1ENE4 PR; +GABA-279 PO; +INSUDET SC; +INSUH10VL SC; +INSUHUMDS SC; +IPRASOL4 NEB; +ISOS30TAB PO; +MILKSUS PO; +SENN8.6T7 PO; +TUBE5INJ9 ID; +TUMS500C PO; +TYLE325T5 PO; +VITMTA PO
[2016-07-01 09:13] LABS: MEAN CORPUSCULAR HEMOGLOBIN 32.9 pg (27.0-33.0); MEAN CORPUSCULAR HGB CONC 31.8 g/dl (32.0-36.5); MEAN CORPUSCULAR VOLUME 103.4 fl (80.0-96.0); RED CELL DISTRIBUTION WIDTH 13.2 % (11.5-14.5)
[2016-07-01 09:20] LABS: CREATININE FOR GFR 1.74 MG/DL (0.70-1.30); GLOMERULAR FILTRATION RATE 40.5 (>42); POTASSIUM SERUM 4.2 MEQ/L (3.5-5.1)
== END ==
LOC: SKLAB3 07:20
PROVIDERS: ATTEND Internal Medicine
DX: I50.9 Heart failure, unspecified (principal); E11.9 Type 2 diabetes mellitus without complications; I10 Essential (primary) hypertension

== ENCOUNTER 2016-07-08 11:36 | Observation (INO) | payer MEDICARE, BC ==
[~2016-07-08] VITALS: Ht 175.3 cm; Wt 78.8 kg
[~2016-07-08 11:36] MED LIST changes: -ASPI81CH PO; -AUGM500T34 PO; -FURO20TA2 PO; -IPRASOL4 INH; -VITA100066 PO
[2016-07-08 12:51] LABS: BASO % 0.4 % (0.0-1.0); EOS # 0.3 K/mm3 (0.0-0.50); EOS % 2.2 % (0.0-3.0); LARGE UNSTAINED CELL # 0.1 K/mm3 (0.0-0.4); LYMPH # 1.9 K/mm3 (1.5-4.5); LYMPH % 14.1 % (24.0-44.0); MEAN CORPUSCULAR HEMOGLOBIN 32.6 pg (27.0-33.0); MEAN CORPUSCULAR HGB CONC 31.7 g/dl (32.0-36.5); MEAN CORPUSCULAR VOLUME 102.9 fl (80.0-96.0); MONO # 0.8 K/mm3 (0.0-0.8); MONO % 6.6 % (0.0-5.0); NEUTROPHILS # 9.4 K/mm3 (1.8-7.7); NEUTROPHILS % 75.8 % (36.0-66.0); PLATELET COUNT, AUTOMATED 270 k/mm3 (150-450); WHITE BLOOD COUNT 12.4 K/mm3 (4.0-10.0)
[2016-07-08 12:52] LABS: INR 1.14
[2016-07-08 13:00] LABS: CALCIUM LEVEL 8.3 MG/DL (8.8-10.2); CREATININE FOR GFR 1.89 MG/DL (0.70-1.30); GLOMERULAR FILTRATION RATE 36.8 (>42); POTASSIUM SERUM 4.9 MEQ/L (3.5-5.1)
--- NOTE | 2016-07-08 13:25 | REP ---
Clinical: Syncope. Technique: PA and lateral. Comparison: 06/19/2016. Findings: Mediastinum and cardiac silhouette are stable and mild cardiomegaly along with pacemaker again identified. Previously noted left lower lobe infiltrate appears to have resolved. Trace right basilar atelectasis cannot be excluded. No effusion. No pneumothorax. Skeletal structures intact. Impression: Cannot exclude trace right basilar atelectasis. Signed by Alejandro Leroy MD 07/08/2016 01:17 P
[2016-07-08] MEDS ORDERED: AUGM500T34 PO (13:50)
[2016-07-08] MEDS ORDERED: INSUDET SC (13:54)
[2016-07-08] MEDS ORDERED: INSUH10VL SC ×2 (13:54→14:21)
[2016-07-08] MEDS ORDERED: VITA100066 PO (14:21)
[2016-07-08] MEDS ORDERED: ASPI81CH PO (14:21)
[2016-07-08] MEDS ORDERED: VITMTA PO (14:21)
[2016-07-08] MEDS ORDERED: FURO20TA2 PO (14:21)
[2016-07-08] MEDS ORDERED: ISOS30TA4 PO (14:21)
[2016-07-08] MEDS ORDERED: GABA-279 PO (14:21)
[2016-07-08] MEDS ORDERED: IPRASOL4 INH ×2 (14:21)
[2016-07-08] MEDS ORDERED: MOM 30ML SUSPENSION UDC PO PRN (17:45)
[2016-07-08] MEDS ORDERED: NITROGLYCERIN 0.4 MG SUBL TABLET SL PRN (17:45)
[2016-07-08] MEDS ORDERED: BISACODYL 10 MG SUPP PR PRN (17:45)
[2016-07-08] MEDS ORDERED: GLUCOSE 4 GM CHEW TABLET PO PRN (18:00)
[2016-07-08] MEDS ORDERED: DEXTROSE 50% 50 ML SYRINGE IV PRN (18:00)
[2016-07-08] MEDS ORDERED: GLUCAGON FOR INJ 1 MG VIAL (J1610) SC PRN (18:00)
[2016-07-08 18:27] LABS: FREE T4 1.24 NG/DL (0.76-1.46)
--- NOTE | 2016-07-08 18:44 | HPE ---
DATE OF ADMISSION: 07/08/2016 PRIMARY CARE PROVIDER: The patient was recently admitted to [facility]. The patient was seen by Dr. Roman. HISTORY OF PRESENT ILLNESS: This patient is a 81-year-old male with significant cardiac history, who presented to [facility] after syncope. The patient had physical therapy and on his way back, the patient had a witnessed syncopal episode lasting about 15 minutes, and per family member and the staff, the patient did not demonstrate any urinary or bladder incontinence, denied any muscle spasms. Per patient, the patient does not have any recollection of what happened during and after the episode. Per family member, the patient has been having similar episode at least three times in the past 5-6 weeks. The most recent one was 06/13/2016. The patient had a syncopal episode in [facility] when the patient was sent there for superficial femoral artery stent placement. Per family member, the patient was hospitalized for several days, and there is no confirmatory diagnosis explaining the patient's recurrent syncopal episode. Per patient and patient's family, they do not know if there is any specific trigger for those events. Other significant history includes the patient was recently hospitalized for hospital-acquired pneumonia, and the patient treated with seven days of vancomycin and Zosyn. ALLERGIES: No known drug allergies. PAST MEDICAL HISTORY: 1. Atrial fibrillation. 2. History of pulmonary embolism. 3. Deep venous thrombosis (DVT). 4. Hypertensive heart disease. 5. Coronary artery disease status post percutaneous transluminal coronary angioplasty of the left anterior descending times three. 6. Cardiomegaly, status post automatic implantable cardioverter defibrillator (AICD) placement. 7. Systolic and diastolic congestive heart failure. 8. Type two diabetes. 9. Hypercholesterolemia. 10. History of cerebrovascular accident with bilateral lacunar basal ganglia infarcts. 11. Carotid stenosis. 12. Peripheral artery disease. 13. Chronic sinusitis. 14. Gout. 15. Gastroesophageal reflux disease. 16. Monoclonal gammopathy of undetermined significance (MGUS). 17. Chronic obstructive pulmonary disease (COPD). 18. Chronic kidney disease stage III. 19. Pulmonary hypertension. 20. Hypothyroidism. 21. Constipation. PAST SURGICAL HISTORY: 1. Balloon angioplasty. 2. Bilateral carotid endarterectomy. 3. Cataract surgery. 4. AICD placement in July 2014, single chamber. 5. Right superficial femoral artery stent placement. HOME MEDICATIONS: - Tylenol 650 mg by mouth every four hours as needed - albuterol/ipratropium inhalation every six hours - allopurinol 100 mg by mouth daily - amlodipine 5 mg by mouth daily - Eliquis 5 mg by mouth twice a day - aspirin 81 mg by mouth daily - atorvastatin 40 mg by mouth at bedtime - Dulcolax 10 mg per rectum daily as needed for constipation - TUMS 1000 mg by mouth twice a day - carvedilol 6.25 mg by mouth twice a day - vitamin D 1000 units by mouth daily - vitamin B12 1000 mcg by mouth daily - Senna-S 8.6/15 mg by mouth daily - Proscar 5 mg by mouth at bedtime - Lasix 20 mg by mouth daily - gabapentin 100 mg by mouth three times a day - NovoLog per sliding scale before meals and at bedtime - Levemir 24 units subcutaneous at bedtime - isosorbide mononitrate 30 mg by mouth daily - Synthroid 50 mcg by mouth daily - milk of magnesia 30 mL by mouth daily as needed - multivitamin one tablet by mouth daily - nitroglycerin 0.4 mg sublingual as needed for chest pain - Flomax 0.4 mg by mouth at bedtime SOCIAL HISTORY: The patient is a former smoker one-half pack daily for 30 years, quit in 1984. No alcohol use. No recreational drug use. REVIEW OF SYSTEMS: GENERAL: The patient was diagnosed with dementia in the past. No fevers, no chills. HEENT: No vision changes, no auditory changes. CARDIOVASCULAR: History of atrial fibrillation and has a defibrillator. History of systolic and diastolic congestive heart failure. Currently denies any chest pain or palpitations. RESPIRATORY: History of COPD. Denies any shortness of breath, cough, or sputum production. GASTROINTESTINAL (GI): No nausea, no vomiting. No abdominal pain. No diarrhea. MUSCULOSKELETAL: Chronic lower extremity swelling more significant on the right side. Patient also has chronic arterial ulcers of the right toes. History of stroke. OBJECTIVE: VITAL SIGNS: The patient has a blood pressure of 122/61 with a pulse of 57. Temperature is 98.7, pulse oximetry 97% on room air. Body weight is 79.38 kg. Body height is 175.26. GENERAL: No sign of acute distress. The patient shows some sign of disorientation. The patient does not know the year, and the patient knows this is a hospital but initially he believed he was in [facility]. The patient did show some sign of dementia. HEENT: Normocephalic, atraumatic. Extraocular motor grossly intact. CARDIOVASCULAR: Irregularly irregular. A few times the patient showed bradycardia with heart rate in the low 50s. Distant heart sounds. Positive systolic murmur. RESPIRATORY: No significant wheezes appreciated. However, there are some minor crackles audible in the bilateral basal areas. ABDOMEN: Soft, nontender, nondistended. Bowel sounds present. No rebound, no guarding. MUSCULOSKELETAL: 3+ pitting edema of the right lower extremity, and 1-2 pitting edema of the left lower extremity. There are arterial ulcers mainly in the medial part of the first, second, and third toes. No active bleeding noted. NEUROLOGIC: Sensation to fine touch grossly intact. However, the patient feels the left side body sensation is stronger in the left side, and he is not sure whether it is new or is chronic. Muscle strength is 5/5. LABORATORY DATA: WBC 12.4, hemoglobin 12.4, hematocrit 39.2, platelet count 270. Sodium is 145, potassium 4.9, chloride 106, carbon dioxide 32, BUN 33, creatinine 1.89, GFR is 36.8, fasting glucose is 69. Calcium 8.3. Troponin I is 0.12. Repeated is 0.1. IMAGING: Chest x-ray shows cannot exclude trace right-sided basilar atelectasis. ASSESSMENT AND PLAN: 1. Syncope. The patient will be admitted to the progressive care unit (PCU) under observation status. The patient is positive for orthostasis. We will continue to monitor the vitals. In the emergency room, the patient had a blood pressure of 124/61 supine with a heart rate of 57, and in the standing position the patient had blood pressure of 101/54 with heart rate 81. The patient has a history of congestive heart failure. We will be cautious regarding the fluid. Around the time of admission, the patient was found to have severe hypoglycemia. In the morning, the patient has a fasting glucose of 40, and later the glucose was corrected. Another possibility for the patient's recurrent syncope could be cardiac arrhythmia. The patient will be monitored on telemetry. The patient had a similar episode occur in May 2016, in [facility] when the patient was waiting for his superficial femoral artery stent placement. We will try to obtain the record. 2. History of atrial fibrillation. On Eliquis. 3. History of pulmonary embolism and deep venous thrombosis, on Eliquis. 4. Systolic and diastolic congestive heart failure. The patient is on Lasix. 5. Coronary artery disease status post angioplasty of the left anterior descending times three. 6. Hypertension. 7. Cardiomegaly. 8. Type 2 diabetes. Due to symptomatic hypoglycemia, long-acting insulin will be on hold, and patient is covered with sliding scale and consistent carbohydrate diet. 9. Hypercholesterolemia. 10. History of cerebrovascular accident with bilateral lacunar basal ganglia infarcts. 11. Carotid stenosis. 12. Peripheral artery disease. The patient already has appointment with a vascular surgeon in [place] on 07/10/2016, around 10 o'clock in the morning. The family member is not sure if the patient will be able to make it to the appointment. The patient was informed that we will discuss the options and patient's prognosis further after the several hours of monitoring. 13. 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 Currently the wounds look clean and no active discharge. 14. Gout. On allopurinol. 15. Gastroesophageal reflux disease. The patient will be on Protonix. 16. History of chronic obstructive pulmonary disease, currently compensated. 17. History of monoclonal gammopathy of unknown significance (MGUS). 18. Chronic kidney disease stage III, at baseline. 19. History of pulmonary hypertension, on Lasix. 20. Hypothyroidism. The patient showed elevated thyroid stimulating hormone (TSH). We will follow with a free T-4. 21. History of constipation. 22. Deep venous thrombosis (DVT) prophylaxis. The patient is on Eliquis. MTDD
--- NOTE | 2016-07-08 21:02 | EDDOCDS ---
Nurse's Notes [facility] Name: Rickey Ibanez Age: 81 yrs Sex: Male : 1935 Arrival Date: 07/08/2016 Time: 11:36 Bed 2 Private MD: Abel Diagnosis: Syncope and collapse Presentation: 07/08 11:38 Presenting complaint: EMS states: 15 min episode of unresponsiveness, Vero stoke srm respirations during PT at [facility] today. FSBS 96 opt awake alert oriented at this time. Adult Sepsis Screening: The patient does not have new or worsening altered mentation. Patient's respiratory rate is less than 22. Systolic blood pressure is greater than 100. Patient has a qSOFA score of 0- Negative Sepsis Screen. Suicide/Homicide risk assessment- the patient denies having any suicidal and/or homicidal ideations and does not present with any other emotional, behavioral or mental health complaints. Status: Patient is not a central service supply distributor or dependent. Transition of care: patient was received from [facility]. 11:38 Acuity: SUZY Level 2 [facility] 11:38 Method Of Arrival: Ambulance [facility] Triage Assessment: 11:51 General: Appears in no apparent distress, Behavior is appropriate for age, cooperative. srm Pain: Denies pain. Historical: - Allergies: no known allergies; - Home Meds: 1. DuoNeb 0.5 mg-3 mg(2.5 mg base)/3 mL Inhl nebu every 6 hours and Q2hrs prn 2. Tylenol 325 mg Oral tab 2 tabs every 4 hours 3. allopurinol 100 mg Oral tab 1 tab once daily 4. amlodipine 5 mg Oral tab 1 tab once daily 5. Eliquis 5 mg oral tab 1 tab 2 times per day 6. aspirin 81 mg Oral TbEC 1 tab once daily 7. atorvastatin 40 mg oral tab 1 tab nightly 8. Bee-Zee oral tab daily 9. Dulcolax (bisacodyl) 10 mg Rectal supp 1 suppository once daily 10. Vitamin B-12 1,000 mcg Oral TbER daily 11. Tums Ultra 400 mg (1,000 mg) oral chew twice a day 12. carvedilol 6.25 mg oral tab 1 tab 2 times per day 13. senna 8.6 mg oral cap 1 caps once daily 14. finasteride 5 mg oral tab 1 tab nightly 15. gabapentin 100 mg Oral tab three times a day 16. Levemir 100 unit/mL subcutaneous soln 24 unit nightly 17. Novolog sliding scale Sub-Q soln 8 unit three times a day 18. isosorbide mononitrate 30 mg Oral Tb24 1 tab once daily 19. levothyroxine 50 mcg Oral cap 1 cap once daily 20. Milk of Magnesia Oral 10 mL as needed 21. Centrum Silver oral oral daily 22. NitroQuick 0.4 mg SL subl every 5 minutes 23. tamsulosin 0.4 mg oral cp24 1 cap once daily 24. Vitamin D Oral 74558 unit weekly 25. Lasix 20 mg Oral tab 1 tab once daily 26. Augmentin 875-125 mg Oral tab 1 tab every 12 hours stop on 06/20/16 - PMHx: Atrial Fib; BPH; CAD; carotid stenosis; CHF; Chronic Renal Insufficiency; CVA; Diabetes - NIDDM: controlled; DVT; hyperlipidemia; Hypertension; Implanted AICD; VA; PE; Pneumonia; - PSHx: Carotid surgery (2013); Cataract Surgery- Bilateral; - Social history: Smoking status: Patient states former smoker of tobacco. No barriers to communication noted, The patient speaks fluent Argentine, Speaks appropriately for age. - Family history: Not pertinent. - : The pt / caregiver states he / she is on anticoagulants: Eliquis Home medication list is obtained from a discharge med list, the facility [facility]. - Exposure Risk Screening:: None identified. Screenin:41 Screening information is obtained from the patient. Fall risk: At risk due to age. jmk Assistance ADL's: Requires assistance with. Abuse/DV Screen: The patient / caregiver reports he/she is: not in a situation that causes fear, pain or injury. Nutritional screening: No deficits noted. Advance Directives: Currently, there is a health care proxy, chuy [email or web address]. There is no active DNR order. There is no living will. There is no Power of Rubbish Collection Supervisor. home support is adequate. Assessment: 11:41 General: Appears ambulance arrival . presently alert and oriented x 3. without facial jmk asymmetry. strength equal bilaterally. C/O overall fatigue. chest CTA. monitor AFib. denies pain. Pacer/ defib intact to right anterior chest. without peripheral edema.. Cardiovascular: Capillary refill < 3 seconds Clubbing of nail beds is absent Heart tones S1 S2 present. Respiratory: No deficits noted. Airway is patent Respiratory effort is Respiratory pattern is Breath sounds are clear bilaterally. GI: Abdomen is flat, non- distended Bowel sounds present X 4 quads. Abd is soft and non tender X 4 quads. 13:38 General: Appears resting with eyes closed resp easy and regular. rouses to verbal jmk stimuli. Upbeat demeanor. denies pain. Monitor is afib. Ortho stat vs obtained and tolerated well. denies dizziness... 13:40 General: Appears right foot with redness about toes that extended to mid foot area. jmk reprots chronic problem with increaed pain with standing. 17:09 General: Appears alert and cooperative. Joking and jovial. has attempted OOB unattended jmk and assisted back to bed. stands independently. monitor is Afib. pt denies chest discomfort, and reports foot pain with standing. PO fluids provided. 18:27 General: Appears diet provided and taken well. Laughing and joking. Poor historian. jmk 19:48 General: Appears in no apparent distress, Behavior is cooperative. Neurological: Level mgs of Consciousness is awake, alert. Cardiovascular: Capillary refill < 3 seconds Heart tones S1 S2 present. Respiratory: Airway is patent Respiratory effort is even, unlabored, Respiratory pattern is regular, symmetrical. Derm: Skin is pink, warm & dry. 20:40 General: Appears in no apparent distress, Behavior is cooperative. Neurological: Level mgs of Consciousness is awake, alert. Cardiovascular: Capillary refill < 3 seconds. Respiratory: Airway is patent Respiratory effort is even, unlabored, Respiratory pattern is regular, symmetrical. Derm: Skin is pink, warm & dry. Vital Signs: 11:38 BP 175 / 81 (auto/); jmk 11:45 BP 175 / 81; Pulse 53; Resp 18; Temp 98.7(TE); Pulse Ox 97% on R/A; Weight 79.38 kg ar3 (R); Height 5 ft. 9 in. (175.26 cm) (R); Pain 0/10; 13:38 BP 124 / 61 Supine; Pulse 57; jmk 13:38 BP 101 / 54 Standing; Pulse 81; jmk 16:15 BP 157 / 70 (auto/); jmk 16:15 Pulse 57 MON; Pulse Ox 97% ; jmk 16:30 BP 148 / 67 (auto/); jmk 16:30 Pulse 57 MON; Pulse Ox 95% ; jmk 16:45 BP 159 / 73 (auto/); jmk 16:45 Pulse 66 MON; jmk 17:00 BP 175 / 74 (auto/); jmk 17:00 Pulse 61 MON; jmk 18:01 BP 173 / 77 (auto/); mgs 18:01 Pulse 77 MON; Pulse Ox 98% ; mgs 18:16 BP 165 / 109 (auto/); mgs 18:16 Pulse Ox 100% ; mgs 18:46 BP 105 / 50 (auto/); mgs 18:47 Pulse Ox 95% ; mgs 19:01 BP 120 / 58 (auto/); mgs 19:01 Pulse 59 MON; Pulse Ox 93% ; mgs 19:16 BP 167 / 74 (auto/); mgs 19:16 Pulse 57 MON; Pulse Ox 93% ; mgs 19:31 BP 166 / 67 (auto/); mgs 19:31 Pulse 58 MON; Pulse Ox 92% ; mgs 20:01 BP 152 / 67 (auto/); mgs 20:01 Pulse 62 MON; Pulse Ox 94% ; mgs 20:16 BP 163 / 83 (auto/); mgs 20:16 Pulse 58 MON; Pulse Ox 99% ; mgs 20:31 BP 154 / 68 (auto/); mgs 20:31 Pulse 59 MON; Pulse Ox 96% ; mgs 20:55 BP 151 / 66 RA Supine (auto/reg); Pulse 61 MON; Resp 18 S; Temp 97.7(TE); Pulse Ox 93% cln on R/A; Pain 0/10; 11:45 Body Mass Index 25.84 (79.38 kg, 175.26 cm) ar3 Vitals: 20:57 Log In Time N/A - ambulance arrival. [facility] [place] ED Course: 11:38 Patient visited by Nuha Tyson PCA. rs6 11:38 Abel is Private Physician. rs6 11:38 Patient moved to Waiting rs6 11:39 Hina Purdy,RN is Primary Nurse. rs6 11:39 Patient moved to 2 rs6 11:39 Triage Initiated srm 11:39 EKG done. (by ED staff). Reviewed by Glenis Keys MD. ar3 11:45 Patient visited by Leonarda Reich PCA. ar3 11:52 The patient / caregiver is instructed regarding the plan of care and ED course. Patient indira has correct armband on for positive identification. Placed in gown. Bed in low position. Call light in reach. Side rails up X2. pole inspector on. Pulse ox on. NIBP on. 11:52 Inserted saline lock: 20 gauge in left antecubital area and blood collected. The srm patient tolerated the procedure well. by Patricia Sorto rn. 11:53 Patient visited by Jocelyne Mai, FLAKITA. srm 12:03 Shakira Clement FNP is PHCP. le 12:25 Patient visited by Shakira Clement FNP. le 12:34 Patient visited by Shakira Clement FNP. le 12:44 D-DIMER QUANT Sent. jmk 13:40 Patient visited by Leonarda Reich PCA. ar3 13:50 Chest, 2 View (pa\E\lat) Returned. EDMS 15:54 Patient visited by Nuha Tyson PCA. rs6 15:55 [facility] Payment Agreement was scanned into [employer] and attached to record. gjb 17:06 Leeann Ross is Hospitalizing Provider. le 17:13 Patient visited by Chriss Sorto,FLAKITA. jmk 18:28 Patient visited by Chriss Sorto,FLAKITA. jmk 19:01 Primary Nurse role handed off by Hina Purdy RN mv5 19:45 Genaro Velázquez,FLAKITA is Primary Nurse. mgs 19:49 Patient visited by Genaro Velázquez,FLAKITA. mgs 20:41 Patient visited by Genaro Velázquez,FLAKITA. mgs 20:55 No procedures done that require assistance. mgs 20:56 Patient visited by Agnes Scott PCA. cln Administered Medications: 15:33 Drug: NS 0.9% 500 ml Route: IV; Rate: bolus; Site: left antecubital; jmk 17:11 Follow up: IV Status: Completed infusion; IV Intake: 500ml jmk Intake: 17:11 IV: 500.00ml; Total: 500.00ml. jmk Order Results: Lab Order: Basic Metabolic Profile; SPEC'M 07/08/16 11:51 Test: GLUCOSE, FASTING; Value: 69; Range: 83-110; Abnormal: Below low normal; Units: MG/DL; Status: F Test: BLOOD UREA NITROGEN; Value: 33; Range: 7-18; Abnormal: Above high normal; Units: MG/DL; Status: F Test: CREATININE FOR GFR; Value: 1.89; Range: 0.70-1.30; Abnormal: Above high normal; Units: MG/DL; Status: F Test: GLOMERULAR FILTRATION RATE; Value: 36.8; Range: >42; Abnormal: Below low normal; Status: F Test: SODIUM LEVEL; Value: 145; Range: 136-145; Units: MEQ/L; Status: F Test: POTASSIUM SERUM; Value: 4.9; Range: 3.5-5.1; Units: MEQ/L; Status: F Test: CHLORIDE LEVEL; Value: 106; Range: 98-107; Units: MEQ/L; Status: F Test: CARBON DIOXIDE LEVEL; Value: 32; Range: 21-32; Units: MEQ/L; Status: F Test: ANION GAP; Value: 7; Range: 8-16; Abnormal: Below low normal; Units: MEQ/L; Status: F Test: CALCIUM LEVEL; Value: 8.3; Range: 8.8-10.2; Abnormal: Below low normal; Units: MG/DL; Status: F Test Note: ; Units are mL/min/1.73 m2 Chronic Kidney Disease Staging per NKF: Stage I & II GFR >=60 Normal to Mildly Decreased Stage III GFR 30-59 Moderately Decreased Stage IV GFR 15-29 Severely Decreased Stage V GFR <15 Very Little GFR Left ESRD GFR <15 on TONGUE CARRIER Lab Order: CBC with Diff; SPEC'M 07/08/16 11:51 Test: WHITE BLOOD COUNT; Value: 12.4; Range: 4.0-10.0; Abnormal: Above high normal; Units: K/mm3; Status: F Test: RED BLOOD COUNT; Value: 3.81; Range: 4.30-6.10; Abnormal: Below low normal; Units: M/mm3; Status: F Test: HEMOGLOBIN; Value: 12.4; Range: 14.0-18.0; Abnormal: Below low normal; Units: g/dl; Status: F Test: HEMATOCRIT; Value: 39.2; Range: 42.0-52.0; Abnormal: Below low normal; Units: %; Status: F Test: MEAN CORPUSCULAR VOLUME; Value: 102.9; Range: 80.0-96.0; Abnormal: Above high normal; Units: fl; Status: F Test: MEAN CORPUSCULAR HEMOGLOBIN; Value: 32.6; Range: 27.0-33.0; Units: pg; Status: F Test: MEAN CORPUSCULAR HGB CONC; Value: 31.7; Range: 32.0-36.5; Abnormal: Below low normal; Units: g/dl; Status: F Test: RED CELL DISTRIBUTION WIDTH; Value: 14.0; Range: 11.5-14.5; Units: %; Status: F Test: PLATELET COUNT, AUTOMATED; Value: 270; Range: 150-450; Units: k/mm3; Status: F Test: NEUTROPHILS %; Value: 75.8; Range: 36.0-66.0; Abnormal: Above high normal; Units: %; Status: F Test: LYMPH %; Value: 14.1; Range: 24.0-44.0; Abnormal: Below low normal; Units: %; Status: F Test: MONO %; Value: 6.6; Range: 0.0-5.0; Abnormal: Above high normal; Units: %; Status: F Test: EOS %; Value: 2.2; Range: 0.0-3.0; Units: %; Status: F Test: BASO %; Value: 0.4; Range: 0.0-1.0; Units: %; Status: F Test: LARGE UNSTAINED CELL %; Value: 1.0; Range: 0.0-4.0; Units: %; Status: F Test: NEUTROPHILS #; Value: 9.4; Range: 1.8-7.7; Abnormal: Above high normal; Units: K/mm3; Status: F Test: LYMPH #; Value: 1.9; Range: 1.5-4.5; Units: K/mm3; Status: F Test: MONO #; Value: 0.8; Range: 0.0-0.8; Units: K/mm3; Status: F Test: EOS #; Value: 0.3; Range: 0.0-0.50; Units: K/mm3; Status: F Test: BASO #; Value: 0.0; Range: 0.0-0.2; Units: K/mm3; Status: F Test: LARGE UNSTAINED CELL #; Value: 0.1; Range: 0.0-0.4; Units: K/mm3; Status: F Lab Order: Cardiac Injury Profile; [facility] 07/08/16 11:51 Test: CPK CREATINE PHOSPHOKINASE; Value: 36; Range: 39-308; Abnormal: Below low normal; Units: U/L; Status: F Test: CK-MB VALUE MASS; Value: 2.9; Range: 0.0-3.6; Units: NG/ML; Status: F Test: MB/CK RELATIVE INDEX; Value: 8.05; Range: < OR =4; Abnormal: Above high normal; Status: F Test Note: ; DIAGNOSIS CRITERIA MMB ng/ml Relative Index (RI) NON-AMI < or = 5 N/A [place] > 5 < or = 4 AMI > 5 > 4 Lab Order: Thyroid Stimulating Hormone; [facility] 07/08/16 11:51 Test: THYROID STIMULATING HORMONE; Value: 4.690; Range: 0.358-3.740; Abnormal: Above high normal; Units: uIU/ML; Status: F Lab Order: Troponin; [facility] 07/08/16 11:51 Test: TROPONIN I; Value: 0.12; Range: < 0.10; Abnormal: Above high normal; Units: NG/ML; Status: F Test Note: ; Troponin I Reference Interval for [employer] LOCI: 99th Percentile= 0.00-0.045 ng/ml Risk Stratification: <= 0.10 ng/ml Decreased Risk for Adverse Clinical Events. 0.10-1.50 ng/ml Increased Risk for Adverse Clinical Events. Evaluation of additional criterion and/or repeat testing in 2-6 hours is suggested to rule out myocardial damage. >= 1.50 ng/ml Indicative of Myocardial Injury. Lab Order: Urinalysis; [facility] 07/08/16 15:17 Test: APPEARANCE, URINE; Value: CLEAR; Range: CLEAR; Status: F Test: COLOR, URINE; Value: STRAW; Range: YELLOW; Status: F Test: PH,URINE; Value: 7.0; Range: 5.0-9.0; Units: UNITS; Status: F Test: SPECIFIC GRAVITY URINE AUTO; Value: 1.008; Range: 1.002-1.035; Status: F Test: PROTEIN, URINE AUTO; Value: NEGATIVE; Range: NEGATIVE; Units: mg/dL; Status: F Test: GLUCOSE, URINE (UA) AUTO; Value: NEGATIVE; Range: NEGATIVE; Units: mg/dL; Status: F Test: KETONE, URINE AUTO; Value: NEGATIVE; Range: NEGATIVE; Units: mg/dL; Status: F Test: UROBILINOGEN, URINE AUTO; Value: 0.2; Range: 0.0-2.0; Units: mg/dL; Status: F Test: BILIRUBIN, URINE AUTO; Value: NEGATIVE; Range: NEGATIVE; Status: F Test: NITRITE, URINE AUTO; Value: NEGATIVE; Range: NEGATIVE; Status: F Test: LEUKOCYTE ESTERASE, URINE AUTO; Value: TRACE; Range: NEGATIVE; Abnormal: Above high normal; Status: F Test: BLOOD, URINE BLOOD; Value: NEGATIVE; Range: NEGATIVE; Status: F Test: WBC, URINE AUTO; Value: 1; Range: 0-3; Units: /HPF; Status: F Test: RBC, URINE AUTO; Value: 3; Range: 0-3; Units: /HPF; Status: F Test: BACTERIA, URINE AUTO; Value: NEGATIVE; Range: NEGATIVE; Status: F Test: SQUAMOUS EPITHELIAL CELL UR AU; Value: 0; Range: 0-6; Units: /HPF; Status: F Test: HYALINE CAST, URINE AUTO; Value: 0; Range: 0-1; Units: /LPF; Status: F Lab Order: PT/INR; SPEC'M 07/08/16 11:51 Test: PROTHROMBIN TIME; Value: 14.7; Range: 12.3-14.5; Abnormal: Above high normal; Units: SECONDS; Status: F Test: INR; Value: 1.14; Status: F Test Note: ; THERAPUTIC HUMAN INR VALUES INDICATIONS NORMAL RANGES PROPHYLAXIS/TREATMENT OF: VENOUS THROMBOSIS 2.0-3.0 PULMONARY EMBOLISM 2.0-3.0 PREVENTION OF SYSTEMIC EMBOLISM FROM: TISSUE HEART VALVES 2.0-3.0 ACUTE MYOCARDIAL INFARCTION 2.0-3.0 VALVULAR HEART DISEASE 2.0-3.0 ATRIAL FIBRILLATION 2.0-3.0 MECHANICAL VALVES(HIGH RISK) 2.5-3.5 RECURRENT MYOCARDIAL INFARCTION 2.5-3.5 Lab Order: PTT; [facility] 07/08/16 11:51 Test: PARTIAL THROMBOPLASTIN TIME; Value: 24.2; Range: 26.6-37.1; Abnormal: Below low normal; Units: SECONDS; Status: F Lab Order: D-DIMER QUANT; [facility] 07/08/16 11:51 Test: D-DIMER QUANT; Value: 708.0; Range: <500; Abnormal: Above high normal; Units: ng/ml; Status: F Lab Order: Fingerstick Blood Sugar; [facility] 07/08/16 13:44 Test: BEDSIDE GLUCOSE; Value: 112; Range: 83-110; Abnormal: Above high normal; Units: MG/DL; Status: F Lab Order: TROPONIN; [facility] 07/08/16 15:52 Test: TROPONIN I; Value: 0.10; Range: < 0.10; Units: NG/ML; Status: F Test Note: ; Troponin I Reference Interval for [employer] LOCI: 99th Percentile= 0.00-0.045 ng/ml Risk Stratification: <= 0.10 ng/ml Decreased Risk for Adverse Clinical Events. 0.10-1.50 ng/ml Increased Risk for Adverse Clinical Events. Evaluation of additional criterion and/or repeat testing in 2-6 hours is suggested to rule out myocardial damage. >= 1.50 ng/ml Indicative of Myocardial Injury. Lab Order: CARDIAC INJURY PROFILE; [facility] 07/08/16 15:52 Test: CPK CREATINE PHOSPHOKINASE; Value: 38; Range: 39-308; Abnormal: Below low normal; Units: U/L; Status: F Test: CK-MB VALUE MASS; Value: 3.1; Range: 0.0-3.6; Units: NG/ML; Status: F Test: MB/CK RELATIVE INDEX; Value: 8.15; Range: < OR =4; Abnormal: Above high normal; Status: F Test Note: ; DIAGNOSIS CRITERIA MMB ng/ml Relative Index (RI) NON-AMI < or = 5 N/A [place] > 5 < or = 4 AMI > 5 > 4 Lab Order: FREE T4; SPEC'M 07/08/16 15:52 Test: FREE T4; Value: 1.24; Range: 0.76-1.46; Units: NG/DL; Status: F Lab Order: BRAIN NATIURETIC PEPTIDE; SPEC'M 07/08/16 12:39 Test: BRAIN NATRIURETIC PEPTIDE; Value: 193; Range: <100; Abnormal: Above high normal; Units: PG/ML; Status: F Radiology Order: Chest, 2 View (pa\E\lat) Test: Chest, 2 View (pa\E\lat) REASON FOR EXAMINATION: Syncope; Clinical: Syncope.; ; Technique: PA and lateral.; ; Comparison: 06/19/2016.; ; Findings:; Mediastinum and cardiac silhouette are stable and mild cardiomegaly along with; pacemaker again identified. Previously noted left lower lobe infiltrate appears; to have resolved. Trace right basilar atelectasis cannot be excluded. No; effusion. No pneumothorax. Skeletal structures intact.; ; Impression:; Cannot exclude trace right basilar atelectasis.; ; ; Signed by; Alejandro Leroy MD 07/08/2016 01:17 P; Outcome: 17:06 Decision to Hospitalize by Provider. le 20:55 Discharge Assessment: Patient awake and alert. Oriented to person, place. The following mgs High Risk Discharge criteria are identified: None. Admitted to PCU accompanied by nurse, accompanied by tech, via stretcher, on monitor, with chart. Condition: stable. No special radiology studies were completed. Property :Personal belongings accompany Pt. 20:57 Discharge Assessment: patient administered narcotics - no. mgs 21:01 Patient left the ED. mgs Signatures: Dispatcher [employer] EDMS Chriss Sorto,RN RN Jocelyne Solano RN RN srm Faye Clementa, STEAMING CABINET TENDER STEAMING CABINET TENDER Leonarda Rabago, DISTRIBUTION OPERATION SUPERVISOR DISTRIBUTION OPERATION SUPERVISOR [email or web address] Genaro VelázquezRN RN Nuha Tee, DISTRIBUTION OPERATION SUPERVISOR DISTRIBUTION OPERATION SUPERVISOR rs6 Jagruti Oreilly Crystal, DISTRIBUTION OPERATION SUPERVISOR DISTRIBUTION OPERATION SUPERVISOR Hina España,RN RN mv5 Corrections: (The following items were deleted from the chart) 11:40 11:38 Presenting complaint: EMS states: 15 min episode of unresponsiveness, Vero srm stoke respirations [facility]. FSBS 96 opt awake alert oriented at this time srm MTDD
--- NOTE | 2016-07-08 21:02 | EDDOCDS ---
Physician Documentation [facility] Name: Rickey Ibanez Age: 81 yrs Sex: Male : 1935 Arrival Date: 07/08/2016 Time: 11:36 Bed 2 Private MD: Abel Disposition: 07/08/16 17:06 Hospitalization ordered by Leeann Ross for Inpatient Admission. Preliminary diagnosis is Syncope and collapse. - Bed requested for PCU. - Status is Inpatient Admission. mgs - Condition is Stable. - Problem is new. - Symptoms have improved. Historical: - Allergies: no known allergies; - Home Meds: 1. DuoNeb 0.5 mg-3 mg(2.5 mg base)/3 mL Inhl nebu every 6 hours and Q2hrs prn 2. Tylenol 325 mg Oral tab 2 tabs every 4 hours 3. allopurinol 100 mg Oral tab 1 tab once daily 4. amlodipine 5 mg Oral tab 1 tab once daily 5. Eliquis 5 mg oral tab 1 tab 2 times per day 6. aspirin 81 mg Oral TbEC 1 tab once daily 7. atorvastatin 40 mg oral tab 1 tab nightly 8. Bee-Zee oral tab daily 9. Dulcolax (bisacodyl) 10 mg Rectal supp 1 suppository once daily 10. Vitamin B-12 1,000 mcg Oral TbER daily 11. Tums Ultra 400 mg (1,000 mg) oral chew twice a day 12. carvedilol 6.25 mg oral tab 1 tab 2 times per day 13. senna 8.6 mg oral cap 1 caps once daily 14. finasteride 5 mg oral tab 1 tab nightly 15. gabapentin 100 mg Oral tab three times a day 16. Levemir 100 unit/mL subcutaneous soln 24 unit nightly 17. Novolog sliding scale Sub-Q soln 8 unit three times a day 18. isosorbide mononitrate 30 mg Oral Tb24 1 tab once daily 19. levothyroxine 50 mcg Oral cap 1 cap once daily 20. Milk of Magnesia Oral 10 mL as needed 21. Centrum Silver oral oral daily 22. NitroQuick 0.4 mg SL subl every 5 minutes 23. tamsulosin 0.4 mg oral cp24 1 cap once daily 24. Vitamin D Oral 29930 unit weekly 25. Lasix 20 mg Oral tab 1 tab once daily 26. Augmentin 875-125 mg Oral tab 1 tab every 12 hours stop on 06/20/16 - PMHx: Atrial Fib; BPH; CAD; carotid stenosis; CHF; Chronic Renal Insufficiency; CVA; Diabetes - NIDDM: controlled; DVT; hyperlipidemia; Hypertension; Implanted AICD; AL; PE; Pneumonia; - PSHx: Carotid surgery (2013); Cataract Surgery- Bilateral; - Social history: Smoking status: Patient states former smoker of tobacco. No barriers to communication noted, The patient speaks fluent Sami, Speaks appropriately for age. - Family history: Not pertinent. - : The pt / caregiver states he / she is on anticoagulants: Eliquis Home medication list is obtained from a discharge med list, the facility [facility]. - Exposure Risk Screening:: None identified. Vital Signs: 07/08 11:38 BP 175 / 81 (auto/); jmk 11:45 BP 175 / 81; Pulse 53; Resp 18; Temp 98.7(TE); Pulse Ox 97% on R/A; Weight 79.38 kg / ar3 175 lbs (R); Height 5 ft. 9 in. (175.26 cm) (R); Pain 0/10; 13:38 BP 124 / 61 Supine; Pulse 57; jmk 13:38 BP 101 / 54 Standing; Pulse 81; jmk 16:15 BP 157 / 70 (auto/); jmk 16:15 Pulse 57 MON; Pulse Ox 97% ; jmk 16:30 BP 148 / 67 (auto/); jmk 16:30 Pulse 57 MON; Pulse Ox 95% ; jmk 16:45 BP 159 / 73 (auto/); jmk 16:45 Pulse 66 MON; jmk 17:00 BP 175 / 74 (auto/); jmk 17:00 Pulse 61 MON; jmk 18:01 BP 173 / 77 (auto/); mgs 18:01 Pulse 77 MON; Pulse Ox 98% ; mgs 18:16 BP 165 / 109 (auto/); mgs 18:16 Pulse Ox 100% ; mgs 18:46 BP 105 / 50 (auto/); mgs 18:47 Pulse Ox 95% ; mgs 19:01 BP 120 / 58 (auto/); mgs 19:01 Pulse 59 MON; Pulse Ox 93% ; mgs 19:16 BP 167 / 74 (auto/); mgs 19:16 Pulse 57 MON; Pulse Ox 93% ; mgs 19:31 BP 166 / 67 (auto/); mgs 19:31 Pulse 58 MON; Pulse Ox 92% ; mgs 20:01 BP 152 / 67 (auto/); mgs 20:01 Pulse 62 MON; Pulse Ox 94% ; mgs 20:16 BP 163 / 83 (auto/); mgs 20:16 Pulse 58 MON; Pulse Ox 99% ; mgs 20:31 BP 154 / 68 (auto/); mgs 20:31 Pulse 59 MON; Pulse Ox 96% ; mgs 20:55 BP 151 / 66 RA Supine (auto/reg); Pulse 61 MON; Resp 18 S; Temp 97.7(TE); Pulse Ox 93% cln on R/A; Pain 0/10; 11:45 Body Mass Index 25.84 (79.38 kg, 175.26 cm) ar3 MDM: 11:43 ECG WITH READING ER PHYS+CARDIAG ordered. EDMS 12:33 Acid Pumper/Pulse Ox/q 15 min VS ordered. le 12:33 Accucheck ordered. le 12:33 IV Saline Lock ordered. le 12:33 Rhythm Strip to chart ordered. le 12:34 Orthostatic VS ordered. le 12:34 Basic Metabolic Profile Ordered. EDMS 12:34 CBC with Diff Ordered. EDMS 12:35 Cardiac Injury Profile Ordered. EDMS 12:35 Thyroid Stimulating Hormone Ordered. EDMS 12:35 Troponin Ordered. EDMS 12:35 Urinalysis Ordered. EDMS 12:35 Chest, 2 View (pa\E\lat) Ordered. EDMS 12:35 BED REQUEST+ADM ordered. EDMS 12:35 PT/INR Ordered. EDMS 12:35 PTT Ordered. EDMS 12:41 D-DIMER QUANT Ordered. EDMS 15:06 Basic Metabolic Profile Reviewed. le 15:06 CBC with Diff Reviewed. le 15:06 Cardiac Injury Profile Reviewed. le 15:06 Thyroid Stimulating Hormone Reviewed. le 15:06 Troponin Reviewed. le 15:06 PT/INR Reviewed. le 15:06 PTT Reviewed. le 15:06 D-DIMER QUANT Reviewed. le 15:06 Fingerstick Blood Sugar Reviewed. le 15:06 Chest, 2 View (pa\E\lat) Reviewed. le 15:11 Redraw CIP &Troponin (put time in details section) ordered. le 15:11 NS 0.9% 500 ml IV at bolus once ordered. le 15:12 Redraw CIP &Troponin (put time in details section) complete. rs6 15:15 TROPONIN Ordered. EDMS 15:15 CARDIAC INJURY PROFILE Ordered. EDMS 15:35 Financial registration complete. gjb 15:55 [facility] Payment Agreement was scanned into [employer] and attached to record. gjb 16:26 TROPONIN Reviewed. le 16:31 CARDIAC INJURY PROFILE Reviewed. le 17:34 Admission / Observation Status ordered. EDMS 17:34 2 GRAM SODIUM DIET ordered. EDMS 18:13 FREE T4 Ordered. EDMS 18:13 BRAIN NATIURETIC PEPTIDE Ordered. EDMS 19:32 CBC WITH DIFFERENTIAL Ordered. EDMS 19:32 BASIC METABOLIC PROFILE Ordered. EDMS Administered Medications: 15:33 Drug: NS 0.9% 500 ml Route: IV; Rate: bolus; Site: left antecubital; jmk 17:11 Follow up: IV Status: Completed infusion; IV Intake: 500ml swathi Signatures: Dispatcher [employer] EDMS Jocelyne Mai, RN RN Shakira Schaeffer, TRAIN OPERATIONS SUPERVISOR TRAIN OPERATIONS SUPERVISOR Genaro Nelson,RN RN mgs Nuha Tyson, PRESS ASSISTANT AND FEEDER PRESS ASSISTANT AND FEEDER rs6 Jagruti Oreilly Jean RN jmk The chart was reviewed and I authenticate all verbal orders and agree with the evaluation and treatment provided.Corrections: (The following items were deleted from the chart) 12:41 12:35 D-DIMER QUANT+LAB ordered. EDMS EDMS 18:12 17:31 FREE T4 ordered. EDMS EDMS 18:15 17:41 BRAIN NATIURETIC PEPTIDE ordered. EDMS EDMS Attachments: 15:55 [facility] Payment Agreement gj MTDD
[2016-07-08] MEDS: CALCIUM CARBONATE 500 MG CHEW U/D PO SCH (21:33)
[2016-07-08] MEDS: HumaLOG INSULIN (NovoLOG) PER UNIT SC SCH (21:33)
[2016-07-08] MEDS: TAMSULOSIN 0.4 MG CAP PO SCH (21:34)
[2016-07-08] MEDS: APIXABAN 5 MG TAB (ELIQUIS) PO SCH (21:34)
[2016-07-08] MEDS: FINASTERIDE 5 MG TAB PO SCH (21:34)
[2016-07-08] MEDS: GABAPENTIN 100 MG CAP PO SCH (21:34)
[2016-07-08] MEDS: ATORVASTATIN 20 MG TAB PO SCH (21:34)
[2016-07-08] MEDS: CARVedilol 6.25 MG TAB PO SCH (21:35)
[2016-07-08 23:59] VITALS: BP 151/67
[2016-07-09] VITALS (9 sets, daily range): BP systolic 149–179; BP diastolic 66–80
[2016-07-09] MEDS: ACETAMINOPHEN TAB 650MG DOSE (2X325MG) PO PRN ×2 (01:55→21:06)
[2016-07-09] MEDS: LEVOTHYROXINE 0.05 MG TAB (50 MCG) PO SCH (05:24)
[2016-07-09 06:00] LABS: BASO % 0.4 % (0.0-1.0); EOS # 0.2 K/mm3 (0.0-0.50); EOS % 2.3 % (0.0-3.0); LARGE UNSTAINED CELL # 0.1 K/mm3 (0.0-0.4); LARGE UNSTAINED CELL % 1.2 % (0.0-4.0); LYMPH # 1.8 K/mm3 (1.5-4.5); LYMPH % 16.5 % (24.0-44.0); MEAN CORPUSCULAR HGB CONC 32.1 g/dl (32.0-36.5); MEAN CORPUSCULAR VOLUME 102.7 fl (80.0-96.0); MONO # 0.8 K/mm3 (0.0-0.8); MONO % 7.4 % (0.0-5.0); NEUTROPHILS # 7.5 K/mm3 (1.8-7.7); NEUTROPHILS % 72.2 % (36.0-66.0); PLATELET COUNT, AUTOMATED 230 k/mm3 (150-450); WHITE BLOOD COUNT 10.3 K/mm3 (4.0-10.0)
[2016-07-09 06:23] LABS: CALCIUM LEVEL 8.2 MG/DL (8.8-10.2); CREATININE FOR GFR 1.64 MG/DL (0.70-1.30); GLOMERULAR FILTRATION RATE 43.4 (>42); POTASSIUM SERUM 4.1 MEQ/L (3.5-5.1)
--- NOTE | 2016-07-09 07:55 | ECGEPIP ---
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
[2016-07-09] MEDS: MULTIVITAMINS/MINERALS THERAP 1 TAB PO SCH (08:31)
[2016-07-09] MEDS: HumaLOG INSULIN (NovoLOG) PER UNIT SC SCH ×4 (08:31→21:00)
[2016-07-09] MEDS: ALLOPURINOL 100 MG TAB PO SCH (08:32)
[2016-07-09] MEDS: CALCIUM CARBONATE 500 MG CHEW U/D PO SCH ×2 (08:32→21:07)
[2016-07-09] MEDS: VITAMIN D 1,000 INTERNATIONAL UNITS TABLET PO SCH (08:32)
[2016-07-09] MEDS: ISOSORBIDE MON. (IMDUR) 30 MG XR TAB PO SCH (08:32)
[2016-07-09] MEDS: SENOKOT S TAB PO SCH (08:32)
[2016-07-09] MEDS: APIXABAN 5 MG TAB (ELIQUIS) PO SCH ×2 (08:32→21:06)
[2016-07-09] MEDS: GABAPENTIN 100 MG CAP PO SCH ×3 (08:32→21:07)
[2016-07-09] MEDS: FUROSEMIDE 20 MG TAB PO SCH (08:33)
[2016-07-09] MEDS: PANTOPRAZOLE 40MG TAB (PROTONIX) PO SCH (08:33)
[2016-07-09] MEDS: CYANOCOBALAMIN 500 MCG TAB PO SCH (08:33)
[2016-07-09] MEDS: CARVedilol 6.25 MG TAB PO SCH ×2 (08:33→21:07)
[2016-07-09] MEDS: ASPIRIN 81 MG CHEW TABLET PO SCH (08:33)
[2016-07-09] MEDS: amLODIPine 5 MG TAB PO SCH (08:33)
[2016-07-09] MEDS: AUGMENTIN 500 MG TAB PO SCH ×2 (16:09→21:07)
--- NOTE | 2016-07-09 19:05 | IPN ---
DATE: 07/09/2016 Mr. Ibanez is feeling okay today. He is quite pleased with his who brought him [employer] richey and a balloon and he is unwilling to share them with me. He has no complaints of pain, chest pain, shortness of breath. Apparently, he has had three episodes of passing out in the last 8 weeks, which has not been associated with any particular activity. PHYSICAL EXAMINATION: VITAL SIGNS: Temperature 96.5, pulse 62, respiratory rate 18, blood pressure 136/70. Input and output notable for a negative fluid balance of -300. Body Mass Index (BMI) of 26.8. He is awake, appropriately interactive. Breathing is symmetrical and rested. HEART: Regular rate and rhythm. No significant arrhythmia on the monitor. ABDOMEN: Soft, doughy, nontender. White cell count 10.3, hemoglobin 12.1, and platelets of 230. BUN 30, creatinine 1.64. ASSESSMENT: This is a 81-year-old with recurrent syncope. PLAN: 1. Syncope. This is possibly multifactorial. He is on multiple medications and was noted to be orthostatic and was known to have a low fasting blood sugar. Cardiac arrhythmia is a real possibility, although the patient does have an AICD. We will continue to monitor on telemetry and follow orthostatics and consider adjusting medications as deemed clinically necessary. 2. The patient has atrial fibrillation and is on Eliquis, which is also going to be the form of deep vein thrombosis (DVT) prophylaxis. 3. The patient has systolic congestive heart failure (CHF), which would appear to be compensated. 4. The patient has type 2 diabetes. He is covered on sliding scale. 5. 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 He will have his outpatient vascular surgery appointment rescheduled. 6. The patient has monoclonal gammopathy of uncertain significance. 7. The patient has hypothyroidism, which would appear to be reasonably well controlled on his current dose of Synthroid.
[2016-07-09] MEDS: TAMSULOSIN 0.4 MG CAP PO SCH (21:06)
[2016-07-09] MEDS: ATORVASTATIN 20 MG TAB PO SCH (21:06)
[2016-07-09] MEDS: FINASTERIDE 5 MG TAB PO SCH (21:06)
[2016-07-10] VITALS (9 sets, daily range): BP systolic 101–161; BP diastolic 50–80
[2016-07-10 05:41] LABS: BASO % 0.3 % (0.0-1.0); EOS # 0.2 K/mm3 (0.0-0.50); EOS % 2.4 % (0.0-3.0); LARGE UNSTAINED CELL # 0.1 K/mm3 (0.0-0.4); LARGE UNSTAINED CELL % 1.1 % (0.0-4.0); LYMPH # 1.8 K/mm3 (1.5-4.5); MEAN CORPUSCULAR HEMOGLOBIN 33.2 pg (27.0-33.0); MEAN CORPUSCULAR HGB CONC 32.5 g/dl (32.0-36.5); MEAN CORPUSCULAR VOLUME 102.4 fl (80.0-96.0); MONO # 0.7 K/mm3 (0.0-0.8); MONO % 7.4 % (0.0-5.0); NEUTROPHILS % 71.7 % (36.0-66.0); PLATELET COUNT, AUTOMATED 181 k/mm3 (150-450); RED CELL DISTRIBUTION WIDTH 14.1 % (11.5-14.5); WHITE BLOOD COUNT 9.8 K/mm3 (4.0-10.0)
[2016-07-10 05:47] LABS: CALCIUM LEVEL 8.2 MG/DL (8.8-10.2); CREATININE FOR GFR 1.68 MG/DL (0.70-1.30); GLOMERULAR FILTRATION RATE 42.2 (>42); POTASSIUM SERUM 4.3 MEQ/L (3.5-5.1)
[2016-07-10] MEDS: LEVOTHYROXINE 0.05 MG TAB (50 MCG) PO SCH (06:20)
[2016-07-10] MEDS: GABAPENTIN 100 MG CAP PO SCH ×3 (08:24→20:21)
[2016-07-10] MEDS: APIXABAN 5 MG TAB (ELIQUIS) PO SCH ×2 (08:24→20:21)
[2016-07-10] MEDS: HumaLOG INSULIN (NovoLOG) PER UNIT SC SCH ×4 (08:24→20:15)
[2016-07-10] MEDS: PANTOPRAZOLE 40MG TAB (PROTONIX) PO SCH (08:24)
[2016-07-10] MEDS: CALCIUM CARBONATE 500 MG CHEW U/D PO SCH ×2 (08:25→20:20)
[2016-07-10] MEDS: MULTIVITAMINS/MINERALS THERAP 1 TAB PO SCH (08:25)
[2016-07-10] MEDS: ALLOPURINOL 100 MG TAB PO SCH (08:25)
[2016-07-10] MEDS: ISOSORBIDE MON. (IMDUR) 30 MG XR TAB PO SCH (08:25)
[2016-07-10] MEDS: ASPIRIN 81 MG CHEW TABLET PO SCH (08:25)
[2016-07-10] MEDS: CARVedilol 6.25 MG TAB PO SCH ×2 (08:25→19:43)
[2016-07-10] MEDS: SENOKOT S TAB PO SCH (08:25)
[2016-07-10] MEDS: FUROSEMIDE 20 MG TAB PO SCH (08:26)
[2016-07-10] MEDS: amLODIPine 5 MG TAB PO SCH (08:26)
[2016-07-10] MEDS: AUGMENTIN 500 MG TAB PO SCH ×2 (08:26→20:20)
[2016-07-10] MEDS: VITAMIN D 1,000 INTERNATIONAL UNITS TABLET PO SCH (08:26)
[2016-07-10] MEDS: CYANOCOBALAMIN 500 MCG TAB PO SCH (08:26)
[2016-07-10] MEDS: LEVEMIR (INSULIN DETEMIR) 1 UNITS/0.01ML SC SCH ×2 (09:54→20:20)
[2016-07-10] MEDS: ATORVASTATIN 20 MG TAB PO SCH (20:20)
[2016-07-10] MEDS: FINASTERIDE 5 MG TAB PO SCH (20:21)
[2016-07-10] MEDS: TAMSULOSIN 0.4 MG CAP PO SCH (20:21)
--- NOTE | 2016-07-10 22:02 | EDDOCDS ---
Physician Documentation [facility] Name: Rickey Ibanez Age: 81 yrs Sex: Male : 1935 Arrival Date: 07/08/2016 Time: 11:36 Bed 2 Private MD: Abel Disposition: 07/08/16 17:06 Hospitalization ordered by Leeann Ross for Inpatient Admission. Preliminary diagnosis is Syncope and collapse. - Bed requested for PCU. - Status is Inpatient Admission. mgs - Condition is Stable. - Problem is new. - Symptoms have improved. Historical: - Allergies: no known allergies; - Home Meds: 1. DuoNeb 0.5 mg-3 mg(2.5 mg base)/3 mL Inhl nebu every 6 hours and Q2hrs prn 2. Tylenol 325 mg Oral tab 2 tabs every 4 hours 3. allopurinol 100 mg Oral tab 1 tab once daily 4. amlodipine 5 mg Oral tab 1 tab once daily 5. Eliquis 5 mg oral tab 1 tab 2 times per day 6. aspirin 81 mg Oral TbEC 1 tab once daily 7. atorvastatin 40 mg oral tab 1 tab nightly 8. Bee-Zee oral tab daily 9. Dulcolax (bisacodyl) 10 mg Rectal supp 1 suppository once daily 10. Vitamin B-12 1,000 mcg Oral TbER daily 11. Tums Ultra 400 mg (1,000 mg) oral chew twice a day 12. carvedilol 6.25 mg oral tab 1 tab 2 times per day 13. senna 8.6 mg oral cap 1 caps once daily 14. finasteride 5 mg oral tab 1 tab nightly 15. gabapentin 100 mg Oral tab three times a day 16. Levemir 100 unit/mL subcutaneous soln 24 unit nightly 17. Novolog sliding scale Sub-Q soln 8 unit three times a day 18. isosorbide mononitrate 30 mg Oral Tb24 1 tab once daily 19. levothyroxine 50 mcg Oral cap 1 cap once daily 20. Milk of Magnesia Oral 10 mL as needed 21. Centrum Silver oral oral daily 22. NitroQuick 0.4 mg SL subl every 5 minutes 23. tamsulosin 0.4 mg oral cp24 1 cap once daily 24. Vitamin D Oral 73083 unit weekly 25. Lasix 20 mg Oral tab 1 tab once daily 26. Augmentin 875-125 mg Oral tab 1 tab every 12 hours stop on 06/20/16 - PMHx: Atrial Fib; BPH; CAD; carotid stenosis; CHF; Chronic Renal Insufficiency; CVA; Diabetes - NIDDM: controlled; DVT; hyperlipidemia; Hypertension; Implanted AICD; VT; PE; Pneumonia; - PSHx: Carotid surgery (2013); Cataract Surgery- Bilateral; - Social history: Smoking status: Patient states former smoker of tobacco. No barriers to communication noted, The patient speaks fluent Uzbek, Speaks appropriately for age. - Family history: Not pertinent. - : The pt / caregiver states he / she is on anticoagulants: Eliquis Home medication list is obtained from a discharge med list, the facility [facility]. - Exposure Risk Screening:: None identified. Vital Signs: 07/08 11:38 BP 175 / 81 (auto/); jmk 11:45 BP 175 / 81; Pulse 53; Resp 18; Temp 98.7(TE); Pulse Ox 97% on R/A; Weight 79.38 kg / ar3 175 lbs (R); Height 5 ft. 9 in. (175.26 cm) (R); Pain 0/10; 13:38 BP 124 / 61 Supine; Pulse 57; jmk 13:38 BP 101 / 54 Standing; Pulse 81; jmk 16:15 BP 157 / 70 (auto/); jmk 16:15 Pulse 57 MON; Pulse Ox 97% ; jmk 16:30 BP 148 / 67 (auto/); jmk 16:30 Pulse 57 MON; Pulse Ox 95% ; jmk 16:45 BP 159 / 73 (auto/); jmk 16:45 Pulse 66 MON; jmk 17:00 BP 175 / 74 (auto/); jmk 17:00 Pulse 61 MON; jmk 18:01 BP 173 / 77 (auto/); mgs 18:01 Pulse 77 MON; Pulse Ox 98% ; mgs 18:16 BP 165 / 109 (auto/); mgs 18:16 Pulse Ox 100% ; mgs 18:46 BP 105 / 50 (auto/); mgs 18:47 Pulse Ox 95% ; mgs 19:01 BP 120 / 58 (auto/); mgs 19:01 Pulse 59 MON; Pulse Ox 93% ; mgs 19:16 BP 167 / 74 (auto/); mgs 19:16 Pulse 57 MON; Pulse Ox 93% ; mgs 19:31 BP 166 / 67 (auto/); mgs 19:31 Pulse 58 MON; Pulse Ox 92% ; mgs 20:01 BP 152 / 67 (auto/); mgs 20:01 Pulse 62 MON; Pulse Ox 94% ; mgs 20:16 BP 163 / 83 (auto/); mgs 20:16 Pulse 58 MON; Pulse Ox 99% ; mgs 20:31 BP 154 / 68 (auto/); mgs 20:31 Pulse 59 MON; Pulse Ox 96% ; mgs 20:55 BP 151 / 66 RA Supine (auto/reg); Pulse 61 MON; Resp 18 S; Temp 97.7(TE); Pulse Ox 93% cln on R/A; Pain 0/10; 11:45 Body Mass Index 25.84 (79.38 kg, 175.26 cm) ar3 MDM: 11:43 ECG WITH READING ER PHYS+CARDIAG ordered. EDMS 12:33 Supervisor Feed Mill/Pulse Ox/q 15 min VS ordered. le 12:33 Accucheck ordered. le 12:33 IV Saline Lock ordered. le 12:33 Rhythm Strip to chart ordered. le 12:34 Orthostatic VS ordered. le 12:34 Basic Metabolic Profile Ordered. EDMS 12:34 CBC with Diff Ordered. EDMS 12:35 Cardiac Injury Profile Ordered. EDMS 12:35 Thyroid Stimulating Hormone Ordered. EDMS 12:35 Troponin Ordered. EDMS 12:35 Urinalysis Ordered. EDMS 12:35 Chest, 2 View (pa\E\lat) Ordered. EDMS 12:35 BED REQUEST+ADM ordered. EDMS 12:35 PT/INR Ordered. EDMS 12:35 PTT Ordered. EDMS 12:41 D-DIMER QUANT Ordered. EDMS 15:06 Basic Metabolic Profile Reviewed. le 15:06 CBC with Diff Reviewed. le 15:06 Cardiac Injury Profile Reviewed. le 15:06 Thyroid Stimulating Hormone Reviewed. le 15:06 Troponin Reviewed. le 15:06 PT/INR Reviewed. le 15:06 PTT Reviewed. le 15:06 D-DIMER QUANT Reviewed. le 15:06 Fingerstick Blood Sugar Reviewed. le 15:06 Chest, 2 View (pa\E\lat) Reviewed. le 15:11 Redraw CIP &Troponin (put time in details section) ordered. le 15:11 NS 0.9% 500 ml IV at bolus once ordered. le 15:12 Redraw CIP &Troponin (put time in details section) complete. rs6 15:15 TROPONIN Ordered. EDMS 15:15 CARDIAC INJURY PROFILE Ordered. EDMS 15:35 Financial registration complete. b 15:55 [facility] Payment Agreement was scanned into [employer] and attached to record. gjb 16:26 TROPONIN Reviewed. le 16:31 CARDIAC INJURY PROFILE Reviewed. le 17:34 Admission / Observation Status ordered. EDMS 17:34 2 GRAM SODIUM DIET ordered. EDMS 18:13 FREE T4 Ordered. EDMS 18:13 BRAIN NATIURETIC PEPTIDE Ordered. EDMS 19:32 CBC WITH DIFFERENTIAL Ordered. EDMS 19:32 BASIC METABOLIC PROFILE Ordered. EDMS 07/09 10:47 T-Sheet-- Draft Copy was scanned into [employer] and attached to record. gb 10:47 ECG/EKG was scanned into [employer] and attached to record. gb Administered Medications: 07/08 15:33 Drug: NS 0.9% 500 ml Route: IV; Rate: bolus; Site: left antecubital; jmk 17:11 Follow up: IV Status: Completed infusion; IV Intake: 500ml swathi Signatures: Dispatcher [employer] EDJocelyne Redmond, RN FLAKITA srm Joann Jaime, Reg Reg gb Shakira Clement, TECHNICAL AIDE TECHNICAL AIDE Genaro Nelson RN RN mgs Nuha Tyson, INGOT CAR OPERATOR INGOT CAR OPERATOR rs6 Jagruti Oreilly Chriss Smith RN The chart was reviewed and I authenticate all verbal orders and agree with the evaluation and treatment provided.Corrections: (The following items were deleted from the chart) 12:41 12:35 D-DIMER QUANT+LAB ordered. EDMS EDMS 18:12 17:31 FREE T4 ordered. EDMS EDMS 18:15 17:41 BRAIN NATIURETIC PEPTIDE ordered. EDMS EDMS Attachments: 15:55 [facility] Payment Agreement [facility] 07/09 10:47 T-Sheet-- Draft Copy gb 10:47 ECG/EKG gb Chart Complete MTDD
--- NOTE | 2016-07-10 22:02 | EDDOCDS ---
Nurse's Notes [facility] Name: Rickey Ibanez Age: 81 yrs Sex: Male : 1935 Arrival Date: 07/08/2016 Time: 11:36 Bed 2 Private MD: Abel Diagnosis: Syncope and collapse Presentation: 07/08 11:38 Presenting complaint: EMS states: 15 min episode of unresponsiveness, Vero stoke srm respirations during PT at [facility] today. FSBS 96 opt awake alert oriented at this time. Adult Sepsis Screening: The patient does not have new or worsening altered mentation. Patient's respiratory rate is less than 22. Systolic blood pressure is greater than 100. Patient has a qSOFA score of 0- Negative Sepsis Screen. Suicide/Homicide risk assessment- the patient denies having any suicidal and/or homicidal ideations and does not present with any other emotional, behavioral or mental health complaints. Status: Patient is not a customer service sales associate or dependent. Transition of care: patient was received from [facility]. 11:38 Acuity: SUZY Level 2 [facility] 11:38 Method Of Arrival: Ambulance [facility] Triage Assessment: 11:51 General: Appears in no apparent distress, Behavior is appropriate for age, cooperative. srm Pain: Denies pain. Historical: - Allergies: no known allergies; - Home Meds: 1. DuoNeb 0.5 mg-3 mg(2.5 mg base)/3 mL Inhl nebu every 6 hours and Q2hrs prn 2. Tylenol 325 mg Oral tab 2 tabs every 4 hours 3. allopurinol 100 mg Oral tab 1 tab once daily 4. amlodipine 5 mg Oral tab 1 tab once daily 5. Eliquis 5 mg oral tab 1 tab 2 times per day 6. aspirin 81 mg Oral TbEC 1 tab once daily 7. atorvastatin 40 mg oral tab 1 tab nightly 8. Bee-Zee oral tab daily 9. Dulcolax (bisacodyl) 10 mg Rectal supp 1 suppository once daily 10. Vitamin B-12 1,000 mcg Oral TbER daily 11. Tums Ultra 400 mg (1,000 mg) oral chew twice a day 12. carvedilol 6.25 mg oral tab 1 tab 2 times per day 13. senna 8.6 mg oral cap 1 caps once daily 14. finasteride 5 mg oral tab 1 tab nightly 15. gabapentin 100 mg Oral tab three times a day 16. Levemir 100 unit/mL subcutaneous soln 24 unit nightly 17. Novolog sliding scale Sub-Q soln 8 unit three times a day 18. isosorbide mononitrate 30 mg Oral Tb24 1 tab once daily 19. levothyroxine 50 mcg Oral cap 1 cap once daily 20. Milk of Magnesia Oral 10 mL as needed 21. Centrum Silver oral oral daily 22. NitroQuick 0.4 mg SL subl every 5 minutes 23. tamsulosin 0.4 mg oral cp24 1 cap once daily 24. Vitamin D [place] [address]207 unit weekly 25. Lasix 20 mg Oral tab 1 tab once daily 26. Augmentin 875-125 mg Oral tab 1 tab every 12 hours stop on 06/20/16 - PMHx: Atrial Fib; BPH; CAD; carotid stenosis; CHF; Chronic Renal Insufficiency; CVA; Diabetes - NIDDM: controlled; DVT; hyperlipidemia; Hypertension; Implanted AICD; MS; PE; Pneumonia; - PSHx: Carotid surgery (2013); Cataract Surgery- Bilateral; - Social history: Smoking status: Patient states former smoker of tobacco. No barriers to communication noted, The patient speaks fluent Luxembourger, Speaks appropriately for age. - Family history: Not pertinent. - : The pt / caregiver states he / she is on anticoagulants: Eliquis Home medication list is obtained from a discharge med list, the facility [facility]. - Exposure Risk Screening:: None identified. Screenin:41 Screening information is obtained from the patient. Fall risk: At risk due to age. jmk Assistance ADL's: Requires assistance with. Abuse/DV Screen: The patient / caregiver reports he/she is: not in a situation that causes fear, pain or injury. Nutritional screening: No deficits noted. Advance Directives: Currently, there is a health care proxy, chuy [email or web address]. There is no active DNR order. There is no living will. There is no Power of Quick Sketch Artist. home support is adequate. Assessment: 11:41 General: Appears ambulance arrival . presently alert and oriented x 3. without facial jmk asymmetry. strength equal bilaterally. C/O overall fatigue. chest CTA. monitor AFib. denies pain. Pacer/ defib intact to right anterior chest. without peripheral edema.. Cardiovascular: Capillary refill < 3 seconds Clubbing of nail beds is absent Heart tones S1 S2 present. Respiratory: No deficits noted. Airway is patent Respiratory effort is Respiratory pattern is Breath sounds are clear bilaterally. GI: Abdomen is flat, non- distended Bowel sounds present X 4 quads. Abd is soft and non tender X 4 quads. 13:38 General: Appears resting with eyes closed resp easy and regular. rouses to verbal jmk stimuli. Upbeat demeanor. denies pain. Monitor is afib. Ortho stat vs obtained and tolerated well. denies dizziness... 13:40 General: Appears right foot with redness about toes that extended to mid foot area. jmk reprots chronic problem with increaed pain with standing. 17:09 General: Appears alert and cooperative. Joking and jovial. has attempted OOB unattended jmk and assisted back to bed. stands independently. monitor is Afib. pt denies chest discomfort, and reports foot pain with standing. PO fluids provided. 18:27 General: Appears diet provided and taken well. Laughing and joking. Poor historian. jmk 19:48 General: Appears in no apparent distress, Behavior is cooperative. Neurological: Level mgs of Consciousness is awake, alert. Cardiovascular: Capillary refill < 3 seconds Heart tones S1 S2 present. Respiratory: Airway is patent Respiratory effort is even, unlabored, Respiratory pattern is regular, symmetrical. Derm: Skin is pink, warm & dry. 20:40 General: Appears in no apparent distress, Behavior is cooperative. Neurological: Level mgs of Consciousness is awake, alert. Cardiovascular: Capillary refill < 3 seconds. Respiratory: Airway is patent Respiratory effort is even, unlabored, Respiratory pattern is regular, symmetrical. Derm: Skin is pink, warm & dry. Vital Signs: 11:38 BP 175 / 81 (auto/); jmk 11:45 BP 175 / 81; Pulse 53; Resp 18; Temp 98.7(TE); Pulse Ox 97% on R/A; Weight 79.38 kg ar3 (R); Height 5 ft. 9 in. (175.26 cm) (R); Pain 0/10; 13:38 BP 124 / 61 Supine; Pulse 57; jmk 13:38 BP 101 / 54 Standing; Pulse 81; jmk 16:15 BP 157 / 70 (auto/); jmk 16:15 Pulse 57 MON; Pulse Ox 97% ; jmk 16:30 BP 148 / 67 (auto/); jmk 16:30 Pulse 57 MON; Pulse Ox 95% ; jmk 16:45 BP 159 / 73 (auto/); jmk 16:45 Pulse 66 MON; jmk 17:00 BP 175 / 74 (auto/); jmk 17:00 Pulse 61 MON; jmk 18:01 BP 173 / 77 (auto/); mgs 18:01 Pulse 77 MON; Pulse Ox 98% ; mgs 18:16 BP 165 / 109 (auto/); mgs 18:16 Pulse Ox 100% ; mgs 18:46 BP 105 / 50 (auto/); mgs 18:47 Pulse Ox 95% ; mgs 19:01 BP 120 / 58 (auto/); mgs 19:01 Pulse 59 MON; Pulse Ox 93% ; mgs 19:16 BP 167 / 74 (auto/); mgs 19:16 Pulse 57 MON; Pulse Ox 93% ; mgs 19:31 BP 166 / 67 (auto/); mgs 19:31 Pulse 58 MON; Pulse Ox 92% ; mgs 20:01 BP 152 / 67 (auto/); mgs 20:01 Pulse 62 MON; Pulse Ox 94% ; mgs 20:16 BP 163 / 83 (auto/); mgs 20:16 Pulse 58 MON; Pulse Ox 99% ; mgs 20:31 BP 154 / 68 (auto/); mgs 20:31 Pulse 59 MON; Pulse Ox 96% ; mgs 20:55 BP 151 / 66 RA Supine (auto/reg); Pulse 61 MON; Resp 18 S; Temp 97.7(TE); Pulse Ox 93% cln on R/A; Pain 0/10; 11:45 Body Mass Index 25.84 (79.38 kg, 175.26 cm) ar3 Vitals: 20:57 Log In Time N/A - [place] [facility] [place]: 11:38 Patient visited by Nuha Tyson PCA. rs6 11:38 Abel is Private Physician. rs6 11:38 Patient moved to Waiting rs6 11:39 Hina Purdy,RN is Primary Nurse. rs6 11:39 Patient moved to 2 rs6 11:39 Triage Initiated srm 11:39 EKG done. (by ED staff). Reviewed by Glenis Keys MD. ar3 11:45 Patient visited by Leonarda Reich PCA. ar3 11:52 The patient / caregiver is instructed regarding the plan of care and ED course. Patient indira has correct armband on for positive identification. Placed in gown. Bed in low position. Call light in reach. Side rails up X2. equipment monitor phototypesetting on. Pulse ox on. NIBP on. 11:52 Inserted saline lock: 20 gauge in left antecubital area and blood collected. The srm patient tolerated the procedure well. by Patricia Sorto rn. 11:53 Patient visited by Jocelyne Mai, FLAKITA. srm 12:03 Shakira Clement FNP is PHCP. le 12:25 Patient visited by Shakira Clement FNP. le 12:34 Patient visited by Shakira Clement FNP. le 12:44 D-DIMER QUANT Sent. jmk 13:40 Patient visited by Leonarda Reich PCA. ar3 13:50 Chest, 2 View (pa\E\lat) Returned. EDMS 15:54 Patient visited by Nuha Tyson PCA. rs6 15:55 [facility] [place] [facility] Payment Agreement was scanned into [employer] and attached to record. gjb 17:06 Leeann Ross is Hospitalizing Provider. le 17:13 Patient visited by Chriss Sorto,FLAKITA. jmk 18:28 Patient visited by Chriss Sorto,FLAKITA. jmk 19:01 Primary Nurse role handed off by Hina Purdy RN mv5 19:45 Genaro Velázquez,FLAKITA is Primary Nurse. mgs 19:49 Patient visited by Genaro Velázquez,FLAKITA. mgs 20:41 Patient visited by Genaro Velázquez,FLAKITA. mgs 20:55 No procedures done that require assistance. mgs 20:56 Patient visited by Agnes Scott PCA. cln 07/09 10:47 T-Sheet-- Draft Copy was scanned into [employer] and attached to record. gb 10:47 ECG/EKG was scanned into [employer] and attached to record. gb Administered Medications: 07/08 15:33 Drug: NS 0.9% 500 ml Route: IV; Rate: bolus; Site: left antecubital; jmk 17:11 Follow up: IV Status: Completed infusion; IV Intake: 500ml [facility] Intake: 17:11 IV: 500.00ml; Total: 500.00ml. [facility] Order Results: Lab Order: Basic Metabolic Profile; 07/08/16 11:51 Test: GLUCOSE, FASTING; Value: 69; Range: 83-110; Abnormal: Below low normal; Units: MG/DL; Status: F Test: BLOOD UREA NITROGEN; Value: 33; Range: 7-18; Abnormal: Above high normal; Units: MG/DL; Status: F Test: CREATININE FOR GFR; Value: 1.89; Range: 0.70-1.30; Abnormal: Above high normal; Units: MG/DL; Status: F Test: GLOMERULAR FILTRATION RATE; Value: 36.8; Range: >42; Abnormal: Below low normal; Status: F Test: SODIUM LEVEL; Value: 145; Range: 136-145; Units: MEQ/L; Status: F Test: POTASSIUM SERUM; Value: 4.9; Range: 3.5-5.1; Units: MEQ/L; Status: F Test: CHLORIDE LEVEL; Value: 106; Range: 98-107; Units: MEQ/L; Status: F Test: CARBON DIOXIDE LEVEL; Value: 32; Range: 21-32; Units: MEQ/L; Status: F Test: ANION GAP; Value: 7; Range: 8-16; Abnormal: Below low normal; Units: MEQ/L; Status: F Test: CALCIUM LEVEL; Value: 8.3; Range: 8.8-10.2; Abnormal: Below low normal; Units: MG/DL; Status: F Test Note: ; Units are mL/min/1.73 m2 Chronic Kidney Disease Staging per NKF: Stage I & II GFR >=60 Normal to Mildly Decreased Stage III GFR 30-59 Moderately Decreased Stage IV GFR 15-29 Severely Decreased Stage V GFR <15 Very Little GFR Left ESRD GFR <15 on FIBER OPT[employer] SUPERVISOR Lab Order: CBC with Diff; 07/08/16 11:51 Test: WHITE BLOOD COUNT; Value: 12.4; Range: 4.0-10.0; Abnormal: Above high normal; Units: K/mm3; Status: F Test: RED BLOOD COUNT; Value: 3.81; Range: 4.30-6.10; Abnormal: Below low normal; Units: M/mm3; Status: F Test: HEMOGLOBIN; Value: 12.4; Range: 14.0-18.0; Abnormal: Below low normal; Units: g/dl; Status: F Test: HEMATOCRIT; Value: 39.2; Range: 42.0-52.0; Abnormal: Below low normal; Units: %; Status: F Test: MEAN CORPUSCULAR VOLUME; Value: 102.9; Range: 80.0-96.0; Abnormal: Above high normal; Units: fl; Status: F Test: MEAN CORPUSCULAR HEMOGLOBIN; Value: 32.6; Range: 27.0-33.0; Units: pg; Status: F Test: MEAN CORPUSCULAR HGB CONC; Value: 31.7; Range: 32.0-36.5; Abnormal: Below low normal; Units: g/dl; Status: F Test: RED CELL DISTRIBUTION WIDTH; Value: 14.0; Range: 11.5-14.5; Units: %; Status: F Test: PLATELET COUNT, AUTOMATED; Value: 270; Range: 150-450; Units: k/mm3; Status: F Test: NEUTROPHILS %; Value: 75.8; Range: 36.0-66.0; Abnormal: Above high normal; Units: %; Status: F Test: LYMPH %; Value: 14.1; Range: 24.0-44.0; Abnormal: Below low normal; Units: %; Status: F Test: MONO %; Value: 6.6; Range: 0.0-5.0; Abnormal: Above high normal; Units: %; Status: F Test: EOS %; Value: 2.2; Range: 0.0-3.0; Units: %; Status: F Test: BASO %; Value: 0.4; Range: 0.0-1.0; Units: %; Status: F Test: LARGE UNSTAINED CELL %; Value: 1.0; Range: 0.0-4.0; Units: %; Status: F Test: NEUTROPHILS #; Value: 9.4; Range: 1.8-7.7; Abnormal: Above high normal; Units: K/mm3; Status: F Test: LYMPH #; Value: 1.9; Range: 1.5-4.5; Units: K/mm3; Status: F Test: MONO #; Value: 0.8; Range: 0.0-0.8; Units: K/mm3; Status: F Test: EOS #; Value: 0.3; Range: 0.0-0.50; Units: K/mm3; Status: F Test: BASO #; Value: 0.0; Range: 0.0-0.2; Units: K/mm3; Status: F Test: LARGE UNSTAINED CELL #; Value: 0.1; Range: 0.0-0.4; Units: K/mm3; Status: F Lab Order: Cardiac Injury Profile; [facility] 07/08/16 11:51 Test: CPK CREATINE PHOSPHOKINASE; Value: 36; Range: 39-308; Abnormal: Below low normal; Units: U/L; Status: F Test: CK-MB VALUE MASS; Value: 2.9; Range: 0.0-3.6; Units: NG/ML; Status: F Test: MB/CK RELATIVE INDEX; Value: 8.05; Range: < OR =4; Abnormal: Above high normal; Status: F Test Note: ; DIAGNOSIS CRITERIA MMB ng/ml Relative Index (RI) NON-AMI < or = 5 N/A [place] > 5 < or = 4 AMI > 5 > 4 Lab Order: Thyroid Stimulating Hormone; [facility]08[facility] 11:51 Test: THYROID STIMULATING HORMONE; Value: 4.690; Range: 0.358-3.740; Abnormal: Above high normal; Units: uIU/ML; Status: F Lab Order: Troponin; [facility] 07/08/16 11:51 Test: TROPONIN I; Value: 0.12; Range: < 0.10; Abnormal: Above high normal; Units: NG/ML; Status: F Test Note: ; Troponin I Reference Interval for M_SOLUTION LOCI: 99th Percentile= 0.00-0.045 ng/ml Risk Stratification: <= 0.10 ng/ml Decreased Risk for Adverse Clinical Events. 0.10-1.50 ng/ml Increased Risk for Adverse Clinical Events. Evaluation of additional criterion and/or repeat testing in 2-6 hours is suggested to rule out myocardial damage. >= 1.50 ng/ml Indicative of Myocardial Injury. Lab Order: Urinalysis; [facility] 07/08/16 15:17 Test: APPEARANCE, URINE; Value: CLEAR; Range: CLEAR; Status: F Test: COLOR, URINE; Value: STRAW; Range: YELLOW; Status: F Test: PH,URINE; Value: 7.0; Range: 5.0-9.0; Units: UNITS; Status: F Test: SPECIFIC GRAVITY URINE AUTO; Value: 1.008; Range: 1.002-1.035; Status: F Test: PROTEIN, URINE AUTO; Value: NEGATIVE; Range: NEGATIVE; Units: mg/dL; Status: F Test: GLUCOSE, URINE (UA) AUTO; Value: NEGATIVE; Range: NEGATIVE; Units: mg/dL; Status: F Test: KETONE, URINE AUTO; Value: NEGATIVE; Range: NEGATIVE; Units: mg/dL; Status: F Test: UROBILINOGEN, URINE AUTO; Value: 0.2; Range: 0.0-2.0; Units: mg/dL; Status: F Test: BILIRUBIN, URINE AUTO; Value: NEGATIVE; Range: NEGATIVE; Status: F Test: NITRITE, URINE AUTO; Value: NEGATIVE; Range: NEGATIVE; Status: F Test: LEUKOCYTE ESTERASE, URINE AUTO; Value: TRACE; Range: NEGATIVE; Abnormal: Above high normal; Status: F Test: BLOOD, URINE BLOOD; Value: NEGATIVE; Range: NEGATIVE; Status: F Test: WBC, URINE AUTO; Value: 1; Range: 0-3; Units: /HPF; Status: F Test: RBC, URINE AUTO; Value: 3; Range: 0-3; Units: /HPF; Status: F Test: BACTERIA, URINE AUTO; Value: NEGATIVE; Range: NEGATIVE; Status: F Test: SQUAMOUS EPITHELIAL CELL UR AU; Value: 0; Range: 0-6; Units: /HPF; Status: F Test: HYALINE CAST, URINE AUTO; Value: 0; Range: 0-1; Units: /LPF; Status: F Lab Order: PT/INR; SPEC'[facility] 07/08/16 11:51 Test: PROTHROMBIN TIME; Value: 14.7; Range: 12.3-14.5; Abnormal: Above high normal; Units: SECONDS; Status: F Test: INR; Value: 1.14; Status: F Test Note: ; THERAPUTIC HUMAN INR VALUES INDICATIONS NORMAL RANGES PROPHYLAXIS/TREATMENT OF: VENOUS THROMBOSIS 2.0-3.0 PULMONARY EMBOLISM 2.0-3.0 PREVENTION OF SYSTEMIC EMBOLISM FROM: TISSUE HEART VALVES 2.0-3.0 ACUTE MYOCARDIAL INFARCTION 2.0-3.0 VALVULAR HEART DISEASE 2.0-3.0 ATRIAL FIBRILLATION 2.0-3.0 MECHANICAL VALVES(HIGH RISK) 2.5-3.5 RECURRENT MYOCARDIAL INFARCTION 2.5-3.5 Lab Order: PTT; [facility] 07/08/16 11:51 Test: PARTIAL THROMBOPLASTIN TIME; Value: 24.2; Range: 26.6-37.1; Abnormal: Below low normal; Units: SECONDS; Status: F Lab Order: D-DIMER QUANT; [facility] 07/08/16 11:51 Test: D-DIMER QUANT; Value: 708.0; Range: <500; Abnormal: Above high normal; Units: ng/ml; Status: F Lab Order: Fingerstick Blood Sugar; [facility] 07/08/16 13:44 Test: BEDSIDE GLUCOSE; Value: 112; Range: 83-110; Abnormal: Above high normal; Units: MG/DL; Status: F Lab Order: TROPONIN; [facility] 07/08/16 15:52 Test: TROPONIN I; Value: 0.10; Range: < 0.10; Units: NG/ML; Status: F Test Note: ; Troponin I Reference Interval for M_SOLUTION LOCI: 99th Percentile= 0.00-0.045 ng/ml Risk Stratification: <= 0.10 ng/ml Decreased Risk for Adverse Clinical Events. 0.10-1.50 ng/ml Increased Risk for Adverse Clinical Events. Evaluation of additional criterion and/or repeat testing in 2-6 hours is suggested to rule out myocardial damage. >= 1.50 ng/ml Indicative of Myocardial Injury. Lab Order: CARDIAC INJURY PROFILE; [facility] 07/08/16 15:52 Test: CPK CREATINE PHOSPHOKINASE; Value: 38; Range: 39-308; Abnormal: Below low normal; Units: U/L; Status: F Test: CK-MB VALUE MASS; Value: 3.1; Range: 0.0-3.6; Units: NG/ML; Status: F Test: MB/CK RELATIVE INDEX; Value: 8.15; Range: < OR =4; Abnormal: Above high normal; Status: F Test Note: ; DIAGNOSIS CRITERIA MMB ng/ml Relative Index (RI) NON-AMI < or = 5 N/A [place] > 5 < or = 4 AMI > 5 > 4 Lab Order: FREE T4; SPEC'M 07/08/16 15:52 Test: FREE T4; Value: 1.24; Range: 0.76-1.46; Units: NG/DL; Status: F Lab Order: BRAIN NATIURETIC PEPTIDE; SPEC'M 07/08/16 12:39 Test: BRAIN NATRIURETIC PEPTIDE; Value: 193; Range: <100; Abnormal: Above high normal; Units: PG/ML; Status: F Radiology Order: Chest, 2 View (pa\E\lat) Test: Chest, 2 View (pa\E\lat) REASON FOR EXAMINATION: Syncope; Clinical: Syncope.; ; Technique: PA and lateral.; ; Comparison: 06/19/2016.; ; Findings:; Mediastinum and cardiac silhouette are stable and mild cardiomegaly along with; pacemaker again identified. Previously noted left lower lobe infiltrate appears; to have resolved. Trace right basilar atelectasis cannot be excluded. No; effusion. No pneumothorax. Skeletal structures intact.; ; Impression:; Cannot exclude trace right basilar atelectasis.; ; ; Signed by; Alejandro Leroy MD 07/08/2016 01:17 P; Outcome: 17:06 Decision to Hospitalize by Provider. le 20:55 Discharge Assessment: Patient awake and alert. Oriented to person, place. The following mgs High Risk Discharge criteria are identified: None. Admitted to PCU accompanied by nurse, accompanied by tech, via stretcher, on monitor, with chart. Condition: stable. No special radiology studies were completed. Property :Personal belongings accompany Pt. 20:57 Discharge Assessment: patient administered narcotics - no. mgs 21:01 Patient left the ED. mgs Signatures: Dispatcher [employer] EDChriss Paulino RN RN jmk Michelson, Staci, RN RN srm Barnhardt, Joann, Reg Reg gb Racquel, Shakira, SECURITY SYSTEMS SALES REPRESENTATIVE SECURITY SYSTEMS SALES REPRESENTATIVE Leonarda Rabago, PRESIDENT AND CHIEF OPERATING OFFICER PRESIDENT AND CHIEF OPERATING OFFICER ar3 Genaro Velázquez RN RN mgs Nuha Tyson, PRESIDENT AND CHIEF OPERATING OFFICER PRESIDENT AND CHIEF OPERATING OFFICER rs6 Jagruti Oreilly Crystal, PRESIDENT AND CHIEF OPERATING OFFICER PRESIDENT AND CHIEF OPERATING OFFICER cln Hina Purdy,RN RN mv5 Corrections: (The following items were deleted from the chart) 11:40 11:38 Presenting complaint: EMS states: 15 min episode of unresponsiveness, Vero srm stoke respirations [facility]. FSBS 96 opt awake alert oriented at this time srm Chart Complete MTDD
--- NOTE | 2016-07-10 22:02 | EDDOCDS ---
Physician Documentation [facility] Name: Rickey Ibanez Age: 81 yrs Sex: Male : 1935 Arrival Date: 07/08/2016 Time: 11:36 Bed 2 Private MD: Abel Disposition: 07/08/16 17:06 Hospitalization ordered by Leeann Ross for Inpatient Admission. Preliminary diagnosis is Syncope and collapse. - Bed requested for PCU. - Status is Inpatient Admission. mgs - Condition is Stable. - Problem is new. - Symptoms have improved. Historical: - Allergies: no known allergies; - Home Meds: 1. DuoNeb 0.5 mg-3 mg(2.5 mg base)/3 mL Inhl nebu every 6 hours and Q2hrs prn 2. Tylenol 325 mg Oral tab 2 tabs every 4 hours 3. allopurinol 100 mg Oral tab 1 tab once daily 4. amlodipine 5 mg Oral tab 1 tab once daily 5. Eliquis 5 mg oral tab 1 tab 2 times per day 6. aspirin 81 mg Oral TbEC 1 tab once daily 7. atorvastatin 40 mg oral tab 1 tab nightly 8. Bee-Zee oral tab daily 9. Dulcolax (bisacodyl) 10 mg Rectal supp 1 suppository once daily 10. Vitamin B-12 1,000 mcg Oral TbER daily 11. Tums Ultra 400 mg (1,000 mg) oral chew twice a day 12. carvedilol 6.25 mg oral tab 1 tab 2 times per day 13. senna 8.6 mg oral cap 1 caps once daily 14. finasteride 5 mg oral tab 1 tab nightly 15. gabapentin 100 mg Oral tab three times a day 16. Levemir 100 unit/mL subcutaneous soln 24 unit nightly 17. Novolog sliding scale Sub-Q soln 8 unit three times a day 18. isosorbide mononitrate 30 mg Oral Tb24 1 tab once daily 19. levothyroxine 50 mcg Oral cap 1 cap once daily 20. Milk of Magnesia Oral 10 mL as needed 21. Centrum Silver oral oral daily 22. NitroQuick 0.4 mg SL subl every 5 minutes 23. tamsulosin 0.4 mg oral cp24 1 cap once daily 24. Vitamin D Oral 44248 unit weekly 25. Lasix 20 mg Oral tab 1 tab once daily 26. Augmentin 875-125 mg Oral tab 1 tab every 12 hours stop on 06/20/16 - PMHx: Atrial Fib; BPH; CAD; carotid stenosis; CHF; Chronic Renal Insufficiency; CVA; Diabetes - NIDDM: controlled; DVT; hyperlipidemia; Hypertension; Implanted AICD; NE; PE; Pneumonia; - PSHx: Carotid surgery (2013); Cataract Surgery- Bilateral; - Social history: Smoking status: Patient states former smoker of tobacco. No barriers to communication noted, The patient speaks fluent [place], Speaks appropriately for age. - Family history: Not pertinent. - : The pt / caregiver states he / she is on anticoagulants: Eliquis Home medication list is obtained from a discharge med list, the facility [facility]. - Exposure Risk Screening:: None identified. Vital Signs: 07/08 11:38 BP 175 / 81 (auto/); jmk 11:45 BP 175 / 81; Pulse 53; Resp 18; Temp 98.7(TE); Pulse Ox 97% on R/A; Weight 79.38 kg / ar3 175 lbs (R); Height 5 ft. 9 in. (175.26 cm) (R); Pain 0/10; 13:38 BP 124 / 61 Supine; Pulse 57; jmk 13:38 BP 101 / 54 Standing; Pulse 81; jmk 16:15 BP 157 / 70 (auto/); jmk 16:15 Pulse 57 MON; Pulse Ox 97% ; jmk 16:30 BP 148 / 67 (auto/); jmk 16:30 Pulse 57 MON; Pulse Ox 95% ; jmk 16:45 BP 159 / 73 (auto/); jmk 16:45 Pulse 66 MON; jmk 17:00 BP 175 / 74 (auto/); jmk 17:00 Pulse 61 MON; jmk 18:01 BP 173 / 77 (auto/); mgs 18:01 Pulse 77 MON; Pulse Ox 98% ; mgs 18:16 BP 165 / 109 (auto/); mgs 18:16 Pulse Ox 100% ; mgs 18:46 BP 105 / 50 (auto/); mgs 18:47 Pulse Ox 95% ; mgs 19:01 BP 120 / 58 (auto/); mgs 19:01 Pulse 59 MON; Pulse Ox 93% ; mgs 19:16 BP 167 / 74 (auto/); mgs 19:16 Pulse 57 MON; Pulse Ox 93% ; mgs 19:31 BP 166 / 67 (auto/); mgs 19:31 Pulse 58 MON; Pulse Ox 92% ; mgs 20:01 BP 152 / 67 (auto/); mgs 20:01 Pulse 62 MON; Pulse Ox 94% ; mgs 20:16 BP 163 / 83 (auto/); mgs 20:16 Pulse 58 MON; Pulse Ox 99% ; mgs 20:31 BP 154 / 68 (auto/); mgs 20:31 Pulse 59 MON; Pulse Ox 96% ; mgs 20:55 BP 151 / 66 RA Supine (auto/reg); Pulse 61 MON; Resp 18 S; Temp 97.7(TE); Pulse Ox 93% cln on R/A; Pain 0/10; 11:45 Body Mass Index 25.84 (79.38 kg, 175.26 cm) ar3 MDM: 11:43 ECG WITH READING ER PHYS+CARDIAG ordered. EDMS 12:33 Resident Care Technician/Pulse Ox/q 15 min VS ordered. le 12:33 Accucheck ordered. le 12:33 IV Saline Lock ordered. le 12:33 Rhythm Strip to chart ordered. le 12:34 Orthostatic VS ordered. le 12:34 Basic Metabolic Profile Ordered. EDMS 12:34 CBC with Diff Ordered. EDMS 12:35 Cardiac Injury Profile Ordered. EDMS 12:35 Thyroid Stimulating Hormone Ordered. EDMS 12:35 Troponin Ordered. EDMS 12:35 Urinalysis Ordered. EDMS 12:35 Chest, 2 View (pa\E\lat) Ordered. EDMS 12:35 BED REQUEST+ADM ordered. EDMS 12:35 PT/INR Ordered. EDMS 12:35 PTT Ordered. EDMS 12:41 D-DIMER QUANT Ordered. EDMS 15:06 Basic Metabolic Profile Reviewed. le 15:06 CBC with Diff Reviewed. le 15:06 Cardiac Injury Profile Reviewed. le 15:06 Thyroid Stimulating Hormone Reviewed. le 15:06 Troponin Reviewed. le 15:06 PT/INR Reviewed. le 15:06 PTT Reviewed. le 15:06 D-DIMER QUANT Reviewed. le 15:06 Fingerstick Blood Sugar Reviewed. le 15:06 Chest, 2 View (pa\E\lat) Reviewed. le 15:11 Redraw CIP &Troponin (put time in details section) ordered. le 15:11 NS 0.9% 500 ml IV at bolus once ordered. le 15:12 Redraw CIP &Troponin (put time in details section) complete. rs6 15:15 TROPONIN Ordered. EDMS 15:15 CARDIAC INJURY PROFILE Ordered. EDMS 15:35 Financial registration complete. b 15:55 [facility] Payment Agreement was scanned into [employer] and attached to record. gjb 16:26 TROPONIN Reviewed. le 16:31 CARDIAC INJURY PROFILE Reviewed. le 17:34 Admission / Observation Status ordered. EDMS 17:34 2 GRAM SODIUM DIET ordered. EDMS 18:13 FREE T4 Ordered. EDMS 18:13 BRAIN NATIURETIC PEPTIDE Ordered. EDMS 19:32 CBC WITH DIFFERENTIAL Ordered. EDMS 19:32 BASIC METABOLIC PROFILE Ordered. EDMS 07/09 10:47 T-Sheet-- Draft Copy was scanned into [employer] and attached to record. gb 10:47 ECG/EKG was scanned into [employer] and attached to record. gb Administered Medications: 07/08 15:33 Drug: NS 0.9% 500 ml Route: IV; Rate: bolus; Site: left antecubital; jmk 17:11 Follow up: IV Status: Completed infusion; IV Intake: 500ml swathi Signatures: Dispatcher [employer] EDJocelyne Redmond, RN FLAKITA srm Joann Jaime, Reg Reg gb Shakira Clement, BARREL BRANDER BARREL BRANDER Genaro Nelson RN RN mgs Nuha Tyson, ASPHALT SURFACE HEATER OPERATOR ASPHALT SURFACE HEATER OPERATOR rs6 Jagruti Oreilly Chriss Smith RN The chart was reviewed and I authenticate all verbal orders and agree with the evaluation and treatment provided.Corrections: (The following items were deleted from the chart) 12:41 12:35 D-DIMER QUANT+LAB ordered. EDMS EDMS 18:12 17:31 FREE T4 ordered. EDMS EDMS 18:15 17:41 BRAIN NATIURETIC PEPTIDE ordered. EDMS EDMS Attachments: 15:55 [facility] Payment Agreement [facility] 07/09 10:47 T-Sheet-- Draft Copy gb 10:47 ECG/EKG gb Chart Complete MTDD
[2016-07-11 04:00] VITALS: BP 153/72
[2016-07-11] MEDS: LEVOTHYROXINE 0.05 MG TAB (50 MCG) PO SCH (05:30)
--- NOTE | 2016-07-11 06:03 | IPN ---
DATE OF VISIT: 07/10/2016 Mr. Ibanez is feeling well with no complaints of pain, chest pain, shortness of breath. He is a little confused this morning but does remember me from previous encounter. PHYSICAL EXAMINATION: VITAL SIGNS: Temperature 97.1, pulse 86, respirations 18, blood pressure 155/74, 97% on room air. Intake and output (I and O) notable for a positive fluid balance of 300. One bowel movement yesterday. GENERAL: He is awake, appropriately interactive, pleasant and conversant. LUNGS: Symmetric and rested. HEART: Regular rate and rhythm. No significant arrhythmia on the monitor. ABDOMEN: Soft, doughy, nontender. LABORATORY DATA: White cell count 9.8, hemoglobin 12.1, platelets 181, BUN 27, creatinine 1.68. ASSESSMENT: This is a 81-year-old with apparent syncope. PLAN: 1. Syncope. This is likely multifactorial and most likely related to hypoglycemia and orthostatic hypotension which has resolved. Based on the story though, I believe an electroencephalogram (EEG) is warranted and will continue to monitor him on telemetry overnight with possible plans for discharge tomorrow. 2. The patient has atrial fibrillation on Eliquis. He is irregular on exam. He is on Eliquis for deep venous thrombosis (DVT) prophylaxis and stroke prophylaxis. 3. The patient has a systolic congestive heart failure which is compensated. 4. The patient has type 2 diabetes on a sliding scale. 5. The patient has known peripheral artery disease related to ulcerations of the right first, second and third toes. He is on Augmentin as an outpatient which he continues. He has an outpatient vascular surgery appointment which has been rescheduled for July 15. 6. The patient has monoclonal gammopathy of uncertain significance. 7. The patient has hypothyroidism which is reasonably well controlled.
[2016-07-11 06:16] LABS: BASO % 0.3 % (0.0-1.0); EOS # 0.2 K/mm3 (0.0-0.50); EOS % 2.3 % (0.0-3.0); LARGE UNSTAINED CELL # 0.2 K/mm3 (0.0-0.4); LARGE UNSTAINED CELL % 2.2 % (0.0-4.0); LYMPH # 1.7 K/mm3 (1.5-4.5); LYMPH % 17.4 % (24.0-44.0); MEAN CORPUSCULAR HEMOGLOBIN 33.5 pg (27.0-33.0); MEAN CORPUSCULAR HGB CONC 32.9 g/dl (32.0-36.5); MEAN CORPUSCULAR VOLUME 101.7 fl (80.0-96.0); MONO # 0.6 K/mm3 (0.0-0.8); MONO % 6.3 % (0.0-5.0); NEUTROPHILS # 6.8 K/mm3 (1.8-7.7); NEUTROPHILS % 71.5 % (36.0-66.0); PLATELET COUNT, AUTOMATED 171 k/mm3 (150-450); RED CELL DISTRIBUTION WIDTH 13.7 % (11.5-14.5); WHITE BLOOD COUNT 9.6 K/mm3 (4.0-10.0)
[2016-07-11 06:30] LABS: CALCIUM LEVEL 8.1 MG/DL (8.8-10.2); CREATININE FOR GFR 1.73 MG/DL (0.70-1.30); GLOMERULAR FILTRATION RATE 40.8 (>42); POTASSIUM SERUM 3.9 MEQ/L (3.5-5.1)
[2016-07-11 08:00] VITALS: BP 173/74
[2016-07-11 08:02] VITALS: BP 147/67
[2016-07-11 08:04] VITALS: BP 137/63
[2016-07-11] MEDS: HumaLOG INSULIN (NovoLOG) PER UNIT SC SCH ×2 (08:20→12:07)
[2016-07-11] MEDS: LEVEMIR (INSULIN DETEMIR) 1 UNITS/0.01ML SC SCH (09:56)
[2016-07-11] MEDS: CYANOCOBALAMIN 500 MCG TAB PO SCH (09:56)
[2016-07-11] MEDS: VITAMIN D 1,000 INTERNATIONAL UNITS TABLET PO SCH (09:56)
[2016-07-11] MEDS: GABAPENTIN 100 MG CAP PO SCH (09:56)
[2016-07-11] MEDS: AUGMENTIN 500 MG TAB PO SCH (09:56)
[2016-07-11] MEDS: amLODIPine 5 MG TAB PO SCH (09:56)
[2016-07-11] MEDS: FUROSEMIDE 20 MG TAB PO SCH (09:56)
[2016-07-11] MEDS: CALCIUM CARBONATE 500 MG CHEW U/D PO SCH (09:56)
[2016-07-11] MEDS: ASPIRIN 81 MG CHEW TABLET PO SCH (09:56)
[2016-07-11 09:57] VITALS: BP 137/63
[2016-07-11] MEDS: SENOKOT S TAB PO SCH (09:57)
[2016-07-11] MEDS: MULTIVITAMINS/MINERALS THERAP 1 TAB PO SCH (09:57)
[2016-07-11] MEDS: ISOSORBIDE MON. (IMDUR) 30 MG XR TAB PO SCH (09:57)
[2016-07-11] MEDS: PANTOPRAZOLE 40MG TAB (PROTONIX) PO SCH (09:57)
[2016-07-11] MEDS: ALLOPURINOL 100 MG TAB PO SCH (09:57)
[2016-07-11] MEDS: APIXABAN 5 MG TAB (ELIQUIS) PO SCH (09:57)
[2016-07-11] MEDS: CARVedilol 6.25 MG TAB PO SCH (09:57)
[2016-07-11] MEDS ORDERED: AUGM500T34 PO (11:54)
[2016-07-11] MEDS ORDERED: INSUDET SC (11:58)
[2016-07-11] MEDS ORDERED: INSUHUMDS SC (11:58)
--- NOTE | 2016-07-12 09:30 | DSES ---
DATE OF ADMISSION: 07/08/2016 DATE OF DISCHARGE: 07/11/2016 No specialists involved in his care. No complications during his stay. No procedures performed during his stay. DISCHARGE DIAGNOSES: Syncope. Symptomatic hypoglycemia. Orthostatic hypotension. Atrial fibrillation on Eliquis. Systolic congestive heart failure. Type 2 diabetes. Peripheral arterial disease with ulcerations of the right first, second, and third toes. Monoclonal gammopathy of uncertain significance. Hypothyroidism. SUMMARY OF HOSPITALIZATION: This is a 81-year-old who presented from [facility] after having an episode of syncope. He had been orthostatic and hypoglycemic. He was admitted to the hospitalists service for monitoring. He was monitored on telemetry. He had no evidence of arrhythmia. He had an EEG which showed evidence of slowing but no evidence of seizure or seizure like activity. His insulin was adjusted. He suffered no further events of hypoglycemia. His orthostatics were monitored. He was not orthostatic during the remainder of his stay. On day of discharge, he is feeling well. He is not a useful historian but is pleasant, easily conversant. Case was discussed with his girlfriend Denise by phone. Temperature 96.5, pulse 18, blood pressure 137/63, 95% on room air. Input and output notable for a negative fluid balance of -815. Weight is 78.8 kg. Body mass index 25.7. He is inappropriately interactive, pleasantly conversant. Breathing is symmetrical. Heart: Irregular rate and rhythm, normal S1, S2. No significant arrhythmia on monitor. Abdomen: Soft, doughy, nontender. White cell count is 9.6, hemoglobin 12.1, BUN 29, creatinine 1.73. DISCHARGE INSTRUCTIONS: 1. Followup at [facility] per their protocol. Continue activity as tolerated. Consistent carbohydrate diet. Medications will include Levemir subcutaneously twice daily which is less than his previous dose as well as sliding scale. This will need to be monitored and adjusted [facility]. - Tylenol 650 mg every 4 hours as needed for pain - DuoNebs every 6 hours and every 2 hours as needed - allopurinol 100 mg by mouth daily - Apixaban 5 mg by mouth twice daily - aspirin 81 mg by mouth daily - atorvastatin 40 mg by mouth daily at bedtime - Dulcolax 10 mg by mouth rectally as needed for constipation - calcium carbonate 1000 mg by mouth twice daily - Coreg 6.25 mg by mouth twice daily - vitamin D supplement 1000 units by mouth daily - B12 supplement 1000 mcg by mouth daily - Senokot S one tablet by mouth daily - finasteride 5 mg by mouth daily at bedtime - Lasix 20 mg by mouth daily - Neurontin 100 mg by mouth three times a day - isosorbide mononitrate 30 mg by mouth daily - Synthroid 50 mcg by mouth daily - milk of magnesia as needed - multivitamin tablet daily - sublingual nitro as needed - Flomax 0.4 mg by mouth daily at bedtime He is to continue his Augmentin 500 mg by mouth twice daily until seen by the vascular surgeon which has been scheduled for 07/15/2016. We have discontinued his Norvasc currently. Recommend twice daily vital signs for a week and recommend before meal fingersticks for a week. At that point, his blood pressure medications and his insulin should have been adjusted.
--- NOTE | 2016-07-13 09:27 | EEG ---
DATE OF PROCEDURE: 07/10/2016 REFERRING PHYSICIAN: Dr. Josesito Puri DIAGNOSIS: Syncope. EEG NUMBER: 17 - 47 HISTORY: The patient is a 81-year-old man with history of multiple strokes who presented to [facility] after a passing out spell witnessed by staff and family. There was no tongue biting, urinary incontinence or shaking. This EEG was done to rule out epileptic potential. He is currently on amlodipine, carvedilol, Eliquis, Proscar, Lasix, Flomax, gabapentin, Protonix, etc. TECHNICAL DESCRIPTION: This digital EEG was recorded by 21 scalp, ear and two EKG electrodes and was reviewed in bipolar and referential montages following reformatting in 10-20 international electrode placement system. INTERPRETATION: The patient was noted to be in awake and drowsy states during this EEG. Resting awake background rhythm consisted of 7 Hz theta activity measuring 15-40 microvolts in amplitude which was symmetric and reactive to eye opening. Attenuation of posterior dominant rhythm was seen during transition into drowsiness. Stage I and II sleep were reviewed and were symmetric bilaterally. Hyperventilation could not be performed. Photic stimulation remained unremarkable. Electrocardiogram (EKG) revealed irregular heartbeat and atrial fibrillation. No focal, lateralizing or epileptiform abnormalities were seen. No clinical or electrographic seizures were recorded. CONCLUSION: This EEG in awake, drowsy states, stage I and II sleep is mildly abnormal due to presence of mild generalized slowing consistent with nonspecific diffuse cerebral dysfunction such as seen in dementia and encephalopathy due to multiple potential causes. Clinical correlation is recommended.
== END 2016-07-11 13:10 ==
LOC: M ED 11:36 → M ED INP 17:31 → M PCU 21:06
PROVIDERS: ADMIT Internal Medicine; ATTEND Internal Medicine
DX: R55 Syncope and collapse (principal); E16.2 Hypoglycemia, unspecified; I10 Essential (primary) hypertension; I48.91 Unspecified atrial fibrillation; Z79.02 Long term (current) use of antithrombotics/antiplatelets; E03.9 Hypothyroidism, unspecified; E11.9 Type 2 diabetes mellitus without complications; E78.00 Pure hypercholesterolemia, unspecified; K21.9 Gastro-esophageal reflux disease without esophagitis; I27.89 Other specified pulmonary heart diseases; L97.509 Non-pressure chronic ulcer of other part of unspecified foot with unspecified severity; I73.9 Peripheral vascular disease, unspecified; I50.20 Unspecified systolic (congestive) heart failure; D47.2 Monoclonal gammopathy; Z86.711 Personal history of pulmonary embolism; I11.0 Hypertensive heart disease with heart failure; Z79.4 Long term (current) use of insulin; Z79.82 Long term (current) use of aspirin; Z87.891 Personal history of nicotine dependence; Z95.810 Presence of automatic (implantable) cardiac defibrillator; Z98.61 Coronary angioplasty status; I25.10 Atherosclerotic heart disease of native coronary artery without angina pectoris; Z79.899 Other long term (current) drug therapy
CPT/HCPCS: 36415; 71020; 80048; 81001; 82550; 82553; 83880; 84439; 84443; 84484; 85025; 85379; 85610; 85730; 93005; 93041; 95819; 96360; 96361; 97161; 99285; G0378; G8978; G8979; G8980

== ENCOUNTER → 2016-07-08 | Outpatient (REF) ==
[~2016-07-08] MED LIST changes: +ASPI81CH PO; +AUGM500T34 PO; +FURO20TA2 PO; +IPRASOL4 INH; +VITA100066 PO
[2016-07-08 09:44] LABS: MEAN CORPUSCULAR HEMOGLOBIN 32.7 pg (27.0-33.0); MEAN CORPUSCULAR HGB CONC 31.7 g/dl (32.0-36.5); MEAN CORPUSCULAR VOLUME 103.2 fl (80.0-96.0); RED CELL DISTRIBUTION WIDTH 13.8 % (11.5-14.5); WHITE BLOOD COUNT 10.7 K/mm3 (4.0-10.0)
[2016-07-08 10:07] LABS: CALCIUM LEVEL 8.4 MG/DL (8.8-10.2); CREATININE FOR GFR 1.87 MG/DL (0.70-1.30); GLOMERULAR FILTRATION RATE 37.3 (>42); POTASSIUM SERUM 4.7 MEQ/L (3.5-5.1)
== END | disposition home or self-care (01) ==
LOC: SKLAB3 09:30
PROVIDERS: ATTEND Internal Medicine
DX: E11.9 Type 2 diabetes mellitus without complications (principal); I10 Essential (primary) hypertension

== ENCOUNTER → 2016-07-23 | Outpatient (REF) ==
[~2016-07-23] MED LIST changes: +ASPI81CH PO; +AUGM500T34 PO; +FURO20TA2 PO; +IPRASOL4 INH; +VITA100066 PO
[2016-07-23 10:43] LABS: BASO % 0.6 % (0.0-1.0); EOS # 0.7 K/mm3 (0.0-0.50); EOS % 8.8 % (0.0-3.0); LARGE UNSTAINED CELL # 0.2 K/mm3 (0.0-0.4); LARGE UNSTAINED CELL % 2.5 % (0.0-4.0); LYMPH # 1.6 K/mm3 (1.5-4.5); LYMPH % 17.6 % (24.0-44.0); MEAN CORPUSCULAR HEMOGLOBIN 34.7 pg (27.0-33.0); MEAN CORPUSCULAR HGB CONC 33.5 g/dl (32.0-36.5); MEAN CORPUSCULAR VOLUME 103.6 fl (80.0-96.0); MONO # 0.6 K/mm3 (0.0-0.8); MONO % 7.5 % (0.0-5.0); NEUTROPHILS # 5.2 K/mm3 (1.8-7.7); NEUTROPHILS % 62.9 % (36.0-66.0); PLATELET COUNT, AUTOMATED 207 k/mm3 (150-450); RED CELL DISTRIBUTION WIDTH 14.3 % (11.5-14.5); WHITE BLOOD COUNT 8.2 K/mm3 (4.0-10.0)
[2016-07-23 10:56] LABS: CALCIUM LEVEL 8.3 MG/DL (8.8-10.2); CREATININE FOR GFR 1.5 MG/DL (0.70-1.30); GLOMERULAR FILTRATION RATE 48.1 (>42); POTASSIUM SERUM 4.1 MEQ/L (3.5-5.1)
== END ==
LOC: SKLAB3 09:55
PROVIDERS: ATTEND Internal Medicine
DX: R55 Syncope and collapse (principal)

== ENCOUNTER → 2016-07-30 | Outpatient (REF) | payer MEDICARE, BC ==
[2016-07-30 07:42] LABS: MEAN CORPUSCULAR HEMOGLOBIN 32.8 pg (27.0-33.0); MEAN CORPUSCULAR HGB CONC 31.9 g/dl (32.0-36.5); MEAN CORPUSCULAR VOLUME 102.7 fl (80.0-96.0); WHITE BLOOD COUNT 9.3 K/mm3 (4.0-10.0)
[2016-07-30 07:54] LABS: CALCIUM LEVEL 8.7 MG/DL (8.8-10.2); CREATININE FOR GFR 1.43 MG/DL (0.70-1.30); GLOMERULAR FILTRATION RATE 50.8 (>42)
== END ==
LOC: SKLAB3 03:44
PROVIDERS: ATTEND Internal Medicine
DX: F06.8 Other specified mental disorders due to known physiological condition (principal)

== ENCOUNTER → 2016-08-15 | Outpatient (REF) ==
--- NOTE | 2016-08-15 14:14 | REP ---
Clinical: Pneumonia. Technique: AP and lateral. Comparison: 07/08/2016. Findings: Mediastinum and cardiac silhouette stable. Lung leigh demonstrate chronic changes with new superimposed basilar atelectasis/infiltrate and small pleural effusions (right greater than left). Impression: New bibasilar atelectasis and small pleural effusions (right greater than left). Signed by Alejandro Leroy MD 08/15/2016 02:05 P
== END ==
LOC: SKLAB3 09:25
PROVIDERS: ATTEND Internal Medicine
DX: J18.9 Pneumonia, unspecified organism (principal)

== ENCOUNTER → 2016-08-19 | Outpatient (REF) ==
[2016-08-19 08:18] LABS: CALCIUM LEVEL 8.5 MG/DL (8.8-10.2); CREATININE FOR GFR 1.49 MG/DL (0.70-1.30); GLOMERULAR FILTRATION RATE 48.4 (>42); POTASSIUM SERUM 4.2 MEQ/L (3.5-5.1)
[2016-08-19 08:30] LABS: MEAN CORPUSCULAR HEMOGLOBIN 31.6 pg (27.0-33.0); MEAN CORPUSCULAR HGB CONC 32.4 g/dl (32.0-36.5); MEAN CORPUSCULAR VOLUME 97.5 fl (80.0-96.0); RED CELL DISTRIBUTION WIDTH 13.7 % (11.5-14.5)
== END ==
LOC: SKLAB3 10:37
PROVIDERS: ATTEND Internal Medicine
DX: N18.9 Chronic kidney disease, unspecified (principal); I10 Essential (primary) hypertension

== ENCOUNTER → 2016-08-30 | Outpatient (REF) | payer MEDICARE, BC ==
[2016-08-30 07:45] LABS: MEAN CORPUSCULAR HEMOGLOBIN 30.6 pg (27.0-33.0); MEAN CORPUSCULAR HGB CONC 31.8 g/dl (32.0-36.5); MEAN CORPUSCULAR VOLUME 96.3 fl (80.0-96.0); WHITE BLOOD COUNT 8.5 K/mm3 (4.0-10.0)
[2016-08-30 08:15] LABS: CALCIUM LEVEL 8.6 MG/DL (8.8-10.2); CREATININE FOR GFR 1.57 MG/DL (0.70-1.30); GLOMERULAR FILTRATION RATE 45.6 (>42); POTASSIUM SERUM 4.9 MEQ/L (3.5-5.1)
== END ==
LOC: SKLAB3 00:48
PROVIDERS: ATTEND Internal Medicine
DX: N18.3 Chronic kidney disease, stage 3 (moderate) (principal); D63.1 Anemia in chronic kidney disease; E03.9 Hypothyroidism, unspecified; R73.01 Impaired fasting glucose

== ENCOUNTER → 2016-09-02 | Outpatient (REF) ==
[2016-09-02 10:06] LABS: CALCIUM LEVEL 8.5 MG/DL (8.8-10.2); CREATININE FOR GFR 1.56 MG/DL (0.70-1.30); GLOMERULAR FILTRATION RATE 45.9 (>42); POTASSIUM SERUM 4.3 MEQ/L (3.5-5.1)
== END ==
LOC: SKLAB3 06:57
PROVIDERS: ATTEND Internal Medicine
DX: I50.9 Heart failure, unspecified (principal)

== ENCOUNTER → 2016-09-13 | Outpatient (REF) ==
[2016-09-13 07:58] LABS: MEAN CORPUSCULAR HEMOGLOBIN 29.8 pg (27.0-33.0); MEAN CORPUSCULAR VOLUME 92.9 fl (80.0-96.0); RED CELL DISTRIBUTION WIDTH 13.8 % (11.5-14.5); WHITE BLOOD COUNT 3.3 K/mm3 (4.0-10.0)
[2016-09-13 08:08] LABS: CALCIUM LEVEL 8.2 MG/DL (8.8-10.2); CREATININE FOR GFR 1.29 MG/DL (0.70-1.30); GLOMERULAR FILTRATION RATE 57.2 (>42); POTASSIUM SERUM 4.4 MEQ/L (3.5-5.1)
== END ==
LOC: SKLAB3 07:00
PROVIDERS: ATTEND Internal Medicine
DX: I50.9 Heart failure, unspecified (principal); D64.9 Anemia, unspecified

== ENCOUNTER → 2016-10-09 | Outpatient (REF) | payer MEDICARE, BC ==
[2016-10-09 13:38] LABS: MEAN CORPUSCULAR HEMOGLOBIN 29.7 pg (27.0-33.0); MEAN CORPUSCULAR VOLUME 92.9 fl (80.0-96.0); WHITE BLOOD COUNT 8.7 K/mm3 (4.0-10.0)
[2016-10-09 13:54] LABS: CALCIUM LEVEL 8.9 MG/DL (8.8-10.2); CREATININE FOR GFR 1.6 MG/DL (0.70-1.30); GLOMERULAR FILTRATION RATE 44.6 (>42); POTASSIUM SERUM 4.1 MEQ/L (3.5-5.1)
--- NOTE | 2016-10-09 16:13 | ECGEPIP ---
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
== END ==
LOC: SKLAB3 12:40
PROVIDERS: ATTEND Internal Medicine
DX: R94.31 Abnormal electrocardiogram [ECG] [EKG] (principal); I25.2 Old myocardial infarction; Z79.899 Other long term (current) drug therapy

== ENCOUNTER → 2016-10-17 | Outpatient (REF) ==
[2016-10-17 09:56] LABS: CALCIUM LEVEL 8.9 MG/DL (8.8-10.2); CREATININE FOR GFR 1.3 MG/DL (0.70-1.30); GLOMERULAR FILTRATION RATE 56.7 (>42)
== END ==
LOC: SKLAB3 07:16
PROVIDERS: ATTEND Internal Medicine
DX: E11.9 Type 2 diabetes mellitus without complications (principal)

== ENCOUNTER → 2016-10-18 | Outpatient (REF) | payer MEDICARE, BC ==
[~2016-10-18] MED LIST changes: +AMIO200T37 PO; +COLA100C3 PO; +ENSULIQ64 PO; +K-TA1TAB PO; +MIRA3350 PO; +MIRA33504 PO; +PLAV75TA38 PO; +POTA10LI10 PO; +SERT1TAB16 PO; +SODIGEL; +TORS10TA3 PO; +TORS5TAB2 PO; +TRAM50TA2 PO
[2016-10-18 08:42] LABS: IMMUNOGLOBULIN G 754 MG/DL (681-1648); IMMUNOGLOBULIN M 209 MG/DL (40-230)
[2016-10-22 09:22] LABS: ALBUMIN % 48.5 % (55.8-66.1)
[2016-10-22 09:23] LABS: ALBUMIN 2.91 GM/DL (3.29-5.55); GAMMA GLOBULIN % 16.6 % (11.1-18.8)
== END ==
LOC: SKLAB3 07:13
PROVIDERS: ATTEND Internal Medicine
DX: D47.2 Monoclonal gammopathy (principal)

== ENCOUNTER 2016-10-29 10:54 | Inpatient (IN) | payer MEDICARE, BC ==
[~2016-10-29] VITALS: Ht 175.3 cm; Wt 78.5 kg
[~2016-10-29 10:54] MED LIST changes: -AMIO200T37 PO; -COLA100C3 PO; -ENSULIQ64 PO; -K-TA1TAB PO; -MIRA3350 PO; -MIRA33504 PO; -PLAV75TA38 PO; -POTA10LI10 PO; -SERT1TAB16 PO; -SODIGEL; -TORS10TA3 PO; -TORS5TAB2 PO; -TRAM50TA2 PO
[2016-10-29] MEDS ORDERED: PLAV75TA38 PO (11:04)
[2016-10-29] MEDS ORDERED: K-TA1TAB PO (11:06)
[2016-10-29] MEDS ORDERED: FLOM5CAP PO (11:06)
[2016-10-29] MEDS ORDERED: MIRA3350 PO (11:06)
[2016-10-29] MEDS ORDERED: TRAM50TA2 PO (11:06)
[2016-10-29] MEDS ORDERED: TORS10TA3 PO (11:06)
[2016-10-29] MEDS ORDERED: POTA10LI10 PO (11:06)
[2016-10-29 11:09] LABS: VENOUS BASE EXCESS 3.9 (-2.0-2.0); VENOUS O2 SATURATION 45.3 % (60.0-80.0); VENOUS PARTIAL PRESSURE CO2 55.2 mmHg (38.0-50.0); VENOUS PARTIAL PRESSURE O2 26.8 mmHg (30.0-50.0); VENOUS STANDARD HCO3 26.8 MEQ/L; VENOUS TOTAL CO2 32.3 MEQ/L (24.0-28.0)
[2016-10-29 11:21] LABS: MEAN CORPUSCULAR HEMOGLOBIN 29.5 pg (27.0-33.0); MEAN CORPUSCULAR HGB CONC 31.8 g/dl (32.0-36.5); MEAN CORPUSCULAR VOLUME 92.7 fl (80.0-96.0); PLATELET COUNT, AUTOMATED 223 k/mm3 (150-450); RED CELL DISTRIBUTION WIDTH 16.3 % (11.5-14.5); WHITE BLOOD COUNT 10.2 K/mm3 (4.0-10.0)
[2016-10-29 11:33] LABS: INR 1.17
[2016-10-29 11:39] LABS: EOSINOPHILS 8 % (0-5)
[2016-10-29 11:42] LABS: ALBUMIN 2.8 GM/DL (3.2-5.2); ALKALINE PHOSPHATASE 107 U/L (45-117); ALT/SGPT 21 U/L (12-78); AMYLASE 63 U/L (25-115); ANION GAP 6 MEQ/L (8-16); AST/SGOT 20 U/L (15-37); BILIRUBIN,DIRECT < 0.1 MG/DL (0.0-0.2); BILIRUBIN,TOTAL 0.3 MG/DL (0.2-1.0); BLOOD UREA NITROGEN 29 MG/DL (7-18); CALCIUM LEVEL 8.7 MG/DL (8.8-10.2); CARBON DIOXIDE LEVEL 31 MEQ/L (21-32); CHLORIDE LEVEL 103 MEQ/L (98-107); GLOMERULAR FILTRATION RATE 38.9 (>42); GLUCOSE, FASTING 197 MG/DL (83-110); POTASSIUM SERUM 4.5 MEQ/L (3.5-5.1); SODIUM LEVEL 140 MEQ/L (136-145); TOTAL PROTEIN 6.8 GM/DL (6.4-8.2)
--- NOTE | 2016-10-29 11:54 | REP ---
PORTABLE CHEST: AP portable view of the chest is performed. COMPARISON: 08/15/2016 as well as other prior exams. There is cardiomegaly with pulmonary venous hypertension. Bibasilar fibroatelectatic change is seen. No consolidating infiltrate is seen. Mediastinal silhouette appears unremarkable with calcification and tortuosity of the thoracic aorta. Left single lead pacemaker is noted. IMPRESSION: Cardiomegaly. Bibasilar fibroatelectatic changes. Signed by Attila Chamberlain MD 10/29/2016 12:54 P
[2016-10-29] MEDS ORDERED: SODIGEL (12:33)
[2016-10-29] MEDS ORDERED: INSUHUMDS SC ×2 (12:33→12:45)
--- NOTE | 2016-10-29 12:36 | REP ---
CT HEAD WITHOUT CONTRAST: HISTORY: Altered mental status. COMPARISON: 06/25/2016 A small area of decreased attenuation is present in the posterior right temporal lobe. There is effacement of the overlying cortical sulci. This represents an acute infarction. An area of decreased attenuation is present in the left occipital and posterior left parietal lobe. There is dilatation of the overlying cortical sulci and atrium of the left lateral ventricle. This represents an old infarction. Areas of decreased attenuation are present in the left basal ganglia. These represent old lacunar infarctions. There are areas of decreased attenuation are present in the periventricular and subcortical white matter. This represents small vessel ischemic disease. There is no intraparenchymal hemorrhage, mass or midline shift. The ventricular system and cortical sulci as well as subarachnoid space in the posterior fossa are dilated consistent with moderate volume loss. There is no extracerebral collection. The visualized sinuses are clear. IMPRESSION: 1. Small acute right posterior temporal lobe infarction. 2. Old left occipitoparietal lobe infarction. 3. Old left basal ganglia lacunar infarctions. 4. Small vessel ischemic disease. 5. Moderate volume loss. Signed by Gianfranco Garcia MD 10/29/2016 01:15 P
[2016-10-29] MEDS ORDERED: TORS5TAB2 PO (12:45)
[2016-10-29] MEDS ORDERED: ISOS30TAB PO (12:45)
[2016-10-29] MEDS ORDERED: INSUDET SC (12:45)
[2016-10-29] MEDS ORDERED: ENEM1ENE4 PR (12:45)
[2016-10-29] MEDS ORDERED: ENSULIQ64 PO (12:45)
[2016-10-29] MEDS ORDERED: DULC10SU2 PR (12:45)
[2016-10-29] MEDS ORDERED: MILKSUS PO (12:45)
[2016-10-29] MEDS ORDERED: SERT1TAB16 PO (12:45)
[2016-10-29] MEDS ORDERED: MIRA33504 PO (12:58)
[2016-10-29] MEDS ORDERED: VITMTA PO (12:58)
[2016-10-29] MEDS ORDERED: COLA100C3 PO (12:58)
[2016-10-29] MEDS ORDERED: MOM 30ML SUSPENSION UDC PO PRN (13:45)
[2016-10-29] MEDS ORDERED: ACETAMINOPHEN 325 MG TAB PO PRN (13:45)
[2016-10-29] MEDS ORDERED: FLEET ENEMA PR PRN (13:45)
[2016-10-29] MEDS ORDERED: GLUCAGON FOR INJ 1 MG VIAL (J1610) SC PRN (13:45)
[2016-10-29] MEDS ORDERED: DEXTROSE 50% 50 ML SYRINGE IV PRN (13:45)
[2016-10-29] MEDS ORDERED: BISACODYL 10 MG SUPP PR PRN (13:45)
[2016-10-29] MEDS ORDERED: GLUCOSE 4 GM CHEW TABLET PO PRN (13:45)
[2016-10-29] MEDS ORDERED: hydrALAZINE INJ 20 MG/ML VIAL IV PRN (13:45)
--- NOTE | 2016-10-29 14:22 | HPEPDOC ---
Medical History and Physical Date of Admission History and Physical PRIMARY CARE PROVIDER: Dr. Roman ATTENDING: Dr. Ashley Cantu CHIEF COMPLAINT/HISTORY OF PRESENT ILLNESS: This is a 81-year-old male with a significant extensive vascular disease including CAD status post PCI to the LAD 3, atrial fibrillation on Eliquis, history of DVT/PE, peripheral artery disease status post right stent and right AKA, multiple CVAs, carotid stenosis status post CEA, pulmonary hypertension, essential hypertension, insulin-dependent diabetes mellitus, MGUS, vascular dementia, GERD who presents with syncopal episode. Patient recently had AKA in [place] on August 24, and has been following up with his orthopedics office today. Most of the history is obtained from the significant other at bedside as she knows that the patient has vascular dementia and his history is very unreliable, even when he's complaining of symptoms. The patient had been going back to the car after his orthopedics office visit when he was noted to be diaphoretic, unresponsive, and the patient was taken back to the office, and EMS was called. Patient was hypotensive and bradycardic , with sinus joey in the 50s. Upon arrival to the ED, patient was more alert and awake. states pt was incoherent for 30 minutes. Pt states he had a ARENAS at the time, but was unable to describe it. Currently no ARENAS/Focal deficits. Of note the patient states he had an episode of chest pain this morning that was midsternal nonradiating, but his significant other states that given his vascular dementia this may be inaccurate. Patient also had an episode of nonsustained V. tach 7 beats in the ED. PAST MEDICAL HISTORY:As per HPI PAST SURGICAL HISTORY: Bilateral CEA, AICD, right femoral artery stents, right AKA, cataract surgery SOCIAL HISTORY: H/o tobacco abuse 1ppd x 30 years, quit 1984, no alcohol or illicit drugs. FAMILY HISTORY:Non contributory ALLERGIES: Please see below. REVIEW OF SYSTEMS: HEENT: Denies sore throat/headache CARDIOVASCULAR: ?chest pain. no palpitations RESPIRATORY: Denies shortness of breath/cough GASTROINTESTINAL: denies nausea/vomiting GENITOURINARY: Denies dysuria/urinary urgency. MUSCULOSKELETAL: Denies myalgias/arthralgias NEUROLOGICAL: Denies any focal weakness. Had a ARENAS prior to coming to ED HOME MEDICATIONS: Please see below. PHYSICAL EXAMINATION: Vitals: (see below) General: No acute distress, laying comfortably in bed. HEENT: Moist mucous membranes. Neck: No JVD or lymphadenopathy Cardiac: RRR, No murmurs. Defibrillator noted. Pulm:Coarse crackles b/l bases. No wheezing, rhonchi Abd: NT/ND + BS Ext: No edema or cyanosis. Right AKA - stump with surgical site - some eschar at the right of the stump, no drainage. Seen by ortho in office today. Neuro: Alert and Oriented to Person only (baseline per significant other at bedside) Strength 5/5 BUE and LLE, and R above knee. CN 2-12 intact. F to N intact Negative pronator drift. LABORATORY DATA: See below. IMAGING: CXR 10/29/16 IMPRESSION: Cardiomegaly. Bibasilar fibroatelectatic changes. CT Head 10/29/16 IMPRESSION: 1. Small acute right posterior temporal lobe infarction. 2. Old left occipitoparietal lobe infarction. 3. Old left basal ganglia lacunar infarctions. 4. Small vessel ischemic disease. 5. Moderate volume loss. MICROBIOLOGY: Please see below. ASSESSMENT/PLAN: 1. Syncope- certainly multifactorial. Patient does have history of nonsustained V. tach, ischemic cardiomyopathy and is more prone to getting sustained V. tach/V. fib. Patient was also bradycardic. History of orthostatic hypotension as a cause of prior syncopal episodes. Patient also has a history of a moderate to large pericardial effusion which appears to be stable in the past per Dr. Carlos. Admit the patient also does have an acute CVA while on aspirin, Plavix, Eliquis. We'll obtain echocardiogram, trend cardiac markers. Dr. Carlos has been consulted and will be interrogating the AICD. We'll also maintain patient on telemetry to observe for further arrhythmias. We'll maintain potassium greater than 4, magnesium greater than 2. 2. Acute CVA- patient has history of multiple bilateral CVAs, as well as carotid stenosis status post CEAs. Patient is on aspirin, Plavix, Eliquis. Discuss with Dr. Mcneil - will continue these medications, as well as stain, and not a candidate for tpa - we will maintain permissive hypertension the first 24-48 hrs.Goal BP 140-180. ?[place] infarct.. Unable to obtain MRI given AICD. We'll repeat carotid stenosis. Neuro checks. EEG rule to out seizure , given recent episodes of incoherence periods, eyes rolling back of the head with questionable postictal state. PT/OT/ST. 3. Atrial fibrillation- in sinus now. On Eliquis and coreg. 4. Nonsustained V. tach- we'll replace potassium and magnesium. On Coreg. Will be evaluated by cardiology. 5. Acute kidney injury- has a history of chronic kidney disease baseline Cr1.4. Status post IV fluids. We'll continue to monitor. 6. History of PAD s/p Right AKA. Seen by ortho today. On asa/plavix 7. History of DVT/PE- on Eliquis 8. History of pulmonary hypertension 9. History of large pericardial effusion 10. Insulin-dependent diabetes mellitus- we'll decrease dose of insulin as patient is nothing by mouth. SSI 11. History of vascular dementia oriented to person at baseline 12. History of hypertension- controlled 13. History of GERD 14. Ischemic cardiomyopathy status post ICD- we'll repeat echocardiogram. Diuretics on hold for now. Consider restarting after the initial phase of permissive hypertension. DVT prophylaxis- On Eliquis Spoke with significant other at bedside who is the POA, who would like the patient to be full code for now, and will speak to his son about DNR/DNI prior to making decision. Prognosis is very poor. Vital Signs Vital Signs Date Time Temp Pulse Resp B/P (MAP) Pulse Ox O2 Delivery O2 Flow Rate FiO2 10/29/16 12:15 62 163/75 (104) 94 10/29/16 11:00 97.0 18 Room Air Laboratory Data Labs 24H Laboratory Tests 2 10/29/16 10:58: Neutrophils 66, Lymphocytes (Manual) 26, Eosinophils (Manual) 8H, Platelet Estimate NORMAL, Red Blood Cell Morphology NORMAL, Prothrombin Time 15.0H, Prothromb Time International Ratio 1.17, Activated Partial Thromboplast Time 27.0, Blood Gas Bicarbonate Standard 26.8, Venous Blood pH 7.362, Venous Blood Partial Pressure CO2 55.2H, Venous Blood Partial Pressure O2 26.8L, Venous Blood Total Carbon Dioxide 32.3H, Venous Blood HCO3 30.6H, Venous Blood Oxygen Saturation 45.3L, Venous Blood Base Excess 3.9H, Anion Gap 6L, Glomerular Filtration Rate 38.9L, Lactic Acid Level 2.5*H, Calcium Level 8.7L, Aspartate Amino Transf (AST/SGOT) 20, Alanine Aminotransferase (ALT/SGPT) 21, Alkaline Phosphatase 107, Total Bilirubin 0.3, Direct Bilirubin < 0.1, Total Creatine Kinase 55, Creatine Kinase MB 2.0, Creatine Kinase MB Relative Index 3.63, Troponin I 0.05, C-Reactive Protein, Quantitative < 0.30, Total Protein 6.8, Albumin 2.8L, Albumin/Globulin Ratio 0.70L, Amylase Level 63 CBC/BMP Laboratory Tests 10/29/16 10:58 Red Blood Count 4.11 L, Mean Corpuscular Volume 92.7, Mean Corpuscular Hemoglobin 29.5, Mean Corpuscular Hemoglobin Concent 31.8 L, Red Cell Distribution Width 16.3 H Microbiology Microbiology 10/29/16 Blood Culture, Received Pending 10/29/16 Blood Culture, Received Pending 10/29/16 Influenza Virus Type A Antigen - Final, Complete 10/29/16 Influenza Virus Type B Antigen - Final, Complete Home Medications Scheduled (Aspirin) 81 Mg Chw, 81 MG PO DAILY (Sertraline HCl) 25 Mg Tab, 25 MG PO DAILY (Ensure Enlive) 1 Liq Liq, 1 LIQ PO BID Albuterol/Ipratropium (Ipratropium Dunlap/Albut 0.5-2.5 (3) mg/3Ml) 1 Esau Esau, 1 ESAU INH QID Allopurinol (Allopurinol) 100 Mg Tab, 100 MG PO DAILY Apixaban Base (Eliquis) 5 Mg Tab, 5 MG PO BID Atorvastatin Calcium (Atorvastatin Calcium) 40 Mg Tab, 40 MG PO QHS Calcium Carbonate (Tums) 500 Mg Chw, 500 MG PO BID Carvedilol (Carvedilol) 6.25 Mg Tab, 6.25 MG PO BID Cholecalciferol (Vitamin D) 1,000 Unit Tab, 1,000 UNIT PO DAILY Clopidogrel Bisulfate (Plavix) 75 Mg Tab, 75 MG PO DAILY Cyanocobalamin (B-12) 500 Mcg Tab, 500 MCG PO DAILY Docusate Sod/Senna (Senna S 8.6-50 mg) 1 Tab Tab, 1 TAB PO DAILY Docusate Sodium (Colace) 100 Mg Cap, 100 MG PO BID Finasteride (Proscar) 5 Mg Tab, 5 MG PO QHS Gabapentin (Gabapentin) 100 Mg Cap, 100 MG PO TID Insulin Detemir (Levemir) 1 Units/0.01 Ml Susp, 18 UNITS SC QHS Insulin Human Lispro (Humalog) 1 Units/0.01 Ml Inj, 0 SC AC PER SLIDING SCALE IN ADDITION TO THE 8UNTIS AC Insulin Human Lispro (Humalog) 1 Units/0.01 Ml Inj, 8 UNITS SC AC Isosorbide Dinitrate (Isosorbide Dinitrate) 30 Mg Tab, 15 MG PO DAILY Levothyroxine Sodium (Levoxyl) 50 Mcg Tab, 50 MCG PO DAILY TAKE AT 1100 Multivitamins *[facility] STOCKED* (Thera M Plus *[facility] STOCK[facility]*) 1 Tab Tab, 1 TAB PO DAILY Polyethylene Glycol (Miralax) 1 Pow Pow, 17 GM PO DAILY Potassium Chloride (K-Tab) 20 Meq Tab, 20 MEQ PO DAILY Tamsulosin Hydrochloride (Flomax) 0.4 Mg Cap, 0.4 MG PO QHS Torsemide (Torsemide) 5 Mg Tab, 5 MG PO DAILY Scheduled PRN (Enema) 1 Martha Martha, 1 MARTHA [place] DAILY PRN for CONSTIPATION Acetaminophen (Tylenol) 325 Mg Tab, 650 MG PO Q4H PRN for PAIN Bisacodyl (Dulcolax) 10 Mg Sup, 10 MG [place] DAILY PRN for CONSTIPATION Milk Of Magnesia (Milk of Magnesia) 1,200 Mg/15 Ml Kim, 30 ML PO DAILY PRN for CONSTIPATION Nitroglycerin (Nitrostat) 0.4 Mg Subl, 0.4 MG SL PRN PRN for CHEST PAIN Tramadol HCl (Tramadol HCl) 50 Mg Tab, 50 MG PO Q6H PRN for PAIN Miscellaneous Medications (Potassium Chloride) 20 % Liq, 20 % PO Allergies Coded Allergies: No Known Drug Allergy (Unverified Allergy, Unknown, 08/25/12) BRENDA OSMAN MD Oct 29, 2016 14:21
[2016-10-29 14:39] LABS: CALCIUM LEVEL 9.1 MG/DL (8.8-10.2); CREATININE FOR GFR 1.5 MG/DL (0.70-1.30); GLOMERULAR FILTRATION RATE 48.1 (>42); MAGNESIUM LEVEL 2.1 MG/DL (1.8-2.4); POTASSIUM SERUM 4.4 MEQ/L (3.5-5.1)
[2016-10-29 16:00] VITALS: BP 160/70
[2016-10-29] MEDS: LEVOTHYROXINE 0.05 MG TAB (50 MCG) PO SCH (17:27)
[2016-10-29] MEDS: HumaLOG INSULIN (NovoLOG) PER UNIT SC SCH ×2 (17:36→21:00)
[2016-10-29 18:00] VITALS: BP 169/72
--- NOTE | 2016-10-29 19:29 | REP ---
Duplex carotid sonography: History: CVA. Comparison duplex carotid sonography May 23, 2016 showed evidence of 60 to 79% stenosis of the right internal carotid artery. Findings: Antegrade flow is observed in the left vertebral artery. The right vertebral artery could not be seen. Right carotid: The right common carotid artery shows distal plaquing. There is moderate to marked mixed plaquing in the bulb and extending into the proximal ICA and proximal ECA circumferentially on the right side. The bifurcations are high and calcific components limit sonographic assessment. CCA PSV 78 cm/s ICA PSV 113 cm/s ICA EDV 21 cm/s ECA PSV 143 cm/s Right ICA/CCA ratio normal, 1.4. Impression: There is advanced extensive calcific and soft plaquing with significant luminal narrowing seen on two-dimensional scanning on the right ICA. Technical factors lead me to suspect that velocities underestimate the degree of stenosis. The recorded velocities today are less than those recorded in the right ICA on May 23, 2016. Stenosis felt to be at least 70%. Left carotid: There is mild soft plaquing and diffuse intimal thickening in the left CCA. Distally there is some mixed plaquing. A stent is noted in the proximal ICA on the left. CCA PSV 45 cm/s ICA PSV 94 cm/s ICA EDV 18 cm/s ECA PSV 79 cm/s Left ICA/CCA ratio somewhat elevated, 2.1. Impression: Status post left ICA stent. This demonstrates patency. No evidence of high-grade stenosis on the left. Signed by Master Rea MD 10/30/2016 01:32 P
[2016-10-29 20:04] VITALS: BP 188/62
--- NOTE | 2016-10-29 20:22 | CR ---
DATE OF CARDIOLOGY CONSULTATION: 10/29/2016 REFERRING PHYSICIAN: Alex Shaw MD, hospitalist. CC: Sterling Torres MD INDICATION: Recurrent unresponsiveness. HISTORY: This 81-year-old father of two grown children, current resident of [facility] due to dementia, is well known to my cardiology practice with ischemic, hypertensive, and valvular heart disease complicated by abnormal EKG, paroxysmal atrial fibrillation, nonsustained ventricular tachycardia, and heart failure (systolic and diastolic)/post single chamber implantable cardioverter defibrillator (ICD) implant. He has had a history of recurrent episodes of unresponsiveness of some duration up to 30 minutes with associated diaphoresis with prior hospitalizations for the same without clear etiology. In particular, with his ICD in situ we have been able to demonstrate that these prolonged episodes of unresponsiveness are not related to rhythm disturbance. He apparently suffered a recurrent such episode today and was brought to [facility] emergency room for evaluation. Upon his presentation here, initial vital signs did not show any significant rhythm disturbance. 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 Blood pressures had been elevated without orthostatic hypotension. On dental manager was documented to have a nonsustained run of ventricular tachycardia, so cardiology consultation was placed. Unfortunately, because of his dementia his history is not reliable. The patient has no recollection of any episode of unresponsiveness earlier today. KNOWN PAST CARDIAC DISEASE/EVENTS/TESTS: Has undergone left anterior descending (LAD) stenting April 1985 and January 1986 with followup cardiac catheterizations March 1989, August 1997, showing no recurrent LAD stenosis. His last cardiac catheterization showed an occluded right coronary artery with left ventricle end-diastolic pressure of 11 mmHg. Holter monitor in April 2014 showed atrial fibrillation with ventricular response that varied between 48 and 125 BPM, averaging 74 bpm with frequent isolated multifocal prematureventricular contractions (PVCs), couplets and triplets. Symptoms of lightheadedness did not correlate with any rhythm disturbance. A single chamber ICD was implanted August 17, 2014 ([employer], model number [id number]) for primary prevention of sudden because of heart failure (systolic and diastolic). Last pharmacological stress heart scan July 2014 showed no inducible chest pain , no EKG ST/T-wave change from abnormal baseline, fixed moderate sized inferior/inferolateral and inferoseptal myocardial perfusion defect in keeping with his known prior infarction with severe reduction in global left ventricular systolic function with left ventricular ejection fraction (LVEF) of 32%. This study was unchanged from April 2013. Last echocardiogram in May 2016 showed borderline concentric left ventricle hypertrophy with inferior akinesis, moderately dilated left atrium with elevated mean left atrial pressure, normal right ventricular size, but moderate pulmonary hypertension, mildly dilated right atrium and normal inferior vena cava (IVC) size and collapse against elevated central venous pressure, aortic valvular sclerosis without stenosis, but moderate insufficiency. Degenerative mitral annular calcification without inflow tract obstruction and only mild insufficiency. He had a moderate-sized pericardial effusion without cardiac chamber compression. No significant change from a study performed 1 year earlier. CORONARY RISK FACTORS: Male gender. Advanced age. Chronic hypertension. Longstanding hypercholesterolemia. Insulin-dependent diabetes mellitus. Remote 30-year one and half pack per day smoking history, quit 1984. FAMILY HISTORY: No family history of premature coronary disease. OTHER PAST MEDICAL PROBLEMS: Include: Prior deep venous thrombosis with pulmonary embolism. Bilateral carotid artery stenosis with prior embolic left posterior cerebral stroke. Transient ischemic attacks. Peripheral vascular disease. Carotid endarterectomy left-sided 1998. Femoral bypass surgery 2013. Prior stenting procedures right lower extremity. Amputation right toe June 2016 with balloon angioplasty on the same side. Chronic renal insufficiency. Benign prostatic hypertrophy. Smoking induced COPD. Prior left lower limb cellulitis. Hypothyroidism. Encephalopathy. REVIEW OF SYSTEMS: Not possible due to the patient's dementia. MEDICATIONS: Include: - carvedilol 6.25 mg twice a day - atorvastatin 40 mg at bedtime - Eliquis 5 mg twice a day - torsemide 5 mg daily - isosorbide mononitrate ER 30 mg tablets 1/2 tablet daily - aspirin 81 mg daily - clopidogrel 75 mg daily - Flomax 0.4 mg at bedtime - KCl 20 mEq daily - levofloxacin 50 mcg daily - Proscar 5 mg at bedtime - Colace/senna 8.6 - 50 mg 1 tablet daily - vitamin B12 500 mEq daily - vitamin D 1000 units by mouth daily - Tums 500 mg by mouth twice a day - allopurinol 100 mg daily - Combivent nebulizer therapy, 1 four times a day - gabapentin 100 mg p.o. three times a day - insulin Levemir 18 units subcu at bedtime - sliding scale insulin as directed - multivitamin 1 tablet daily - MiraLax 117 grams by mouth daily - nitroglycerin 0.4 mg SL every 5 minutes as needed (p.r.n.) chest pain. ALLERGIES/INTOLERANCES: None known. PHYSICAL EXAMINATION: Pleasant, somewhat frail elderly male lying comfortably with the head of the bed elevated 30 degrees. Heart rate 62 beats per minute and regular, blood pressure 160/70, supine. Respiratory rate 18 per minute. O2 saturation 97% on room air. Eyes: No pallor or cyanosis. ENT/mouth: Edentulous. Normal oral moisture. No central cyanosis. Neck: Trachea midline. Thyroid did not appear enlarged. Jugular veins 4 cm above the sternal angle. Respiratory: Slightly increased anteroposterior chest diameter with well-healed pacer incision, left pacer/ICD incision left subclavian region. No inspiratory rales or expiratory rhonchi at this time. [place] not palpable. Heart sounds distant. No audible gallop, but soft systolic murmur. Dependent edema with reduced pedal pulses. GI: Soft, nontender abdomen. Normal bowel sounds. INVESTIGATIONS: EKG: Tracing taken earlier today at 11:13 a.m. showed sinus bradycardia at 53 bpm with left atrial conduction disturbance. Reduced QRS voltage and evidence of prior inferior wall myocardial infarction. Appearance was not changed from our last office tracing August 20, 2016. Chest x-ray: Portable upright study taken earlier today was reviewed independently and shows cardiomegaly even allowing for this portable technique. Single chamber ICD with pulse generator left subclavian region and the tip of his lead terminating in the distal high right ventricular septum. Greater vessels appear to be normal. No sign of congestion or pleural effusion. LABORATORY DATA: Hemoglobin 12.1 with normal white blood cell count and platelet count. Electrolytes were normal with BUN 29, creatinine 1.8, random glucose 197. Lactic acid level on admission was 2.5 and this had dropped to 1.2. Normal serum calcium and normal liver function studies. Albumin was slightly low at 2.8. C-reactive protein was negative and serial Troponin I levels were negative. IMPRESSION/PLAN: 1. Unresponsiveness: Again from the provided description, it is unlikely this prolonged episode of unresponsiveness was a cardiovascular phenomenon. No clear arrhythmia documented beyond nonsustained VT in the emergency room. Vital signs en route to the hospital showed a mild hypotension, 85/62 and 100/54, but EKG at the same time was remarkably benign. Episode possibly triggered by relative volume depletion (question), has received IV fluid here and is currently hypertensive. 2. Ventricular tachycardia/single chamber ICD in situ: Has been known to have recurrent nonsustained ventricular tachycardia without associated symptoms. His ICD has never discharged for a ventricular arrhythmia. Interrogation of his device today again showed no significant rhythm disturbance. The low pacing rate of his device is set at 50 and he has had no malignant ventricular arrhythmia. Intracardiac electrograms and pacing thresholds were excellent with ample battery voltage. 3. Paroxysmal atrial fibrillation: The patient has been known to have atrial fibrillation and had been on amiodarone in the past, which somehow was inadvertently discontinued at the time of his admission to hospital [facility] April 2016. According to his device interrogation he has not had any significant tachyarrhythmia on his current carvedilol therapy alone. Remains on combination oral anticoagulation and antiplatelet therapy for his carotid vascular disease, prior history of deep venous thrombosis (DVT) and pulmonary embolism as well as prophylaxis against systemic thromboembolic event with his atrial fibrillation. No evidence of GI or abnormal bleeding. 4. Heart failure (systolic and diastolic/chronic): As mentioned, is possible his relative hypotension was triggered by volume depletion. He has responded well to IV fluid administration. Does not have clinical or radiographic features of congestion at this time. Has been on combination carvedilol, isosorbide dinitrate, very low-dose torsemide and potassium supplement. 5. Coronary artery disease/post inferior wall myocardial infarction (IWMI), post recurrent LAD stenting: Has remained free of symptomatic myocardial ischemia. Serial EKGs fail to demonstrate any repolarization change from our last tracing in July. Serial Troponin I levels are negative. Would suggest continuing the same combination carvedilol, isosorbide mononitrate, atorvastatin and aspirin/Plavix antiplatelet therapies. 6. Hypertensive heart disease (benign with heart failure): Compensated as mentioned above. Episode of transient hypotension earlier today, possibly related to relative volume depletion. Currently hypertensive. Renal function was slightly abnormal and not significantly changed from the last few months. 7. 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 No leukocytosis or fever to suggest endocarditis. 8. Pericardial effusion (chronic): Has had a longstanding known fairly large pericardial effusion without echocardiographic evidence of cardiac compression in the past. Is believed to be at least in part related to his chronic pulmonary hypertension. At this point, we will plan on following him from afar, but would be pleased to be of assistance at any time. IVETTE
[2016-10-29] MEDS ORDERED: SLF 3 ML SYR IV PRN (20:45)
[2016-10-29] MEDS: DOCUSATE SODIUM 100 MG CAP PO SCH (21:11)
[2016-10-29] MEDS: CARVedilol 6.25 MG TAB PO SCH (21:12)
[2016-10-29] MEDS: APIXABAN 5 MG TAB (ELIQUIS) PO SCH (21:12)
[2016-10-29] MEDS: TAMSULOSIN 0.4 MG CAP PO SCH (21:13)
[2016-10-29] MEDS: ATORVASTATIN 20 MG TAB PO SCH (21:13)
[2016-10-29] MEDS: CALCIUM CARBONATE 500 MG CHEW U/D PO SCH (21:14)
[2016-10-29] MEDS: FINASTERIDE 5 MG TAB PO SCH (21:14)
[2016-10-29] MEDS: LEVEMIR (INSULIN DETEMIR) 1 UNITS/0.01ML SC SCH (21:15)
[2016-10-29] MEDS: SLF 3 ML SYR IV SCH (21:15)
[2016-10-29 22:00] VITALS: BP 179/73
[2016-10-30] VITALS (7 sets, daily range): BP systolic 118–187; BP diastolic 52–80
[2016-10-30] MEDS: SLF 3 ML SYR IV SCH ×3 (03:24→21:52)
--- NOTE | 2016-10-30 07:19 | ECGEPIP ---
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
[2016-10-30] MEDS: MIRALAX *UNIT DOSE* 17GM PACKET PO SCH (08:27)
[2016-10-30] MEDS: VITAMIN D 1,000 INTERNATIONAL UNITS TABLET PO SCH (08:28)
[2016-10-30] MEDS: ASPIRIN 81 MG CHEW TABLET PO SCH (08:28)
[2016-10-30] MEDS: CYANOCOBALAMIN 500 MCG TAB PO SCH (08:28)
[2016-10-30] MEDS: CALCIUM CARBONATE 500 MG CHEW U/D PO SCH ×2 (08:28→20:32)
[2016-10-30] MEDS: APIXABAN 5 MG TAB (ELIQUIS) PO SCH ×2 (08:28→20:33)
[2016-10-30] MEDS: DOCUSATE SODIUM 100 MG CAP PO SCH ×2 (08:28→20:33)
[2016-10-30] MEDS: HumaLOG INSULIN (NovoLOG) PER UNIT SC SCH ×4 (08:28→20:32)
[2016-10-30] MEDS: MULTIVITAMINS/MINERALS THERAP 1 TAB PO SCH (08:28)
[2016-10-30] MEDS: ALLOPURINOL 100 MG TAB PO SCH (08:29)
[2016-10-30] MEDS: SENOKOT S TAB PO SCH (08:29)
[2016-10-30] MEDS: SERTRALINE HCL 25 MG TABLET PO SCH (08:29)
[2016-10-30] MEDS: CARVedilol 6.25 MG TAB PO SCH ×2 (08:29→20:33)
[2016-10-30] MEDS: CLOPIDOGREL 75 MG TAB PO SCH (08:29)
[2016-10-30] MEDS: LEVOTHYROXINE 0.05 MG TAB (50 MCG) PO SCH (10:29)
[2016-10-30] MEDS: AMIODARONE 200 MG TAB (PACERONE) PO SCH ×4 (10:30→20:33)
--- NOTE | 2016-10-30 15:48 | IPNPDOC ---
Subjective Date Seen The patient was seen on 10/30/16. Subjective Chief Complaint/HPI The patient is a 81-year-old male admitted with a reason for visit of Cva Syncope Unresponsive Episode. Events since last encounter pt seen and examined, confused, is only oriented to person, pt had a run of nonsustained Vtach, he denies any chest pain, palpitations, nausea, vomiting, or dizziness Objective Physical Examination General Exam: Positive: No Acute Distress Eye Exam: Positive: PERRLA Neck Exam: Positive: Supple Chest Exam: Positive: Clear to auscultation Heart Exam: Positive: Rate Normal Abdomen Exam: Positive: Normal bowel sounds, Soft Extremity Exam: Positive: Normal pulses, Negative: Clubbing, Cyanosis, Edema Assessment /Plan Problems (1) Syncope Status: Acute Problem Text: * unknown etiology * may have been due to arrhythmia vs vascular disease * repeat carotid ultrasound * continue to monitor pt on tele * resume pt's amiodarone, cardiology managing (2) CVA (cerebral vascular accident) Status: Acute Problem Text: * acute right temporal lobe infarct * pt has history of dementia and unable to appropriatly follow commands * will continue to keep SBP between 140-180 * Neurology is consulted (3) Ventricular arrhythmia Onset Date: 04/18/2014 Status: Acute Problem Text: * pt had a run of nonsustained vtach on tele * Dr serna is aware, he had interrogated his AICD 10/29 which showed no events * Pt is supposed to be on amiodarone which fell off his medication list at some point (4) Hypothyroid Status: Chronic (5) Atrial fibrillation Onset Date: 04/18/2014 Status: Chronic Problem Text: * pt is on eliquis (6) DM2 (diabetes mellitus, type 2) Status: Chronic (7) Elevated troponin I level Status: Chronic (8) Heart failure, systolic and diastolic, acute on chronic Onset Date: 04/18/2014 Status: Chronic (9) CKD (chronic kidney disease) stage 3, GFR 30-59 ml/min Status: Chronic Problem Text: * baseline creatine 1.4-1.5 * pt is currently at baseline (10) Pericardial effusion Status: Chronic Response to Treatment: Stable Plan/VTE VTE Prophylaxis Ordered?: Yes VS, I&O, 24H, Fishbone Vital Signs/I&O Vital Signs Date Time Temp Pulse Resp B/P (MAP) Pulse Ox O2 Delivery O2 Flow Rate FiO2 10/30/16 12:00 98.8 67 20 158/62 (94) 96 Room Air I&O- Last 24 Hours up to 6 AM 10/30/16 06:00 Output Total 525 ml Balance -525 ml Laboratory Data 24H LABS Laboratory Tests 2 10/29/16 15:53: Lactic Acid Followup at 4 Hours 1.2 10/29/16 21:15: Total Creatine Kinase 55, Creatine Kinase MB 1.6, Creatine Kinase MB Relative Index 2.90, Troponin I 0.08# 10/29/16 21:20: Bedside Glucose (Misc Panel) 180H 10/30/16 05:21: Total Creatine Kinase 62, Creatine Kinase MB 1.8, Creatine Kinase MB Relative Index 2.90, Troponin I 0.11#H 10/30/16 07:36: Bedside Glucose (Misc Panel) 189H 10/30/16 11:47: Bedside Glucose (Misc Panel) 235H Microbiology Microbiology 10/29/16 Blood Culture - Preliminary, Resulted No growth after 24 hours . All specim... 10/29/16 Blood Culture - Preliminary, Resulted No growth after 24 hours . All specim... 10/29/16 Influenza Virus Type A Antigen - Final, Complete 10/29/16 Influenza Virus Type B Antigen - Final, Complete 10/29/16 Urine Culture, Received Pending ELLYN HERNANDEZ DO Oct 30, 2016 15:48
--- NOTE | 2016-10-30 20:08 | EEG ---
DATE OF PROCEDURE: 10/30/2016 REFERRING PHYSICIAN: Ashley Cantu MD DIAGNOSIS: Loss of consciousness. Rule out seizure. EEG #: [id number] HISTORY: The patient is 81-year-old man who was admitted at [facility] due to episode of diaphoresis and passing out. He has a history of multiple strokes. He is currently on Eliquis, aspirin, Lipitor, carvedilol, Plavix, finasteride, Zoloft, Flomax, etc. TECHNICAL DESCRIPTION: This digital EEG was recorded by 21 scalp, ear and two EKG electrodes and was reviewed in bipolar and referential montages following reformatting in 10-20 international electrode placement system. INTERPRETATION: The patient was noted to be in drowsy state during this EEG. Background rhythm consisted of 5 - 6 Hz theta activity measuring 15 - 40 microvolts in amplitude, which was symmetric bilaterally. Stage I and II sleep were reviewed and were symmetric bilaterally. Hyperventilation could not be performed. Photic stimulation remained unremarkable. EKG revealed normal sinus rhythm. No focal, lateralizing or epileptiform abnormalities were seen. No clinical or electrographic seizures were recorded. CONCLUSION: This EEG in awake, drowsy states, stage I and II sleep is abnormal due to presence of mild generalized slowing and disorganization of background consistent with nonspecific diffuse cerebral dysfunction, such as seen in encephalopathy due to multiple potential causes. No epileptiform abnormalities were seen. Clinical correlation is recommended.
[2016-10-30] MEDS: LEVEMIR (INSULIN DETEMIR) 1 UNITS/0.01ML SC SCH (20:32)
[2016-10-30] MEDS: ATORVASTATIN 20 MG TAB PO SCH (20:33)
[2016-10-30] MEDS: FINASTERIDE 5 MG TAB PO SCH (20:33)
[2016-10-30] MEDS: TAMSULOSIN 0.4 MG CAP PO SCH (21:51)
--- NOTE | 2016-10-31 00:08 | IPN ---
DATE: 10/30/2016 CARDIOLOGY PROGRESS NOTE SUBJECTIVE: The patient remains pleasantly confused, though he recognizes me. Denies any chest discomfort, shortness of breath, dizziness or weakness at this time. However, he does not recall why he is in hospital. OBJECTIVE: Pleasantly demented elderly male of medium body build with obvious right above-knee amputation, laying comfortably flat. Heart rate 64 bpm and regular at this time, blood pressure 125/58 supine, 132/50 sitting with legs dependent. Respiratory rate 18, oxygen saturation 94% on room air. Afebrile. He was not weighed this morning. Intake and output (I and O) balance suggesting a positive intake of 300 mL during the course of today. Normal oral moisture. Trachea midline. Neck veins were not elevated. Slightly increased anteroposterior chest diameter with well-healed implantable cardioverter defibrillator (ICD) incision left subclavian region. Good air entry over both lung leigh with no current inspiratory rales. Slight prolongation of expiration but no audible wheeze at this time. Apical impulse not palpable. Heart sounds distant but obvious systolic murmur. No current dependent edema. RADIOACTIVITY TECHNICIAN: This shows sinus rhythm/sinus bradycardia with subtle interventricular conduction disturbance and only rare isolated premature ventricular contraction (PVC). Earlier this morning he had a 13 beat run of monomorphic ventricular tachycardia at 134 bpm that was asymptomatic. LABORATORY DATA: Followup Troponin-I was performed earlier today and was in an indeterminate range of 0.11. Glucose values remained somewhat elevated, ranging between 187 and 235 on fingersticks before meals and bedtime today. For some reason, a carotid ultrasound was performed because of his prolonged unresponsive spell (without lateralizing neurological deficit) and this shows advanced calcific plaquing of the right internal carotid artery, with no clear evidence of severe obstruction. Left internal carotid vascular stent is patent with no high-grade obstruction. Normal left surgical antegrade flow. Right ventricle cannot be visualized. CT scan without contrast performed yesterday showed evidence of cerebral atrophy, but also what appeared to be an acute right posterior temporal lobe infarction. There also appeared to be a left occipital and posterior left parietal lobe attenuation, suggestive of a prior infarction, left basal ganglion attenuation believed to be old lacuna or infarctions and evidence of small vessel ischemic disease. IMPRESSION/PLAN: 1. Unresponsiveness: As discussed with Dr. Cantu, it is very unlikely that a cardiovascular phenomenon accounted for his prolonged bout of unresponsiveness, as such an episode would likely lead to the patient's . Some question of mild hypotension may have been related to a degree of volume depletion. Has a CT scan evidence of an acute temporal lobe infarction. As mentioned above, remains pleasantly confused with no clear-cut visual lateralizing neurological deficit. 2. Ventricular tachycardia/single chamber implantable cardioverter defibrillator (ICD) in situ: Has a relatively slow but impressive monomorphic run of nonsustained ventricular tachycardia today. As previously noted, for some reason his amiodarone therapy was inadvertently discontinued April 2016. As discussed with Dr. Cantu, his primary provider in hospital, I have recommended resuming this agent to minimize his risk of ICD discharge. I have ordered amiodarone 200 mg four times a day for the next three days, prior to resuming his one tablet daily. 3. Paroxysmal atrial fibrillation: No evidence of recurrent atrial fibrillation here in hospital. Has new cerebrovascular accident despite his oral anticoagulation and combination aspirin and Plavix antiplatelet therapy. This is somewhat hard to reconcile. According to the recent device interrogation and his front desk monitor, no clear evidence of recurrent atrial tachyarrhythmia at this time, but resuming his amiodarone will only reduce his risk of this occurring. 4. Heart failure (systolic and diastolic/chronic): As mentioned, he certainly appears clinically euvolemic. His recent episode of hypotension may very well have triggered his neurological event. He has responded to IV fluid administration and does not have an orthostatic drop on his pressure at this time. I agree with discontinuing his torsemide and KCl to prevent recurrent relative hypotension. The latter, I suspect, may have been related to his dementia and reduced oral intake. 5. Coronary disease/prior inferior wall myocardial infarction/post recurrent left anterior descending (LAD) stenting: Has remained free of symptomatic myocardial ischemia. Serial Troponin-I levels have been only indeterminate range. I would encourage his continued low-dose carvedilol, atorvastatin, aspirin and Plavix. 6. Hypertensive heart disease (benign with heart failure): Compensated, as mentioned, with currently normal blood pressure. Will remain on the same carvedilol therapy, but I think it would be prudent to avoid ongoing diuretic therapy here unless he has clear evidence of pulmonary congestion. 7. Mitral and aortic valve disorder (nonrheumatic/insufficiency): No auscultatory change. Remains afebrile with no leukocytosis. 8. Pericardial effusion (chronic): Does not have felt pulsus paradoxus or elevated neck veins at this point to suggest cardiac compression. An echocardiogram/Doppler study was requested and will be reviewed independently. I will continue to follow him with you and appreciate the opportunity to participate in his [id number] Best regards,
[2016-10-31 03:57] VITALS: BP 124/51
[2016-10-31 05:17] LABS: MEAN CORPUSCULAR HEMOGLOBIN 29.7 pg (27.0-33.0); RED CELL DISTRIBUTION WIDTH 16.8 % (11.5-14.5); WHITE BLOOD COUNT 8.1 K/mm3 (4.0-10.0)
[2016-10-31] MEDS: SLF 3 ML SYR IV SCH ×3 (05:27→20:18)
[2016-10-31 05:38] LABS: ALBUMIN 2.6 GM/DL (3.2-5.2); ALBUMIN/GLOBULIN RATIO 0.74 (1.00-1.93); ALKALINE PHOSPHATASE 94 U/L (45-117); ALT/SGPT 14 U/L (12-78); ANION GAP 5 MEQ/L (8-16); AST/SGOT 18 U/L (15-37); BILIRUBIN,TOTAL 0.3 MG/DL (0.2-1.0); BLOOD UREA NITROGEN 19 MG/DL (7-18); CALCIUM LEVEL 8.6 MG/DL (8.8-10.2); CARBON DIOXIDE LEVEL 30 MEQ/L (21-32); CHLORIDE LEVEL 108 MEQ/L (98-107); CREATININE FOR GFR 1.19 MG/DL (0.70-1.30); GLOMERULAR FILTRATION RATE > 60.0 (>42); GLUCOSE, FASTING 146 MG/DL (83-110); MAGNESIUM LEVEL 2.1 MG/DL (1.8-2.4); POTASSIUM SERUM 3.8 MEQ/L (3.5-5.1); SODIUM LEVEL 143 MEQ/L (136-145); TOTAL PROTEIN 6.1 GM/DL (6.4-8.2)
--- NOTE | 2016-10-31 05:58 | ECHO ---
DATE OF PROCEDURE: 10/30/2016 AGE: 81 GENDER: Male REFERRING PHYSICIAN: Dr. Alex Shaw. HEIGHT: 69 inches. WEIGHT: 154 pounds. BODY SURFACE AREA: 1.85 sq m. INPATIENT: PCU Room 3223 INDICATION: Abnormal EKG. History of pericardial effusion. MEASUREMENTS: 2D MEASUREMENTS: RV - 3.7 cm LV- 5.2 cm Septum - 1.0 cm Posterior wall - 0.9 cm Aortic root - 3.6 cm LA - 4.4 cm LVEF - 40-45% DOPPLER MEASUREMENTS: AV - 1.8 m/s LVOT - 0.8 m/s LVOT diameter - 2.1 cm MV-E: 87 A: 63 EA ratio 1.4 Early mitral deacceleration time - 110 ms E-prime - 4 A-prime - 6 E/E prime ratio - 21 (medial mitral annulus) and 11.7 (lateral mitral annulus) PV - 0.8 m/s Pulmonary artery acceleration time - 102 ms RVSP - 44 mmHg IVC - 1.6 cm COMMENT: Sinus bradycardia without intraventricular conduction disturbance. Mild to moderately dilated left atrium but normal left ventricular size. Normal right heart chamber sizes. Left ventricular wall thickness was normal with slightly more thinned inferoseptal and inferior segments. On real-time imaging from the parasternal and apical projections, there was virtual akinesis of the inferoseptal and inferior wall but other wall motion appeared to be normal. Mild mitral annular thickening but normal leaflet thickness and excursion with no posterior systolic buckling. Three equal size aortic cusps with mildly thickened cusp edges but adequate cusp separation. Pacing lead could be visualized traversing right heart structures. Moderate sized posterior and much smaller anterior echo-free space without cardiac chamber compression. There was no respiratory variation to Doppler flow signals against cardiac tamponade. Color flow Doppler study taken from the parasternal and apical projection showed mild aortic, mild mitral and mild tricuspid insufficiency. Guided continuous wave Doppler of his aortic valve showed a normal peak systolic velocity against LV outflow tract obstruction. Pulsed and continuous wave Doppler of his LV inflow tract taken from the apical four-chamber projection showed normal diastolic filling velocities against mitral stenosis. There was a fairly normal filling pattern. However, his early mitral deceleration time was abbreviated in keeping with a pseudo normalization and LV diastolic dysfunction. This was confirmed using tissue Doppler of his mitral annulus. Using pulsed and tissue Doppler of his mitral annulus both medial and lateral, his current estimated mean left atrial pressure was within normal limits. Pulsed and continuous wave Doppler of his pulmonary trunk showed a normal peak systolic velocity against RV outflow tract obstruction. His pulmonary artery acceleration time was abbreviated consistent with an elevated pulmonary vascular resistance. Guided continuous wave Doppler of his tricuspid valve allowed our estimation of his right ventricular systolic pressure (moderately increased). His inferior vena cava was of normal size with normal respiratory collapse at this time against an elevated central venous pressure. CONCLUSIONS: Normal left ventricular size and wall thickness with inferoseptal and inferior akinesis and wall thinning in keeping with known prior inferior infarction. At least mild to moderately impaired global left ventricular systolic function. At least mildly dilated left atrium with Doppler evidence of an impairment of LV diastolic function but current estimated mean left atrial pressure within normal limits. Normal right heart chamber sizes with Doppler evidence of moderate pulmonary hypertension. Normal IVC size and collapse against an elevated central venous pressure. Aortic valvular sclerosis without stenosis and very mild insufficiency. Mild mitral annular calcification with mild insufficiency. Moderate-sized pericardial effusion without evidence of cardiac tamponade. Comparing the above test findings with the study 05/2016, the dimensions of the pericardial effusion and other findings were not changed. MTDD
[2016-10-31] MEDS: HumaLOG INSULIN (NovoLOG) PER UNIT SC SCH ×4 (07:30→20:18)
[2016-10-31 08:00] VITALS: BP 184/71
[2016-10-31] MEDS: MIRALAX *UNIT DOSE* 17GM PACKET PO SCH (10:14)
[2016-10-31] MEDS: CYANOCOBALAMIN 500 MCG TAB PO SCH (10:15)
[2016-10-31] MEDS: MULTIVITAMINS/MINERALS THERAP 1 TAB PO SCH (10:15)
[2016-10-31] MEDS: AMIODARONE 200 MG TAB (PACERONE) PO SCH ×4 (10:15→20:12)
[2016-10-31] MEDS: CLOPIDOGREL 75 MG TAB PO SCH (10:17)
[2016-10-31] MEDS: ASPIRIN 81 MG CHEW TABLET PO SCH (10:17)
[2016-10-31] MEDS: ALLOPURINOL 100 MG TAB PO SCH (10:17)
[2016-10-31] MEDS: CALCIUM CARBONATE 500 MG CHEW U/D PO SCH ×2 (10:17→20:11)
[2016-10-31] MEDS: VITAMIN D 1,000 INTERNATIONAL UNITS TABLET PO SCH (10:18)
[2016-10-31] MEDS: DOCUSATE SODIUM 100 MG CAP PO SCH ×2 (10:18→20:17)
[2016-10-31] MEDS: CARVedilol 6.25 MG TAB PO SCH ×2 (10:18→20:17)
[2016-10-31] MEDS: SENOKOT S TAB PO SCH (10:18)
[2016-10-31] MEDS: APIXABAN 5 MG TAB (ELIQUIS) PO SCH ×2 (10:19→20:11)
[2016-10-31] MEDS: SERTRALINE HCL 25 MG TABLET PO SCH (10:22)
--- NOTE | 2016-10-31 10:34 | CR ---
DATE OF CONSULTATION: 10/30/2016 REQUESTING PROVIDER: Dr. Ashley Cantu REASON FOR CONSULTATION: Acute stroke. The patient is a 81-year-old male with a past medical history significant for atrial fibrillation currently on Eliquis history of significant vascular disease, currently on aspirin and Plavix, 81 mg on 75 mg, respectively, with history of baseline dementia, presenting with a chief complaint of experiencing diaphoresis, shortness of breath, hypotension and episode of syncope. Upon arrival to [facility], the patient was noted to have a head CT with findings of a possible acute right temporoparietal ischemic stroke. The patient cannot have an MRI of the brain due to having an AICD. The patient had evidence of old left occipitoparietal lobe infarction, old left basal ganglia lacunar infarction, small-vessel ischemic disease, moderate volume loss. The patient himself is confused at bedside. He is accompanied by his significant other, who has known him and lived with him for the last 30 years. She states 3 weeks ago he started complain of sudden visual disturbance. It is possible that the patient may have even had stroke symptoms back then. He does have history of carotid stenosis, between 60-79%. The patient's most recent carotid ultrasound completed at [facility] reveals at minimum 70% stenosis. The patient's blood pressure has been elevated during the hospital admission and has been kept elevated between 140 to 180 systolic due to suspicion for stroke. Plan is to normalize blood pressure on 10/31/2016. We will continue Eliquis, aspirin 81 mg, and Plavix 75 mg without change in dose. Any higher dose of antiplatelet therapy will significantly increase risk of bleeding considering he is currently on three forms of treatment. The patient is exhibiting symptoms of sundowning, as well as confusion thinking that he is sitting at home right now. The patient may be having worsening delirium with underlying dementia after being in a new hospital setting instead at the [facility] where he resides. He denies any pain. He does have an [id number] amputation of the right lower extremity. The patient is sitting up in bed. He is oriented to his name only. He cannot tell me the date or where he is. He initially states he thinks he is in [place]. Language is intact without any obvious aphasia. PAST MEDICAL HISTORY: 1. Atrial fibrillation currently on Eliquis. 2. 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 3. Peripheral artery disease status post right stent and right above the knee amputation. 4. Multiple CVAs. 5. Carotid stenosis bilaterally, status post CEA bilaterally. 6. Pulmonary hypertension. 7. Insulin-dependent diabetes. 8. Essential hypertension. 9. MGUS vascular dementia. 10. Gastroesophageal reflux disease. 11. Episodes of syncope. PAST SURGICAL HISTORY: Bilateral CEA, AICD, right femoral artery stent, right AKA, cataract surgery. SOCIAL HISTORY: The patient used to smoke one packet tobacco per day for 30 years and quit in 1984. He denies use of any alcohol or illicit drugs. FAMILY HISTORY: Noncontributory. ALLERGIES: None. MEDICATIONS: Medications during this admission: - allopurinol 100 mg by mouth daily - aspirin 81 mg by mouth daily - vitamin D 1000 International Units by mouth daily - Plavix 75 mg by mouth daily - vitamin B12 500 mcg by mouth daily - Senna one tablet by mouth daily - multivitamin by mouth daily - MiraLax one packet by mouth daily - Zoloft 25 mg by mouth daily - amiodarone 200 mg by mouth four times a day - Eliquis 5 mg daily by mouth twice a day - Lipitor 40 mg by mouth at night - calcium carbonate 500 mg by mouth twice a day - Coreg 6.25 mg by mouth daily - docusate 100 mg by mouth twice a day - finasteride 5 mg by mouth at night - insulin Levemir 10 units subcutaneous at night - tamsulosin 0.4 mg by mouth at bedtime - acetaminophen 650 mg by mouth as needed - magnesium hydroxide 30 mg by mouth as needed for constipation - Synthroid 0.05 mg by mouth daily REVIEW OF SYSTEMS: 14-point for review of systems is obtained and is negative except as per history of present illness. PHYSICAL EXAMINATION: VITAL SIGNS: Blood pressure 103/75, pulse 62, respiratory rate is 18, temperature is 97 degrees Fahrenheit, oxygenation 94% on room air. Current height is 5 feet 9 inches. Current weight is 70 kg. Pain 0/10 currently. HEENT: Pupils are 2.5 mm round, reactive to light. Extraocular movements are intact in all directions. Sensation V1, V2-V3 is intact to light touch. Tongue is midline. Palate elevates symmetrically. Hearing is subjectively decreased to finger rub on the right side compared to the left. There is no pronator drift. Strength testing reveals 5/5 strength in the bilateral handgrip, biceps, triceps and deltoid. Iliopsoas is 5/5 bilaterally. Left quadriceps anterior tibialis is 5/5. Gait was deferred. Sensory is intact to light touch in all four extremities. [id number] is performed without any gross ataxia or dysmetria. ASSESSMENT: 81-year-old male with episode of syncope with hypotension, bradycardia with known diagnosis of right internal carotid artery stenosis of approximately 70% with a possible watershed infarct due to hypotension involving the right temporoparietal lobe. It is unclear whether the stroke is acute as the patient has clinical symptoms of visual disturbance approximately [address] was performed on 10/29/2016 at 11:00 a.m. on the day of arrival of his syncope. The head CT showing the acute stroke means that the stroke occurred prior to the events of the syncope to begin with. It is unclear whether the patient was having any other prior episodes of hypotension prior to admission. PLAN: At this point, keep blood pressure normal as of October 31, 2016 and continue aspirin 81 mg, Plavix 75 mg and Eliquis. Physical therapy (PT) and occupational therapy (OT), telemetry monitoring, echocardiogram. The patient can followup with the neurology clinic upon discharge.
[2016-10-31 12:00] VITALS: BP 164/72
[2016-10-31] MEDS: LEVOTHYROXINE 0.05 MG TAB (50 MCG) PO SCH (14:30)
--- NOTE | 2016-10-31 14:44 | IPNPDOC ---
Subjective Date Seen The patient was seen on 10/31/16. Subjective Chief Complaint/HPI The patient is a 81-year-old male admitted with a reason for visit of Cva Syncope Unresponsive Episode. Events since last encounter pt seen and examined, was sitting in bed, at bedside. no overnight events Objective Physical Examination General Exam: Positive: No Acute Distress Eye Exam: Positive: PERRLA Neck Exam: Positive: Supple Chest Exam: Positive: Clear to auscultation Heart Exam: Positive: Rate Normal, Irregular Rhythm Abdomen Exam: Positive: Normal bowel sounds, Soft Extremity Exam: Positive: Normal pulses, Negative: Clubbing, Cyanosis, Edema Assessment /Plan Problems (1) Syncope Status: Acute Problem Text: * unknown etiology * may have been due to arrhythmia vs vascular disease * repeat carotid ultrasound showed 70% stenosis * continue to monitor pt on tele * resume pt's amiodarone, cardiology managing (2) Carotid stenosis, right Problem Text: * 70% stenosis will likely need to be reevaluated by vascular upon discharge * no acute intervention given that pt just had an acute stroke (3) CVA (cerebral vascular accident) Status: Acute Problem Text: * acute right temporal lobe infarct * pt has history of dementia and unable to appropriatly follow commands * will continue to keep SBP between 140-180 * Neurology is consulted (4) Ventricular arrhythmia Onset Date: 04/18/2014 Status: Acute Problem Text: * pt had a run of nonsustained vtach on tele * Dr serna is aware, he had interrogated his AICD 10/29 which showed no events * Pt is supposed to be on amiodarone which fell off his medication list at some point (5) Hypothyroid Status: Chronic (6) Atrial fibrillation Onset Date: 04/18/2014 Status: Chronic Problem Text: * pt is on eliquis (7) DM2 (diabetes mellitus, type 2) Status: Chronic (8) Elevated troponin I level Status: Chronic (9) Heart failure, systolic and diastolic, acute on chronic Onset Date: 04/18/2014 Status: Chronic (10) CKD (chronic kidney disease) stage 3, GFR 30-59 ml/min Status: Chronic Problem Text: * baseline creatine 1.4-1.5 * pt is currently at baseline (11) Pericardial effusion Status: Chronic Response to Treatment: Stable Plan/VTE VTE Prophylaxis Ordered?: Yes VS, I&O, 24H, Fishbone Vital Signs/I&O Vital Signs Date Time Temp Pulse Resp B/P (MAP) Pulse Ox O2 Delivery O2 Flow Rate FiO2 10/31/16 12:00 98.3 55 18 164/72 (102) 100 Room Air I&O- Last 24 Hours up to 6 AM 10/31/16 06:00 Intake Total 2160 ml Output Total 1800 ml Balance 360 ml Laboratory Data 24H LABS Laboratory Tests 2 10/30/16 16:47: Bedside Glucose (Misc Panel) 221H 10/30/16 20:29: Bedside Glucose (Misc Panel) 187H 10/31/16 05:08: Anion Gap 5L, Glomerular Filtration Rate > 60.0, Blood Urea Nitrogen 19H, Creatinine 1.19, Sodium Level 143, Potassium Level 3.8, Chloride Level 108H, Carbon Dioxide Level 30, Calcium Level 8.6L, Aspartate Amino Transf (AST/SGOT) 18, Alanine Aminotransferase (ALT/SGPT) 14, Alkaline Phosphatase 94, Total Bilirubin 0.3, Total Protein 6.1L, Albumin 2.6L, Magnesium Level 2.1, Albumin/ Globulin Ratio 0.74L 10/31/16 11:52: Bedside Glucose (Misc Panel) 203H CBC/BMP Laboratory Tests 10/31/16 05:08 Red Blood Count 3.79 L, Mean Corpuscular Volume 90.0, Mean Corpuscular Hemoglobin 29.7, Mean Corpuscular Hemoglobin Concent 33.0, Red Cell Distribution Width 16.8 H, Calcium Level 8.6 L, Aspartate Amino Transf (AST/SGOT ) 18, Alanine Aminotransferase (ALT/SGPT) 14, Alkaline Phosphatase 94, Total Bilirubin 0.3, Total Protein 6.1 L, Albumin 2.6 L Microbiology Microbiology 10/29/16 Blood Culture - Preliminary, Resulted No Growth after 48 hours. All Specime... 10/29/16 Blood Culture - Preliminary, Resulted No Growth after 48 hours. All Specime... 10/29/16 Influenza Virus Type A Antigen - Final, Complete 10/29/16 Influenza Virus Type B Antigen - Final, Complete 10/29/16 Urine Culture - Final, Complete Staphylococcus Epidermidis Corynebacterium Species Yeast Like Organism ELLYN HERNANDEZ DO Oct 31, 2016 14:44
[2016-10-31 16:00] VITALS: BP 164/72
[2016-10-31 20:00] VITALS: BP 177/83; PULSE 61
[2016-10-31] MEDS: ATORVASTATIN 20 MG TAB PO SCH (20:11)
[2016-10-31] MEDS: FINASTERIDE 5 MG TAB PO SCH (20:11)
[2016-10-31] MEDS: TAMSULOSIN 0.4 MG CAP PO SCH (20:12)
[2016-10-31] MEDS: LEVEMIR (INSULIN DETEMIR) 1 UNITS/0.01ML SC SCH (20:19)
--- NOTE | 2016-10-31 21:29 | IPN ---
CARDIOLOGY PROGRESS NOTE: 10/31/2016 SUBJECTIVE: The patient remains pleasantly confused, but appears in no distress. OBJECTIVE: Demented elderly male of medium body build with obvious right above-knee amputation lying comfortably. Heart rate 60 bpm and regular, blood pressure 140/60 supine, respiratory rate 18 per minute with O2 saturation 96% on room air. Low grade temperature. I and O balance yesterday was slightly positive. His recorded weights show a 4.5 kg increase from admission (question). His chest sounds clear and he has no neck vein elevation or dependent edema. 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 LABORATORY DATA: Hemoglobin 11.3, down from 12.1 with IV rehydration. Normal white blood cell count and platelet count. Electrolytes were in balance with BUN now 19 from 30 and creatinine now 1.19, significantly improved from admission, fasting glucose was 146. IMPRESSION/PLAN: 1. Unresponsiveness: As mentioned, this appears to have been related to relative hypotension, possibly triggering an acute temporal lobe infarction. The patient remains pleasantly demented with no lateralizing neurological deficit. 2. Ventricular tachycardia/single chamber implantable cardioverter defibrillator (ICD) in situ: No further complex ventricular arrhythmia with resumption of amiodarone. I am cautiously optimistic he will be able to be discharged back to [facility] late tomorrow afternoon. 3. Paroxysmal atrial fibrillation: Remains in a sinus rhythm at this time. Continues on combination Xarelto, aspirin and Plavix. 4. Heart failure (systolic and diastolic/chronic): As mentioned, recent hypotension, believed to be related to ongoing use of torsemide with reduced oral intake with his dementia. It is possible he may not require resumption of a loop diuretic. 5. Coronary artery disease/prior inferior wall myocardial infarction (IWMI)/post repeat left anterior descending (LAD) stenting: Claims to feel comfortable. Remains on protective combination carvedilol, atorvastatin, aspirin and Plavix. 6. Hypertensive heart disease (benign with heart failure): Remains compensated off his diuretic therapy having received IV rehydration. Improving renal function. 7. 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 Remains free of symptom or signs of endocarditis. 8. Pericardial effusion (chronic): Echocardiogram read earlier today shows a stable moderately large pericardial effusion without evidence of cardiac compression. As mentioned I suspect he may be fine to be discharged back to [facility] tomorrow afternoon.
[2016-10-31 23:59] VITALS: BP 174/73
[2016-11-01] VITALS: PULSE 62
[2016-11-01 04:00] VITALS: BP 189/84; PULSE 53
[2016-11-01 05:51] LABS: MEAN CORPUSCULAR HEMOGLOBIN 30.1 pg (27.0-33.0); MEAN CORPUSCULAR HGB CONC 33.4 g/dl (32.0-36.5); MEAN CORPUSCULAR VOLUME 90.4 fl (80.0-96.0); WHITE BLOOD COUNT 7.6 K/mm3 (4.0-10.0)
[2016-11-01] MEDS: SLF 3 ML SYR IV SCH (06:00)
[2016-11-01 06:06] LABS: ALBUMIN 2.6 GM/DL (3.2-5.2); ALBUMIN/GLOBULIN RATIO 0.79 (1.00-1.93); ALKALINE PHOSPHATASE 90 U/L (45-117); ALT/SGPT 17 U/L (12-78); ANION GAP 7 MEQ/L (8-16); AST/SGOT 17 U/L (15-37); BILIRUBIN,TOTAL 0.3 MG/DL (0.2-1.0); BLOOD UREA NITROGEN 20 MG/DL (7-18); CALCIUM LEVEL 8.4 MG/DL (8.8-10.2); CARBON DIOXIDE LEVEL 27 MEQ/L (21-32); CHLORIDE LEVEL 108 MEQ/L (98-107); CREATININE FOR GFR 1.23 MG/DL (0.70-1.30); GLOMERULAR FILTRATION RATE > 60.0 (>42); GLUCOSE, FASTING 169 MG/DL (83-110); POTASSIUM SERUM 3.8 MEQ/L (3.5-5.1); SODIUM LEVEL 142 MEQ/L (136-145); TOTAL PROTEIN 5.9 GM/DL (6.4-8.2)
[2016-11-01 08:00] VITALS: BP 196/80
[2016-11-01 09:00] VITALS: BP 189/84
[2016-11-01] MEDS: CARVedilol 6.25 MG TAB PO SCH (09:00)
[2016-11-01] MEDS: HumaLOG INSULIN (NovoLOG) PER UNIT SC SCH ×2 (10:22→12:31)
[2016-11-01] MEDS: MIRALAX *UNIT DOSE* 17GM PACKET PO SCH (10:24)
[2016-11-01] MEDS: CLOPIDOGREL 75 MG TAB PO SCH (10:25)
[2016-11-01] MEDS: ALLOPURINOL 100 MG TAB PO SCH (10:26)
[2016-11-01] MEDS: APIXABAN 5 MG TAB (ELIQUIS) PO SCH (10:26)
[2016-11-01] MEDS: CALCIUM CARBONATE 500 MG CHEW U/D PO SCH (10:26)
[2016-11-01] MEDS: SERTRALINE HCL 25 MG TABLET PO SCH (10:26)
[2016-11-01] MEDS: ASPIRIN 81 MG CHEW TABLET PO SCH (10:26)
[2016-11-01] MEDS: MULTIVITAMINS/MINERALS THERAP 1 TAB PO SCH (10:26)
[2016-11-01] MEDS: SENOKOT S TAB PO SCH (10:26)
[2016-11-01] MEDS: DOCUSATE SODIUM 100 MG CAP PO SCH (10:26)
[2016-11-01] MEDS: VITAMIN D 1,000 INTERNATIONAL UNITS TABLET PO SCH (10:26)
[2016-11-01] MEDS: AMIODARONE 200 MG TAB (PACERONE) PO SCH ×2 (10:27→12:32)
[2016-11-01] MEDS: CYANOCOBALAMIN 500 MCG TAB PO SCH (10:27)
[2016-11-01] MEDS ORDERED: LEVOTHYROXINE 50MCG TABLET (0.05MG) PO SCH (11:00)
[2016-11-01] MEDS ORDERED: AMIO200T37 PO (11:40)
--- NOTE | 2016-11-01 19:12 | IPN ---
DATE: 11/01/2016 CARDIOLOGY PROGRESS NOTE SUBJECTIVE: The patient remains pleasantly confused, certainly no chest pain, denying shortness of breath or dizziness. OBJECTIVE: Pleasantly demented elderly male of medium body build with obvious right above-knee amputation, heart rate 56 beats per minute and regular, blood pressure 145/60 (taken myself with a manual cuff). Respiratory rate 16 per minute, oxygen saturation 98% on room air. Afebrile. His weight today was marginally more than yesterday despite a recorded negative intake and output of 400 mL, questionable. He was comfortable lying flat. No current dependent edema. 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 LABORATORY DATA: Hemoglobin today is stable at 11.1. Normal white blood cell count and platelet count. Chemistry showed electrolyte balance with BUN 20, creatinine 1.2, fasting glucose was 197, magnesium level was 2.0, albumin 2.6. Liver function studies were normal. IMPRESSION/PLAN: 1. Unresponsiveness: As discussed with the patient's /significant other, we believe that his episode of unresponsiveness was related to relative volume depletion and hypotension believed to be due to his ongoing diuretic therapy and reduced oral intake with his dementia. We believe this has also been responsible for triggering his acute infarction. His mental status has remained improved with hindu of normal fluid status and withholding his diuretic therapy. 2. Ventricular tachycardia/single chamber implantable cardioverter defibrillator (ICD) in situ: Has remained free on loading amiodarone therapy. We will continue on amiodarone 200 mg daily. 3. Paroxysmal atrial fibrillation: Has been free of recurrent atrial tachyarrhythmia, especially with amiodarone loading. Will continue on low-dose carvedilol 6.25 mg twice a day along with his combination aspirin, Plavix and Eliquis 5 mg twice a day. 4. Heart failure (systolic and diastolic/chronic): As mentioned, related to his dementia and reduced oral intake, in order to prevent further volume depletion and hypotension, we have elected to withhold his torsemide and potassium chloride. He will remain on carvedilol, as mentioned above, alone. He does use Flomax for his urinary problem, which may impact on his blood pressure. He should remain on a modest salt and fluid intake restriction. We have encouraged her to contact us should she notice he has increased shortness of breath. 5. Coronary artery disease/prior inferior wall myocardial infarction (IWMI)/post left anterior descending (LAD) stenting: Has remained free of symptomatic myocardial ischemia. He will continue on the same carvedilol 6.25 mg twice a day, atorvastatin 40 mg nightly, aspirin and Plavix. I have encouraged her to contact us should she notice he has chest discomfort. 6. Hypertensive heart disease (benign with heart failure): Blood pressure remains adequately controlled with carvedilol alone. He will be seen in followup in my office after several weeks and should we find his blood pressure exceeds 150 mmHg systolic, we may well consider additional medical therapy. 7. Mitral and aortic valve disorder (nonrheumatic/insufficiency: No special measures deemed necessary beyond optimal blood pressure control. 8. Pericardial effusion (chronic): Has remained free of symptom or sign of cardiac tamponade. Followup echocardiogram showed a stable moderately large pericardial effusion without cardiac chamber compression. I agree with his discharge back to [facility] today. We will arrange for a followup appointment in my office in approximately 2 weeks time.
--- NOTE | 2016-11-05 05:33 | DSES ---
DATE OF ADMISSION: 10/29/2016 DATE OF DISCHARGE: 11/01/2016 REASON FOR ADMISSION: Syncopal episode. FINAL DIAGNOSIS: 1. Tachyarrhythmia. 2. Carotid stenosis. 3. History of coronary disease. 4. Paroxysmal atrial fibrillation. 5. Ventricular tachycardia. 6. Heart failure. 7. Hypertensive heart disease. 8. Mitral and aortic valve disorder. 9. Pericardial effusion, stable. 10. Acute cerebral vascular accident (CVA). HISTORY OF PRESENT ILLNESS: The patient is a 81-year-old male, resident at [facility], who presented to the hospital with his after he had an episode of unresponsiveness while they were walking earlier today. Upon arrival a CT of the head was done. The patient was found to have an acute event. He was admitted to the progressive care unit (PCU), Dr. Hickey was consulted as well as Dr. Carlos. He was also found to have several episodes of ventricular tachycardia (V-tach) on telemetry. The patient's medications were adjusted, he was restarted back on Amiodarone 200 mg three times a day for two days prior to discharge once he was found stable from neurology standpoint, as well as cardiology standpoint. The patient was discharged back [facility]. He was returned back his dose of Amiodarone 200 mg by mouth daily. DIET: Heart healthy diet. ACTIVITIES: As tolerated. DISCHARGE INSTRUCTIONS: Please see reconciled med list. FOLLOWUP: The patient is to followup with neurology in one week. He is to followup with Dr. Carlos in 1-2 weeks. The patient is also to followup with Dr. Bhat regarding acute on chronic carotid stenosis. The patient was seen by him last summer per the . He is due for another appointment. He is to see Dr. Bhat in the next week or two. CONDITION ON DISCHARGE: The patient's overall condition is guarded.
== END 2016-11-01 13:07 | DRG 65 ==
LOC: M ED 11:11 → M ED INP 13:31 → M PCU 19:54
PROVIDERS: ADMIT Internal Medicine; ATTEND Internal Medicine
DX: I63.9 Cerebral infarction, unspecified (principal); I47.2 Ventricular tachycardia; I50.42 Chronic combined systolic (congestive) and diastolic (congestive) heart failure; I31.3 Pericardial effusion (noninflammatory); N17.9 Acute kidney failure, unspecified; I13.0 Hypertensive heart and chronic kidney disease with heart failure and stage 1 through stage 4 chronic kidney disease, or unspecified chronic kidney disease; F01.50 Vascular dementia, unspecified severity, without behavioral disturbance, psychotic disturbance, mood disturbance, and anxiety; I25.5 Ischemic cardiomyopathy; I48.0 Paroxysmal atrial fibrillation; I25.10 Atherosclerotic heart disease of native coronary artery without angina pectoris; E11.9 Type 2 diabetes mellitus without complications; K21.9 Gastro-esophageal reflux disease without esophagitis; Z87.891 Personal history of nicotine dependence; R55 Syncope and collapse; Z79.899 Other long term (current) drug therapy; Z79.4 Long term (current) use of insulin; I73.9 Peripheral vascular disease, unspecified; E03.9 Hypothyroidism, unspecified; J44.9 Chronic obstructive pulmonary disease, unspecified; Z95.810 Presence of automatic (implantable) cardiac defibrillator; I25.2 Old myocardial infarction; Z86.718 Personal history of other venous thrombosis and embolism; Z86.711 Personal history of pulmonary embolism; I34.0 Nonrheumatic mitral (valve) insufficiency; I35.0 Nonrheumatic aortic (valve) stenosis; N18.3 Chronic kidney disease, stage 3 (moderate); I65.8 Occlusion and stenosis of other precerebral arteries

== ENCOUNTER → 2016-11-04 | Outpatient (REF) ==
[~2016-11-04] MED LIST changes: +AMIO200T37 PO; +COLA100C3 PO; +ENSULIQ64 PO; +K-TA1TAB PO; +MIRA3350 PO; +MIRA33504 PO; +PLAV75TA38 PO; +POTA10LI10 PO; +SERT1TAB16 PO; +SODIGEL; +TORS10TA3 PO; +TORS5TAB2 PO; +TRAM50TA2 PO
[2016-11-04 08:36] LABS: MEAN CORPUSCULAR HEMOGLOBIN 29.2 pg (27.0-33.0); MEAN CORPUSCULAR HGB CONC 31.6 g/dl (32.0-36.5); MEAN CORPUSCULAR VOLUME 92.4 fl (80.0-96.0); RED CELL DISTRIBUTION WIDTH 17.1 % (11.5-14.5); WHITE BLOOD COUNT 8.2 K/mm3 (4.0-10.0)
[2016-11-04 09:15] LABS: CALCIUM LEVEL 8.8 MG/DL (8.8-10.2); CREATININE FOR GFR 1.31 MG/DL (0.70-1.30); GLOMERULAR FILTRATION RATE 56.2 (>42); POTASSIUM SERUM 4.3 MEQ/L (3.5-5.1)
== END ==
LOC: SKLAB3 12:47
PROVIDERS: ATTEND Internal Medicine
DX: E11.9 Type 2 diabetes mellitus without complications (principal); I10 Essential (primary) hypertension

== ENCOUNTER → 2016-11-25 | Outpatient (REF) | payer MEDICARE, BC ==
[~2016-11-25] MED LIST changes: +ARIC1TAB PO; -ARIC5TAB PO; -ATOR40TA PO; +ATOR40TA75 PO; -AUGM875T27 PO; +AUGM875T28 PO; -COLA100C3 PO; +COLA100C5 PO; +KEFL500C17 PO; -KEFL500C7 PO; -METO-207 PO; +METO1TAB7 PO; +PLAV1TAB2 PO; -PLAV75TA38 PO; -SERT1TAB16 PO; +SERT25TA88 PO; +TUBE5INJ ID; -TUBE5INJ9 ID
[2016-11-25 09:22] LABS: CALCIUM LEVEL 8.6 MG/DL (8.8-10.2); CREATININE FOR GFR 1.24 MG/DL (0.70-1.30); GLOMERULAR FILTRATION RATE 59.9 (>42); POTASSIUM SERUM 4.1 MEQ/L (3.5-5.1)
== END ==
LOC: SKLAB3 07:00
PROVIDERS: ATTEND Internal Medicine
DX: I50.9 Heart failure, unspecified (principal)

== ENCOUNTER → 2016-12-02 | Outpatient (REF) | payer MEDICARE, BC ==
[2016-12-02 08:53] LABS: MEAN CORPUSCULAR HEMOGLOBIN 30.2 pg (27.0-33.0); MEAN CORPUSCULAR HGB CONC 32.4 g/dl (32.0-36.5); WHITE BLOOD COUNT 8.2 K/mm3 (4.0-10.0)
[2016-12-02 09:53] LABS: ALBUMIN 2.9 GM/DL (3.2-5.2); CREATININE FOR GFR 1.35 MG/DL (0.70-1.30); GLOMERULAR FILTRATION RATE 54.3 (>42); PHOSPHORUS LEVEL 3.7 MG/DL (2.5-4.9); POTASSIUM SERUM 4.1 MEQ/L (3.5-5.1)
== END ==
LOC: SKLAB3 12:54
PROVIDERS: ATTEND Internal Medicine
DX: I50.9 Heart failure, unspecified (principal)

== ENCOUNTER → 2016-12-16 | Outpatient (REF) | payer MEDICARE, BC ==
[2016-12-16 09:27] LABS: ALBUMIN 2.9 GM/DL (3.2-5.2); CALCIUM LEVEL 8.9 MG/DL (8.8-10.2); CREATININE FOR GFR 1.73 MG/DL (0.70-1.30); GLOMERULAR FILTRATION RATE 40.8 (>42); PHOSPHORUS LEVEL 3.9 MG/DL (2.5-4.9); POTASSIUM SERUM 3.4 MEQ/L (3.5-5.1)
== END ==
LOC: SKLAB3 07:00
PROVIDERS: ATTEND Internal Medicine
DX: I50.9 Heart failure, unspecified (principal)

== ENCOUNTER → 2017-01-20 | Outpatient (REF) | payer MEDICARE, BC ==
[2017-01-20 09:01] LABS: CALCIUM LEVEL 8.9 MG/DL (8.8-10.2); CREATININE FOR GFR 1.68 MG/DL (0.70-1.30); GLOMERULAR FILTRATION RATE 42.2 (>42); PHOSPHORUS LEVEL 4.1 MG/DL (2.5-4.9); POTASSIUM SERUM 4.3 MEQ/L (3.5-5.1)
== END ==
LOC: SKLAB3 07:00
PROVIDERS: ATTEND Internal Medicine
DX: I50.9 Heart failure, unspecified (principal)

== ENCOUNTER → 2017-02-03 | Outpatient (REF) | payer MEDICARE, BC | LOC: SKLAB3 08:00 | PROVIDERS: ATTEND Family Medicine | DX: E03.9 Hypothyroidism, unspecified (principal) ==

== ENCOUNTER → 2017-02-13 | Outpatient (REF) | payer MEDICARE, BC | LOC: SKLAB3 07:00 | PROVIDERS: ATTEND Family Medicine | DX: E11.9 Type 2 diabetes mellitus without complications (principal) ==

== ENCOUNTER → 2017-02-25 | Outpatient (REF) | payer MEDICARE, BC ==
[2017-02-25 08:09] LABS: CREATININE FOR GFR 1.73 MG/DL (0.70-1.30); GLOMERULAR FILTRATION RATE 40.8 (>42); POTASSIUM SERUM 3.8 MEQ/L (3.5-5.1)
== END ==
LOC: SKLAB3 07:14
PROVIDERS: ATTEND Internal Medicine
DX: I50.9 Heart failure, unspecified (principal)

== ENCOUNTER → 2017-04-08 | Outpatient (REF) | payer MEDICARE, BC | LOC: SKLAB3 07:11 | PROVIDERS: ATTEND Internal Medicine | DX: I50.9 Heart failure, unspecified (principal) ==

== ENCOUNTER → 2017-04-09 | Outpatient (REF) | payer MEDICARE, BC ==
[2017-04-09 08:09] LABS: ALBUMIN 3.1 GM/DL (3.2-5.2); CALCIUM LEVEL 9.2 MG/DL (8.8-10.2); CREATININE FOR GFR 1.96 MG/DL (0.70-1.30); GLOMERULAR FILTRATION RATE 35.2 (>35); PHOSPHORUS LEVEL 3.5 MG/DL (2.5-4.9)
[2017-04-09 08:21] LABS: IMMUNOGLOBULIN G 858 MG/DL (681-1648); IMMUNOGLOBULIN M 289 MG/DL (40-230); TOTAL PROTEIN 6.7 GM/DL (6.4-8.2)
[2017-04-10 15:25] LABS: ALBUMIN 3.37 GM/DL (3.29-5.55); ALBUMIN % 50.3 % (55.8-66.1)
== END ==
LOC: SKLAB3 07:00
PROVIDERS: ATTEND Internal Medicine
DX: I50.9 Heart failure, unspecified (principal)

== ENCOUNTER → 2017-05-13 | Outpatient (REF) | payer MEDICARE, BC ==
[2017-05-13 13:55] LABS: MEAN CORPUSCULAR HEMOGLOBIN 33.5 pg (27.0-33.0); MEAN CORPUSCULAR HGB CONC 33.2 g/dl (32.0-36.5); PLATELET COUNT, AUTOMATED 189 10^3/uL (150-450); RED CELL DISTRIBUTION WIDTH 13.7 % (11.5-14.5); WHITE BLOOD COUNT 9.3 10^3/uL (4.0-10.0)
[2017-05-13 14:15] LABS: CALCIUM LEVEL 8.7 MG/DL (8.8-10.2); CREATININE FOR GFR 1.96 MG/DL (0.70-1.30); GLOMERULAR FILTRATION RATE 35.2 (>35); POTASSIUM SERUM 4.2 MEQ/L (3.5-5.1)
== END ==
LOC: SKLAB3 13:14
PROVIDERS: ATTEND Internal Medicine
DX: R53.1 Weakness (principal); Z79.899 Other long term (current) drug therapy

== ENCOUNTER → 2017-05-14 | Outpatient (REF) | payer MEDICARE, BC | LOC: SKLAB3 13:48 | PROVIDERS: ATTEND Internal Medicine | DX: E11.9 Type 2 diabetes mellitus without complications (principal) ==

== ENCOUNTER → 2017-05-22 | Outpatient (CLI) | payer MEDICARE, MEDICAID | LOC: M RAD 07:21 | DX: R41.82 Altered mental status, unspecified (principal); I67.82 Cerebral ischemia; Z86.73 Personal history of transient ischemic attack (TIA), and cerebral infarction without residual deficits | CPT/HCPCS: 70450 ==

== ENCOUNTER → 2017-05-27 | Outpatient (REF) | payer MEDICARE, MEDICAID ==
[2017-05-27 10:16] LABS: ALBUMIN 2.9 GM/DL (3.2-5.2); ANION GAP 9 MEQ/L (8-16); BLOOD UREA NITROGEN 52 MG/DL (7-18); CALCIUM LEVEL 9.3 MG/DL (8.8-10.2); CARBON DIOXIDE LEVEL 33 MEQ/L (21-32); CHLORIDE LEVEL 102 MEQ/L (98-107); GLOMERULAR FILTRATION RATE 38.8 (>35); GLUCOSE, FASTING 279 MG/DL (83-110); POTASSIUM SERUM 3.9 MEQ/L (3.5-5.1); SODIUM LEVEL 144 MEQ/L (136-145)
== END ==
LOC: SKLAB3 06:55
DX: E11.9 Type 2 diabetes mellitus without complications (principal)

== ENCOUNTER → 2017-06-23 | Outpatient (REF) | payer MEDICARE, MEDICAID ==
[2017-06-23 10:30] LABS: ANION GAP 11 MEQ/L (8-16); BLOOD UREA NITROGEN 24 MG/DL (7-18); CALCIUM LEVEL 8.7 MG/DL (8.8-10.2); CARBON DIOXIDE LEVEL 29 MEQ/L (21-32); CHLORIDE LEVEL 106 MEQ/L (98-107); CREATININE FOR GFR 1.55 MG/DL (0.70-1.30); GLOMERULAR FILTRATION RATE 46.2 (>35); GLUCOSE, FASTING 226 MG/DL (70-100); PHOSPHORUS LEVEL 3.3 MG/DL (2.5-4.9); POTASSIUM SERUM 3.9 MEQ/L (3.5-5.1); SODIUM LEVEL 146 MEQ/L (136-145)
== END ==
LOC: SKLAB3 09:09
DX: E11.9 Type 2 diabetes mellitus without complications (principal)
CPT/HCPCS: 80069

== ENCOUNTER → 2017-08-04 | Outpatient (REF) | payer MEDICARE, MEDICAID | LOC: SKLAB3 12:46 | DX: E03.9 Hypothyroidism, unspecified (principal) | CPT/HCPCS: 84443 ==

== ENCOUNTER 2017-09-19 23:34 | Outpatient (REF) | payer MEDICARE, MEDICAID ==
[2017-09-20 12:39] LABS: ANION GAP 6 MEQ/L (8-16); BLOOD UREA NITROGEN 43 MG/DL (7-18); CALCIUM LEVEL 8.8 MG/DL (8.8-10.2); CARBON DIOXIDE LEVEL 34 MEQ/L (21-32); CHLORIDE LEVEL 105 MEQ/L (98-107); CREATININE FOR GFR 1.81 MG/DL (0.70-1.30); GLOMERULAR FILTRATION RATE 38.6 (>35); GLUCOSE, FASTING 248 MG/DL (70-100); POTASSIUM SERUM 3.9 MEQ/L (3.5-5.1); SODIUM LEVEL 145 MEQ/L (136-145)
== END 2017-09-20 ==
LOC: SKLAB3 23:34
DX: N18.9 Chronic kidney disease, unspecified (principal)
CPT/HCPCS: 80048

== ENCOUNTER → 2017-09-19 | Outpatient (REF) | payer MEDICARE, MEDICAID ==
[2017-09-19 14:49] LABS: ANION GAP 6 MEQ/L (8-16); BLOOD UREA NITROGEN 40 MG/DL (7-18); CALCIUM LEVEL 8.6 MG/DL (8.8-10.2); CARBON DIOXIDE LEVEL 32 MEQ/L (21-32); CHLORIDE LEVEL 107 MEQ/L (98-107); CREATININE FOR GFR 1.86 MG/DL (0.70-1.30); GLOMERULAR FILTRATION RATE 37.4 (>35); GLUCOSE, FASTING 238 MG/DL (70-100); POTASSIUM SERUM 3.9 MEQ/L (3.5-5.1); SODIUM LEVEL 145 MEQ/L (136-145)
== END ==
LOC: SKLAB3 13:11
DX: I63.9 Cerebral infarction, unspecified (principal); I25.10 Atherosclerotic heart disease of native coronary artery without angina pectoris; E11.9 Type 2 diabetes mellitus without complications; I10 Essential (primary) hypertension; E53.8 Deficiency of other specified B group vitamins
CPT/HCPCS: 80048

== ENCOUNTER → 2017-09-29 | Outpatient (REF) | payer MEDICARE, MEDICAID | LOC: SKLAB3 07:46 | DX: E30.9 Disorder of puberty, unspecified (principal) | CPT/HCPCS: 84443 ==

== ENCOUNTER → 2017-10-13 | Outpatient (REF) | payer MEDICARE, MEDICAID ==
[2017-10-13 09:46] LABS: ALBUMIN 2.8 GM/DL (3.2-5.2); ALBUMIN/GLOBULIN RATIO 0.85 (1.00-1.93); ALKALINE PHOSPHATASE 101 U/L (45-117); ALT/SGPT 16 U/L (12-78); ANION GAP 8 MEQ/L (8-16); AST/SGOT 10 U/L (7-37); BILIRUBIN,TOTAL 0.2 MG/DL (0.2-1.0); BLOOD UREA NITROGEN 25 MG/DL (7-18); CALCIUM LEVEL 8.6 MG/DL (8.8-10.2); CARBON DIOXIDE LEVEL 32 MEQ/L (21-32); CHLORIDE LEVEL 105 MEQ/L (98-107); CHOLESTEROL LEVEL 119 MG/DL (<200); CREATININE FOR GFR 1.33 MG/DL (0.70-1.30); GLOMERULAR FILTRATION RATE 55.1 (>35); GLUCOSE, FASTING 226 MG/DL (70-100); HDL CHOLESTEROL 34 MG/DL (>40); NON-HDL-C 85 MG/DL; POTASSIUM SERUM 3.9 MEQ/L (3.5-5.1); PSA SCREENING 0.44 NG/ML (< 4.0); SODIUM LEVEL 145 MEQ/L (136-145); TOTAL PROTEIN 6.1 GM/DL (6.4-8.2); TRIGLYCERIDES LEVEL 185 MG/DL (<150)
[2017-10-13 09:51] LABS: VITAMIN B12 LEVEL 739 PG/ML (247-911)
== END ==
LOC: SKLAB3 12:44
DX: E78.5 Hyperlipidemia, unspecified (principal); N40.1 Benign prostatic hyperplasia with lower urinary tract symptoms; E11.9 Type 2 diabetes mellitus without complications
CPT/HCPCS: 82607

== ENCOUNTER → 2017-11-17 | Outpatient (REF) | payer MEDICARE, MEDICAID ==
[2017-11-17 08:32] LABS: HEMATOCRIT 36.5 % (42.0-52.0); HEMOGLOBIN 12.2 g/dl (13.5-17.5); MEAN CORPUSCULAR HEMOGLOBIN 33.1 pg (27.0-33.0); MEAN CORPUSCULAR HGB CONC 33.4 g/dl (32.0-36.5); MEAN CORPUSCULAR VOLUME 98.9 fl (80.0-96.0); PLATELET COUNT, AUTOMATED 190 10^3/uL (150-450); RED BLOOD COUNT 3.69 10^6/uL (4.30-6.10); RED CELL DISTRIBUTION WIDTH 13.8 % (11.5-14.5); WHITE BLOOD COUNT 7.8 10^3/uL (4.0-10.0)
[2017-11-17 08:46] LABS: ESTIMATED AVERAGE GLUCOSE 220 MG/DL (60-110); HEMOGLOBIN A1c 9.3 %
== END ==
LOC: SKLAB3 08:00
DX: I50.9 Heart failure, unspecified (principal); E11.9 Type 2 diabetes mellitus without complications
CPT/HCPCS: 83036

== ENCOUNTER → 2018-04-01 | Outpatient (REF) | payer MEDICARE, MEDICAID ==
[2018-04-01 15:24] LABS: HEMATOCRIT 35.5 % (42.0-52.0); HEMOGLOBIN 11.8 g/dl (13.5-17.5); MEAN CORPUSCULAR HEMOGLOBIN 32.7 pg (27.0-33.0); MEAN CORPUSCULAR HGB CONC 33.2 g/dl (32.0-36.5); MEAN CORPUSCULAR VOLUME 98.3 fl (80.0-96.0); PLATELET COUNT, AUTOMATED 182 10^3/uL (150-450); RED BLOOD COUNT 3.61 10^6/uL (4.30-6.10); RED CELL DISTRIBUTION WIDTH 13.5 % (11.5-14.5); WHITE BLOOD COUNT 7.6 10^3/uL (4.0-10.0)
[2018-04-01 16:03] LABS: ALBUMIN 2.6 GM/DL (3.2-5.2); ALBUMIN/GLOBULIN RATIO 0.68 (1.00-1.93); ALKALINE PHOSPHATASE 117 U/L (45-117); ALT/SGPT 14 U/L (12-78); ANION GAP 4 MEQ/L (8-16); AST/SGOT 8 U/L (7-37); BILIRUBIN,TOTAL 0.2 MG/DL (0.2-1.0); BLOOD UREA NITROGEN 34 MG/DL (7-18); CALCIUM LEVEL 8.5 MG/DL (8.8-10.2); CARBON DIOXIDE LEVEL 36 MEQ/L (21-32); CHLORIDE LEVEL 102 MEQ/L (98-107); CREATININE FOR GFR 1.75 MG/DL (0.70-1.30); GLUCOSE, FASTING 235 MG/DL (70-100); POTASSIUM SERUM 3.9 MEQ/L (3.5-5.1); SODIUM LEVEL 142 MEQ/L (136-145); TOTAL PROTEIN 6.4 GM/DL (6.4-8.2)
== END | disposition home or self-care (01) ==
LOC: SKLAB3 14:26
DX: R53.83 Other fatigue (principal)
CPT/HCPCS: 84443

== ENCOUNTER → 2018-04-13 | Outpatient (REF) | payer MEDICARE, MEDICAID ==
[2018-04-13 09:53] LABS: VITAMIN B12 LEVEL 1012 PG/ML (247-911)
== END ==
LOC: SKLAB3 07:00
DX: E53.8 Deficiency of other specified B group vitamins (principal)
CPT/HCPCS: 82607

== ENCOUNTER → 2018-04-30 | Outpatient (REF) | payer MEDICARE, MEDICAID ==
[2018-04-30 08:28] LABS: ANION GAP 7 MEQ/L (8-16); BLOOD UREA NITROGEN 41 MG/DL (7-18); CALCIUM LEVEL 8.9 MG/DL (8.8-10.2); CARBON DIOXIDE LEVEL 34 MEQ/L (21-32); CHLORIDE LEVEL 103 MEQ/L (98-107); CREATININE FOR GFR 1.66 MG/DL (0.70-1.30); GLOMERULAR FILTRATION RATE 42.5 (>35); GLUCOSE, FASTING 171 MG/DL (70-100); POTASSIUM SERUM 3.7 MEQ/L (3.5-5.1); SODIUM LEVEL 144 MEQ/L (136-145)
== END ==
LOC: SKLAB3 08:00
DX: E11.9 Type 2 diabetes mellitus without complications (principal)
CPT/HCPCS: 80048

== ENCOUNTER → 2018-05-11 | Outpatient (REF) | payer MEDICARE, MEDICAID ==
[2018-05-11 08:43] LABS: HEMATOCRIT 35.2 % (42.0-52.0); HEMOGLOBIN 11.5 g/dl (13.5-17.5); MEAN CORPUSCULAR HEMOGLOBIN 33.1 pg (27.0-33.0); MEAN CORPUSCULAR HGB CONC 32.7 g/dl (32.0-36.5); MEAN CORPUSCULAR VOLUME 101.4 fl (80.0-96.0); PLATELET COUNT, AUTOMATED 177 10^3/uL (150-450); RED BLOOD COUNT 3.47 10^6/uL (4.30-6.10); RED CELL DISTRIBUTION WIDTH 14.1 % (11.5-14.5); WHITE BLOOD COUNT 7.7 10^3/uL (4.0-10.0)
[2018-05-11 10:38] LABS: ESTIMATED AVERAGE GLUCOSE 226 MG/DL (60-110); HEMOGLOBIN A1c 9.5 %
== END ==
LOC: SKLAB3 12:41
DX: D64.9 Anemia, unspecified (principal); E11.9 Type 2 diabetes mellitus without complications
CPT/HCPCS: 83036

== ENCOUNTER → 2018-05-15 | Outpatient (REF) | payer MEDICARE, MEDICAID ==
[~2018-05-15] MED LIST changes: +AMIO200T PO; +AMLO10TA4 PO; -AMLO2.5T PO; +AMLO2.5T2 PO; +AMLO5TAB4 PO; +ASPI81CH40 PO; -ASPI81TA PO; -DRIS50002 PO; +DRIS50003 PO; +ELIQ2.5T PO; +FLOM0.4C39 PO; -FLOM5CAP PO; +GABA-1171 PO; -GABA-279 PO; +INSULANT SC; +IPRA0.00 INH; +IPRA0.00 NEB; -IPRASOL4 INH; -IPRASOL4 NEB; +KLOR10TA76 PO; +LEVO75TA34 PO; +MILK12002 PO; -MILKSUS PO; +NATU99.0 OU; +NEUR100C PO; +SPIR-10 PO; -SPIR25TA2 PO; +TORS20TA2 PO; -ZYLO100T PO; +ZYLO100T2 PO
[2018-05-15 07:32] LABS: CALCIUM LEVEL 8.7 MG/DL (8.8-10.2); CREATININE FOR GFR 1.79 MG/DL (0.70-1.30); POTASSIUM SERUM 3.9 MEQ/L (3.5-5.1)
== END ==
LOC: SKLAB3 08:00
PROVIDERS: ATTEND Internal Medicine
DX: I50.9 Heart failure, unspecified (principal); E11.9 Type 2 diabetes mellitus without complications

== ENCOUNTER → 2018-06-15 | Outpatient (REF) | payer MEDICARE, MEDICAID ==
[~2018-06-15] MED LIST changes: -AMLO10TA4 PO; +AMLO10TA5 PO; -AMLO2.5T2 PO; +AMLO2.5T3 PO; -AMLO5TAB4 PO; +AMLO5TAB6 PO; +MILK120011 PO; -MILK12002 PO
== END ==
LOC: SKLAB3 13:36
PROVIDERS: ATTEND Internal Medicine
DX: N40.0 Benign prostatic hyperplasia without lower urinary tract symptoms (principal); Z12.5 Encounter for screening for malignant neoplasm of prostate
CPT/HCPCS: 36415; G0103

== ENCOUNTER → 2018-07-23 | Outpatient (REF) | payer MEDICARE, MEDICAID ==
[2018-07-23 14:19] LABS: APPEARANCE, URINE CLEAR (CLEAR); BACTERIA, URINE AUTO 1+ (NEGATIVE); BILIRUBIN, URINE AUTO NEGATIVE (NEGATIVE); BLOOD, URINE BLOOD 1+ (NEGATIVE); COLOR, URINE YELLOW (YELLOW); GLUCOSE, URINE (UA) AUTO NEGATIVE (NEGATIVE); KETONE, URINE AUTO NEGATIVE (NEGATIVE); LEUKOCYTE ESTERASE, URINE AUTO 1+ (NEGATIVE); NITRITE, URINE AUTO NEGATIVE (NEGATIVE); PROTEIN, URINE AUTO NEGATIVE (NEGATIVE); RBC, URINE AUTO 4 /HPF (0-3); SPECIFIC GRAVITY URINE AUTO 1.008 (1.002-1.035); SQUAMOUS EPITHELIAL CELL UR AU 0 /HPF (0-6); UROBILINOGEN, URINE AUTO 0.2 mg/dL (0.0-2.0); WBC, URINE AUTO 10 /HPF (0-3)
== END ==
LOC: SKLAB3 11:56
PROVIDERS: ATTEND Internal Medicine
DX: R30.0 Dysuria (principal)

== ENCOUNTER → 2018-09-14 | Outpatient (REF) | payer MEDICARE, MEDICAID ==
[~2018-09-14] MED LIST changes: -/METO25TAB PO; -/WARF3TA PO; +AMIO200T10 PO; +AMIO200T22 PO; -AMIO20TA PO; -AMIO400T PO; +AMIO400T7 PO; -ASPI81CH PO; +ASPI81CH36 PO; -ASPI81CH40 PO; +ASPI81CH49 PO; +COUM1TAB19 PO; +ISOS1TAB11 PO; -ISOS20TAB PO; +METO-1 PO; +METO1TAB87 PO; +SENN1TAB41 PO; -SENN8.6T7 PO; -TOPR25TA PO
[2018-09-14 11:31] LABS: CALCIUM LEVEL 8.7 MG/DL (8.8-10.2); CREATININE FOR GFR 1.68 MG/DL (0.70-1.30); POTASSIUM SERUM 4.2 MEQ/L (3.5-5.1)
== END ==
LOC: SKLAB7 06:57
PROVIDERS: ATTEND Internal Medicine
DX: I50.9 Heart failure, unspecified (principal)

== ENCOUNTER → 2018-09-23 | Outpatient (REF) | payer MEDICARE, MEDICAID ==
[2018-09-23 10:27] LABS: CALCIUM LEVEL 9.1 MG/DL (8.8-10.2); CREATININE FOR GFR 1.98 MG/DL (0.70-1.30); GLOMERULAR FILTRATION RATE 34.7 (>35); POTASSIUM SERUM 4.2 MEQ/L (3.5-5.1)
== END ==
LOC: SKLAB3 07:00
PROVIDERS: ATTEND Internal Medicine
DX: I50.9 Heart failure, unspecified (principal)

== ENCOUNTER → 2018-10-08 | Outpatient (REF) | payer MEDICARE, MEDICAID ==
[2018-10-08 08:51] LABS: CALCIUM LEVEL 9.2 MG/DL (8.8-10.2); CREATININE FOR GFR 1.85 MG/DL (0.70-1.30); GLOMERULAR FILTRATION RATE 37.5 (>35); POTASSIUM SERUM 4.3 MEQ/L (3.5-5.1)
== END ==
LOC: SKLAB3 07:00
PROVIDERS: ATTEND Internal Medicine
DX: E11.9 Type 2 diabetes mellitus without complications (principal); I50.9 Heart failure, unspecified

== ENCOUNTER → 2018-10-12 | Outpatient (REF) | payer MEDICARE, MEDICAID ==
[2018-10-12 08:46] LABS: CHOLESTEROL RISK RATIO 3.487 (<5)
[2018-10-13 16:10] LABS: ALBUMIN 3.1 GM/DL (3.2-5.2); BILIRUBIN,TOTAL 0.3 MG/DL (0.2-1.0); CALCIUM LEVEL 9.4 MG/DL (8.8-10.2); CREATININE FOR GFR 1.71 MG/DL (0.70-1.30); FREE T4 1.17 NG/DL (0.76-1.46); GLOMERULAR FILTRATION RATE 41.1 (>35); THYROID STIMULATING HORMONE 5.83 uIU/ML (0.358-3.740); TOTAL PROTEIN 6.7 GM/DL (6.4-8.2)
== END ==
LOC: SKLAB3 14:00
PROVIDERS: ATTEND Internal Medicine
DX: E78.5 Hyperlipidemia, unspecified (principal); E53.9 Vitamin B deficiency, unspecified

== ENCOUNTER → 2018-11-09 | Outpatient (REF) | payer MEDICARE, MEDICAID ==
[2018-11-09 08:18] LABS: HEMATOCRIT 35.8 % (42.0-52.0); HEMOGLOBIN 11.7 g/dl (13.5-17.5); MEAN CORPUSCULAR HEMOGLOBIN 32.5 pg (27.0-33.0); MEAN CORPUSCULAR HGB CONC 32.7 g/dl (32.0-36.5); MEAN CORPUSCULAR VOLUME 99.4 fl (80.0-96.0); PLATELET COUNT, AUTOMATED 162 10^3/uL (150-450); WHITE BLOOD COUNT 7.3 10^3/uL (4.0-10.0)
[2018-11-09 08:28] LABS: HEMOGLOBIN A1c 9.7 %
== END ==
LOC: SKLAB3 07:00
PROVIDERS: ATTEND Internal Medicine
DX: E11.9 Type 2 diabetes mellitus without complications (principal); D64.9 Anemia, unspecified

== ENCOUNTER → 2019-02-04 | Outpatient (REF) | payer MEDICARE, MEDICAID ==
[~2019-02-04] MED LIST changes: +ASPI81CH32 PO; -ASPI81CH36 PO; -PYRI100T2 PO; +SERT25TA21 PO; -SERT25TA88 PO; -SIMV20TA2 PO; +SIMV20TA22 PO; +VITA100T82 PO
[2019-02-04 10:51] LABS: HEMATOCRIT 36.6 % (42.0-52.0); MEAN CORPUSCULAR HEMOGLOBIN 33.8 pg (27.0-33.0); MEAN CORPUSCULAR HGB CONC 32.8 g/dl (32.0-36.5); MEAN CORPUSCULAR VOLUME 103.1 fl (80.0-96.0); PLATELET COUNT, AUTOMATED 159 10^3/uL (150-450); RED BLOOD COUNT 3.55 10^6/uL (4.30-6.10); WHITE BLOOD COUNT 8.4 10^3/uL (4.0-10.0)
[2019-02-04 11:19] LABS: CALCIUM LEVEL 9.2 MG/DL (8.8-10.2); CREATININE FOR GFR 1.71 MG/DL (0.70-1.30); GLOMERULAR FILTRATION RATE 41.1 (>35); POTASSIUM SERUM 4.1 MEQ/L (3.5-5.1); THYROID STIMULATING HORMONE 5.9 uIU/ML (0.358-3.740)
== END ==
LOC: SKLAB3 09:33
PROVIDERS: ATTEND Internal Medicine
DX: E03.9 Hypothyroidism, unspecified (principal); R41.82 Altered mental status, unspecified

== ENCOUNTER → 2019-02-08 | Outpatient (REF) | payer MEDICARE, MEDICAID ==
[~2019-02-08] MED LIST changes: -ASPI81CH32 PO; +ASPI81CH36 PO; +PYRI100T2 PO; -SERT25TA21 PO; +SERT25TA88 PO; +SIMV20TA2 PO; -SIMV20TA22 PO; -VITA100T82 PO
[2019-02-08 14:34] LABS: APPEARANCE, URINE HAZY (CLEAR); BACTERIA, URINE AUTO 1+ (NEGATIVE); BILIRUBIN, URINE AUTO NEGATIVE (NEGATIVE); BLOOD, URINE BLOOD NEGATIVE (NEGATIVE); COLOR, URINE YELLOW (YELLOW); GLUCOSE, URINE (UA) AUTO NEGATIVE (NEGATIVE); KETONE, URINE AUTO NEGATIVE (NEGATIVE); LEUKOCYTE ESTERASE, URINE AUTO 1+ (NEGATIVE); MUCUS, URINE SMALL (NEGATIVE); NITRITE, URINE AUTO NEGATIVE (NEGATIVE); PROTEIN, URINE AUTO NEGATIVE (NEGATIVE); RBC, URINE AUTO 6 /HPF (0-3); SPECIFIC GRAVITY URINE AUTO 1.008 (1.002-1.035); SQUAMOUS EPITHELIAL CELL UR AU 0 /HPF (0-6); UROBILINOGEN, URINE AUTO 0.2 mg/dL (0.0-2.0); WBC, URINE AUTO 18 /HPF (0-3)
== END ==
LOC: SKLAB3 14:06
PROVIDERS: ATTEND Internal Medicine
DX: R41.82 Altered mental status, unspecified (principal)

== ENCOUNTER → 2019-02-19 | Outpatient (REF) | payer MEDICARE, MEDICAID ==
[2019-02-19 08:15] LABS: CALCIUM LEVEL 8.9 MG/DL (8.8-10.2); CREATININE FOR GFR 1.62 MG/DL (0.70-1.30); GLOMERULAR FILTRATION RATE 43.8 (>35); POTASSIUM SERUM 4.1 MEQ/L (3.5-5.1)
== END ==
LOC: SKLAB3 07:00
PROVIDERS: ATTEND Internal Medicine
DX: I50.9 Heart failure, unspecified (principal)

== ENCOUNTER → 2019-04-05 | Outpatient (REF) | payer MEDICARE, MEDICAID ==
[~2019-04-05] MED LIST changes: +SERT25TA21 PO; -SERT25TA88 PO
[2019-04-05 09:07] LABS: FREE T4 1.2 NG/DL (0.76-1.46); THYROID STIMULATING HORMONE 4.86 uIU/ML (0.358-3.740)
== END ==
LOC: SKLAB3 09:31
PROVIDERS: ATTEND Internal Medicine
DX: I50.9 Heart failure, unspecified (principal); E11.9 Type 2 diabetes mellitus without complications

== ENCOUNTER → 2019-04-12 | Outpatient (REF) | payer MEDICARE, MEDICAID ==
[2019-04-12 09:59] LABS: ALBUMIN 3.2 GM/DL (3.2-5.2); BILIRUBIN,TOTAL 0.3 MG/DL (0.2-1.0); CALCIUM LEVEL 9.4 MG/DL (8.8-10.2); CREATININE FOR GFR 1.68 MG/DL (0.70-1.30); GLOMERULAR FILTRATION RATE 41.9 (>35); TOTAL PROTEIN 6.8 GM/DL (6.4-8.2)
== END ==
LOC: SKLAB3 07:00
PROVIDERS: ATTEND Internal Medicine
DX: E53.8 Deficiency of other specified B group vitamins (principal); E11.9 Type 2 diabetes mellitus without complications

== ENCOUNTER → 2019-05-10 | Outpatient (REF) | payer MEDICARE, MEDICAID ==
[~2019-05-10] MED LIST changes: -PYRI100T2 PO; -SIMV20TA2 PO; +SIMV20TA22 PO; +VITA100T82 PO
[2019-05-10 11:32] LABS: HEMATOCRIT 43.4 % (42.0-52.0); HEMOGLOBIN 13.9 g/dl (13.5-17.5); MEAN CORPUSCULAR HEMOGLOBIN 33.3 pg (27.0-33.0); MEAN CORPUSCULAR VOLUME 104.1 fl (80.0-96.0); PLATELET COUNT, AUTOMATED 169 10^3/uL (150-450); RED BLOOD COUNT 4.17 10^6/uL (4.30-6.10); WHITE BLOOD COUNT 7.6 10^3/uL (4.0-10.0)
[2019-05-10 12:13] LABS: HEMOGLOBIN A1c 9.3 %
== END ==
LOC: SKLAB3 14:33
PROVIDERS: ATTEND Internal Medicine
DX: I50.9 Heart failure, unspecified (principal); E11.9 Type 2 diabetes mellitus without complications

== ENCOUNTER → 2019-06-14 | Outpatient (REF) | payer MEDICARE, MEDICAID ==
[~2019-06-14] MED LIST changes: +ASPI81CH32 PO; -ASPI81CH36 PO
== END ==
LOC: SKLAB3 11:48
PROVIDERS: ATTEND Internal Medicine
DX: Z12.5 Encounter for screening for malignant neoplasm of prostate (principal); N40.1 Benign prostatic hyperplasia with lower urinary tract symptoms
CPT/HCPCS: 36415; G0103

== ENCOUNTER → 2019-07-05 | Outpatient (REF) | payer MEDICARE, MEDICAID ==
[2019-07-05 11:27] LABS: FREE T4 1.41 NG/DL (0.76-1.46); THYROID STIMULATING HORMONE 2.32 uIU/ML (0.358-3.740)
== END ==
LOC: SKLAB3 07:00
PROVIDERS: ATTEND Internal Medicine
DX: E03.9 Hypothyroidism, unspecified (principal)

== ENCOUNTER → 2019-09-01 | Outpatient (REF) | payer MEDICARE, MEDICAID ==
[2019-09-01 18:48] LABS: CALCIUM LEVEL 8.9 MG/DL (8.8-10.2); CREATININE FOR GFR 1.73 MG/DL (0.70-1.30); GLOMERULAR FILTRATION RATE 40.5 (>35); POTASSIUM SERUM 4.1 MEQ/L (3.5-5.1)
== END ==
LOC: SKLAB3 15:00
PROVIDERS: ATTEND Internal Medicine
DX: I50.9 Heart failure, unspecified (principal)

== ENCOUNTER → 2019-10-05 | Outpatient (REF) ==
[~2019-10-05] MED LIST changes: -MAPA325T2 PO; +MAPA325T8 PO
== END ==
LOC: SKLAB3 08:00
PROVIDERS: ATTEND Internal Medicine
DX: Z03.818 Encounter for observation for suspected exposure to other biological agents ruled out (principal)

== ENCOUNTER → 2019-10-12 | Outpatient (REF) | payer MEDICARE, MEDICAID ==
[2019-10-12 09:37] LABS: ALBUMIN 2.6 GM/DL (3.2-5.2); BILIRUBIN,TOTAL 0.2 MG/DL (0.2-1.0); CALCIUM LEVEL 8.7 MG/DL (8.8-10.2); CHOLESTEROL RISK RATIO 3.888 (<5); CREATININE FOR GFR 1.69 MG/DL (0.70-1.30); GLOMERULAR FILTRATION RATE 41.6 (>35); POTASSIUM SERUM 3.8 MEQ/L (3.5-5.1); TOTAL PROTEIN 5.9 GM/DL (6.4-8.2)
== END ==
LOC: SKLAB3 08:37
PROVIDERS: ATTEND Internal Medicine
DX: E11.9 Type 2 diabetes mellitus without complications (principal); E78.5 Hyperlipidemia, unspecified; E53.9 Vitamin B deficiency, unspecified

== ENCOUNTER → 2019-11-15 | Outpatient (REF) | payer MEDICARE, MEDICAID ==
[~2019-11-15] MED LIST changes: +APAP325T4 PO; +ASPI81CH33 PO; +AYR0.65S NARES; +ENEMENE PR; +ENSU1LIQ36 PO; +LEVO112T2 PO; +MOM30SS2 PO; +POTA10TA17 PO; +SENN-23 PO; +SODIGEL TOP; +VITAD1000T PO
[2019-11-15 08:22] LABS: CALCIUM LEVEL 8.8 MG/DL (8.8-10.2); CREATININE FOR GFR 1.58 MG/DL (0.70-1.30); GLOMERULAR FILTRATION RATE 44.9 (>35); POTASSIUM SERUM 3.7 MEQ/L (3.5-5.1)
== END ==
LOC: SKLAB3 07:00
PROVIDERS: ATTEND Internal Medicine
DX: R60.9 Edema, unspecified (principal)

== ENCOUNTER 2019-11-23 18:18 | Emergency (ER) | payer MEDICARE, MEDICAID ==
[~2019-11-23] VITALS: Ht 167.6 cm; Wt 92.7 kg
[~2019-11-23 18:18] MED LIST changes: -APAP325T4 PO; -ASPI81CH33 PO; -AYR0.65S NARES; -ENEMENE PR; -ENSU1LIQ36 PO; -LEVO112T2 PO; -MOM30SS2 PO; -POTA10TA17 PO; -SENN-23 PO; -SODIGEL TOP; -VITAD1000T PO
[2019-11-23] MEDS ORDERED: MIRA3350 PO (19:10)
[2019-11-23] MEDS ORDERED: ENEMENE PR (19:10)
[2019-11-23] MEDS ORDERED: GABA-1171 PO (19:10)
[2019-11-23] MEDS ORDERED: ALLO10TA PO (19:10)
[2019-11-23] MEDS ORDERED: DULC10SU2 PR (19:10)
[2019-11-23] MEDS ORDERED: NITR4TASL SL (19:10)
[2019-11-23] MEDS ORDERED: LEVO112T2 PO (19:10)
[2019-11-23] MEDS ORDERED: INSUHUMDS SC ×3 (19:10)
[2019-11-23] MEDS ORDERED: IPRA0.00 NEB (19:10)
[2019-11-23] MEDS ORDERED: CLOP75TA2 PO (19:10)
[2019-11-23] MEDS ORDERED: CARV12.5 PO (19:10)
[2019-11-23] MEDS ORDERED: AYR0.65S NARES (19:10)
[2019-11-23] MEDS ORDERED: SENN-23 PO (19:10)
[2019-11-23] MEDS ORDERED: VITAD1000T PO (19:10)
[2019-11-23] MEDS ORDERED: VITMTA PO (19:10)
[2019-11-23] MEDS ORDERED: ASPI81CH33 PO (19:10)
[2019-11-23] MEDS ORDERED: ELIQ2.5T PO (19:10)
[2019-11-23] MEDS ORDERED: SODIGEL TOP (19:10)
[2019-11-23] MEDS ORDERED: ENSU1LIQ36 PO (19:10)
[2019-11-23] MEDS ORDERED: TORS20TA2 PO ×2 (19:10)
[2019-11-23] MEDS ORDERED: ATOR40TA75 PO (19:10)
[2019-11-23] MEDS ORDERED: FINA5TAB2 PO (19:10)
[2019-11-23] MEDS ORDERED: COLA100C5 PO (19:10)
[2019-11-23] MEDS ORDERED: INSUDET SC (19:10)
[2019-11-23] MEDS ORDERED: MOM30SS2 PO (19:10)
[2019-11-23] MEDS ORDERED: CARV6.25 PO (19:10)
[2019-11-23] MEDS ORDERED: AMIO200T PO (19:10)
[2019-11-23] MEDS ORDERED: POTA10TA17 PO (19:10)
[2019-11-23] MEDS ORDERED: APAP325T4 PO (19:10)
[2019-11-23] MEDS ORDERED: FLOM0.4C39 PO (19:10)
[2019-11-24 00:29] VITALS: BP 189/77
[2019-11-24] MEDS ORDERED: CARVedilol 6.25 MG TAB PO ONE (00:30)
[2019-11-24 00:35] VITALS: BP 132/62
== END 2019-11-24 00:40 | disposition short-term general hospital (02) ==
LOC: M ED 18:18 → EDBD 18:18 → M ED 11-24 00:40
DX: I99.8 Other disorder of circulatory system (principal); E11.40 Type 2 diabetes mellitus with diabetic neuropathy, unspecified; I10 Essential (primary) hypertension; J44.9 Chronic obstructive pulmonary disease, unspecified; F03.90 Unspecified dementia, unspecified severity, without behavioral disturbance, psychotic disturbance, mood disturbance, and anxiety; I48.91 Unspecified atrial fibrillation; Z79.899 Other long term (current) drug therapy; Z79.82 Long term (current) use of aspirin; Z79.4 Long term (current) use of insulin; Z79.01 Long term (current) use of anticoagulants; Z99.81 Dependence on supplemental oxygen
CPT/HCPCS: 93926; 99285; U0002

== ENCOUNTER → 2019-11-23 | Outpatient (CLI) | payer MEDICARE, MEDICAID ==
--- NOTE | 2019-11-23 17:14 | REP ---
Left lower extremity unilateral arterial Doppler ultrasound: History: Left leg pain. Findings: The left ankle-brachial index could not be calculated due to noncompressible vessels. Heavily calcified arteriole atherosclerotic changes are seen. There is a 2:1 velocity stenosis in the mid superficial femoral artery on the left. Biphasic waveforms are noted proximally. Monophasic waveforms are noted in the arterial tree in the left lower extremity at and distal to the distal superficial femoral artery segment. The vessels in the calf are thread-like and small. Posterior tibial artery flow is not seen at the ankle distally. Left lower extremity arterial Doppler velocity chart: Left CF A PSV 144 cm/S Profunda 66 Proximal SFA 57 Mid SFA 123 Distal SFA 42 Popliteal 13 Proximal AT A nine Tibioperoneal trunk not seen Proximal RISK PROFESSIONAL nine Distal RISK PROFESSIONAL not seen Distal AT A 17 Electronically Signed by Master Rea MD 11/23/2019 05:05 P
== END ==
LOC: M RAD 15:05
PROVIDERS: ATTEND Nurse Practitioner Family
DX: M79.89 Other specified soft tissue disorders (principal); M79.662 Pain in left lower leg; I70.202 Unspecified atherosclerosis of native arteries of extremities, left leg

== ENCOUNTER → 2019-12-02 | Outpatient (REF) | payer MEDICARE, MEDICAID ==
[~2019-12-02] MED LIST changes: +APAP325T4 PO; +ASPI81CH33 PO; +AYR0.65S NARES; +ENEMENE PR; +ENSU1LIQ36 PO; +LEVO112T2 PO; +MOM30SS2 PO; +POTA10TA17 PO; +SENN-23 PO; +SODIGEL TOP; +VITAD1000T PO
[2019-12-02 09:40] LABS: HEMATOCRIT 39.6 % (42.0-52.0); HEMOGLOBIN 12.6 g/dl (13.5-17.5); MEAN CORPUSCULAR HEMOGLOBIN 32.6 pg (27.0-33.0); MEAN CORPUSCULAR HGB CONC 31.8 g/dl (32.0-36.5); MEAN CORPUSCULAR VOLUME 102.3 fl (80.0-96.0); PLATELET COUNT, AUTOMATED 267 10^3/uL (150-450); RED BLOOD COUNT 3.87 10^6/uL (4.30-6.10); WHITE BLOOD COUNT 8.8 10^3/uL (4.0-10.0)
[2019-12-02 10:01] LABS: HEMOGLOBIN A1c 8.5 %
[2019-12-02 10:22] LABS: ALBUMIN 2.7 GM/DL (3.2-5.2); BILIRUBIN,TOTAL 0.3 MG/DL (0.2-1.0); CALCIUM LEVEL 9.1 MG/DL (8.8-10.2); CREATININE FOR GFR 1.83 MG/DL (0.70-1.30); GLOMERULAR FILTRATION RATE 37.9 (>35); THYROID STIMULATING HORMONE 4.19 uIU/ML (0.358-3.740); TOTAL PROTEIN 6.9 GM/DL (6.4-8.2)
== END ==
LOC: SKLAB3 07:00
PROVIDERS: ATTEND Nurse Practitioner Family
DX: E03.9 Hypothyroidism, unspecified (principal); E11.9 Type 2 diabetes mellitus without complications